=== PATIENT | male | born 1950 | race Caucasian/White ===

== ENCOUNTER 2016-07-18 12:30 | Emergency (ER) | payer BC, OTHER ==
[~2016-07-18] VITALS: Ht 175.3 cm; Wt 133.8 kg
[~2016-07-18 12:30] MED LIST: AMLO10TA2 PO; AMLO5TAB4 PO; FAMO-119 PO; HCT25T PO; LISI20TA PO; METO-272 PO; METO-333 PO
--- OUTSIDE RECORDS SUMMARY | 2016-07-18 12:37 | XMS REPORT | Continuity of Care Document ---
Author Author [facility] Organization [facility] Address Unknown Phone Unavailable Care Team Providers Care Film Recordist Name Role Phone Leandro Rader PCP [phone] Source Comments Some departments are not documenting in the electronic medical record. If you do not see the information that you expected, contact Release of Information in the Health Information Management department at [phone] for further assistance in locating additional records.[facility] Active Allergies and Adverse Reactions No Known Allergies Current Medications Prescription Sig. Disp. Refills Start End Date Status Date metoprolol (LOPRESSOR) 50 Take 50 mg by mouth twice Active mg tablet daily. amLODIPine (NORVASC) 10 Take 10 mg by mouth Active mg tablet daily. famotidine (PEPCID) 20 mg Take 20 mg by mouth twice Active tablet daily as needed. HYDROcodone/acetaminophen Take 1-2 Tabs by mouth 60 Tab 0 12/15/19 Active (NORCO) 5-325 mg tablet every 4 hours as needed 16 for Pain Earliest Fill Date: 12/15/15 Active Problems Problem Noted Date Elective surgery 12/11/2015 Villous adenoma of rectum 11/19/2015 Obesity, Class III, BMI 40-49.9 (morbid obesity) (HCC) 10/28/2015 Rectal mass 10/16/2015 Colonic mass 09/27/2015 Social History Tobacco Use Types Packs/Day Years Used Date Never Smoker Smokeless Tobacco: Never Used Alcohol Use Drinks/Week oz/Week Comments No 0 Standard 0.0 drinks or equivalent Last Filed Vital Signs Vital Sign Reading Time Taken Blood Pressure 143/80 01/03/2016 1:12 PM CDT Pulse 60 01/03/2016 1:12 PM CDT Temperature 37.4 C (99.4 F) 01/03/2016 1:12 PM CDT Respiratory Rate 20 01/03/2016 1:12 PM CDT Height 1.651 m (5' 5") 01/03/2016 1:12 PM CDT Weight 122.834 kg (270 lb 12.8 01/03/2016 1:12 PM CDT oz) Body Mass Index 45.06 01/03/2016 1:12 PM CDT Oxygen Saturation 99% 01/03/2016 1:12 PM CDT Plan of Care Health Maintenance Due Date Last Done Comments Hepatitis C Screening 1950 Physical (Comprehensive) 1959 Exam Pertussis Vaccine 1963 Tetanus Vaccine 1969 Colorectal Cancer 2002 Screening Shingles Vaccine 2012 Influenza Vaccine 01/09/2016 Results from Last 3 Months Not on file
[2016-07-18] MEDS ORDERED: ROPI0.5T2 (13:16)
--- NOTE | 2016-07-18 13:18 | ED Lower Extremity ---
General Chief Complaint: Lower Extremity Stated Complaint: R KNEE INJ Source: patient Exam Limitations: no limitations History of Present Illness Time seen by provider: 13:15 Initial Comments To ER with a right knee injury. States that he was out feeding his bull this morning he was walking to slow with the feed and the bull head butted him in the left hip causing him to twist his right knee. He did not fall and was ambulatory about a half mile back to the house. He went and sat down and when he went to get up and he felt stiff but not painful. Onset: just prior to arrival Severity: mild Pain/Injury Location: right knee Method of Injury: twisted Allergies and Home Medications Allergies Coded Allergies: No Known Drug Allergies (Unverified , 08/22/15) Home Medications Amlodipine Besylate 10 Mg Tablet 10 MG PO DAILY (Reported) Famotidine 20 Mg Tablet #60 20 MG PO BID Prescribed by: KING CASTILLO on 06/30/15 1416 Metoprolol Succinate 50 Mg Tab.er.24h 50 MG PO BID (Reported) Ropinirole HCl 0.5 Mg Tablet #30 (Reported) Constitutional: see HPI EENTM: see HPI Respiratory: no symptoms reported Cardiovascular: no symptoms reported Genitourinary: no symptoms reported Musculoskeletal: see HPI Skin: no symptoms reported Psychiatric/Neurological: No Symptoms Reported Past Usxghqn-Xklygt-Gqlvpi Hx Patient Social History Alcohol Use: Denies Use Recreational Drug Use: No Smoking Status: Never a Smoker Recent Foreign Travel: No Contact w/Someone Who Travel: No Surgeries HX Surgeries: No Respiratory Hx Respiratory Disorders: No Cardiovascular Hx Cardiac Disorders: Yes Cardiac Disorders: Hypertension Neurological Hx Neurological Disorders: No Genitourinary Hx Genitourinary Disorders: No Gastrointestinal Hx Gastrointestinal Disorders: No Musculoskeletal Hx Musculoskeletal Disorders: No Endocrine Hx Endocrine Disorders: No Cancer Hx Cancer: No Psychosocial Hx Psychiatric Problems: No Integumentary HX Skin/Integumentary Disorder: No Blood Transfusions Hx Blood Disorders: No Family Medical History Significant Family History: Hypertension, Migraines Physical Exam Vital Signs Vital Sign - Last 12Hours 07/18/16 13:05 Temp 98.0 Pulse 84 Resp 18 B/P 158/107 O2 Delivery Room Air Capillary Refill : General Appearance: WD/WN no apparent distress HEENT: PERRL/EOMI normal ENT inspection Neck: non-tender full range of motion Respiratory: no respiratory distress no accessory muscle use Gastrointestinal: normal bowel sounds non tender Hips: bilateral hip non-tender, bilateral hip normal inspection, bilateral hip normal range of motion Legs: bilateral leg non-tender, bilateral leg normal inspection, bilateral leg normal range of motion Knees: bilateral knee non-tender, bilateral knee normal inspection, bilateral knee normal range of motion Ankles: bilateral ankle non-tender, bilateral ankle normal inspection, bilateral ankle normal range of motion Feet: bilateral foot non-tender, bilateral foot normal inspection, bilateral foot normal range of motion Neurologic/Psychiatric: alert normal mood/affect oriented x 3 Skin: normal color warm/dry Progress/Results/Core Measures Results/Orders My Orders Orders-TROY MONTELONGO APRN Knee, Right, 3 Views (07/18/16 13:12) Ibuprofen Tablet (Motrin Tablet) (07/18/16 13:30) Medications Given in ED Current Medications Medications Dose Ordered Sig/Tariq Route Start Time Stop Time Status Last Admin Dose Admin Ibuprofen 600 mg ONCE ONCE PO 07/18/16 13:30 07/18/16 13:31 DC 07/18/16 13:41 600 MG Vital Signs/I&O Vital Sign - Last 12Hours 07/18/16 13:05 Temp 98.0 Pulse 84 Resp 18 B/P 158/107 O2 Delivery Room Air Diagnostic Imaging Diagonstic Imaging: Xray Comments NAME: GÉNESIS WELSH MED REC#: [id number] PT STATUS: REG ER : 1950 PHYSICIAN: TROY MONTELONGO APRN ADMIT DATE: 07/18/16/ER Draft Date of Exam:07/18/16 KNEE, RIGHT, 3 VIEWS INDICATION: Injury. Pain. COMPARISON: None. FINDINGS: Three views of the right knee are obtained. No acute fracture, malalignment or osseous destructive process is seen. There is a bipartite patella noted. There is mild tricompartmental marginal spurring. There is some mild ventral soft tissue swelling with possible trace effusion. IMPRESSION: Mild soft tissue swelling and possible trace joint effusion without evidence of an acute osseous abnormality. Mild degenerative changes. Dictated on workstation # [id number] Dict: 07/18/16 1341 Trans: 07/18/16 1348 [id number] Interpreted by: FAMILIA AMATO DO Electronically signed by: Departure Impression Impression: Primary Impression: Right knee sprain Qualified Code: S83.91XA - Sprain of unspecified site of right knee, initial encounter Disposition: 01 HOME, SELF-CARE Condition: Stable Departure-Patient Inst. Decision time for Depature: 13:17 Referrals: HALLIE CHILDS MD (PCP/Family) Primary Care Physician Patient Instructions: Knee Sprain (DC) Add. Discharge Instructions: 1. Wear an Jamie wrap to the knee. Use an ice pack to it as well 3. Tylenol and Motrin for pain 4. Follow-up with your regular doctor next week if you have persistent pain All discharge instructions reviewed with patient and/or family. Voiced understanding. TROY MONTELONGO APRN Jul 18, 2016 13:17
[2016-07-18] MEDS ORDERED: IBUPROFEN TABLET 200 MG TAB PO ONE (13:30)
--- NOTE | 2016-07-18 13:48 | Diagnostic Imaging Report ---
INDICATION: Injury. Pain. COMPARISON: None. FINDINGS: Three views of the right knee are obtained. No acute fracture, malalignment or osseous destructive process is seen. There is a bipartite patella noted. There is mild tricompartmental marginal spurring. There is some mild ventral soft tissue swelling with possible trace effusion. IMPRESSION: Mild soft tissue swelling and possible trace joint effusion without evidence of an acute osseous abnormality. Mild degenerative changes. Dictated by: Dictated on workstation # [id number]
[2016-07-18 13:52] VITALS: BP 0/0
== END 2016-07-18 13:52 | disposition home or self-care (01) ==
LOC: EDUNIT# 12:30 → ER 12:33
DX: S83.91XA Sprain of unspecified site of right knee, initial encounter (principal); I10 Essential (primary) hypertension; W55.22XA Struck by cow, initial encounter; Y92.79 Other farm location as the place of occurrence of the external cause; Y99.8 Other external cause status
CPT/HCPCS: 73562; 99283

== ENCOUNTER 2016-11-05 21:05 | Outpatient (CLI) | payer BC ==
[~2016-11-05 21:05] MED LIST changes: -METO-272 PO; +METO-370 PO; +ROPI0.5T2
== END 2016-11-06 06:43 | disposition home or self-care (01) ==
LOC: SLEEP 21:05
PROVIDERS: ATTEND Registered Nurse
DX: G47.33 Obstructive sleep apnea (adult) (pediatric) (principal)
CPT/HCPCS: 95811

== ENCOUNTER → 2017-10-07 | Outpatient (CLI) | payer MEDICARE, BC ==
[~2017-10-07] VITALS: Ht 172.7 cm; Wt 141.5 kg
[~2017-10-07] MED LIST changes: +CATHETER FLUSH 10 ML SYR IV PRN; +REGADENOSON 0.4 MG/5 ML SYR (LEXISCAN) IV ONE
[2017-10-07 09:29] VITALS: BP 149/80
[2017-10-07 15:05] VITALS: BP_SYST 154
--- NOTE | 2017-10-07 15:05 | Cardiology Stress Test Report ---
Stress Test Report Type of NM Stress Test: Test Type: LEXISCAN 0.4MG/5ML Date of Procedure/Referring: Date of Procedure: October 07, 2017 PCP Jay Jay Bhatia MD Admitting Physician Leandro Rader MD Indications: Chest pain Baseline Heart Rate: 57 Baseline Blood Pressure: Blood Pressure Systolic: 154 Blood Pressure Diastolic: 80 Baseline EKG: Baseline EKG: sinus rhythm Summary: The patient was brought to the stress lab after informed consent was taken. Stress test was performed according to the Lexiscan protocol. 0.4 mg of IV Lexiscan was given. Baseline EKG showed sinus rhythm at 57 bpm and blood pressure 154/80 mmHg. Maximum heart rate 103 bpm and blood pressure 171/81 mmHg. Few PVCs and nonspecific ST downsloping was noted. Patient not have any chest pain, significant ST changes or arrhythmias noted. 10.53 mCi of Myoview given for rest imaging and 29.9 mCi of Myoview were given for stress imaging. Transient ischemic dilatation score 1.05. Ejection fraction 76 percent with normal wall motion. Normal myocardial perfusion during rest and stress. Conclusion: Form chronic a stress test was negative for ischemia. Normal LV function with normal wall motion. Elevated blood pressure. Normal myocardial perfusion imaging during rest and stress. Jay Jay BHATIA MD October 07, 2017 3:05 pm
== END ==
LOC: CARD 07:26
PROVIDERS: ATTEND Internal Medicine Interventional Cardiology
DX: I10 Essential (primary) hypertension (principal); R07.89 Other chest pain; R00.1 Bradycardia, unspecified; R06.09 Other forms of dyspnea; R53.83 Other fatigue; E66.01 Morbid (severe) obesity due to excess calories
CPT/HCPCS: 78452; 93017

== ENCOUNTER → 2017-10-25 | Outpatient (CLI) | payer MEDICARE ==
[~2017-10-25] MED LIST changes: -CATHETER FLUSH 10 ML SYR IV PRN; -REGADENOSON 0.4 MG/5 ML SYR (LEXISCAN) IV ONE
== END ==
LOC: CARD 11:47
PROVIDERS: ATTEND Internal Medicine Interventional Cardiology
DX: R07.89 Other chest pain (principal); R00.1 Bradycardia, unspecified; R06.09 Other forms of dyspnea; R53.83 Other fatigue; I10 Essential (primary) hypertension; E66.01 Morbid (severe) obesity due to excess calories; I07.1 Rheumatic tricuspid insufficiency
CPT/HCPCS: 93306

== ENCOUNTER 2017-11-05 15:18 | Emergency (ER) | payer MEDICARE ==
[~2017-11-05] VITALS: Ht 172.7 cm; Wt 142.9 kg
--- OUTSIDE RECORDS SUMMARY | 2017-11-05 15:24 | XMS REPORT | Clinical Summary ---
Author Author [facility] Organization [facility] Address Unknown Phone Unavailable Care Team Providers Care Project Accountant Name Role Phone Luke Aponte DO Unavailable Leandro Rader MD PCP Flores Riley RN Unavailable Unavailable Comfort Galdamez RN Unavailable Unavailable Beena Zaidi SENIOR GRADUATE ADVISOR Unavailable Source Comments Some departments are not documenting in the electronic medical record. If you do not see the information that you expected, contact Release of Information in the Health Information Management department at [phone] for further assistance in locating additional records.[facility] Allergies No Known Allergies Current Medications Prescription Sig. [...] 10/28/2015 Rectal mass 10/16/2015 Colonic mass 09/27/2015 Family History Medical History Relation Name Comments Cancer-Colon Brother Cancer Mother Cancer-Colon Sister Relation Name Status Comments Brother Mother Sister Social History Tobacco Use Types Packs/Day Years Used Date Never Smoker Smokeless Tobacco: Never Used Alcohol Use Drinks/Week oz/Week Comments No 0 Standard 0.0 drinks or equivalent Sex Assigned at Date Recorded Not on file Last Filed Vital Signs Vital Sign Reading Time Taken Blood Pressure 143/80 01/03/2016 1:12 PM CDT Pulse 60 01/03/2016 1:12 PM CDT Temperature 37.4 C (99.4 F) 01/03/2016 1:12 PM CDT Respiratory Rate 20 01/03/2016 1:12 PM CDT Oxygen Saturation 99% 01/03/2016 1:12 PM CDT Inhaled Oxygen - - Concentration Weight 122.8 kg (270 lb 12.8 oz) 01/03/2016 1:12 PM CDT Height 165.1 cm (5' 5") 01/03/2016 1:12 PM CDT Body Mass Index 45.06 01/03/2016 1:12 PM CDT Plan of Treatment Health Maintenance Due Date Last Done Comments HEPATITIS C SCREENING 1950 PHYSICAL (COMPREHENSIVE) 1957 EXAM PERTUSSIS VACCINE 1963 HIV SCREENING 1967 TETANUS VACCINE 1969 COLORECTAL CANCER 2002 SCREENING SHINGLES RECOMBINANT 2002 VACCINE (1 of 2) PNEUMONIA (PCV13/PPSV23) 2017 VACCINES (1 of 2 - PCV13) INFLUENZA VACCINE 02/07/2018 Implants Implanted Type Area Coal Pulverizer Operator Device Expiration Model / Identifier Date Serial / Lot Barrier Adhesion 3x5in Procedure [id number] 02/06/2018 0 / Pack Bioresorbable Membrane [id number] / Implanted: Qty: 1 on 10/16/2015 by [id number] Luke Aponte DO Results Not on filefrom Last 3 Months
--- OUTSIDE RECORDS SUMMARY | 2017-11-05 15:24 | XMS REPORT ---
Author Author POWER LEWIS [facility] Address [address] [place] [address] Care Team Providers Care Coater Operator Insulation Board Name Role Phone POWER LEWIS Unavailable PROBLEMS Type Condition ICD9-CM Code KRX96-ED Code Onset Dates Condition Status SNOMED Code Problem Special screening for malignant neoplasms, colon V76.51 Active 416218845 Problem Mixed hyperlipidemia 272.2 Active 292573387 Problem Blood in stool 578.1 Active 058014461 Problem Diarrhea 787.91 Active 45597630 Problem Family history of malignant neoplasm of gastrointestinal tract V16.0 Active 777739731 Problem Nausea alone 787.02 Active 706398897 Problem Flatulence, eructation, and gas pain 787.3 Active 370096950 ALLERGIES No Known Allergies ENCOUNTERS Encounter Location Date Diagnosis [facility] [address] [id number] [id number] Nov, Dental examination Z01.[address] [id number][place] [id number] Oct, [address] [id number], [place] [id number] September, Dental caries K02.[address] [id number][place] [id number] 18 Sep, 2016 Encounter for dental examination and cleaning without abnormal findings Z01.[address] [id number], [place] [id number] 15 Sep, 2016 Encounter for dental examination and cleaning without abnormal findings Z01.[address] [id number], [place] [id number] Jul, Encounter for dental examination and cleaning without abnormal findings Z01.20 [facility] [id number] [place] [id number] Mar, [facility] immunization [facility]23 [facility] [address] [id number][place] [id number] September, Dental examination V72.2 [facility] [address]00565[address], [place] [address] Aug, [facility] [id number] [place] [address] Aug, [facility] [id number] [place] [id number] Mar, [facility] [id number] [place] [address] Mar, [facility] [id number] [place] [id number] Feb, [facility] [id number] [place] [address] Feb, [facility] [id number] [place] [id number] Jul, [facility] [id number] [place] [address] Jul, [facility] [id number] [place] [id number] Dec, [facility] [address] [id number] [place] [id number] Jul, [facility] [id number] [place] [id number] Apr, [facility] [address]65100[place], [place] [address] Apr, [facility] [id number] [place] [id number] Mar, [facility] [address]00565100[place], [place] [address] Mar, [facility] [id number] [place] [id number] Feb, [facility] [address]65100[place], [place] [address] Feb, [facility] [id number] [place] [id number] Dec, [facility] [id number] [place] [id number] Dec, [facility] [address]00565100[place], [place] [address] Oct, [facility] [id number] [place] [id number] September, [facility] [id number] [place] [id number] Aug, [facility] [id number] [place] [id number] Aug, [facility] [id number] [place] [id number] May, [facility] [id number] [place] [id number] May, [facility] [address]65100[place], [place] [address] Oct, [facility] [address] [place] [address] Apr, IMMUNIZATIONS No Known Immunizations SOCIAL HISTORY Never Assessed REASON FOR VISIT srp UL and LL PLAN OF CARE Activity Details Follow Up reeval in 4-6 weeks Reason: VITAL SIGNS Heart Rate 56 bpm 2016-09-24 Blood pressure systolic 150 mmHg 2016-09-24 Blood pressure diastolic 77 mmHg 2016-09-24 MEDICATIONS No Known Medications RESULTS No Results PROCEDURES Procedure Date Ordered Result Body Site Periodontal scaling and root September 24, 2016 Periodontal scaling and root September 24, 2016 INSTRUCTIONS MEDICATIONS ADMINISTERED No Known Medications MEDICAL (GENERAL) HISTORY Type Description Date Medical History HBP Surgical History Sleep study
--- OUTSIDE RECORDS SUMMARY | 2017-11-05 15:25 | XMS REPORT ---
Author Author POWER LEW[facility] Address [address] [place] [address] Care Team Providers Care Boats Renter Name Role Phone POWER LEWIS Unavailable PROBLEMS Type Condition ICD9-CM Code XXA13-CT Code Onset Dates Condition Status SNOMED Code Problem Special screening for malignant neoplasms, colon V76.51 Active 169653597 Problem Mixed hyperlipidemia 272.2 Active 501991862 Problem Blood in stool 578.1 Active 189280038 Problem Diarrhea 787.91 Active 85495119 Problem Family history of malignant neoplasm of gastrointestinal tract V16.0 Active 500745142 Problem Nausea alone 787.02 Active 117863912 Problem Flatulence, eructation, and gas pain 787.3 Active 678472012 ALLERGIES No Known Allergies ENCOUNTERS Encounter Location Date Diagnosis [facility] [address] [id number] [id number] Nov, Dental examination Z01.[address] [id number], [place] [id number] Oct, [address] [id number][place] [id number] September, Dental caries K02.[address] [id number][place] [id number] 18 Sep, 2016 Encounter for dental examination and cleaning without abnormal findings Z01.[address] [id number], [place] [id number] 15 Sep, 2016 Encounter for dental examination and cleaning without abnormal findings Z01.[address] [id number], [place] [id number] Jul, Encounter for dental examination and cleaning without abnormal findings Z01.20 [facility] [id number], [place] [id number] Mar, Encounter for immunization Z23 [facility] [address] [id number], [place] [id number] September, Dental examination V72.2 [facility] [address]00565100[place], [place] [address] Aug, [facility] [id number] [place] [address] Aug, [facility] [id number], [place] [id number] Mar, [facility] [id number] [place] [address] Mar, [facility] [id number] [place] [id number] Feb, [facility] [id number] [place] [address] Feb, [facility] [id number] [place] [id number] Jul, [facility] [id number] [place] [address] Jul, [facility] [id number], [place] [id number] Dec, [facility] [address] [id number][place] [id number] Jul, [facility] [id number], [place] [id number] Apr, [facility] [address]65100[place], [place] [address] Apr, [facility] [id number], [place] [id number] Mar, [facility] [address]65100[place], [place] [address] Mar, [facility] [id number], [place] [id number] Feb, [facility] [address]65100[place], [place] [address] Feb, [facility] [address] [facility] [id number], [place] [id number] Dec, [facility] [address] [facility] [id number], [place] [id number] Dec, [facility] [address] [facility] [id number], [place] [address] Oct, [facility] [address] [id number], [place] [id number] September, [facility] [address] [id number] [place] [id number] Aug, [facility] [address] [facility] [id number] [place] [id number] Aug, [facility] [id number], [place] [id number] May, [facility] [id number], [place] [id number] May, [facility] [address]00565100[place], [place] [address] Oct, [facility] [id number] [place] [address] Apr, IMMUNIZATIONS No Known Immunizations SOCIAL HISTORY Never Assessed REASON FOR VISIT srp PLAN OF CARE Activity Details Follow Up SRP 1.5 hour appt. for SRP iris Reason: VITAL SIGNS Heart Rate 55 bpm 2016-09-21 Blood pressure systolic 137 mmHg 2016-09-21 Blood pressure diastolic 76 mmHg 2016-09-21 MEDICATIONS Medication Instructions Dosage Frequency Start Date End Date Duration Status Hydrochlorothiazide 25 mg 1 tablet by Oral route 1 time per day MUST HAVE APPT PRIOR TO FURTHER REFILLS Mar, Active Lisinopril 40 mg 1 tablet by Oral route 2 times per day MUST HAVE APPT PRIOR TO FURTHER REFILLS Mar, Active RESULTS No Results PROCEDURES Procedure Date Ordered Result Body Site Periodontal scaling and root September 21, 2016 Periodontal scaling and root September 21, 2016 INSTRUCTIONS MEDICATIONS ADMINISTERED No Known Medications MEDICAL (GENERAL) HISTORY Type Description Date Medical History HBP Surgical History Sleep study
[2017-11-05] MEDS ORDERED: LISI-552 PO (16:43)
[2017-11-05] MEDS ORDERED: TAMS0.4C98 PO (16:43)
[2017-11-05] MEDS ORDERED: POTA10TA10 PO (16:43)
--- NOTE | 2017-11-05 16:52 | ED Lower Extremity ---
General Chief Complaint: Lower Extremity Stated Complaint: POSS BROKEN FOOT Source: patient Exam Limitations: no limitations History of Present Illness Date Seen by Provider: Nov 05, 2017 Time Seen by Provider: 16:50 Initial Comments To ER with pain over the plantar surface of the left foot laterally. This began this morning when he was climbing up into his tractor. He's been having pain over the arch of his foot, the pain became worse when stepping up into the tractor today. He felt a "snap" and hasd pain to the plantar surface of the foot since. He did not fall. Onset: just prior to arrival Severity: moderate Pain/Injury Location: left foot Modifying Factors: Worse With Movement Allergies and Home Medications Allergies Coded Allergies: No Known Drug Allergies (Unverified , 08/22/15) Home Medications Amlodipine Besylate 10 Mg Tablet, 10 MG PO DAILY, (Reported) Famotidine 20 Mg Tablet, 20 MG PO BID Prescribed by: KING CASTILLO on 06/30/15 1416 Lisinopril 20 Mg Tablet, 20 MG PO DAILY, (Reported) Metoprolol Succinate 50 Mg Tab.er.24h, 25 MG PO BID, (Reported) Potassium Chloride 10 Meq Tablet.er, 10 MEQ PO BID, (Reported) Tamsulosin HCl 0.4 Mg Cap, 0.4 MG PO BID, (Reported) Patient Home Medication List Home Medication List Reviewed: Yes Constitutional: see HPI EENTM: see HPI Respiratory: no symptoms reported Cardiovascular: no symptoms reported Genitourinary: no symptoms reported Musculoskeletal: see HPI Skin: no symptoms reported Psychiatric/Neurological: No Symptoms Reported Past Olihrvp-Vaehte-Rprgpm Hx Patient Social History Alcohol Use: Denies Use Recreational Drug Use: No Smoking Status: Never a Smoker 2nd Hand Smoke Exposure: No Recent Foreign Travel: No Contact w/Someone Who Travel: No Recent Hopitalizations: No Physical Abuse: No Sexual Abuse: No Mistreated: No Fear: No Immunizations Up To Date Tetanus Booster (TDap): More than 5yrs Seasonal Allergies Seasonal Allergies: No Past Medical History Surgeries: Yes (colon resection) Abdominal, Rectal Respiratory: Yes Sleep Apnea Currently Using CPAP: Yes (with 1 L oxygen) Cardiac: Yes Chronic Edema/Swelling, Hypertension Neurological: No Genitourinary: Yes Prostate Problems Gastrointestinal: No (colon resection d/t polyp, colostomy with reversal) Polyps Musculoskeletal: No Endocrine: No HEENT: No Cancer: No Psychosocial: No Nursing Suicide Risk Score: 1 Integumentary: No Blood Disorders: No Family Medical History Hypertension, Migraines Physical Exam Vital Signs Capillary Refill : General Appearance: WD/WN, no apparent distress, obese HEENT: PERRL/EOMI, normal ENT inspection Neck: non-tender, full range of motion Respiratory: no respiratory distress, no accessory muscle use Hips: bilateral hip non-tender, bilateral hip normal inspection, bilateral hip normal range of motion Legs: bilateral leg non-tender, bilateral leg normal inspection, bilateral leg normal range of motion Knees: bilateral knee non-tender, bilateral knee normal inspection, bilateral knee normal range of motion Ankles: bilateral ankle non-tender, bilateral ankle normal inspection, bilateral ankle normal range of motion Feet: left foot other (there is no erythema swelling or ecchymosis to the foot. The area that is tender to palpation is over the plantar surface laterally over the proximal fifth TMT joint.) Neurologic/Psychiatric: alert, normal mood/affect, oriented x 3 Skin: normal color, warm/dry Progress/Results/Core Measures Results/Orders My Orders Orders - TROY MONTELONGO APRN Foot, Left, 3 Views (11/05/17 16:30) Departure Communication (Admissions) NAME: GÉNESIS WELSH MED REC#: [id number] PT STATUS: REG ER : 1950 PHYSICIAN: TROY MONTELONGO APRN ADMIT DATE: 11/05/17/ER Signed Date of Exam:11/05/17 FOOT, LEFT, 3 VIEWS INDICATION: Stepped on a tractor, twisted and felt a pop laterally with pain.. TECHNIQUE: 3 views of the left foot CORRELATION STUDY: None FINDINGS: The osseous structures of the foot are intact. Joint spaces are maintained. Alignment anatomic. Small bone densities adjacent to the lateral aspect of the cuboid likely of no significance. Soft tissues appearing unremarkable. IMPRESSION: 1. Negative for acute findings of the foot. Dictated by: Dictated on workstation # [id number] Dict: 11/05/171646 Trans: 11/05/171647 DO [id number] Interpreted by: BINH DULDEY DO Electronically signed by: BINH DUDLEY DO 06/29/18 1648 I don't know that well Impression Primary Impression: Sprain and strain of foot Disposition: 01 HOME, SELF-CARE Condition: Stable Departure-Patient Inst. Decision time for Depature: 16:51 Referrals: YU LANDON (PCP/Family) Primary Care Physician Patient Instructions: Sprain (DC) Add. Discharge Instructions: . Wear shoes with arch support. If your shoes do not have good support in the arch region, you can purchase arch supports at [facility] and [facility]. Follow-up with your doctor next week for recheck. Return to ER for any worsening symptomsAll discharge instructions reviewed with patient and/or family. Voiced understanding. Images Extremities-Lower 1 - Tenderness TROY MONTELONGO HAND FOLDER Nov 05, 2017 16:52
[2017-11-05 17:18] VITALS: BP 139/72
== END 2017-11-05 17:18 | disposition home or self-care (01) ==
LOC: EDUNIT# 15:18 → ER 15:20
DX: S93.602A Unspecified sprain of left foot, initial encounter (principal); G47.30 Sleep apnea, unspecified; I10 Essential (primary) hypertension; Z90.49 Acquired absence of other specified parts of digestive tract; Z87.19 Personal history of other diseases of the digestive system; Z99.81 Dependence on supplemental oxygen; V84.4XXA Person injured while boarding or alighting from special agricultural vehicle, initial encounter
CPT/HCPCS: 73630

== ENCOUNTER 2018-07-27 13:18 | Inpatient (IN) | payer MEDICARE ==
[~2018-07-27] VITALS: Ht 168.9 cm; Wt 138.4 kg
[~2018-07-27 13:18] MED LIST changes: +ACETAMINOPHEN 500 MG TAB (TYLENOL) PO PRN; +ALPRAZolam 0.25 MG (XANAX) TAB PO PRN; -AMLO10TA2 PO; +AMLO10TA7 PO; +CALCIUM CARBONATE 500 MG (TUMS) TAB.CHEW PO PRN; +HYDROcodone/APAP 5 MG/325 MG (LORTAB) TAB PO PRN; +LISI-552 PO; +LOPERAMIDE 2 MG (IMODIUM) CAP PO PRN; +POTA10TA10 PO; -ROPI0.5T2; +ROPI0.5T2 PO; +TAMS0.4C98 PO; +diphenhydrAMINE 25 MG TAB (BENADRYL) PO PRN
--- NOTE | 2018-07-27 13:20 | NUR ---
Génesis Freire admitted to room 222-1, with an admitting diagnosis of Left Total Knee Replacement, on 07/27/18 from [facility] via [facility], accompanied by and sister.GÉNESIS FREIRE introduced to surroundings, call light, bed controls, phone, TV, temperature control, lights, meal times, smoking policy, visitor policy, side rail policy, bathrooms and showers. Patient Rights given to patient in the handbook.GÉNESIS FREIRE verbalizes understanding that [facility] is not responsible for the loss or damage to any personal effects or valuables that are kept in the patients possession during their hospitalization. The following Patient Care Plans were discussed with the patient and family: Discharge Planning, Impaired Mobility, and Total Knee Replacement. GÉNESIS FREIRE verbalizes understanding of Interdisciplinary Patient Education. Patient received Patient Rights Booklet, which includes Privacy Act Statement and Data Collection Information Summary.
--- NOTE | 2018-07-27 13:42 | Occupational Therapy Eval ---
OT Evaluation-General/PLF Medical Diagnosis Admission Date Jul 27, 2018 at 13:18 Medical Diagnosis: left TKA Onset Date: Jul 25, 2018 Therapy Diagnosis Therapy Diagnosis: decreased self care skills Height/Weight Height (Feet): 5 Height (Inches): 8.00 Weight (Pounds): 315 Weight (Ounces): 0.0 Referral Physician: Rina Medical History Pertinent Medical History: GERD, HTN Additional Medical History SANTANA, OA, BPH, HLP, colon resection. Current History Pt s/p elective TKA Reviewed History: Yes Social History Home: Single Level Current Living Status: Spouse Entry Into Home: Ramp ADL-Prior Level of Function Therapy Code Descriptions/Definitions Functional Mcgrann Measure: 0=Not Assessed/NA 4=Minimal Assistance 1=Total Assistance 5=Supervision or Setup 2=Maximal Assistance 6=Modified Mcgrann 3=Moderate Assistance 7=Complete Mcgrann Therapy Quality Codes: 6 Independent with activity with or without an assistive device 5 Patient requires set up or clean up by helper. Patient completes activity by themselves 4 Supervision or touching assist (CGA). [place] provide cues , steadying assist 3 The helper provides less than half the effort to complete the activity 2 The helper provides more than half the effort to complete the activity 1 Dependent. The helper does all the effort to complete an activity 7 Patient refused to complete or attempt activity 9 The patient did not perform the activity before the current illness or injury 88 Not attempted due to Medical conditions or safety concerns Functional Abilities and Goals: Independent: Patient completed the activities by him/herself, with or without an assistive device, with no assistance from a helper. Needed Some Help: Patient needed partial assistance from another person to complete activities. Dependent: A helper completed the activities for the patient. Unknown: Not Applicable: ADL PLOF Comments assists with putting socks and shoes on, but pt states he is independent otherwise. Uses cane as needed for mobility. Self Care: Needed Some Help (socks and shoes) Functional Cognition: Independent DME/Equipment: Bath Chair, Shower Drive Self: Yes OT Current Status Subjective Pt arrived to ARU, agreed to therapy. Pt reports 4/10 pain in left knee. Mental Status/Objective Patient Orientation: Person, Place, Situation Current Glasses/Contacts: Yes Hearing Aids: No Hand Dominance: Right Upper Extremity ROM Grossly WFL Upper Extremity Coordination Intact Upper Extremity Strength Grossly WFL ADL-Treatment ADL-Current Co-treat with PT secondary to decreased activity tolerance. Pt admitted from outside facility, states he is had therapy this morning and is fatigued, but agrees to therapy. Gait to restroom with FWW. Pt able to pull pants down, but required assist to pull pants up. Pt transferred in and out of bed with assist for LE. Pt requests shower. RN states pt okay to shower with dressing covered. Pt transferred to walk in shower with bench using grab bars. Doffed shirt with SBA. Pt required assist to pull shorts down over feet. Seated bathing completed using hand held shower. Upper body bathing completed with SBA. Pt able to wash bilateral upper legs, but requires assist for lower legs and buttocks. Mod assist required to stand from shower bench. Don pullover shirt with SBA. Pt able to thread right LE into underwear and shorts, but requires assist with left LE. Pt able to pull up over hips with minimal assistance. Pt had minor LOB during pant hike, requiring min assist to correct. Assist required to don ANUJ hose and socks. Pt fatigues with activity and requires occasional rest breaks throughout treatment. Pt requested to use restroom again. Gait to restroom with FWW with cues for safety and walker use. Stood at toilet to urinate with minimal assistance for balance during clothing management. Stood at sink to wash hands with CGA for balance. Pt returned to EOB, sit to supine with assist for LE. Co-treat with PT. OT focusing on ADL completion, transfers, and safety. Pt focusing on transfers, balance during ADL tasks, and LE management. Bathing (FIM): 3 Shower/Bathe Self (QC): 3 Upper Body Dressing (FIM): 5 Upper Body Dressing (QC): 4 Lower Body Dressing (FIM): 3 Lower Body Dressing (QC): 3 On/Off Footwear (QC): 2 Toileting (FIM): 3 Toileting Hygiene (QC): 3 Toilet/Commode Transfer (FIM): 3 Toilet Transfer (QC): 3 Shower Transfer (FIM): 3 Education OT Patient Education: Rehab process Teaching Recipient: Patient Teaching Methods: Discussion Response to Teaching: Verbalize Understanding OT Short Term Goals Short Term Goals Time Frame: Aug 03, 2018 Bathing(FIM): 4 Lower Body Dressing(FIM): 4 Toilet/Commode Transfer(FIM): 4 Shower Transfer(FIM): 4 Additional Short Term Goals: 1-Demonstrate ADL Tasks, 2-Verbalize Understanding , 3-ImproveStrength/Delma 1=Demonstrate adherence to instructed precautions during ADL tasks. 2=Patient will verbalize/demonstrate understanding of assistive devices/ modifications for ADL. 3=Patient will improve strength/tolerance for activity to enable patient to perform ADL's. OT Retirement Goals Retirement Goals Time Frame: Aug 17, 2018 Eating (FIM): 6 Eating (QC): 6 Groomin Oral Hygiene (QC): 6 Bathing(FIM): 5 Shower/Bathe Self (QC): 5 Upper Body Dressing(FIM): 6 Upper Body Dressing (QC): 6 Lower Body Dressing(FIM): 5 Lower Body Dressing (QC): 5 On/Off Footwear (QC): 5 Toileting(FIM): 6 Toileting Hygiene (QC): 6 Toilet/Commode Transfer(FIM): 6 Toilet/Commode Transfer (QC): 6 Shower Transfer(FIM): 5 Additional Goals: 1-Demonstrate ADL Tasks, 2-Verbalize Understanding, 3- ImproveStrength/Delma 1=Demonstrate adherence to instructed precautions during ADL tasks. 2=Patient will verbalize/demonstrate understanding of assistive devices/ modifications for ADL. 3=Patient will improve strength/tolerance for activity to enable patient to perform ADL's. goals established to promote increased functional independence and allow safe discharge home. OT Education/Plan Problem List/Assessment Assessment: Decreased Activ Tolerance, Dependent Transfers, Impaired Funct Balance, Impaired Self-Care Skills Pt s/p left TKA with decreased mobility, activity tolerance, and ADL functioning. Pt to benefit from skilled OT intervention for ADL training, transfers, strengthening, and home safety education to increase level of independence and allow safe discharge home with spouse. Discharge Recommendations Plan/Recommendations: Continue POC Treatment Plan/Plan of Care Treatment,Training & Education: Yes Patient would benefit from OT for education, treatment and training to promote independence in ADL's, mobility, safety and/or upper extremity function for ADL' s. Plan of Care: ADL Retraining, Functional Mobility, Group Exercise/Act as Ind, UE Funct Exercise/Act Treatment Duration: Aug 17, 2018 Frequency: At least 5 of 7 days/Wk (IRF) Estimated Hrs Per Day: 1.5 hours per day Agreement: Yes Rehab Potential: Good Time/GCodes Start Time: 13:20 Stop Time: 14:55 Total Time Billed (hr/min): 85 Billed Treatment Time 1 visit, EVM(10minutes), ADLx5(75minutes) [id number] OT eval [id number] PT eval' [id number] Co-treat with PT EARLE LAUGHLIN OT Jul 27, 2018 13:42
[2018-07-27] MEDS ORDERED: FURO20TA4 PO (13:58)
[2018-07-27] MEDS ORDERED: TAMS0.4C98 PO (13:58)
[2018-07-27] MEDS ORDERED: FAMO20TA5 PO (13:58)
[2018-07-27] MEDS ORDERED: LISI40TA PO (13:58)
[2018-07-27] MEDS ORDERED: POTA10CA43 PO (13:58)
[2018-07-27] MEDS ORDERED: BACL10TA PO (13:59)
[2018-07-27] MEDS ORDERED: MULT1TAB69 PO (13:59)
[2018-07-27] MEDS ORDERED: HYDR-3820 PO (13:59)
[2018-07-27] MEDS ORDERED: ASPI-983 PO (13:59)
[2018-07-27] MEDS ORDERED: METO50TA15 PO (14:01)
--- NOTE | 2018-07-27 14:11 | NUR ---
UPDATED MED REC TO THE LIST OF MEDICATIONS ORDERED UPON DISCHARGE FROM [facility]. I COMPARED THE CONTINUED MEDICATIONS TO THE EXT MED HX. NOTE THEY ORDERED TO CONTINUE METOPROLOL TARTRATE 50MG BID HOWEVER I CALLED [facility] TO VERIFY LAST FILL DATE AND IT WAS FILLED 05-07-18 METOPROLOL TARTRATE 50MG 1/2 TAB BID #90. I VERIFIED WITH THE PATIENTS FAMILY THAT THIS WAS 1/2 BID AND UPDATED THE MED REC WITH THAT CHANGE. NEW MEDS ORDERED FROM [facility] WERE FOLLOWS: HYDROCODONE 10-325MG 2 TABS Q4H PRN ASPIRIN 81MG BID BACLOFEN 10MG TID PRN I WILL UPDATE THE MED REC BACK TO THE HOME MEDS AT A LATER DATE FOR PROPER DISCHARGE ORDERS. Addendum: 08/01/18 at 1327 by YOAV JOSHUA [facility] UPDATED MED REC TO HOME MED LIST PRIOR TO DISCHARGE FROM [facility] AT THIS TIME FOR PROPER DISCHARGE ORDERS. I REMOVED THE THREE NEW MEDS FROM [facility]; HYDROCODONE, ASPIRIN, AND BACLOFEN. I ALSO ADDED ADVIL AND GLUCOSAMINE THE PATIENT NORMALLY TAKES AT HOME BUT HAD BEEN TOLD TO STOP FOR SURGERY.
--- NOTE | 2018-07-27 15:37 | ST Cognitive Linguistic Eval ---
Speech Evaluation-General Medical Diagnosis left TKA Onset Date: Jul 25, 2018 Therapy Diagnosis Therapy Diagnosis: Cognitive-communication Precautions Precautions/Isolations: Standard Precautions Referral Referring Physician: Dr. Flynn Medical History Pertinent Medical History: GERD, HTN Reviewed History: Yes Social History Current Living Status: Spouse Speech PLF-Current Status Prior Level of Function Patient lived at home with his . He was independent for most of his daily needs at that time. Subjective Patient was pleasant and cooperative with the cognitive evaluation. Language Eval: Auditory Comprehends Simple Yes/No Ques: Functional Indent/Objects Multiple Booker: Functional Ident/Pics in Multiple Booker: Functional Follows 1-Step Commands: Functional Follows Complex Directions: Functional Follows General Conversations: Functional Language Eval: Verbal Language Completes Spontaneous Greeting: Functional Produces Auto, Serial Info: Functional Imitates Simple Words/Phrases: Functional Word Finding: Functional Requests Basic Needs: Functional States Basic Personal Info: Functional Expresses Complex Ideas: Functional Objective Cognitive Domain Attention: WNL Memory: WNL Problem Solving: Functional Executive Functions: WNL Visuospatial Skills: WNL Clock Drawing Severity Rating: WNL Objective Formal/Standardized Tests Entriken Cognitive Assessment (MOCA) Results Visuospatial/Executive: 5/5, Namin/3, Memory: Immediate 5/5, Delayed with cues 5/5, Attention: 6/6, Language: 3/3, Abstraction: 2/2, Orientation: 6/6 for a total of 30/30 Oral Motor/Speech Production Within Functional Limits Impression The patient is a pleasant 68 year old male who was admitted to the ARU s/p TKR. The patient was able to complete the MOCA at bedside with 100% on all cognitive areas tested. The patient does not require skilled ST services at this time. Communication/Social Cognition Comprehension: 7 Expression: 7 Social Interaction: 7 Problem Solvin Memory: 7 Speech Patient Assess Expression of Ideas/Wants: Expression (4) Understanding Verbal Content: Understands (4) Brief Interview-Mental Status: Yes Repetition of Three Words: Three (3) Temporal Orientation: Year: Correct (3) Temporal Orientation: Month: Accurate within 5 days(2) Temporal Orientation: Day: Correct (1) Recall : Wear to say "Sock": Yes, no cue required (2) Recall : Color: Yes, no cue required (2) Recall : Bed: Yes, no cue required (2) Memory/Recall Ability: Current season, Location of own room, That he or she is in a hsp/hsp unit Speech-Plan Patient/Family Goals Patient/Family Goals: The patient plans to return home with his post rehab. Treatment Plan Speech Therapy Treatment Plan: Discontinue ST The patient's current status does not require skilled ST services. Treatment Duration: Jul 27, 2018 Frequency: 1 time per week Estimated Hrs Per Day: .25 hour per day Rehab Potential: Good Barriers to Learning: None identified Pt/Family Agrees to Plan: Yes Safety Risks/Education Teaching Recipient: Patient Teaching Methods: Discussion Response to Teaching: Verbalize Understanding Education Topics Provided: Safety within his room and utilization of the call light as needed. Time Speech Therapy Time In: 15:00 Speech Therapy Time Out: 15:25 Total Billed Time: 20 Billed Treatment Time 1, ELLIE Michel Jul 27, 2018 15:37
--- NOTE | 2018-07-27 16:07 | Physical Therapy Evaluation ---
PT Evaluation-General Medical Diagnosis Admission Date Jul 27, 2018 at 13:18 Medical Diagnosis: left TKA Onset Date: Jul 25, 2018 Therapy Diagnosis Therapy Diagnosis: weakness; abn gait Height/Weight Height (Feet): 5 Height (Inches): 6.50 Weight (Pounds): 309 Weight (Ounces): 15.0 Precautions Precautions/Isolations: Standard Precautions Weight Bear Status Right Lower Extremity: Right Full Weight Bearing Left Lower Extremity: Left Weight Bearing/Tolerated Referral Physician: Rina Reason for Referral: Evaluation/Treatment Medical History Pertinent Medical History: Arthritis, GERD, HTN Additional Medical History BPH Current History Elective left TKR due to OA left knee. Reviewed History: Yes Social History Home: Single Level Current Living Status: Spouse Entry Into Home: Ramp Prior/Core FIM Prior Level of Function Therapy Code Descriptions/Definitions Functional [place] Measure: 0=Not Assessed/NA 4=Minimal Assistance 1=Total Assistance 5=Supervision or Setup 2=Maximal Assistance 6=Modified [place] 3=Moderate Assistance 7=Complete [place] Therapy Quality Codes: 6 Independent with activity with or without an assistive device 5 Patient requires set up or clean up by helper. Patient completes activity by themselves 4 Supervision or touching assist (CGA). [place] provide cues , steadying assist 3 The helper provides less than half the effort to complete the activity 2 The helper provides more than half the effort to complete the activity 1 Dependent. The helper does all the effort to complete an activity 7 Patient refused to complete or attempt activity 9 The patient did not perform the activity before the current illness or injury 88 Not attempted due to Medical conditions or safety concerns Functional Abilities and Goals: Independent: Patient completed the activities by him/herself, with or without an assistive device, with no assistance from a helper. Needed Some Help: Patient needed partial assistance from another person to complete activities. Dependent: A helper completed the activities for the patient. Unknown: Not Applicable: Bed Mobility: 7 Transfers (B,C,W/C) (FIM): 7 Gait: 7 Indoor Mobility (Ambulation): Independent Stairs: Independent Community ambulator. PT Evaluation-Current Subjective Pt reports, "They worked me over before I came here today." Agreeable to PT this visit. Pain Numeric Pain Scale: 4 Location: Left Location Body Site: Knee Pain Description: Ache Pt/Family Goals His goal is to return to his home with his when able. Objective Patient Orientation: Person, Place, Time, Situation Problem Solving: Fair ROM/Strength ROM Lower Extremities Right LE ROM is functional but knee flexion is limited by soft tissue/obesity. Left knee ROM is grossly 0-8-60 degrees Strenght Lower Extremities R LE strength is WFL; Left LE strenth is grossly 3/5 throughout. Integumentary/Posture Integumentary Refer to nursing notes for assessment. Bowel Incontinence: No Bladder Incontinence: No Posture rounded shoulders and forward head slightly; lacks full hip extension in standing. Neuromuscular (Tone, Coordination, Reflexes) intact and functional Sensory Vision: Wears Glasses Hearing: Functional Hand Dominance: Right Sensation Right Lower Extremit: Intact Sensation Left Lower Extremity: Intact Transfers Therapy Code Descriptions/Definitions Functional [place] Measure: 0=Not Assessed/NA 4=Minimal Assistance 1=Total Assistance 5=Supervision or Setup 2=Maximal Assistance 6=Modified [place] 3=Moderate Assistance 7=Complete [place] Therapy Quality Codes: 6 Independent with activity with or without an assistive device 5 Patient requires set up or clean up by helper. Patient completes activity by themselves 4 Supervision or touching assist (CGA). [place] provide cues , steadying assist 3 The helper provides less than half the effort to complete the activity 2 The helper provides more than half the effort to complete the activity 1 Dependent. The helper does all the effort to complete an activity 7 Patient refused to complete or attempt activity 9 The patient did not perform the activity before the current illness or injury 88 Not attempted due to Medical conditions or safety concerns Transfers (B, C, W/C) (FIM): 2 Scootin Rollin Roll Left to Right (QC): 3 Supine to/from Sit: 3 (assist with both legs to get into bed; assist with both legs to get out of bed) Sit to/from Stand: 3 (skilled cues for hand placement and sequencing. ) Sit to Lying (QC): 3 Lying to Sitting/Side of Bed(Q: 3 Sit to Stand (QC): 3 Chair/Gtu-os-Mfvzh Xfer(QC): 4 Pt takes extra time to complete tasks and requires cues to sequence. Gait Does the Patient Walk?: Yes Mode of Locomotion: Walk Anticipated Mode of Locomotion: Walk Gait (FIM): 2 Distance (FIM): 6=081-78 ft Walk 10 feet (QC): 4 Walk 50 ft with 2 Turns(QC): 4 Walk 150 ft (QC): 88 Distance: 50 ft Gait Level of Assist: 4 (min assist and heavy cues for safety and sequencing. ) Gait Persons Needed: 1 Gait Assistive Device: FWW Comments/Gait Description slow gait and at times goes so slow that he loses his balance backwards. decreased step length and tends to walk with left LE in ER. Wheelchair Training Does the Pt Use a Wheelchair?: No Stairs Will assess steps at next visit. Balance Sitting Static: Good Sitting Dynamic: Good Standing Static: Fair Standing Dynamic: Fair Picking up an Object (QC): 88 (unable to attempt) Treatment Applied CPM and set at 0-54 degrees. Co treat with OT due to the heavy need for assist and heavy cues for completion of tasks. Pt performed ADL task of undressing, showering and dressing and as OT addressed self care and ADL tasks, PT addressed transfers with heavy cues for hand placement, sequencing; as well as assist with static and dynamic balance in standing while in the shower . Pt is impulsive at times and requires assist of 2 to complete tasks safely with one clinician assisting with the task and the other providing cues to complete. Multiple sit to stand transfers from the bed, chair, toilet and shower and standing balance as he donned and doffed his clothing. Assessment/Needs Pt is post left TKR with significantly limited functional strength and ROM that impairs his ability to transfer, walk or complete tasks in a timely manner. He will benefit from skilled PT intervention to address his deficits to return his mobility to a mod indep level so that he is able to return home and care for himself. He is distracted easily and his safety awareness is impaired. He will benefit from eduction on safety as well. Rehab Potential: Good PT Short Term Goals Short Term Goals Time Frame: Aug 03, 2018 Transfers (B,C,W/C) (FIM): 4 Gait (FIM): 4 Distance (FIM): 3=150 ft Gait Assistive Device: FWW Stairs (FIM): 2 # of Steps: 4 PT Opener Goals Skilled Nursing Goals PT Opener Goals Time Frame: Aug 17, 2018 Transfers (B,C,W/C) (FIM): 7 Sit to Lying (QC): 6 Lying-Sitting on Side/Bed(QC): 6 Sit to Stand (QC): 6 Roll Left to Right (QC): 6 Chair/Enp-wz-Zvhqd Xfer(QC): 6 Car Transfer (QC): 6 Does the Patient Walk: Yes Gait (FIM): 6 Gait distance (FIM): 3=150 ft Walk 10 feet (QC): 6 Walk 10ft-Uneven Surface(QC): 6 Walk 50ft with 2 Turns (QC): 6 Walk 150 ft (QC): 6 Gait Assistive Device: FWW Does the Pt use WC or Scooter?: No Stairs (FIM): 5 (household) # of Steps: 4 1 Step (curb) (QC): 6 4 Steps (QC): 6 12 Steps (QC): 88 Stairs Level Of Assist: 6 Picking up an Object (QC): 4 Goal is for pt to be mod indep with functional mobility so he can care for himself at home. PT Plan Problem List Problem List: Activity Tolerance, Functional Strength, Safety, Balance, Gait, Transfer, Bed Mobility, ROM Treatment/Plan Treatment Plan: Continue Plan of Care Treatment Plan: Bed Mobility, Education, Functional Activity Delma, Functional Strength, Group Therapy, Gait, Safety, Therapeutic Exercise, Transfers Treatment Duration: Aug 17, 2018 Frequency: At least 5 of 7 days/Wk (IRF) Estimated Hrs Per Day: 1.5 hours per day Patient and/or Family Agrees t: Yes Safety Risks/Education Patient Education: Gait Training, Transfer Techniques, Safety Issues Teaching Recipient: Patient Teaching Methods: Demonstration, Discussion Response to Teaching: Reinforcement Needed Discharge Recommendations Therapy D/C Recommendations: Physical Therapy Home Care Time/GCodes Time In: 1320 Time Out: 1340 ([id number]) Total Billed Treatment Time: 60 Total Billed Treatment visit EVM 10 FA 50 (co treat with OT) REYMUNDO DEL ROSARIO PT Jul 27, 2018 16:07
--- NOTE | 2018-07-27 17:20 | PM&R H&P / Post Admit Assess ---
History of Present Illness HPI/Chief Complaint CC: Debility following left total knee replacement at [facility] uncomplicated by Dr Girard HPI: This is a 68-year-old white male patient of UDAY Jean at [facility] and who presents following a left total knee replacement uncomplicated by Dr. Girard at [facility] in [place]. Due to the fact of his elevated BMI and obstructive sleep apnea and multiple comorbidities and slow recovery he was deemed meeting criteria for inpatient rehab prior to returning home to set up for success following an uncomplicated surgery. He did have a bowel movement yesterday and is urinating well and he did bring his CPAP machine with him. Pain is controlled but he is sore today and he did work out with physical therapy earlier today prior to discharge to [facility]. I reviewed all of his current medications and restarted all of them that he was receiving in [place]. Source: patient, family, old records Exam Limitations: no limitations Date Seen 07/27/18 Time Seen by a Provider: 13:30 Attending Physician Amarilis Victor DO PCP No,Local Physician Referring Physician Date of Admission Jul 27, 2018 at 13:18 Home Medications & Allergies Home Medications Reviewed patient Home Medication Reconciliation performed by pharmacy medication reconciliations golf technician and/or nursing. Patients Allergies have been reviewed. Allergies Allergies Coded Allergies No Known Drug Allergies (Unverified08/22/15) Past [id number]-Ezojsa Hx Past Med/Social Hx: Reviewed Nursing Past Med/Soc Hx, Reviewed and Corrections made Patient Social History Marrital Status: Employed/Student: employed ([employer]) Alcohol Use: Denies Use Recreational Drug Use: No Smoking Status: Never a Smoker 2nd Hand Smoke Exposure: No Physical Abuse Screen: No Sexual Abuse: No Recent Foreign Travel: No Contact w/other who traveled: No Recent Hopitalizations: No Recent Infectious Disease Expo: No Immunizations Up To Date Tetanus Booster (TDap): More than 5yrs Pediatric: Yes Date of Influenza Vaccine: Apr 11, 2018 Seasonal Allergies Seasonal Allergies: No Past Medical History Surgeries: Abdominal, Orthopedic, Rectal Respiratory: Sleep Apnea Currently Using CPAP: Yes Currently Using BIPAP: No Cardiac: Chronic Edema/Swelling, Hypertension Genitourinary: Benign Prostatic Hyperpl, Prostate Problems Gastrointestinal: Gastroesophageal Reflux, Polyps Musculoskeletal: Arthritis History of Blood Disorders: No Family History Arthritis 19 FATHER 19 MOTHER G8 BROTHER G8 BROTHER G8 BROTHER G8 BROTHER G8 SISTER G8 SISTER G8 SISTER G8 SISTER Asthma G8 SISTER Cardiovascular disease 19 FATHER G8 SISTER Colon cancer G8 BROTHER Deafness or hearing loss G8 BROTHER Diabetes mellitus 19 FATHER Gastroenteritis G8 BROTHER Hypercholesterolemia G8 SISTER Hypertension 19 FATHER 19 MOTHER G8 BROTHER G8 BROTHER G8 BROTHER G8 BROTHER G8 SISTER G8 SISTER G8 SISTER G8 SISTER Osteoporosis G8 SISTER Respiratory disorder G8 SISTER Seizure disorder G8 BROTHER Hypertension, Migraines Review of Systems Constitutional: see HPI, weakness EENTM: no symptoms reported Respiratory: no symptoms reported Cardiovascular: no symptoms reported Gastrointestinal: no symptoms reported Genitourinary: no symptoms reported Musculoskeletal: joint pain Skin: no symptoms reported Psychiatric/Neurological: No Symptoms Reported All Other Systems Reviewed Negative Unless Noted: Yes Physical Exam Exam Vital Signs Vital Signs Date Time Temp Pulse Resp B/P (MAP) Pulse Ox O2 Delivery O2 Flow Rate FiO2 07/27/18 21:00 Room Air Capillary Refill : General Appearance: No Apparent Distress, WD/WN, Chronically ill, Obese HEENT: PERRL/EOMI, Normal ENT Inspection, Pharynx Normal, Moist Mucous Membranes Neck: Full Range of Motion, Normal Inspection, Non Tender, Supple Respiratory: Chest Non Tender, Lungs Clear, Normal Breath Sounds, No Accessory Muscle Use, No Respiratory Distress Cardiovascular: Regular Rate, Rhythm, No Edema, No Gallop, No JVD, No Murmur Gastrointestinal: Normal Bowel Sounds, No Organomegaly, No Pulsatile Mass, Non Tender, Soft Back: Normal Inspection, No CVA Tenderness, No Vertebral Tenderness Extremity: Normal Capillary Refill, Normal Inspection, Normal Range of Motion ( except left leg due to knee replacement status), Non Tender, No Calf Tenderness , No Pedal Edema Neurologic/Psychiatric: Alert, Oriented x3, No Motor/Sensory Deficits, Normal Mood/Affect Skin: Normal Color, Warm/Dry Lymphatic: No Adenopathy Results Results/Procedures Labs Patient resulted labs reviewed. Assessment/Plan Assessment and Plan Assess & Plan/Chief Complaint Assessment: Debility Status post uncomplicated left total knee replacement by Dr. Girard POD # 2 Obstructive sleep apnea Severe hypertension requiring cardiology management by Hyperlipidemia GERD BPH Chronic dyspnea Chronic lower extremity edema Nighttime hypoxia requiring oxygen supplementation through CPAP machine Obesity Plan: Continue all home meds CPAP with oxygen Pain control Monitor labs Intensive therapies (1) Status post left knee replacement Post Admission Physician Asses Date seen by provider: Jul 27, 2018 Time seen by provider: 13:30 The preadmission screen agrees with the post admission assessment that the patient is a good candidate for inpatient rehabilitation. The patient will have a comprehensive program of inpatient rehabilitation with a goal of maximizing level of functional independence prior to discharge home with family. The patient will have PT/OT ninety minutes per day, each discipline, five days a week for gait, strengthening, conditioning, balance, ADLs, any patient/family/caregiver training as necessary. Speech therapy to do cognitive assessment and treat as indicated. Rehabilitation nursing to assist with bowel, bladder, skin, wound care, medication administration, pain management. Cellophane Worker to assist with discharge planning, community reentry. SCD's for DVT prophylaxis. He appears to be well motivated to participate in three hours of therapy a day. He should be able to tolerate three hours of therapy a day from a medical standpoint. He should benefit from the three hours of therapy a day. He has a reasonable discharge plan, reasonable discharge rehabilitation goals and a supportive family. He has various comorbidities that need to be closely monitored with medications and treatments adjusted on a daily basis as needed. These include: Barriers to discharge for this patient who had been independent prior to this are for him to be modified independent to supervision for ADLs and mobility skills prior to discharge home with [family], so as to lessen the burden of the caregivers. Risks for this patient include: 1. Fall 2. Fracture 3. DVT 4. Pulmonary embolism 5. Wound infection 6. Skin breakdown 7. Contractures 8. Poorly controlled pain 9. Urinary retention 10. UTI 11. Respiratory infection 12. Aspiration Estimated Length of Stay: 5 days Prognosis: Rehab prognosis appears good for goal of discharge home with family modified independent to supervision for ADLs and mobility skills. General: Alert, Oriented X3, Cooperative, No Acute Distress HEENT: Atraumatic, PERRLA Neck: Supple, No JVD, No Thyromegaly, +2 Carotid Pulse No Bruit, No LAD Lungs: Clear to Auscultation, Normal Air Movement Heart: Regular Rate, Normal S1, Normal S2 Abdomen: Normal Bowel Sounds, Soft, No Tenderness, No Hepatosplenomegaly, No Masses Extremities: No Clubbing, No Cyanosis, No Edema, Normal Pulses, No Tenderness/ Swelling Skin: No Rashes, No Breakdown, No Significant Lesion Neuro: Normal Speech, Normal Tone, Sensation Intact, Cranial Nerves 3-12 NL, Reflexes 2+, Other (left leg limited ROM) Psych/Mental Status: Mental Status NL, Mood NL AMARILIS VICTOR DO Jul 27, 2018 17:20
[2018-07-27] MEDS ORDERED: BACLOFEN 10 MG (LIORESAL) TAB PO PRN (17:45)
[2018-07-27] MEDS: KCL 10 MEQ TAB (MICRO K) PO SCH (20:11)
[2018-07-27] MEDS: ONDANSETRON 4 MG (ZOFRAN) ORAL DISSOLVE TAB PO PRN (20:41)
[2018-07-27] MEDS: meTOprolol TARTRATE 50 MG (LOPRESSOR) TAB PO SCH (20:58)
[2018-07-27] MEDS: rOPINIRole 0.25 MG (REQUIP) TAB PO SCH (20:58)
[2018-07-27] MEDS: MELATONIN 3 MG TABLET PO PRN (20:58)
[2018-07-27] MEDS: DOCUSATE SODIUM 100 MG (COLACE) CAP PO SCH (20:58)
[2018-07-27] MEDS: TAMSULOSIN 0.4 MG (FLOMAX) CAP PO SCH (20:58)
[2018-07-27] MEDS: ASPIRIN E.C. 81 MG (ECOTRIN) TAB PO SCH (20:59)
[2018-07-27] MEDS: HYDROcodone/APAP 10 MG/325 MG (LORTAB) TAB PO PRN (20:59)
[2018-07-27] MEDS: FAMOTIDINE 20 MG (PEPCID) TABLET PO SCH (20:59)
[2018-07-27] MEDS ORDERED: NON-FORMULARY MEDICATION 1 EA EA (Famotidine 20 MG) PO SCH (21:00)
[2018-07-27] MEDS ORDERED: NON-FORMULARY MEDICATION 1 EA EA (Potassium Chloride 10 MEQ) PO SCH (21:00)
[2018-07-27] MEDS ORDERED: NON-FORMULARY MEDICATION 1 EA EA (Ropinirole HCl 0.5 MG) PO SCH (21:00)
[2018-07-28 05:56] VITALS: BP 133/70
[2018-07-28] MEDS: KCL 10 MEQ TAB (MICRO K) PO SCH ×2 (06:22→16:21)
[2018-07-28] MEDS: MULTIVIT W/MINERALS TAB (THERAGRAN M) PO SCH ×2 (06:22→16:21)
[2018-07-28 07:44] LABS: BASOPHILS % (AUTO) 0 % (0-10); EOSINOPHILS # (AUTO) 0.1 10^3/uL (0.0-0.3); EOSINOPHILS % (AUTO) 1 % (0-10); HEMATOCRIT 37 % (40-54); HEMOGLOBIN 11.9 G/DL (13.3-17.7); LYMPHOCYTES # (AUTO) 2.8 X 10^3 (1.0-4.0); LYMPHOCYTES % (AUTO) 37 % (12-44); MEAN CORPUSCULAR HEMOGLOBIN 29 PG (25-34); MEAN CORPUSCULAR HGB CONC 32 G/DL (32-36); MEAN CORPUSCULAR VOLUME 89 FL (80-99); MEAN PLATELET VOLUME 10.7 FL (7.4-10.4); MONOCYTES # (AUTO) 0.7 X 10^3 (0.0-1.0); MONOCYTES % (AUTO) 9 % (0-12); NEUTROPHILS # (AUTO) 4.1 X 10^3 (1.8-7.8); NEUTROPHILS % (AUTO) 53 % (42-75); PLATELET COUNT 146 10^3/uL (130-400); RED CELL DISTRIBUTION WIDTH 13.5 % (10.0-14.5); WHITE BLOOD COUNT 7.7 10^3/uL (4.3-11.0)
--- NOTE | 2018-07-28 07:55 | PM&R Progress Note ---
Subjective HPI/CC On Admission Date Seen by Provider: Jul 28, 2018 Time Seen by Provider: 08:00 CC: Debility following left total knee replacement at [facility] uncomplicated by Dr Girard HPI: This is a 68-year-old white male patient of UDAY Jean at [facility] and who presents following a left total knee replacement uncomplicated by Dr. Girard at [facility] in [place]. Due to the fact of his elevated BMI and obstructive sleep apnea and multiple comorbidities and slow recovery he was deemed meeting criteria for inpatient rehab prior to returning home to set up for success following an uncomplicated surgery. He did have a bowel movement yesterday and is urinating well and he did bring his CPAP machine with him. Pain is controlled but he is sore today and he did work out with physical therapy earlier today prior to discharge to [facility]. I reviewed all of his current medications and restarted all of them that he was receiving in [place]. Subjective/Events-last exam Pt did well last night Attitude is somewhat lacking with motivation so will provide support Did not use a CPAP machine last night so I recommended a nurse to help set that up Will order IS Didn't sleep well, just slept on and off Bowels are moving Urination going well Review of Systems General: Fatigue Musculoskeletal: leg pain Objective Exam Vital Signs Vital Signs Date Time Temp Pulse Resp B/P (MAP) Pulse Ox O2 Delivery O2 Flow Rate FiO2 07/28/18 21:00 Room Air 07/28/18 16:11 98.6 68 16 142/72 (95) 93 Capillary Refill : Less Than 3 Seconds General Appearance: No Apparent Distress, WD/WN, Chronically ill, Obese HEENT: PERRL/EOMI, Normal ENT Inspection, Pharynx Normal, Moist Mucous Membranes Neck: Full Range of Motion, Normal Inspection, Non Tender, Supple Respiratory: Chest Non Tender, Lungs Clear, Normal Breath Sounds, No Accessory Muscle Use, No Respiratory Distress Cardiovascular: Regular Rate, Rhythm, No Edema, No Gallop, No JVD, No Murmur Gastrointestinal: Normal Bowel Sounds, No Organomegaly, No Pulsatile Mass, Non Tender, Soft Back: Normal Inspection, No CVA Tenderness, No Vertebral Tenderness Extremity: Normal Capillary Refill, Normal Inspection, Normal Range of Motion ( except left leg due to knee replacement status), Non Tender, No Calf Tenderness , No Pedal Edema Neurologic/Psychiatric: Alert, Oriented x3, No Motor/Sensory Deficits, Normal Mood/Affect Skin: Normal Color, Warm/Dry Lymphatic: No Adenopathy Results/Procedures Lab Laboratory Tests 07/28/18 07:35 Patient resulted labs reviewed. Assessment/Plan Assessment and Plan Assess & Plan/Chief Complaint Assessment: Debility Status post uncomplicated left total knee replacement by Dr. Girard POD # 3 Obstructive sleep apnea Severe hypertension requiring cardiology management by Hyperlipidemia GERD BPH Chronic dyspnea Chronic lower extremity edema Nighttime hypoxia requiring oxygen supplementation through CPAP machine Obesity Plan: Continue all home meds CPAP with oxygen Pain control Monitor labs Intensive therapies (1) Status post left knee replacement (2) Hypertension (3) [place] on CPAP (4) Hyperlipidemia (5) BPH (benign prostatic hyperplasia) (6) Chronic edema (7) GERD (gastroesophageal reflux disease) (8) Anemia due to blood loss, acute Clinical Quality Measures DVT/VTE Risk/Contraindication: Risk Factor Score Per Nursin RFS Level Per Nursing on Admit: 4+=Very High STORM VICTOR DO Jul 28, 2018 07:55
[2018-07-28 08:00] VITALS: BP 133/78
[2018-07-28 08:01] LABS: ALANINE AMINOTRANSFERASE 23 U/L (0-55); ALBUMIN 3.7 GM/DL (3.2-4.5); ALKALINE PHOSPHATASE 56 U/L (40-136); BILIRUBIN,TOTAL 0.6 MG/DL (0.1-1.0); BUN/CREATININE RATIO 15; CALCIUM 9.1 MG/DL (8.5-10.1); CARBON DIOXIDE 26 MMOL/L (21-32); CHLORIDE 107 MMOL/L (98-107); CREATININE SERUM 0.96 MG/DL (0.60-1.30); GFR ESTIMATED > 60; GLUCOSE 130 MG/DL (70-105); SODIUM 142 MMOL/L (135-145); TOTAL PROTEIN 6.6 GM/DL (6.4-8.2)
[2018-07-28] MEDS: amLODIPine 10 MG (NORVASC) TAB PO SCH (08:41)
[2018-07-28] MEDS: ASPIRIN E.C. 81 MG (ECOTRIN) TAB PO SCH ×2 (08:41→20:13)
[2018-07-28] MEDS: FAMOTIDINE 20 MG (PEPCID) TABLET PO SCH ×2 (08:41→20:14)
[2018-07-28] MEDS: DOCUSATE SODIUM 100 MG (COLACE) CAP PO SCH ×2 (08:42→20:13)
[2018-07-28] MEDS: meTOprolol TARTRATE 50 MG (LOPRESSOR) TAB PO SCH ×2 (08:42→20:13)
[2018-07-28] MEDS: lisINopril 40 MG (PRINIVIL) TABLET PO SCH (08:42)
[2018-07-28] MEDS: FUROSEMIDE 20 MG (LASIX) TAB PO SCH (08:42)
[2018-07-28] MEDS: HYDROcodone/APAP 10 MG/325 MG (LORTAB) TAB PO PRN ×3 (08:43→20:24)
--- NOTE | 2018-07-28 08:48 | Occupational Ther Daily Note ---
OT Current Status-Daily Note Subjective Pt alert, lying in bed. Pt agrees to therapy. No c/o pain initially then with movement, nrsg notified. Mental Status/Objective Patient Orientation: Person, Place, Time, Situation Therapy Code Descriptions/Definitions Functional [place] Measure: 0=Not Assessed/NA 4=Minimal Assistance 1=Total Assistance 5=Supervision or Setup 2=Maximal Assistance 6=Modified [place] 3=Moderate Assistance 7=Complete [place] ADL-Treatment Pt completes tasks slowly due to pain and decreased mobility. Pt demonstrates SOA with light exertion. Pt declines shower at this time. Cleansing clothes given to wash underarms and upper body. AE given to pt for lower body dressing and toileting. After therapy, pt sitting in recliner with call light/phone in reach. Nrsg present in room. All needs met in room. Therapy Code Descriptions/Definitions Functional [place] Measure: 0=Not Assessed/NA 4=Minimal Assistance 1=Total Assistance 5=Supervision or Setup 2=Maximal Assistance 6=Modified [place] 3=Moderate Assistance 7=Complete [place] Therapy Quality Codes: 6 Independent with activity with or without an assistive device 5 Patient requires set up or clean up by helper. Patient completes activity by themselves 4 Supervision or touching assist (CGA). [place] provide cues , steadying assist 3 The helper provides less than half the effort to complete the activity 2 The helper provides more than half the effort to complete the activity 1 Dependent. The helper does all the effort to complete an activity 7 Patient refused to complete or attempt activity 9 The patient did not perform the activity before the current illness or injury 88 Not attempted due to Medical conditions or safety concerns Eating (FIM): 7 (Pt opens packages/containers by self then uses regular utensils to eat.) Eating (QC): 6 Upper Body (FIM): 5 (After set up, pt able to don/doff shirt by self.) Upper Body Dressing (QC): 5 Lower Body Dressing (FIM): 4 (Using environmental engineer pt able to don/doff clothing over feet with min A when stuck on L foot. CGA for safety in standing to hike pants over hips.) Lower Body Dressing (QC): 3 Toileting (FIM): 3 (Pt able to manipulate clothing with CGA. Assist to cleanse buttocks. Toilet tongs given to pt.) Toileting Hygiene (QC): 3 Toilet/Commode Transfer (FIM): 3 (Mod A using grabbars and FWW.) Toilet Transfer (QC): 3 OT Short Term Goals Short Term Goals Time Frame: Aug 03, 2018 Bathing(FIM): 4 Lower Body Dressing(FIM): 4 Transfers (B,C,W/C) (FIM): 4 Toilet/Commode Transfer(FIM): 4 Shower Transfer(FIM): 4 Additional Short Term Goals: 1-Demonstrate ADL Tasks, 2-Verbalize Understanding , 3-ImproveStrength/[place] 1=Demonstrate adherence to instructed precautions during ADL tasks. 2=Patient will verbalize/demonstrate understanding of assistive devices/ modifications for ADL. 3=Patient will improve strength/tolerance for activity to enable patient to perform ADL's. OT Social Work Supervisor Goals Nursing Home Goals Time Frame: Aug 17, 2018 Eating (FIM): 6 Eating (QC): 6 Groomin Oral Hygiene (QC): 6 Bathing(FIM): 5 Shower/Bathe Self (QC): 5 Upper Body Dressing(FIM): 6 Upper Body Dressing (QC): 6 Lower Body Dressing(FIM): 5 Lower Body Dressing (QC): 5 On/Off Footwear (QC): 5 Toileting(FIM): 6 Toileting Hygiene (QC): 6 Toilet/Commode Transfer(FIM): 6 Toilet/Commode Transfer (QC): 6 Shower Transfer(FIM): 5 Comprehension(FIM): 6 Expression (FIM): 6 Social Interaction(FIM): 6 Problem Solving(FIM): 6 Memory(FIM): 6 Additional Goals: 1-Demonstrate ADL Tasks, 2-Verbalize Understanding, 3- ImproveStrength/[place] 1=Demonstrate adherence to instructed precautions during ADL tasks. 2=Patient will verbalize/demonstrate understanding of assistive devices/ modifications for ADL. 3=Patient will improve strength/tolerance for activity to enable patient to perform ADL's. OT Education/Plan Problem List/Assessment Pt s/p left TKA with decreased mobility, activity tolerance, and ADL functioning. Pt to benefit from skilled OT intervention for ADL training, transfers, strengthening, and home safety education to increase level of independence and allow safe discharge home with spouse. Discharge Recommendations Plan/Recommendations: Continue POC Treatment Plan/Plan of Care Patient would benefit from OT for education, treatment and training to promote independence in ADL's, mobility, safety and/or upper extremity function for ADL' s. Plan of Care: ADL Retraining, Functional Mobility, Group Exercise/Act as Ind, UE Funct Exercise/Act Treatment Duration: Aug 17, 2018 Frequency: At least 5 of 7 days/Wk (IRF) Estimated Hrs Per Day: 1.5 hours per day Agreement: Yes Rehab Potential: Good Time/GCodes Start Time: 07:50 Stop Time: 08:50 Total Time Billed (hr/min): 60 Billed Treatment Time 1 visit-ADL 4 (60 min) REYMUNDO COSTA Jul 28, 2018 08:48
[2018-07-28] MEDS ORDERED: NON-FORMULARY MEDICATION 1 EA EA (Amlodipine Besylate 10 MG) PO SCH (09:00)
--- NOTE | 2018-07-28 10:38 | Physical Therapy Daily Note ---
PT Daily Note-Current Subjective Pt agreeable to PT session this am. States he may be slow at doing it, but will try Pain Numeric Pain Scale: 3 Location: Left Location Body Site: Knee Comment: surgical cameron Appearance upon arrival, pt sitting up in recliner with LE's elevated, awake and alert Pt using restroom during tx session. At end of session, pt sitting up in recliner with feet on floor to encourage knee flex, call light, phone and bedside table within reach. All needs met Mental Status Patient Orientation: Person, Place, Time, Eyes Open, Situation Transfers Therapy Code Descriptions/Definitions Functional [place] Measure: 0=Not Assessed/NA 4=Minimal Assistance 1=Total Assistance 5=Supervision or Setup 2=Maximal Assistance 6=Modified [place] 3=Moderate Assistance 7=Complete [place] Therapy Quality Codes: 6 Independent with activity with or without an assistive device 5 Patient requires set up or clean up by helper. Patient completes activity by themselves 4 Supervision or touching assist (CGA). [place] provide cues , steadying assist 3 The helper provides less than half the effort to complete the activity 2 The helper provides more than half the effort to complete the activity 1 Dependent. The helper does all the effort to complete an activity 7 Patient refused to complete or attempt activity 9 The patient did not perform the activity before the current illness or injury 88 Not attempted due to Medical conditions or safety concerns Transfers (B, C, W/C) (FIM): 5 Sit to/from Stand: 5 Pt performing all transitions with effort, SBA, 2 attempts required at times, following instruction for safe and proper hand placement Weight Bearing Right Lower Extremity: Right Full Weight Bearing Left Lower Extremity: Left Weight Bearing/Tolerated Gait Training Does the Patient Walk?: Yes Gait (FIM): 2 Distance (FIM): 0=694-91 ft Distance: 55' x2 Gait Level of Assist: 5 Gait Persons Needed: 1 Gait Assistive Device: FWW slow, occasional standing stopping rest breaks, decreased knee flex, step length and height, improved slightly with verb instruction. Able to increase WB on LLE and slightly decrease WB through UE's on walker. Improved Step through gait pattern with instruction Exercises Seated Therapy Exercises: Ankle pumps, Sit to stand, Long arc quads Seated Reps: 10 NuStep Minutes: 7 (to increase/encourage Left knee flexion and etension ROM) NuStep Workload: 5 Treatments Gait, transfer, ex, safety, bathroom to improve functional mobility, strength, activity tolerance, ROM, balance and decrease risk of falls, increase safety awareness Assessment Current Status: Good Progress PT Short Term Goals Short Term Goals Time Frame: Aug 03, 2018 Transfers (B,C,W/C) (FIM): 4 Gait (FIM): 4 Distance (FIM): 3=150 ft Gait Assistive Device: FWW Stairs (FIM): 2 # of Steps: 4 PT Fdc Goals Fdc Goals PT Corporate Executive Chef Goals Time Frame: Aug 17, 2018 Transfers (B,C,W/C) (FIM): 7 Sit to Lying (QC): 6 Lying-Sitting on Side/Bed(QC): 6 Sit to Stand (QC): 6 Rollin Roll Left to Right (QC): 6 Chair/Jvt-qg-Cukjj Xfer(QC): 6 Car Transfer (QC): 6 Does the Patient Walk: Yes Gait (FIM): 6 Gait distance (FIM): 3=150 ft Walk 10 feet (QC): 6 Walk 10ft-Uneven Surface(QC): 6 Walk 50ft with 2 Turns (QC): 6 Walk 150 ft (QC): 6 Gait Assistive Device: FWW Does the Pt use WC or Scooter?: No Stairs (FIM): 5 (household) # of Steps: 4 1 Step (curb) (QC): 6 4 Steps (QC): 6 12 Steps (QC): 88 Stairs Level Of Assist: 6 Picking up an Object (QC): 4 PT Plan Treatment/Plan Treatment Plan: Continue Plan of Care Treatment Plan: Bed Mobility, Education, Functional Activity [place], Functional Strength, Group Therapy, Gait, Safety, Therapeutic Exercise, Transfers Treatment Duration: Aug 17, 2018 Frequency: At least 5 of 7 days/Wk (IRF) Estimated Hrs Per Day: 1.5 hours per day Patient and/or Family Agrees t: Yes Safety Risks/Education Patient Education: Gait Training, Transfer Techniques, Disease Process, Safety Issues Teaching Recipient: Patient Teaching Methods: Demonstration, Discussion Response to Teaching: Verbalize Understanding, Return Demonstration, Reinforcement Needed Time/GCodes Time In: 900 Time Out: 1000 Total Billed Treatment Time: 60 Total Billed Treatment 1 visit, GT x 1 unit, EX x1 unit, FA x 2 units NIGHAT ALEJO PTA Jul 28, 2018 10:38
--- NOTE | 2018-07-28 10:40 | NUR ---
Pastoral care visit.
--- NOTE | 2018-07-28 11:17 | NUR ---
SENIOR IT RECRUITER met with patient to complete initial assessment. Patient was alert and oriented and agreeable to assessment. Patient admitted to ARU from [facility] following elective left total knee replacement performed by Dr. Girard. Prior to knee replacement patient resided with spouse, Cheyanne in a one level home in [place]. The home is equipped with a ramp at the entrance. Per patient report, patient was independent with ambulation with occasional use of a cane. He was also independent with ADLs; however, did require assistance from spouse for socks and shoes. 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 Patient identifies spouse Cheyanne as primary contact at [phone] and sister Brooke (Rossi) who resides a mile away at [phone]. Insurance verified as Medicare and Blue Cross Blue Shield with [employer] prescription coverage. Patient prefers to utilize [facility] for pharmacy needs. SENIOR IT RECRUITER reviewed typical ARU rehabilitation length of stay and weekly team conference summary, although patient is eager to discharge patient is agreeable to complete necessary program to return home safely. SENIOR IT RECRUITER will continue to follow for additional discharge needs.
--- NOTE | 2018-07-28 13:42 | Occupational Ther Daily Note ---
OT Current Status-Daily Note Subjective Pt alert, lying in bed. Pt had just returned to bed. Pt agrees to therapy. Pt reminded to ask for pain meds prior to AM therapy. present in room. Mental Status/Objective Patient Orientation: Person, Place, Time, Situation Therapy Code Descriptions/Definitions Functional [place] Measure: 0=Not Assessed/NA 4=Minimal Assistance 1=Total Assistance 5=Supervision or Setup 2=Maximal Assistance 6=Modified [place] 3=Moderate Assistance 7=Complete [place] ADL-Treatment Therapy Code Descriptions/Definitions Functional [place] Measure: 0=Not Assessed/NA 4=Minimal Assistance 1=Total Assistance 5=Supervision or Setup 2=Maximal Assistance 6=Modified [place] 3=Moderate Assistance 7=Complete [place] Therapy Quality Codes: 6 Independent with activity with or without an assistive device 5 Patient requires set up or clean up by helper. Patient completes activity by themselves 4 Supervision or touching assist (CGA). [place] provide cues , steadying assist 3 The helper provides less than half the effort to complete the activity 2 The helper provides more than half the effort to complete the activity 1 Dependent. The helper does all the effort to complete an activity 7 Patient refused to complete or attempt activity 9 The patient did not perform the activity before the current illness or injury 88 Not attempted due to Medical conditions or safety concerns Other Treatment UE exercises to increased strength and activity tolerance for daily functional tasks. Medium resistance theraband and heavy resistance therapy sponge given with HEP for use in room. Pt able to complete 1 set of 10 reps, 4 exercises then pt c/o arms being tired and hurting. Pt attempted to demonstrate the 4 exercise from memory, 2 of 4. Skilled instruction needed for correct technique with exercises. After therapy, pt lying in bed with call light/phone in reach. All needs met in room. Education OT Patient Education: Exercise program Teaching Recipient: Patient, Family Teaching Methods: Demonstration, Handout, Discussion Response to Teaching: Verbalize Understanding, Unable to Return Demonstration, Return Demonstration, Reinforcement Needed OT Short Term Goals Short Term Goals Time Frame: Aug 03, 2018 Bathing(FIM): 4 Lower Body Dressing(FIM): 4 Transfers (B,C,W/C) (FIM): 4 Toilet/Commode Transfer(FIM): 4 Shower Transfer(FIM): 4 Additional Short Term Goals: 1-Demonstrate ADL Tasks, 2-Verbalize Understanding , 3-ImproveStrength/[place] 1=Demonstrate adherence to instructed precautions during ADL tasks. 2=Patient will verbalize/demonstrate understanding of assistive devices/ modifications for ADL. 3=Patient will improve strength/tolerance for activity to enable patient to perform ADL's. OT Solar Pv Installer Goals [facility] Goals Time Frame: Aug 17, 2018 Eating (FIM): 6 Eating (QC): 6 Groomin Oral Hygiene (QC): 6 Bathing(FIM): 5 Shower/Bathe Self (QC): 5 Upper Body Dressing(FIM): 6 Upper Body Dressing (QC): 6 Lower Body Dressing(FIM): 5 Lower Body Dressing (QC): 5 On/Off Footwear (QC): 5 Toileting(FIM): 6 Toileting Hygiene (QC): 6 Toilet/Commode Transfer(FIM): 6 Toilet/Commode Transfer (QC): 6 Shower Transfer(FIM): 5 Comprehension(FIM): 6 Expression (FIM): 6 Social Interaction(FIM): 6 Problem Solving(FIM): 6 Memory(FIM): 6 Additional Goals: 1-Demonstrate ADL Tasks, 2-Verbalize Understanding, 3- ImproveStrength/[place]ma 1=Demonstrate adherence to instructed precautions during ADL tasks. 2=Patient will verbalize/demonstrate understanding of assistive devices/ modifications for ADL. 3=Patient will improve strength/tolerance for activity to enable patient to perform ADL's. OT Education/Plan Problem List/Assessment Pt s/p left TKA with decreased mobility, activity tolerance, and ADL functioning. Pt to benefit from skilled OT intervention for ADL training, transfers, strengthening, and home safety education to increase level of independence and allow safe discharge home with spouse. Discharge Recommendations Plan/Recommendations: Continue POC Treatment Plan/Plan of Care Patient would benefit from OT for education, treatment and training to promote independence in ADL's, mobility, safety and/or upper extremity function for ADL' s. Plan of Care: ADL Retraining, Functional Mobility, Group Exercise/Act as Ind, UE Funct Exercise/Act Treatment Duration: Aug 17, 2018 Frequency: At least 5 of 7 days/Wk (IRF) Estimated Hrs Per Day: 1.5 hours per day Agreement: Yes Rehab Potential: Good Time/GCodes Start Time: 13:00 Stop Time: 13:30 Total Time Billed (hr/min): 30 Billed Treatment Time 1 visit-EX 2 (30 min) REYMUNDO COSTA Jul 28, 2018 13:42
--- NOTE | 2018-07-28 15:07 | Physical Therapy Daily Note ---
PT Daily Note-Current Subjective Agrees to PT. Reports he has been resting for a while. Mental Status Patient Orientation: Person, Place, Time, Situation Transfers Therapy Code Descriptions/Definitions Functional [place] Measure: 0=Not Assessed/NA 4=Minimal Assistance 1=Total Assistance 5=Supervision or Setup 2=Maximal Assistance 6=Modified [place] 3=Moderate Assistance 7=Complete [place] Therapy Quality Codes: 6 Independent with activity with or without an assistive device 5 Patient requires set up or clean up by helper. Patient completes activity by themselves 4 Supervision or touching assist (CGA). [place] provide cues , steadying assist 3 The helper provides less than half the effort to complete the activity 2 The helper provides more than half the effort to complete the activity 1 Dependent. The helper does all the effort to complete an activity 7 Patient refused to complete or attempt activity 9 The patient did not perform the activity before the current illness or injury 88 Not attempted due to Medical conditions or safety concerns Transfers (B, C, W/C) (FIM): 4 Supine to/from Sit: 4 (min assist to get in and out of bed; assist with left LE ) Sit to/from Stand: 4 (CGA) Car Transfer (QC): 3 (assist to get legs into the car and to get out of the car ) Weight Bearing Right Lower Extremity: Right Full Weight Bearing Left Lower Extremity: Left Weight Bearing/Tolerated Gait Training Does the Patient Walk?: Yes Gait (FIM): 2 Distance (FIM): 1=540-77 ft Distance: 120 ft x 2 Walk 10 feet (QC): 4 Walk 50 ft with 2 Turns(QC): 4 Walk 150 ft (QC): 88 Walking 10ft/uneven surface-QC: 4 Gait Assistive Device: FWW slow gait and tends to lift walker and set it down. Step to gait with the right and decreased heel strike and toe off left. Stair Training Stairs (FIM): 2 #of Steps: 1 1 Step (curb) (QC): 4 (skilled cues for sequencing. ) 4 Steps (QC): 88 12 Steps (QC): 88 Balance Picking up an Object (QC): 88 Treatments CPM applied 0-64 degrees and polar pack applied. Assessment Current Status: Good Progress Pt is progressing and his gait distance and pattern is improve.d PT Short Term Goals Short Term Goals Time Frame: Aug 03, 2018 Transfers (B,C,W/C) (FIM): 4 Gait (FIM): 4 Distance (FIM): 3=150 ft Gait Assistive Device: FWW Stairs (FIM): 2 # of Steps: 4 PT Long-Term Goals Long-Term Goals PT Long-Term Goals Time Frame: Aug 17, 2018 Transfers (B,C,W/C) (FIM): 7 Sit to Lying (QC): 6 Lying-Sitting on Side/Bed(QC): 6 Sit to Stand (QC): 6 Rollin Roll Left to Right (QC): 6 Chair/Bir-pr-Drbxm Xfer(QC): 6 Car Transfer (QC): 6 Does the Patient Walk: Yes Gait (FIM): 6 Gait distance (FIM): 3=150 ft Walk 10 feet (QC): 6 Walk 10ft-Uneven Surface(QC): 6 Walk 50ft with 2 Turns (QC): 6 Walk 150 ft (QC): 6 Gait Assistive Device: FWW Does the Pt use WC or Scooter?: No Stairs (FIM): 5 (household) # of Steps: 4 1 Step (curb) (QC): 6 4 Steps (QC): 6 12 Steps (QC): 88 Stairs Level Of Assist: 6 Picking up an Object (QC): 4 PT Plan Problem List Problem List: Activity Tolerance, Functional Strength, Safety, Balance, Gait, Transfer, Bed Mobility Treatment/Plan Treatment Plan: Continue Plan of Care Treatment Plan: Bed Mobility, Education, Functional Activity [place], Functional Strength, Group Therapy, Gait, Safety, Therapeutic Exercise, Transfers Treatment Duration: Aug 17, 2018 Frequency: At least 5 of 7 days/Wk (IRF) Estimated Hrs Per Day: 1.5 hours per day Patient and/or Family Agrees t: Yes Safety Risks/Education Patient Education: Transfer Techniques, Safety Issues Teaching Recipient: Patient Teaching Methods: Demonstration, Discussion Response to Teaching: Reinforcement Needed Time/GCodes Time In: 1350 Time Out: 1420 Total Billed Treatment Time: 30 Total Billed Treatment visit GT 30 REYMUNDO DEL ROSARIO PT Jul 28, 2018 15:07
[2018-07-28 16:11] VITALS: BP 142/72
[2018-07-28] MEDS: TAMSULOSIN 0.4 MG (FLOMAX) CAP PO SCH (20:13)
[2018-07-28] MEDS: MELATONIN 3 MG TABLET PO PRN (20:14)
[2018-07-28] MEDS: rOPINIRole 0.25 MG (REQUIP) TAB PO SCH (20:14)
[2018-07-29] MEDS: MULTIVIT W/MINERALS TAB (THERAGRAN M) PO SCH ×2 (05:08→17:56)
[2018-07-29] MEDS: KCL 10 MEQ TAB (MICRO K) PO SCH ×2 (05:08→17:56)
[2018-07-29] MEDS: HYDROcodone/APAP 10 MG/325 MG (LORTAB) TAB PO PRN ×3 (05:10→17:59)
[2018-07-29 05:11] VITALS: BP 138/76
--- NOTE | 2018-07-29 07:25 | Occupational Ther Daily Note ---
OT Current Status-Daily Note Subjective Pt alert, lying in bed. Pt agrees to therapy. No c/o pain at this time. Mental Status/Objective Patient Orientation: Person, Place, Time, Situation Therapy Code Descriptions/Definitions Functional [place] Measure: 0=Not Assessed/NA 4=Minimal Assistance 1=Total Assistance 5=Supervision or Setup 2=Maximal Assistance 6=Modified [place] 3=Moderate Assistance 7=Complete [place] Attachments: Polar Pack ADL-Treatment Pt agrees to shower. After therapy, pt sitting in recliner with call light/ phone in reach. All needs met in room. Therapy Code Descriptions/Definitions Functional [place] Measure: 0=Not Assessed/NA 4=Minimal Assistance 1=Total Assistance 5=Supervision or Setup 2=Maximal Assistance 6=Modified [place] 3=Moderate Assistance 7=Complete [place] Therapy Quality Codes: 6 Independent with activity with or without an assistive device 5 Patient requires set up or clean up by helper. Patient completes activity by themselves 4 Supervision or touching assist (CGA). [place] provide cues , steadying assist 3 The helper provides less than half the effort to complete the activity 2 The helper provides more than half the effort to complete the activity 1 Dependent. The helper does all the effort to complete an activity 7 Patient refused to complete or attempt activity 9 The patient did not perform the activity before the current illness or injury 88 Not attempted due to Medical conditions or safety concerns Bathing (FIM): 3 (Using shower bench, grabbar, hand held shower pt able to complete bathing with mod A. Long handle sponge needed for lower leg bathing.) Bathing Location: L Arm, R Arm, L Upper Leg, R Upper Leg, Chest, Abdomen, Perineal Area Shower/Bathe Self (QC): 3 Upper Body (FIM): 5 (After set up, pt able to complete.) Upper Body Dressing (QC): 5 Lower Body Dressing (FIM): 3 (Assist to don/doff socks and pants over L foot. Pt able to complete rest of sequence and CGA in standing to hike pants over hips.) Lower Body Dressing (QC): 3 On/Off Footwear (QC): 2 (Sock aide used, continues to work on using AE.) Toileting (FIM): 4 (Assist to cleanse buttocks, tongs given continues to need work to use efficiently. Pt able to manipulate clothing with CGA.) Toileting Hygiene (QC): 3 Toilet/Commode Transfer (FIM): 3 (Min A stand to sitting, Mod A sit to stand.) Toilet Transfer (QC): 3 Shower Transfer(FIM): 4 (Min A using FWW, shower bench and grabbar.) OT Short Term Goals Short Term Goals Time Frame: Aug 03, 2018 Bathing(FIM): 4 Lower Body Dressing(FIM): 4 Transfers (B,C,W/C) (FIM): 4 Toilet/Commode Transfer(FIM): 4 Shower Transfer(FIM): 4 Additional Short Term Goals: 1-Demonstrate ADL Tasks, 2-Verbalize Understanding , 3-ImproveStrength/[place]ma 1=Demonstrate adherence to instructed precautions during ADL tasks. 2=Patient will verbalize/demonstrate understanding of assistive devices/ modifications for ADL. 3=Patient will improve strength/tolerance for activity to enable patient to perform ADL's. OT Jail Goals Explosive Operator Supervisor Goals Time Frame: Aug 17, 2018 Eating (FIM): 6 Eating (QC): 6 Groomin Oral Hygiene (QC): 6 Bathing(FIM): 5 Shower/Bathe Self (QC): 5 Upper Body Dressing(FIM): 6 Upper Body Dressing (QC): 6 Lower Body Dressing(FIM): 5 Lower Body Dressing (QC): 5 On/Off Footwear (QC): 5 Toileting(FIM): 6 Toileting Hygiene (QC): 6 Toilet/Commode Transfer(FIM): 6 Toilet/Commode Transfer (QC): 6 Shower Transfer(FIM): 5 Comprehension(FIM): 6 Expression (FIM): 6 Social Interaction(FIM): 6 Problem Solving(FIM): 6 Memory(FIM): 6 Additional Goals: 1-Demonstrate ADL Tasks, 2-Verbalize Understanding, 3- ImproveStrength/Delma 1=Demonstrate adherence to instructed precautions during ADL tasks. 2=Patient will verbalize/demonstrate understanding of assistive devices/ modifications for ADL. 3=Patient will improve strength/tolerance for activity to enable patient to perform ADL's. OT Education/Plan Problem List/Assessment Assessment: Decreased Activ Tolerance, Decreased UE Strength, Impaired Coordination, Impaired Self-Care Skills Pt s/p left TKA with decreased mobility, activity tolerance, and ADL functioning. Pt to benefit from skilled OT intervention for ADL training, transfers, strengthening, and home safety education to increase level of independence and allow safe discharge home with spouse. Discharge Recommendations Plan/Recommendations: Continue POC Treatment Plan/Plan of Care Patient would benefit from OT for education, treatment and training to promote independence in ADL's, mobility, safety and/or upper extremity function for ADL' s. Plan of Care: ADL Retraining, Functional Mobility, Group Exercise/Act as Ind, UE Funct Exercise/Act Treatment Duration: Aug 17, 2018 Frequency: At least 5 of 7 days/Wk (IRF) Estimated Hrs Per Day: 1.5 hours per day Agreement: Yes Rehab Potential: Good Time/GCodes Start Time: 07:00 Stop Time: 08:10 Total Time Billed (hr/min): 70 Billed Treatment Time 1 visit-ADL 5 (70 min) REYMUNDO COSTA Jul 29, 2018 07:25
[2018-07-29] MEDS: lisINopril 40 MG (PRINIVIL) TABLET PO SCH (08:12)
[2018-07-29] MEDS: amLODIPine 10 MG (NORVASC) TAB PO SCH (08:12)
[2018-07-29] MEDS: ASPIRIN E.C. 81 MG (ECOTRIN) TAB PO SCH ×2 (08:13→20:46)
[2018-07-29] MEDS: FUROSEMIDE 20 MG (LASIX) TAB PO SCH (08:13)
[2018-07-29] MEDS: FAMOTIDINE 20 MG (PEPCID) TABLET PO SCH ×2 (08:13→20:46)
[2018-07-29] MEDS: meTOprolol TARTRATE 50 MG (LOPRESSOR) TAB PO SCH ×2 (08:13→20:46)
[2018-07-29] MEDS: DOCUSATE SODIUM 100 MG (COLACE) CAP PO SCH ×2 (08:13→20:46)
--- NOTE | 2018-07-29 08:54 | PM&R Progress Note ---
Subjective HPI/CC On Admission Date Seen by Provider: Jul 29, 2018 Time Seen by Provider: 08:45 CC: Debility following left total knee replacement at [facility] uncomplicated by Dr Girard HPI: This is a 68-year-old white male patient of UDAY Jean at [facility] and who presents following a left total knee replacement uncomplicated by Dr. Girard at [facility] in [place]. Due to the fact of his elevated BMI and obstructive sleep apnea and multiple comorbidities and slow recovery he was deemed meeting criteria for inpatient rehab prior to returning home to set up for success following an uncomplicated surgery. He did have a bowel movement yesterday and is urinating well and he did bring his CPAP machine with him. Pain is controlled but he is sore today and he did work out with physical therapy earlier today prior to discharge to [facility]. I reviewed all of his current medications and restarted all of them that he was receiving in [place]. Subjective/Events-last exam Pt did well last night Used CPAP last night Slept about 3 hours Bowels are slowed so will give meds Urination going well Pain is controlled Review of Systems General: Fatigue Gastrointestinal: Constipation Musculoskeletal: leg pain Objective Exam Vital Signs Vital Signs Date Time Temp Pulse Resp B/P (MAP) Pulse Ox O2 Delivery O2 Flow Rate FiO2 07/29/18 09:00 Room Air 07/29/18 05:11 97.8 64 16 138/76 (96) 94 Capillary Refill : Less Than 3 Seconds General Appearance: No Apparent Distress, WD/WN, Chronically ill, Obese HEENT: PERRL/EOMI, Normal ENT Inspection, Pharynx Normal, Moist Mucous Membranes Neck: Full Range of Motion, Normal Inspection, Non Tender, Supple Respiratory: Chest Non Tender, Lungs Clear, Normal Breath Sounds, No Accessory Muscle Use, No Respiratory Distress Cardiovascular: Regular Rate, Rhythm, No Edema, No Gallop, No JVD, No Murmur Gastrointestinal: Normal Bowel Sounds, No Organomegaly, No Pulsatile Mass, Non Tender, Soft Back: Normal Inspection, No CVA Tenderness, No Vertebral Tenderness Extremity: Normal Capillary Refill, Normal Inspection, Normal Range of Motion ( except left leg due to knee replacement status), Non Tender, No Calf Tenderness , No Pedal Edema Neurologic/Psychiatric: Alert, Oriented x3, No Motor/Sensory Deficits, Normal Mood/Affect Skin: Normal Color, Warm/Dry Lymphatic: No Adenopathy Results/Procedures Lab Patient resulted labs reviewed. Assessment/Plan Assessment and Plan Assess & Plan/Chief Complaint Assessment: Debility Status post uncomplicated left total knee replacement by Dr. Girard POD # 4 Obstructive sleep apnea Severe hypertension requiring cardiology management by Hyperlipidemia GERD BPH Chronic dyspnea Chronic lower extremity edema Nighttime hypoxia requiring oxygen supplementation through CPAP machine Obesity Constipation Plan: Continue all home meds CPAP with oxygen Pain control Monitor labs Intensive therapies Constipation treatment (1) Status post left knee replacement (2) Hypertension (3) SANTANA on CPAP (4) Hyperlipidemia (5) BPH (benign prostatic hyperplasia) (6) Chronic edema (7) GERD (gastroesophageal reflux disease) (8) Anemia due to blood loss, acute Clinical Quality Measures DVT/VTE Risk/Contraindication: Risk Factor Score Per Nursin RFS Level Per Nursing on Admit: 4+=Very High STORM VICTOR DO Jul 29, 2018 08:53
--- NOTE | 2018-07-29 10:03 | Physical Therapy Daily Note ---
PT Daily Note-Current Subjective Pt. agrees to Rx. States he has pain in left knee at 6/10. States he has been rolling his left leg out while on his back for quite some time. Pain Numeric Pain Scale: 6 Location: Left Location Body Site: Knee Pain Description: Throbbing Mental Status Patient Orientation: Normal For Age Transfers Therapy Code Descriptions/Definitions Functional [place] Measure: 0=Not Assessed/NA 4=Minimal Assistance 1=Total Assistance 5=Supervision or Setup 2=Maximal Assistance 6=Modified [place] 3=Moderate Assistance 7=Complete [place] Therapy Quality Codes: 6 Independent with activity with or without an assistive device 5 Patient requires set up or clean up by helper. Patient completes activity by themselves 4 Supervision or touching assist (CGA). [place] provide cues , steadying assist 3 The helper provides less than half the effort to complete the activity 2 The helper provides more than half the effort to complete the activity 1 Dependent. The helper does all the effort to complete an activity 7 Patient refused to complete or attempt activity 9 The patient did not perform the activity before the current illness or injury 88 Not attempted due to Medical conditions or safety concerns Transfers (B, C, W/C) (FIM): 4 Scootin Rollin Supine to/from Sit: 5 Sit to/from Stand: 5 Bed to/from Chair: 5 Weight Bearing Right Lower Extremity: Right Full Weight Bearing Left Lower Extremity: Left Weight Bearing/Tolerated Gait Training Does the Patient Walk?: Yes Gait (FIM): 5 Distance (FIM): 3=150 ft (150x2, 50) Gait Level of Assist: 5 Gait Persons Needed: 1 Gait Assistive Device: FWW slow, antalgic, emphasized knee extension on left Exercises Supine Ex: Ankle pumps, Quad Set, Heel Slides, Short Arc Quads, Straight leg raise Supine Reps: 12 (x2) Seated Therapy Exercises: Ankle pumps, Sit to stand, Long arc quads, Hip flexion Seated Reps: 10 NuStep Minutes: 8 NuStep Workload: 1 Treatments nustep with emphasis on ext hold and flexion hold stretch Assessment Current Status: Good Progress PT Short Term Goals Short Term Goals Time Frame: Aug 03, 2018 Transfers (B,C,W/C) (FIM): 4 Gait (FIM): 4 Distance (FIM): 3=150 ft Gait Assistive Device: FWW Stairs (FIM): 2 # of Steps: 4 PT Service Delivery Management Consultant Goals Detention Goals PT Service Delivery Management Consultant Goals Time Frame: Aug 17, 2018 Transfers (B,C,W/C) (FIM): 7 Sit to Lying (QC): 6 Lying-Sitting on Side/Bed(QC): 6 Sit to Stand (QC): 6 Rollin Roll Left to Right (QC): 6 Chair/Sss-dd-Mailm Xfer(QC): 6 Car Transfer (QC): 6 Does the Patient Walk: Yes Gait (FIM): 6 Gait distance (FIM): 3=150 ft Walk 10 feet (QC): 6 Walk 10ft-Uneven Surface(QC): 6 Walk 50ft with 2 Turns (QC): 6 Walk 150 ft (QC): 6 Gait Assistive Device: FWW Does the Pt use WC or Scooter?: No Stairs (FIM): 5 (household) # of Steps: 4 1 Step (curb) (QC): 6 4 Steps (QC): 6 12 Steps (QC): 88 Stairs Level Of Assist: 6 Picking up an Object (QC): 4 PT Plan Treatment/Plan Treatment Plan: Continue Plan of Care Treatment Plan: Bed Mobility, Education, Functional Activity [place], Functional Strength, Group Therapy, Gait, Safety, Therapeutic Exercise, Transfers Treatment Duration: Aug 17, 2018 Frequency: At least 5 of 7 days/Wk (IRF) Estimated Hrs Per Day: 1.5 hours per day Patient and/or Family Agrees t: Yes Safety Risks/Education Patient Education: Gait Training, Transfer Techniques, Correct Positioning, Disease Process, Safety Issues Teaching Recipient: Patient Teaching Methods: Demonstration, Discussion Response to Teaching: Verbalize Understanding, Return Demonstration, Reinforcement Needed Time/GCodes Time In: 900 Time Out: 1000 Total Billed Treatment Time: 60 Total Billed Treatment 1,Ex25m,FA15m,GT20m G Codes Necessary: LALO Mathis LAW OFFICE ASSISTANT Jul 29, 2018 10:03
--- NOTE | 2018-07-29 14:39 | Therapy Group Daily Note ---
Therapy Daily Group Note Patient Education Topic Other List Below (safe transfers) Exercises LE Seated Exercise, UE Exercise Session Ratio (pt:therapist): 3:1 Goal of Session: Education on ARU Expectations, Safety with Transfers Goal Met for this Session: Yes Pt Benefit of Group: Contributions to Others, Increased Functional Safety, Increased Functional Strength, Recognition of Peers, Socialization Other/Notes Pt ambulated with FWW to OT/PT group. Group consisted of introductions (name, place living, most interesting person), socialization, UE/LE seated exercises, safe transfer education and explanation of ARU. Pt introduced self appropriately and actively listened to peers. Pt contributed to discussions and gave personal strategies for educational topics. Pt was able to lead group exercise and roll dice to choose amount of reps completed. Pt requested to use bathroom. After group, pt lying in bed with call light/phone in reach. All needs met in room. Start Time: 13:00 Stop Time: 14:15 Total Billed Treatment Time: 75 Total Billed Treatment 1-GRP REYMUNDO COSTA Jul 29, 2018 14:39
[2018-07-29 15:43] VITALS: BP 142/69
--- NOTE | 2018-07-29 17:37 | NUR ---
Dr Toro notified of slight redness to posterior side of knee. Incis without redness, edema or discoloration. Inc well approximated. Dr stated to cont to watch it and notify if any changes. Pt and pts notified
[2018-07-29] MEDS: TAMSULOSIN 0.4 MG (FLOMAX) CAP PO SCH (20:46)
[2018-07-29] MEDS: rOPINIRole 0.25 MG (REQUIP) TAB PO SCH (20:47)
[2018-07-30 05:01] VITALS: BP 133/73
[2018-07-30] MEDS: MULTIVIT W/MINERALS TAB (THERAGRAN M) PO SCH ×2 (05:57→16:49)
[2018-07-30] MEDS: KCL 10 MEQ TAB (MICRO K) PO SCH ×2 (05:57→16:49)
[2018-07-30 08:11] VITALS: BP 149/76
[2018-07-30] MEDS: ONDANSETRON 4 MG (ZOFRAN) ORAL DISSOLVE TAB PO PRN (08:12)
[2018-07-30] MEDS: DOCUSATE SODIUM 100 MG (COLACE) CAP PO SCH ×2 (08:12→20:14)
[2018-07-30] MEDS: lisINopril 40 MG (PRINIVIL) TABLET PO SCH (08:13)
[2018-07-30] MEDS: HYDROcodone/APAP 10 MG/325 MG (LORTAB) TAB PO PRN ×3 (08:13→20:43)
[2018-07-30] MEDS: ASPIRIN E.C. 81 MG (ECOTRIN) TAB PO SCH ×2 (08:13→20:13)
[2018-07-30] MEDS: amLODIPine 10 MG (NORVASC) TAB PO SCH (08:13)
[2018-07-30] MEDS: meTOprolol TARTRATE 50 MG (LOPRESSOR) TAB PO SCH ×2 (08:13→20:14)
[2018-07-30] MEDS: FUROSEMIDE 20 MG (LASIX) TAB PO SCH (08:13)
[2018-07-30] MEDS: FAMOTIDINE 20 MG (PEPCID) TABLET PO SCH ×2 (08:13→20:13)
--- NOTE | 2018-07-30 09:07 | Physical Therapy Daily Note ---
PT Daily Note-Current Subjective Pt sitting at EOB upon arrival. Nurse present and pt using urinal. Pt agrees to PT. Pain Numeric Pain Scale: 7 Location: Left Location Body Site: Knee Pain Description: Ache, Tightness Mental Status Patient Orientation: Person, Place, Situation Transfers Therapy Code Descriptions/Definitions Functional [place] Measure: 0=Not Assessed/NA 4=Minimal Assistance 1=Total Assistance 5=Supervision or Setup 2=Maximal Assistance 6=Modified [place] 3=Moderate Assistance 7=Complete [place] Therapy Quality Codes: 6 Independent with activity with or without an assistive device 5 Patient requires set up or clean up by helper. Patient completes activity by themselves 4 Supervision or touching assist (CGA). [place] provide cues , steadying assist 3 The helper provides less than half the effort to complete the activity 2 The helper provides more than half the effort to complete the activity 1 Dependent. The helper does all the effort to complete an activity 7 Patient refused to complete or attempt activity 9 The patient did not perform the activity before the current illness or injury 88 Not attempted due to Medical conditions or safety concerns Scootin Supine to/from Sit: 5 Weight Bearing Right Lower Extremity: Right Full Weight Bearing Left Lower Extremity: Left Weight Bearing/Tolerated Exercises Supine Ex: Ankle pumps, Quad Set, Glut sets, Heel Slides, Straight leg raise, Hip abd/add Supine Reps: 15 Treatments * Pt transfers from EOB to Supine as pt is entering room. Pt completes Supine Ex with rest break as needed. ELECTROPLATING SALES REPRESENTATIVE applies polar pack to L knee then pt again transfers to EOB for use of urinal. Pt transfers back to bed at end of tx with all needs met. Assessment Current Status: Fair Progress Pt self limits and needs encouragement to continue to push self especially with flexing L knee. PT Short Term Goals Short Term Goals Time Frame: Aug 03, 2018 Transfers (B,C,W/C) (FIM): 4 Gait (FIM): 4 Distance (FIM): 3=150 ft Gait Assistive Device: FWW Stairs (FIM): 2 # of Steps: 4 PT Retirement Goals Retirement Goals PT Retirement Goals Time Frame: Aug 17, 2018 Transfers (B,C,W/C) (FIM): 7 Sit to Lying (QC): 6 Lying-Sitting on Side/Bed(QC): 6 Sit to Stand (QC): 6 Rollin Roll Left to Right (QC): 6 Chair/Epr-jn-Qxgbm Xfer(QC): 6 Car Transfer (QC): 6 Does the Patient Walk: Yes Gait (FIM): 6 Gait distance (FIM): 3=150 ft Walk 10 feet (QC): 6 Walk 10ft-Uneven Surface(QC): 6 Walk 50ft with 2 Turns (QC): 6 Walk 150 ft (QC): 6 Gait Assistive Device: FWW Does the Pt use WC or Scooter?: No Stairs (FIM): 5 (household) # of Steps: 4 1 Step (curb) (QC): 6 4 Steps (QC): 6 12 Steps (QC): 88 Stairs Level Of Assist: 6 Picking up an Object (QC): 4 PT Plan Problem List Problem List: Activity Tolerance, Functional Strength, Safety, Gait Treatment/Plan Treatment Plan: Continue Plan of Care Treatment Plan: Bed Mobility, Education, Functional Activity [place], Functional Strength, Group Therapy, Gait, Safety, Therapeutic Exercise, Transfers Treatment Duration: Aug 17, 2018 Frequency: At least 5 of 7 days/Wk (IRF) Estimated Hrs Per Day: 1.5 hours per day Patient and/or Family Agrees t: Yes Safety Risks/Education Patient Education: Transfer Techniques, Correct Positioning, Safety Issues Teaching Recipient: Patient Teaching Methods: Discussion Response to Teaching: Verbalize Understanding Time/GCodes Time In: 820 Time Out: 850 Total Billed Treatment Time: 30 Total Billed Treatment 1, EX x2 (30m) G Codes Necessary: DO Woodall PTA Jul 30, 2018 09:07
--- NOTE | 2018-07-30 11:03 | PM&R Progress Note ---
Subjective HPI/CC On Admission Date Seen by Provider: Jul 30, 2018 Time Seen by Provider: 11:15 CC: Debility following left total knee replacement at [facility] uncomplicated by Dr Girard HPI: This is a 68-year-old white male patient of UDAY Jean at [facility] and who presents following a left total knee replacement uncomplicated by Dr. Girard at [facility] in [place]. Due to the fact of his elevated BMI and obstructive sleep apnea and multiple comorbidities and slow recovery he was deemed meeting criteria for inpatient rehab prior to returning home to set up for success following an uncomplicated surgery. He did have a bowel movement yesterday and is urinating well and he did bring his CPAP machine with him. Pain is controlled but he is sore today and he did work out with physical therapy earlier today prior to discharge to [facility]. I reviewed all of his current medications and restarted all of them that he was receiving in [place]. Subjective/Events-last exam Pt did well last night Used CPAP and rested better Slept better Bowels are slowed so will give meds prn Urination going well Pain is controlled Left knee was a bit red and edematous but improved with ice ROM and overall getting around is limited due to obesity and left knee pain Review of Systems General: Fatigue Musculoskeletal: leg pain Objective Exam Vital Signs Vital Signs Date Time Temp Pulse Resp B/P (MAP) Pulse Ox O2 Delivery O2 Flow Rate FiO2 07/30/18 09:00 Room Air 07/30/18 08:11 80 149/76 (100) 07/30/18 05:01 97.8 18 95 Capillary Refill : Less Than 3 Seconds General Appearance: No Apparent Distress, WD/WN, Chronically ill, Obese HEENT: PERRL/EOMI, Normal ENT Inspection, Pharynx Normal, Moist Mucous Membranes Neck: Full Range of Motion, Normal Inspection, Non Tender, Supple Respiratory: Chest Non Tender, Lungs Clear, Normal Breath Sounds, No Accessory Muscle Use, No Respiratory Distress Cardiovascular: Regular Rate, Rhythm, No Edema, No Gallop, No JVD, No Murmur Gastrointestinal: Normal Bowel Sounds, No Organomegaly, No Pulsatile Mass, Non Tender, Soft Back: Normal Inspection, No CVA Tenderness, No Vertebral Tenderness Extremity: Normal Capillary Refill, Normal Inspection, Normal Range of Motion ( except left leg due to knee replacement status), Non Tender, No Calf Tenderness , No Pedal Edema Neurologic/Psychiatric: Alert, Oriented x3, No Motor/Sensory Deficits, Normal Mood/Affect Skin: Normal Color, Warm/Dry, Other (left knee incision without redness or drainage) Lymphatic: No Adenopathy Results/Procedures Lab Patient resulted labs reviewed. Assessment/Plan Assessment and Plan Assess & Plan/Chief Complaint Assessment: Debility Status post uncomplicated left total knee replacement by Dr. Girard POD # 5 Obstructive sleep apnea Severe hypertension requiring cardiology management by Hyperlipidemia GERD BPH Chronic dyspnea Chronic lower extremity edema Nighttime hypoxia requiring oxygen supplementation through CPAP machine Obesity Constipation Plan: Continue all home meds CPAP with oxygen Pain control Monitor labs Intensive therapies Constipation treatment Monitor left knee incision (1) Status post left knee replacement (2) Hypertension (3) SANTANA on CPAP (4) Hyperlipidemia (5) BPH (benign prostatic hyperplasia) (6) Chronic edema (7) GERD (gastroesophageal reflux disease) (8) Anemia due to blood loss, acute Clinical Quality Measures DVT/VTE Risk/Contraindication: Risk Factor Score Per Nursin RFS Level Per Nursing on Admit: 4+=Very High STORM VICTOR DO Jul 30, 2018 11:03
--- NOTE | 2018-07-30 11:04 | Individualized Plan of Care ---
Individualized Plan of Care Rehab Nursing IPOC Order Admission Date Jul 27, 2018 at 13:18 Current Orders Orders Admission Order(Inpt,Obs,Sdc) (07/27/18 10:43) Vital Signs: Routine (Order) 08,16,00 (07/27/18 10:43) Support Services Manager-Inpt Rehab Con (07/27/18 10:43) Rehab Nursing Orders-Ipoc (07/27/18 10:43) Physical Therapy Rehab Orders (07/27/18 10:43) Occupational Therapy Rehab Ord (07/27/18 10:43) Speech Therapy Rehab Orders (07/27/18 10:43) Intake & Output 06,14,22 (07/27/18 10:43) Precautions (Aru) (07/27/18 10:43) Weekly Weight (Lbs) WEEK (07/27/18 10:43) Rehab-Intensity Of Therapy (07/27/18 10:43) Code/Resuscitation (07/27/18 10:43) Initiate Admission Nursing Pro .admission (07/27/18 10:43) Acetaminophen Tablet (Tylenol Tablet) (07/27/18 10:45) Alprazolam Tablet (Xanax Tablet) (07/27/18 10:45) Calcium Carbonate Chew Tablet (Antacid C (07/27/18 10:45) Diphenhydramine Tablet (Benadryl Tablet) (07/27/18 10:45) Docusate Sodium Capsule (Colace Capsule) (07/27/18 21:00) Hydrocodone/Apap 5/325 Tablet (Lortab 5 (07/27/18 10:45) Loperamide Capsule (Imodium Capsule) (07/27/18 10:45) Melatonin Tablet (Melatonin Tablet) (07/27/18 10:45) Ondansetron Oral Dissolve Tab (Zofran (07/27/18 10:45) General/Regular (07/27/18 Lunch) Patient Visit (07/27/18 ) Pt Eval Moderate Complexity (07/27/18 ) Functional Activities, Ea 15 (07/27/18 ) Patient Visit (07/27/18 ) Functional Activities, Ea 15 (07/27/18 ) Patient Visit (07/27/18 ) Speech Sound Lang Comp (07/27/18 ) Cbc With Automated Diff (07/28/18 06:00) Comprehensive Metabolic Panel (07/28/18 06:00) Aspirin Enteric Coated Tablet (Ecotrin T (07/27/18 21:00) Baclofen Tablet (Lioresal Tablet) (07/27/18 17:45) Furosemide Tablet (Lasix Tablet) (07/28/18 09:00) Hydrocodone/Apap 10/325 Tablet (Lortab 1 (07/27/18 17:45) Lisinopril Tablet (Zestril Tablet) (07/28/18 09:00) Metoprolol Tartrate (Ir) Tab (Lopressor (07/27/18 21:00) Tamsulosin Capsule (Flomax Capsule) (07/27/18 21:00) (Nf) Amlodipine Besylate (07/28/18 09:00) (Nf) Famotidine (07/27/18 21:00) (Nf) Potassium Chloride (07/27/18 21:00) (Nf) Ropinirole Hcl (07/27/18 21:00) Therapeutic Multivitamin Tab (Vitamins, (07/28/18 07:00) Ropinirole Tablet (Requip Tablet) (07/27/18 21:00) Potassium Chloride (Tablet) (Klor Con Ta (07/27/18 18:00) Amlodipine Tablet (Norvasc Tablet) (07/28/18 09:00) Famotidine Tablet (Pepcid Tablet) (07/27/18 21:00) Rt Request For Service (07/28/18 08:46) Incentive Spirometry Initial (07/28/18 08:46) Incentive Spirometry (Nursing) Q2H (07/28/18 08:46) Cpm: Initial Session (07/27/18 ) Cpm Pads (07/27/18 ) Patient Visit (07/28/18 ) Gait Training, Ea 15 Min (07/28/18 ) Exercise Therap, Ea 15 Min (07/28/18 ) Functional Activities, Ea 15 (07/28/18 ) Patient Visit (07/28/18 ) Gait Training, Ea 15 Min (07/28/18 ) Patient Visit (07/29/18 ) Exercise Therap, Ea 15 Min (07/29/18 ) Functional Activities, Ea 15 (07/29/18 ) Gait Training, Ea 15 Min (07/29/18 ) Patient Visit (07/30/18 ) Exercise Therap, Ea 15 Min (07/30/18 ) Rehab Nursing Orders: Ongoing Assess. of Function Status, Disease Management & Educaiton, DVT Prophylaxis, Patient/Family Support Intensity of Therapy to be met Patient to be seen: Min.3h per day/5 of 7d PT IPOC Problem List: Activity Tolerance, Functional Strength, Safety, Gait Treatment Plan: Continue Plan of Care Bed Mobility, Education, Functional Activity [place], Functional Strength, Group Therapy, Gait, Safety, Therapeutic Exercise, Transfers Treatment Duration: Aug 17, 2018 Frequency: At least 5 of 7 days/Wk (IRF) Estimated Hrs Per Day: 1.5 hours per day OT IPOC Problems: Decreased Activ Tolerance, Decreased UE Strength, Impaired Coordination, Impaired Self-Care Skills OT Treatment, Training and Edu: Yes OT Problems Pt s/p left TKA with decreased mobility, activity tolerance, and ADL functioning. Pt to benefit from skilled OT intervention for ADL training, transfers, strengthening, and home safety education to increase level of independence and allow safe discharge home with spouse. Plan of Care: ADL Retraining, Functional Mobility, Group Exercise/Act as Ind, UE Funct Exercise/Act Treatment Duration: Aug 17, 2018 Frequency: At least 5 of 7 days/Wk (IRF) Estimated Hrs Per Day: 1.[address] IPOC Speech Therapy Treatment Plan: Discontinue ST Treatment Duration: Jul 27, 2018 Frequency: 1 time per week Estimated Hrs Per Day: .25 hour per day Support Services Manager/Case Mgmt Support Services Manager/Case Managemen: Discharge Planning Dietitian/Rescue Worker Dietitian/Rescue Worker to monitor nutritional status and make changes and/or recommendations as needed and work with speech pathology on dietary upgrades as the occur. Physician IPOC Medical Issues being managed closely and that require the 24 hour availability of a physician: Morbid obesity and SANTANA at high risk for respiratory compromise will monitor closely Medical Issues: Bowel/Bladder Function, Falls Precautions, Fluid/Electrolyte/ Nutrition Balance Brief Synthesis of Preadmission Screen, Post-Admission Evaluation, and Therapy Evaluations: PT/OT will improve ADL's and gait training and ROM left knee Medical Prognosis: Good Anticipated Length of Stay: 7 days STORM VICTOR DO Jul 30, 2018 11:04
[2018-07-30 18:00] VITALS: BP 114/65
[2018-07-30] MEDS: TAMSULOSIN 0.4 MG (FLOMAX) CAP PO SCH (20:14)
[2018-07-30] MEDS: rOPINIRole 0.25 MG (REQUIP) TAB PO SCH (20:14)
[2018-07-31] MEDS: HYDROcodone/APAP 10 MG/325 MG (LORTAB) TAB PO PRN ×3 (01:42→13:34)
[2018-07-31 05:09] VITALS: BP 158/88
[2018-07-31] MEDS: MULTIVIT W/MINERALS TAB (THERAGRAN M) PO SCH ×2 (06:06→17:00)
[2018-07-31] MEDS: KCL 10 MEQ TAB (MICRO K) PO SCH ×2 (06:06→17:00)
[2018-07-31] MEDS: lisINopril 40 MG (PRINIVIL) TABLET PO SCH (08:52)
[2018-07-31] MEDS: meTOprolol TARTRATE 50 MG (LOPRESSOR) TAB PO SCH ×2 (08:52→20:48)
[2018-07-31] MEDS: FAMOTIDINE 20 MG (PEPCID) TABLET PO SCH ×2 (08:52→20:48)
[2018-07-31] MEDS: amLODIPine 10 MG (NORVASC) TAB PO SCH (08:52)
[2018-07-31] MEDS: FUROSEMIDE 20 MG (LASIX) TAB PO SCH (08:52)
[2018-07-31] MEDS: ASPIRIN E.C. 81 MG (ECOTRIN) TAB PO SCH ×2 (08:52→20:48)
[2018-07-31] MEDS: DOCUSATE SODIUM 100 MG (COLACE) CAP PO SCH ×2 (09:00→20:48)
--- NOTE | 2018-07-31 11:13 | PM&R Progress Note ---
Subjective HPI/CC On Admission Date Seen by Provider: Jul 31, 2018 Time Seen by Provider: 11:15 CC: Debility following left total knee replacement at [facility] uncomplicated by Dr Girard HPI: This is a 68-year-old white male patient of UDAY Jean at [facility] and who presents following a left total knee replacement uncomplicated by Dr. Girard at [facility] in [place]. Due to the fact of his elevated BMI and obstructive sleep apnea and multiple comorbidities and slow recovery he was deemed meeting criteria for inpatient rehab prior to returning home to set up for success following an uncomplicated surgery. He did have a bowel movement yesterday and is urinating well and he did bring his CPAP machine with him. Pain is controlled but he is sore today and he did work out with physical therapy earlier today prior to discharge to [facility]. I reviewed all of his current medications and restarted all of them that he was receiving in [place]. Subjective/Events-last exam Pt did well last night per patient and Used CPAP and rested better for the past 2 nights Bowels are slowed so will give meds prn Urination going well Pain is controlled Left knee was a bit red and edematous but improved with ice and now no concerns ROM and overall getting around is limited due to obesity and left knee pain Making progress and IRF has been very helpful BM+ Difficulty managing his own ADL's and wants the nurses to help toilet him and shave him Review of Systems General: Fatigue Musculoskeletal: leg pain Objective Exam Vital Signs Vital Signs Date Time Temp Pulse Resp B/P (MAP) Pulse Ox O2 Delivery O2 Flow Rate FiO2 07/31/18 09:00 Room Air 07/31/18 05:09 98.4 68 18 158/88 (111) 94 Capillary Refill : Less Than 3 Seconds General Appearance: No Apparent Distress, WD/WN, Chronically ill, Obese HEENT: PERRL/EOMI, Normal ENT Inspection, Pharynx Normal, Moist Mucous Membranes Neck: Full Range of Motion, Normal Inspection, Non Tender, Supple Respiratory: Chest Non Tender, Lungs Clear, Normal Breath Sounds, No Accessory Muscle Use, No Respiratory Distress Cardiovascular: Regular Rate, Rhythm, No Edema, No Gallop, No JVD, No Murmur Gastrointestinal: Normal Bowel Sounds, No Organomegaly, No Pulsatile Mass, Non Tender, Soft Back: Normal Inspection, No CVA Tenderness, No Vertebral Tenderness Extremity: Normal Capillary Refill, Normal Inspection, Normal Range of Motion ( except left leg due to knee replacement status), Non Tender, No Calf Tenderness , No Pedal Edema Neurologic/Psychiatric: Alert, Oriented x3, No Motor/Sensory Deficits, Normal Mood/Affect Skin: Normal Color, Warm/Dry, Other (left knee incision without redness or drainage) Lymphatic: No Adenopathy Results/Procedures Lab Patient resulted labs reviewed. Assessment/Plan Assessment and Plan Assess & Plan/Chief Complaint Assessment: Debility Status post uncomplicated left total knee replacement by Dr. Girard POD # 6 Obstructive sleep apnea Severe hypertension requiring cardiology management by Hyperlipidemia GERD BPH Chronic dyspnea Chronic lower extremity edema Nighttime hypoxia requiring oxygen supplementation through CPAP machine Obesity Constipation-resolved Plan: Continue all home meds CPAP with oxygen Pain control Monitor labs Intensive therapies Constipation treatment prn since resolved Monitor left knee incision Encourage ADL independence (1) Status post left knee replacement (2) Hypertension (3) SANTANA on CPAP (4) Hyperlipidemia (5) BPH (benign prostatic hyperplasia) (6) Chronic edema (7) GERD (gastroesophageal reflux disease) (8) Anemia due to blood loss, acute Clinical Quality Measures DVT/VTE Risk/Contraindication: Risk Factor Score Per Nursin RFS Level Per Nursing on Admit: 4+=Very High STORM VICTOR DO Jul 31, 2018 11:13
[2018-07-31 18:00] VITALS: BP 115/66
[2018-07-31] MEDS: TAMSULOSIN 0.4 MG (FLOMAX) CAP PO SCH (20:47)
[2018-07-31] MEDS: rOPINIRole 0.25 MG (REQUIP) TAB PO SCH (20:48)
[2018-08-01 05:01] VITALS: BP 144/72
[2018-08-01] MEDS: HYDROcodone/APAP 10 MG/325 MG (LORTAB) TAB PO PRN ×3 (05:35→23:49)
[2018-08-01] MEDS: MULTIVIT W/MINERALS TAB (THERAGRAN M) PO SCH ×2 (05:35→16:27)
[2018-08-01] MEDS: KCL 10 MEQ TAB (MICRO K) PO SCH ×2 (05:36→16:28)
--- NOTE | 2018-08-01 08:16 | PM&R Progress Note ---
Subjective HPI/CC On Admission Date Seen by Provider: Aug 01, 2018 Time Seen by Provider: 08:15 CC: Debility following left total knee replacement at [facility] uncomplicated by Dr Girard HPI: This is a 68-year-old white male patient of UDAY Jean at [facility] and who presents following a left total knee replacement uncomplicated by Dr. Girard at [facility] in [place]. Due to the fact of his elevated BMI and obstructive sleep apnea and multiple comorbidities and slow recovery he was deemed meeting criteria for inpatient rehab prior to returning home to set up for success following an uncomplicated surgery. He did have a bowel movement yesterday and is urinating well and he did bring his CPAP machine with him. Pain is controlled but he is sore today and he did work out with physical therapy earlier today prior to discharge to [facility]. I reviewed all of his current medications and restarted all of them that he was receiving in [place]. Subjective/Events-last exam Pt doing well Will order bowel regimen since he is constipated Plan for DC in the morning but her prefers today but we will need to make sure everything is organized prior to DC since his is on a cane and can't help him much Pain is well controlled Very difficult to motivate the pt but he is participating with encouragement Review of Systems Musculoskeletal: leg pain Objective Exam Vital Signs Vital Signs Date Time Temp Pulse Resp B/P (MAP) Pulse Ox O2 Delivery O2 Flow Rate FiO2 08/01/18 16:07 98.7 68 20 140/65 (90) 96 Room Air 07/31/18 00:30 1.00 Capillary Refill : Less Than 3 Seconds General Appearance: No Apparent Distress, WD/WN, Chronically ill, Obese HEENT: PERRL/EOMI, Normal ENT Inspection, Pharynx Normal, Moist Mucous Membranes Neck: Full Range of Motion, Normal Inspection, Non Tender, Supple Respiratory: Chest Non Tender, Lungs Clear, Normal Breath Sounds, No Accessory Muscle Use, No Respiratory Distress Cardiovascular: Regular Rate, Rhythm, No Edema, No Gallop, No JVD, No Murmur Gastrointestinal: Normal Bowel Sounds, No Organomegaly, No Pulsatile Mass, Non Tender, Soft Back: Normal Inspection, No CVA Tenderness, No Vertebral Tenderness Extremity: Normal Capillary Refill, Normal Inspection, Normal Range of Motion ( except left leg due to knee replacement status), Non Tender, No Calf Tenderness , No Pedal Edema Neurologic/Psychiatric: Alert, Oriented x3, No Motor/Sensory Deficits, Normal Mood/Affect Skin: Normal Color, Warm/Dry, Other (left knee incision without redness or drainage) Lymphatic: No Adenopathy Results/Procedures Lab Patient resulted labs reviewed. Assessment/Plan Assessment and Plan Assess & Plan/Chief Complaint Assessment: Debility Status post uncomplicated left total knee replacement by Dr. Girard POD # 7 Obstructive sleep apnea Severe hypertension requiring cardiology management by Hyperlipidemia GERD BPH Chronic dyspnea Chronic lower extremity edema Nighttime hypoxia requiring oxygen supplementation through CPAP machine Obesity Constipation-ordered meds Plan: Continue all home meds CPAP with oxygen Pain control Monitor labs Intensive therapies Constipation treatment prn since resolved Monitor left knee incision Encourage ADL independence DC Wednesday (1) Status post left knee replacement (2) Hypertension (3) SANTANA on CPAP (4) Hyperlipidemia (5) BPH (benign prostatic hyperplasia) (6) Chronic edema (7) GERD (gastroesophageal reflux disease) (8) Anemia due to blood loss, acute Clinical Quality Measures DVT/VTE Risk/Contraindication: Risk Factor Score Per Nursin RFS Level Per Nursing on Admit: 4+=Very High STORM VICTOR DO Aug 01, 2018 08:16
[2018-08-01 08:46] VITALS: BP 131/69
--- NOTE | 2018-08-01 09:03 | NUR ---
PHYSICAL EDUCATION DEPARTMENT CHAIR met with RN and Dr. Fylnn regarding patients progress. Patient has requested to discharge today, Dr. Flynn is in agreement with this as patient is up ad vy. and has supportive family. PHYSICAL EDUCATION DEPARTMENT CHAIR has contacted patients to ensure comfort with this decision of discharge, she has a maintanence individual coming to the house today to discuss installation of bathroom rails. Patients will contact PHYSICAL EDUCATION DEPARTMENT CHAIR following installation date, as she wants this done prior to patient returning home. Patient would benefit from home health services for PT and OT. Addendum: 08/01/18 at 1647 by BECKY PIERRE Patient and family selected [facility] for services. PHYSICAL EDUCATION DEPARTMENT CHAIR sent referral and home health will complete initial visit. Patient's was able to have grab bars installed in the bathroom today and patient can proceed with discharge home tomorrow. PHYSICAL EDUCATION DEPARTMENT CHAIR reviewed patient choice letter and IMM with patient, patient expresses no concerns regarding discharge plans. Please see discharge summary for further information
[2018-08-01] MEDS: FUROSEMIDE 20 MG (LASIX) TAB PO SCH (09:12)
[2018-08-01] MEDS: DOCUSATE SODIUM 100 MG (COLACE) CAP PO SCH ×2 (09:12→21:01)
[2018-08-01] MEDS: lisINopril 40 MG (PRINIVIL) TABLET PO SCH (09:12)
[2018-08-01] MEDS: FAMOTIDINE 20 MG (PEPCID) TABLET PO SCH ×2 (09:12→21:02)
[2018-08-01] MEDS: meTOprolol TARTRATE 50 MG (LOPRESSOR) TAB PO SCH ×2 (09:12→21:01)
[2018-08-01] MEDS: ASPIRIN E.C. 81 MG (ECOTRIN) TAB PO SCH ×2 (09:12→21:02)
[2018-08-01] MEDS: amLODIPine 10 MG (NORVASC) TAB PO SCH (09:12)
--- NOTE | 2018-08-01 09:45 | Occupational Ther Daily Note ---
OT Current Status-Daily Note Subjective Pt alert, lying in bed. Pt agrees to therapy. No c/o pain at this time. Pt demonstrates pain with movement, does not rate. Mental Status/Objective Patient Orientation: Person, Place, Time, Situation Therapy Code Descriptions/Definitions Functional [place] Measure: 0=Not Assessed/NA 4=Minimal Assistance 1=Total Assistance 5=Supervision or Setup 2=Maximal Assistance 6=Modified [place] 3=Moderate Assistance 7=Complete [place] ADL-Treatment Pt has been up in room using FWW without assistance for toileting and transfers to <--> from bed. Pt agrees to shower. Pt continues to have difficulty with reaching buttocks to cleanse in shower and toileting. Toilet tongs given, does not extend reach enough. After therapy, pt lying in bed with call light/phone in reach. All needs met in room. Therapy Code Descriptions/Definitions Functional [place] Measure: 0=Not Assessed/NA 4=Minimal Assistance 1=Total Assistance 5=Supervision or Setup 2=Maximal Assistance 6=Modified [place] 3=Moderate Assistance 7=Complete [place] Therapy Quality Codes: 6 Independent with activity with or without an assistive device 5 Patient requires set up or clean up by helper. Patient completes activity by themselves 4 Supervision or touching assist (CGA). [place] provide cues , steadying assist 3 The helper provides less than half the effort to complete the activity 2 The helper provides more than half the effort to complete the activity 1 Dependent. The helper does all the effort to complete an activity 7 Patient refused to complete or attempt activity 9 The patient did not perform the activity before the current illness or injury 88 Not attempted due to Medical conditions or safety concerns Eating (FIM): 7 (Pt sets own meals up and uses regular utensils to eat.) Eating (QC): 6 Grooming (FIM): 6 (Using FWW for stability, pt able to complete by self.) Oral Hygiene (QC): 6 Bathing (FIM): 4 (Pt is able to complete bathing using long handle sponge, grabbars, shower bench and hand held shower except drying buttocks. Pt uses sprayer to wash buttocks, unable to reach with hand or tongs.) Bathing Location: L Arm, R Arm, L Upper Leg, R Upper Leg, L Lower Leg ( including foot), R Lower Leg (including foot), Chest, Abdomen, Perineal Area Shower/Bathe Self (QC): 3 Upper Body (FIM): 6 (Using FWW to retrieve clothing, pt able to complete dressing.) Upper Body Dressing (QC): 6 Lower Body Dressing (FIM): 6 (Retrieves clothing with FWW, completes dressing pants/underwear by self. Pt declines donning socks at this time. Has sock aide for dressing.) Lower Body Dressing (QC): 6 Toileting (FIM): 4 (Pt is able to complete toileting except cleansing buttocks using grabbars and FWW. Toilet tongs given though pt does not use, unable to reach even with tongs.) Toileting Hygiene (QC): 3 Transfers (B, C, W/C) (FIM): 6 (Using FWW and higher surface.) Toilet/Commode Transfer (FIM): 6 (Using grabbars and FWW.) Toilet Transfer (QC): 6 Shower Transfer(FIM): 6 (Using grabbars, shower bench and FWW.) OT Short Term Goals Short Term Goals Time Frame: Aug 03, 2018 Bathing(FIM): 4 Lower Body Dressing(FIM): 4 Transfers (B,C,W/C) (FIM): 4 Toilet/Commode Transfer(FIM): 4 Shower Transfer(FIM): 4 Additional Short Term Goals: 1-Demonstrate ADL Tasks, 2-Verbalize Understanding , 3-ImproveStrength/[place] 1=Demonstrate adherence to instructed precautions during ADL tasks. 2=Patient will verbalize/demonstrate understanding of assistive devices/ modifications for ADL. 3=Patient will improve strength/tolerance for activity to enable patient to perform ADL's. OT Shelter Goals Shelter Goals Time Frame: Aug 17, 2018 Eating (FIM): 6 (met-08/01/18) Eating (QC): 6 (met-08/01/18) Groomin (met-08/01/18) Oral Hygiene (QC): 6 (met-08/01/18) Bathing(FIM): 5 (not met) Shower/Bathe Self (QC): 5 (not met) Upper Body Dressing(FIM): 6 (met-08/01/18) Upper Body Dressing (QC): 6 (met-08/01/18) Lower Body Dressing(FIM): 5 Lower Body Dressing (QC): 5 On/Off Footwear (QC): 5 Toileting(FIM): 6 (not met) Toileting Hygiene (QC): 6 (not met) Toilet/Commode Transfer(FIM): 6 (met-08/01/18) Toilet/Commode Transfer (QC): 6 (met-08/01/18) Shower Transfer(FIM): 5 (met-08/01/18) Comprehension(FIM): 6 Expression (FIM): 6 Social Interaction(FIM): 6 Problem Solving(FIM): 6 Memory(FIM): 6 Additional Goals: 1-Demonstrate ADL Tasks, 2-Verbalize Understanding, 3- ImproveStrength/[place] 1=Demonstrate adherence to instructed precautions during ADL tasks. 2=Patient will verbalize/demonstrate understanding of assistive devices/ modifications for ADL. 3=Patient will improve strength/tolerance for activity to enable patient to perform ADL's. OT Education/Plan Problem List/Assessment Assessment: Decreased Activ Tolerance, Impaired Self-Care Skills Pt s/p left TKA with decreased mobility, activity tolerance, and ADL functioning. Pt to benefit from skilled OT intervention for ADL training, transfers, strengthening, and home safety education to increase level of independence and allow safe discharge home with spouse. Discharge Recommendations Plan/Recommendations: Continue POC Treatment Plan/Plan of Care Patient would benefit from OT for education, treatment and training to promote independence in ADL's, mobility, safety and/or upper extremity function for ADL' s. Plan of Care: ADL Retraining, Functional Mobility, Group Exercise/Act as Ind, UE Funct Exercise/Act Treatment Duration: Aug 17, 2018 Frequency: At least 5 of 7 days/Wk (IRF) Estimated Hrs Per Day: 1.5 hours per day Agreement: Yes Rehab Potential: Good Time/GCodes Start Time: 08:30 Stop Time: 09:30 Total Time Billed (hr/min): 60 Billed Treatment Time 1 visit-ADL 4 (60 min) REYMUNDO COSTA Aug 01, 2018 09:45
--- NOTE | 2018-08-01 10:59 | Physical Therapy Daily Note ---
PT Daily Note-Current Subjective Patient in bed pre tx, agrees to PT, has pain of 4-5/10 in left knee. Appearance Patient in bed post tx with nurse call, phone, tray, all needs met. Mental Status Patient Orientation: Person, Place, Situation Transfers Therapy Code Descriptions/Definitions Functional [place] Measure: 0=Not Assessed/NA 4=Minimal Assistance 1=Total Assistance 5=Supervision or Setup 2=Maximal Assistance 6=Modified [place] 3=Moderate Assistance 7=Complete [place] Therapy Quality Codes: 6 Independent with activity with or without an assistive device 5 Patient requires set up or clean up by helper. Patient completes activity by themselves 4 Supervision or touching assist (CGA). [place] provide cues , steadying assist 3 The helper provides less than half the effort to complete the activity 2 The helper provides more than half the effort to complete the activity 1 Dependent. The helper does all the effort to complete an activity 7 Patient refused to complete or attempt activity 9 The patient did not perform the activity before the current illness or injury 88 Not attempted due to Medical conditions or safety concerns Transfers (B, C, W/C) (FIM): 6 Scootin Rollin Roll Left to Right (QC): 6 Supine to/from Sit: 6 Sit to/from Stand: 6 Sit to Lying (QC): 6 Sit to Stand (QC): 6 Chair/Baq-ab-Jdmud Xfer(QC): 6 Bed to/from Chair: 6 Car Transfer (QC): 6 Patient performs bed mobility with mod I, supine <-> sit with mod I, sit <-> stand with mod I, car transfer mod I. Patient has difficulty with supine to sit and car transfer but can do it without assist. Weight Bearing Right Lower Extremity: Right Full Weight Bearing Left Lower Extremity: Left Weight Bearing/Tolerated Gait Training Gait (FIM): 6 Distance: 200', 150' Walk 10 feet (QC): 6 Walk 50 ft with 2 Turns(QC): 6 Walk 150 ft (QC): 6 Walking 10ft/uneven surface-QC: 6 Gait Level of Assist: 6 Gait Assistive Device: FWW Patient can ambulate 200' with a rolling walker with mod I (including 50' with at least 2 turns of 90 degrees and 10' over an uneven surface). Patient has antalgic gait, decreased left knee flexion and stance time. Stair Training Stair Training: Handrails/: 2 handrails Stairs (FIM): 5 #of Steps: 12 1 Step (curb) (QC): 5 4 Steps (QC): 5 12 Steps (QC): 5 Stairs: Pattern: Step to Level of Assist: 5 Patient can go up and down 12 steps using 2 handrails with SBA. Cues for foot placement. Exercises Standing: Hip Abduction, Hamstring curls, Heel/toe raises, Mini squats Standing Reps: 15 NuStep Minutes: 15 NuStep Workload: 4 Treatments bed mobility and transfers, ambulation, functional strengthening, ROM, stair training Assessment Current Status: Fair Progress Patient has made good progress but tends to push himself too much and is reluctant to take rest breaks. PT Short Term Goals Short Term Goals Time Frame: Aug 03, 2018 Transfers (B,C,W/C) (FIM): 4 Gait (FIM): 4 Distance (FIM): 3=150 ft Gait Assistive Device: FWW Stairs (FIM): 2 # of Steps: 4 PT Lease Operator Goals Lease Operator Goals PT [facility] Goals Time Frame: Aug 17, 2018 Transfers (B,C,W/C) (FIM): 7 Sit to Lying (QC): 6 (met) Lying-Sitting on Side/Bed(QC): 6 (met) Sit to Stand (QC): 6 (met) Rollin (met) Roll Left to Right (QC): 6 (met) Chair/Wqg-qo-Egram Xfer(QC): 6 (met) Car Transfer (QC): 6 (met) Does the Patient Walk: Yes Gait (FIM): 6 (met) Gait distance (FIM): 3=150 ft Walk 10 feet (QC): 6 (met) Walk 10ft-Uneven Surface(QC): 6 (met) Walk 50ft with 2 Turns (QC): 6 (met) Walk 150 ft (QC): 6 (met) Gait Assistive Device: FWW Does the Pt use WC or Scooter?: No Stairs (FIM): 5 (household) # of Steps: 4 (met) 1 Step (curb) (QC): 6 4 Steps (QC): 6 12 Steps (QC): 88 Stairs Level Of Assist: 6 Picking up an Object (QC): 4 PT Plan Problem List Problem List: Activity Tolerance, Functional Strength, Safety, Balance, Gait, Transfer Treatment/Plan Treatment Plan: Continue Plan of Care Treatment Plan: Bed Mobility, Education, Functional Activity [place], Functional Strength, Group Therapy, Gait, Safety, Therapeutic Exercise, Transfers Treatment Duration: Aug 17, 2018 Frequency: At least 5 of 7 days/Wk (IRF) Estimated Hrs Per Day: 1.5 hours per day Patient and/or Family Agrees t: Yes Safety Risks/Education Patient Education: Gait Training, Transfer Techniques, Steps, Correct Positioning, Safety Issues Teaching Recipient: Patient Teaching Methods: Demonstration, Discussion Response to Teaching: Reinforcement Needed Time/GCodes Time In: 1000 Time Out: 1100 Total Billed Treatment Time: 60 Total Billed Treatment 1 visit GT 15' EX 15' FA 30' JAS FORDE PT Aug 01, 2018 10:59
[2018-08-01] MEDS ORDERED: GLUC100016 PO (13:25)
[2018-08-01] MEDS ORDERED: IBUP-30 PO (13:25)
[2018-08-01] MEDS: POLYETHYLENE GLYCOL 17 GM (MIRALAX) PACK PO SCH ×2 (13:34→21:02)
[2018-08-01] MEDS: LACTULOSE SYRUP 10GM/15ML (ENULOSE) 30ML UDC PO SCH ×2 (13:35→21:02)
--- NOTE | 2018-08-01 13:42 | Occupational Ther Daily Note ---
OT Current Status-Daily Note Subjective Pt alert, lying in bed. Pt agrees to therapy. No c/o pain at this time. Mental Status/Objective Patient Orientation: Person, Place, Time, Situation Therapy Code Descriptions/Definitions Functional [place] Measure: 0=Not Assessed/NA 4=Minimal Assistance 1=Total Assistance 5=Supervision or Setup 2=Maximal Assistance 6=Modified [place] 3=Moderate Assistance 7=Complete [place] ADL-Treatment Therapy Code Descriptions/Definitions Functional [place] Measure: 0=Not Assessed/NA 4=Minimal Assistance 1=Total Assistance 5=Supervision or Setup 2=Maximal Assistance 6=Modified [place] 3=Moderate Assistance 7=Complete [place] Therapy Quality Codes: 6 Independent with activity with or without an assistive device 5 Patient requires set up or clean up by helper. Patient completes activity by themselves 4 Supervision or touching assist (CGA). [place] provide cues , steadying assist 3 The helper provides less than half the effort to complete the activity 2 The helper provides more than half the effort to complete the activity 1 Dependent. The helper does all the effort to complete an activity 7 Patient refused to complete or attempt activity 9 The patient did not perform the activity before the current illness or injury 88 Not attempted due to Medical conditions or safety concerns Lower Body Dressing (FIM): 6 (Using FWW to retrieve clothing, pt able to complete with AE for lower body dressing.) Lower Body Dressing (QC): 6 On/Off Footwear (QC): 6 (Using AE, pt able to don/doff socks by self.) Other Treatment Pt requires min A for toileting, cleansing buttocks. Pt then ambulates to sink to wash hands. Ambulates to therapy gym to complete arm bike 10 min at 20 hernandes resistance to increase strength and activity tolerance for daily functional tasks. After therapy, pt lying in bed with call light/phone in reach. All needs met in room. OT Short Term Goals Short Term Goals Time Frame: Aug 03, 2018 Bathing(FIM): 4 Lower Body Dressing(FIM): 4 Transfers (B,C,W/C) (FIM): 4 Toilet/Commode Transfer(FIM): 4 Shower Transfer(FIM): 4 Additional Short Term Goals: 1-Demonstrate ADL Tasks, 2-Verbalize Understanding , 3-ImproveStrength/[place] 1=Demonstrate adherence to instructed precautions during ADL tasks. 2=Patient will verbalize/demonstrate understanding of assistive devices/ modifications for ADL. 3=Patient will improve strength/tolerance for activity to enable patient to perform ADL's. OT Cloth Desizing Range Tender Goals Cloth Desizing Range Tender Goals Time Frame: Aug 17, 2018 Eating (FIM): 6 (met-08/01/18) Eating (QC): 6 (met-08/01/18) Groomin (met-08/01/18) Oral Hygiene (QC): 6 (met-08/01/18) Bathing(FIM): 5 (not met) Shower/Bathe Self (QC): 5 (not met) Upper Body Dressing(FIM): 6 (met-08/01/18) Upper Body Dressing (QC): 6 (met-08/01/18) Lower Body Dressing(FIM): 5 (met:08-01-18) Lower Body Dressing (QC): 5 (met:08-01-18) On/Off Footwear (QC): 5 (met:08-01-18) Toileting(FIM): 6 (not met) Toileting Hygiene (QC): 6 (not met) Toilet/Commode Transfer(FIM): 6 (met-08/01/18) Toilet/Commode Transfer (QC): 6 (met-08/01/18) Shower Transfer(FIM): 5 (met-08/01/18) Comprehension(FIM): 6 Expression (FIM): 6 Social Interaction(FIM): 6 Problem Solving(FIM): 6 Memory(FIM): 6 Additional Goals: 1-Demonstrate ADL Tasks, 2-Verbalize Understanding, 3- ImproveStrength/[place] 1=Demonstrate adherence to instructed precautions during ADL tasks. 2=Patient will verbalize/demonstrate understanding of assistive devices/ modifications for ADL. 3=Patient will improve strength/tolerance for activity to enable patient to perform ADL's. OT Education/Plan Problem List/Assessment Assessment: Impaired Self-Care Skills Pt s/p left TKA with decreased mobility, activity tolerance, and ADL functioning. Pt to benefit from skilled OT intervention for ADL training, transfers, strengthening, and home safety education to increase level of independence and allow safe discharge home with spouse. Discharge Recommendations Plan/Recommendations: Continue POC Treatment Plan/Plan of Care Patient would benefit from OT for education, treatment and training to promote independence in ADL's, mobility, safety and/or upper extremity function for ADL' s. Plan of Care: ADL Retraining, Functional Mobility, Group Exercise/Act as Ind, UE Funct Exercise/Act Treatment Duration: Aug 17, 2018 Frequency: At least 5 of 7 days/Wk (IRF) Estimated Hrs Per Day: 1.5 hours per day Agreement: Yes Rehab Potential: Good Time/GCodes Start Time: 12:30 Stop Time: 13:00 Total Time Billed (hr/min): 30 Billed Treatment Time 1 visit-ADL 1 (20 min) EX 1 (10 min) REYMUNDO COSTA Aug 01, 2018 13:42
--- NOTE | 2018-08-01 14:34 | Physical Therapy Daily Note ---
PT Daily Note-Current Subjective Agreeable to PT. Reports he is going home tomorrow and notes he feels ready. Mental Status Patient Orientation: Person, Place, Time, Situation Transfers Therapy Code Descriptions/Definitions Functional [place] Measure: 0=Not Assessed/NA 4=Minimal Assistance 1=Total Assistance 5=Supervision or Setup 2=Maximal Assistance 6=Modified [place] 3=Moderate Assistance 7=Complete [place] Therapy Quality Codes: 6 Independent with activity with or without an assistive device 5 Patient requires set up or clean up by helper. Patient completes activity by themselves 4 Supervision or touching assist (CGA). [place] provide cues , steadying assist 3 The helper provides less than half the effort to complete the activity 2 The helper provides more than half the effort to complete the activity 1 Dependent. The helper does all the effort to complete an activity 7 Patient refused to complete or attempt activity 9 The patient did not perform the activity before the current illness or injury 88 Not attempted due to Medical conditions or safety concerns Sit to/from Stand: 7 Sit to Lying (QC): 6 Sit to Stand (QC): 6 Sit to stand transfers for hip / knee extension strengthening x 5 reps. Weight Bearing Right Lower Extremity: Right Full Weight Bearing Left Lower Extremity: Left Weight Bearing/Tolerated Gait Training Does the Patient Walk?: Yes Gait (FIM): 6 Distance (FIM): 3=150 ft Distance: 250 ft, 50 ft x 2; 150 ft Gait Assistive Device: FWW Slow gait with feet in ER; tends to keep walker a bit to far ahead. Exercises Seated Therapy Exercises: Ankle pumps, Long arc quads, Hip flexion Seated Reps: 15 (to promote LE strength for improved bed mobiity and transfers as well as gait. ) Treatments Pt also toileted; able to stand to urinate and at sink to wash hands without assist. Assessment Current Status: Good Progress Pt making good functinal gains. Still slow with gait but steady. PT Short Term Goals Short Term Goals Time Frame: Aug 03, 2018 Transfers (B,C,W/C) (FIM): 4 Gait (FIM): 4 Distance (FIM): 3=150 ft Gait Assistive Device: FWW Stairs (FIM): 2 # of Steps: 4 PT Keying Machine Operator Goals Nursing Home Goals PT Keying Machine Operator Goals Time Frame: Aug 17, 2018 Transfers (B,C,W/C) (FIM): 7 Sit to Lying (QC): 6 (met) Lying-Sitting on Side/Bed(QC): 6 (met) Sit to Stand (QC): 6 (met) Rollin (met) Roll Left to Right (QC): 6 (met) Chair/Blr-fr-[place]rz[place] Xfer(QC): 6 (met) Car Transfer (QC): 6 (met) Does the Patient Walk: Yes Gait (FIM): 6 (met) Gait distance (FIM): 3=150 ft Walk 10 feet (QC): 6 (met) Walk 10ft-Uneven Surface(QC): 6 (met) Walk 50ft with 2 Turns (QC): 6 (met) Walk 150 ft (QC): 6 (met) Gait Assistive Device: FWW Does the Pt use WC or Scooter?: No Stairs (FIM): 5 (household) # of Steps: 4 (met) 1 Step (curb) (QC): 6 4 Steps (QC): 6 12 Steps (QC): 88 Stairs Level Of Assist: 6 Picking up an Object (QC): 4 PT Plan Problem List Problem List: Activity Tolerance, Functional Strength, Safety Treatment/Plan Treatment Plan: Continue Plan of Care, Discontinue PT Treatment Plan: Bed Mobility, Education, Functional Activity [place], Functional Strength, Group Therapy, Gait, Safety, Therapeutic Exercise, Transfers Treatment Duration: Aug 17, 2018 Frequency: At least 5 of 7 days/Wk (IRF) Estimated Hrs Per Day: 1.5 hours per day Patient and/or Family Agrees t: Yes Safety Risks/Education Patient Education: Safety Issues Teaching Recipient: Patient Teaching Methods: Discussion Response to Teaching: Verbalize Understanding Discharge Recommendations Therapy D/C Recommendations: Physical Therapy Home Care Time/GCodes Time In: 1331 Time Out: 1402 Total Billed Treatment Time: 31 Total Billed Treatment visit EX 16 GT 15 REYMUNDO DEL ROSARIO PT Aug 01, 2018 14:34
[2018-08-01 16:07] VITALS: BP 140/65
[2018-08-01] MEDS: TAMSULOSIN 0.4 MG (FLOMAX) CAP PO SCH (21:01)
[2018-08-01] MEDS: rOPINIRole 0.25 MG (REQUIP) TAB PO SCH (21:02)
[2018-08-01] MEDS: MELATONIN 3 MG TABLET PO PRN (21:05)
[2018-08-02 06:06] VITALS: BP 124/76
[2018-08-02] MEDS: KCL 10 MEQ TAB (MICRO K) PO SCH (06:08)
[2018-08-02] MEDS: MULTIVIT W/MINERALS TAB (THERAGRAN M) PO SCH (06:08)
[2018-08-02] MEDS: HYDROcodone/APAP 10 MG/325 MG (LORTAB) TAB PO PRN ×2 (06:12→13:26)
[2018-08-02] MEDS: POLYETHYLENE GLYCOL 17 GM (MIRALAX) PACK PO SCH (08:31)
[2018-08-02] MEDS: DOCUSATE SODIUM 100 MG (COLACE) CAP PO SCH (08:31)
[2018-08-02] MEDS: amLODIPine 10 MG (NORVASC) TAB PO SCH (08:31)
--- NOTE | 2018-08-02 08:31 | Therapy Team Discharge Summary ---
Therapy Discharge Summary Discharge Recommendations Date of Discharge Therapy D/C Recommendations: Physical Therapy Home Care Physical Therapy Patient came to rehab following a left TKA. Upon evaluation patient performed bed mobility with mod to max assist, transfers with min assist, ambulated 50' with a rolling walker with min assist. Patient has been performing bed mobility and transfer training, balance and endurance training, functional strengthening, stair training, gait training, and education. Patient has made good progress and has met all of his mcc goals. Now, patient performs bed mobility with mod I, supine <-> sit with mod I, sit <-> stand with mod I, car transfer mod I, ambulates 200' with a rolling walker with mod I (including 50' with at least 2 turns of 90 degrees and 10' over an uneven surface), and can go up and down 12 steps using 2 handrails with SBA. Patient is discharging from this facility today and will be discharged from PT at this time. Occupational Therapy Impaired Self-Care Skills PT Manufacturer Agent Goals Group Home Goals PT Group Home Goals Time Frame: Aug 17, 2018 Transfers (B,C,W/C) (FIM): 7 Roll Left to Right (QC): 6 (met) Sit to Lying (QC): 6 (met) Lying-Sitting on Side/Bed(QC): 6 (met) Sit to Stand (QC): 6 (met) Chair/Lhd-ip-Gljot Xfer(QC): 6 (met) Car Transfer (QC): 6 (met) Does the Patient Walk: Yes Gait (FIM): 6 (met) Gait distance (FIM): 3=150 ft Walk 10 feet (QC): 6 (met) Walk 10ft-Uneven Surface(QC): 6 (met) Walk 50ft with 2 Turns (QC): 6 (met) Walk 150 ft (QC): 6 (met) Gait Assistive Device: FWW Does the Pt use WC or Scooter?: No Stairs (FIM): 5 (household) # of Steps: 4 (met) 1 Step (curb) (QC): 6 4 Steps (QC): 6 12 Steps (QC): 88 Stairs Level Of Assist: 6 Picking up an Object (QC): 4 OT Group Home Goals Manufacturer Agent Goals Time Frame: Aug 17, 2018 Eating (FIM): 6 (met-08/01/18) Eating (QC): 6 (met-08/01/18) Oral Hygiene (QC): 6 (met-08/01/18) Grooming(FIM): 6 (met-08/01/18) Bathing(FIM): 5 (not met) Shower/Bathe Self (QC): 5 (not met) Upper Body Dressing(FIM): 6 (met-08/01/18) Upper Body Dressing (QC): 6 (met-08/01/18) Lower Body Dressing(FIM): 5 (met:08-01-18) Lower Body Dressing (QC): 5 (met:08-01-18) On/Off Footwear (QC): 5 (met:08-01-18) Toileting(FIM): 6 (not met) Toileting Hygiene (QC): 6 (not met) Toilet/Commode Transfer(FIM): 6 (met-08/01/18) Toilet/Commode Transfer (QC): 6 (met-08/01/18) Shower Transfer(FIM): 5 (met-08/01/18) Comprehension(FIM): 6 Expression (FIM): 6 Social Interaction(FIM): 6 Problem Solving(FIM): 6 Memory(FIM): 6 Additional Goals: 1-Demonstrate ADL Tasks, 2-Verbalize Understanding, 3- ImproveStrength/[place] 1=Demonstrate adherence to instructed precautions during ADL tasks. 2=Patient will verbalize/demonstrate understanding of assistive devices/ modifications for ADL. 3=Patient will improve strength/tolerance for activity to enable patient to perform ADL's. Speech Group Home Goals Group Home Goals Comprehension: 6 Expression: 6 Social Interaction: 6 Problem Solvin Memory: 6 JAS FORDE PT Aug 02, 2018 08:31
[2018-08-02] MEDS: meTOprolol TARTRATE 50 MG (LOPRESSOR) TAB PO SCH (08:32)
[2018-08-02] MEDS: LACTULOSE SYRUP 10GM/15ML (ENULOSE) 30ML UDC PO SCH (08:32)
[2018-08-02] MEDS: FAMOTIDINE 20 MG (PEPCID) TABLET PO SCH (08:32)
[2018-08-02] MEDS: FUROSEMIDE 20 MG (LASIX) TAB PO SCH (08:32)
[2018-08-02] MEDS: lisINopril 40 MG (PRINIVIL) TABLET PO SCH (08:32)
[2018-08-02] MEDS: ASPIRIN E.C. 81 MG (ECOTRIN) TAB PO SCH (08:32)
[2018-08-02] MEDS ORDERED: BACL10TA PO (08:41)
[2018-08-02] MEDS ORDERED: HYDR-3876 PO (08:41)
[2018-08-02] MEDS ORDERED: ASPI-983 PO (08:41)
--- NOTE | 2018-08-02 08:43 | Discharge Summary ---
Diagnosis/Chief Complaint Date of Admission Jul 27, 2018 at 13:18 Date of Discharge Discharge Date: Aug 02, 2018 Discharge Diagnosis Assessment: Debility Status post uncomplicated left total knee replacement by Dr. Girard POD # 7 Obstructive sleep apnea Severe hypertension requiring cardiology management by Hyperlipidemia GERD BPH Chronic dyspnea Chronic lower extremity edema Nighttime hypoxia requiring oxygen supplementation through CPAP machine Obesity Constipation-ordered meds Plan: Continue all home meds CPAP with oxygen Pain control Monitor labs Intensive therapies Constipation treatment prn since resolved Monitor left knee incision Encourage ADL independence DC today Discharge Summary Discharge Physical Examination Allergies: Coded Allergies: No Known Drug Allergies (Unverified , 08/22/15) Vitals & I&Os Vital Signs Date Time Temp Pulse Resp B/P (MAP) Pulse Ox O2 Delivery O2 Flow Rate FiO2 08/02/18 14:15 65 20 124/76 96 Room Air 08/02/18 06:06 98.5 07/31/18 00:30 1.00 Hospital Course Was the Problem List Reviewed?: Yes Hospital course: Pt had a lengthy hospital course, he remained in inpatient rehab for six days and participated in all therapies as criteria required. Pt was maintained on CPAP machine and pain control was managed with Lortab of 10 3 25 Q4 hours PRN. His bowels returned back to normal with laxatives and he had no significant decompensation during the hospital course. Labs remained stable as did his BP after continuing on his home medication. Although the incision of the left leg was slightly pink it did not overly concern us with infection and he will have home health to evaluate it and report to Dr. Girard if that should change. Overall he completed all therapies as required and did extremely well with inpatient rehab. Labs (last 24 hrs) Laboratory Tests 07/28/18 07:35: White Blood Count 7.7, Red Blood Count 4.16L, Hemoglobin 11.9L, Hematocrit 37L, Mean Corpuscular Volume 89, Mean Corpuscular Hemoglobin 29, Mean Corpuscular Hemoglobin Concent 32, Red Cell Distribution Width 13.5, Platelet Count 146, Mean Platelet Volume 10.7H, Neutrophils (%) (Auto) 53, Lymphocytes (%) (Auto) 37 , Monocytes (%) (Auto) 9, Eosinophils (%) (Auto) 1, Basophils (%) (Auto) 0, Neutrophils # (Auto) 4.1, Lymphocytes # (Auto) 2.8, Monocytes # (Auto) 0.7, Eosinophils # (Auto) 0.1, Basophils # (Auto) 0.0, Sodium Level 142, Potassium Level 4.0, Chloride Level 107, Carbon Dioxide Level 26, Anion Gap 9, Blood Urea Nitrogen 14, Creatinine 0.96, Estimat Glomerular Filtration Rate > 60, BUN/ Creatinine Ratio 15, Glucose Level 130H, Calcium Level 9.1, Corrected Calcium 9.3, Total Bilirubin 0.6, Aspartate Amino Transf (AST/SGOT) 21, Alanine Aminotransferase (ALT/SGPT) 23, Alkaline Phosphatase 56, Total Protein 6.6, Albumin 3.7 Pending Labs Laboratory Tests 07/28/18 07:35: White Blood Count 7.7, Red Blood Count 4.16, Hemoglobin 11.9, Hematocrit 37, Mean Corpuscular Volume 89, Mean Corpuscular Hemoglobin 29, Mean Corpuscular Hemoglobin Concent 32, Red Cell Distribution Width 13.5, Platelet Count 146, Mean Platelet Volume 10.7, Neutrophils (%) (Auto) 53, Lymphocytes (%) (Auto) 37 , Monocytes (%) (Auto) 9, Eosinophils (%) (Auto) 1, Basophils (%) (Auto) 0, Neutrophils # (Auto) 4.1, Lymphocytes # (Auto) 2.8, Monocytes # (Auto) 0.7, Eosinophils # (Auto) 0.1, Basophils # (Auto) 0.0, Sodium Level 142, Potassium Level 4.0, Chloride Level 107, Carbon Dioxide Level 26, Anion Gap 9, Blood Urea Nitrogen 14, Creatinine 0.96, Estimat Glomerular Filtration Rate > 60, BUN/ Creatinine Ratio 15, Glucose Level 130, Calcium Level 9.1, Corrected Calcium 9.3 , Total Bilirubin 0.6, Aspartate Amino Transf (AST/SGOT) 21, Alanine Aminotransferase (ALT/SGPT) 23, Alkaline Phosphatase 56, Total Protein 6.6, Albumin 3.7 Discharge Home Medications: Active Scripts Active Lorcet Hd 10-325 mg Tablet (Hydrocodone/Acetaminophen) 1 Each Tablet 1 Each PO Q6H Aspirin EC (Aspirin) 81 Mg Tablet.dr 81 Mg PO BID Baclofen 10 Mg Tablet 10 Mg PO TID PRN Reported Glucosamine (Glucosamine Sulfate 2Kcl) 1,000 Mg Tablet 2 Tab PO DAILY Advil (Ibuprofen) 200 Mg Tablet 400-600 Mg PO BID Metoprolol Tartrate 50 Mg Tablet 25 Mg PO BID TAKES 1/2 (50MG) TABLET Multivitamins (Multivitamin) 1 Each Tablet 1 Tab PO BID Lisinopril 40 Mg Tablet 40 Mg PO DAILY Famotidine 20 Mg Tablet 20 Mg PO BID Flomax (Tamsulosin HCl) 0.4 Mg Cap 0.4 Mg PO HS Potassium Chloride 10 Meq Capsule.er 10 Meq PO BID Furosemide 20 Mg Tablet 20 Mg PO DAILY Ropinirole HCl 0.5 Mg Tablet 0.5 Mg PO HS Amlodipine Besylate 10 Mg Tablet 10 Mg PO DAILY Instructions to patient/family Please see electronic discharge instructions given to patient. Diagnosis/Problems Diagnosis/Problems (1) Status post left knee replacement (2) Hypertension (3) SANTANA on CPAP (4) Hyperlipidemia (5) BPH (benign prostatic hyperplasia) (6) Chronic edema (7) GERD (gastroesophageal reflux disease) (8) Anemia due to blood loss, acute Clinical Quality Measures DVT/VTE Risk/Contraindication: Risk Factor Score Per Nursin RFS Level Per Nursing on Admit: 4+=Very High STORM VICTOR DO Aug 02, 2018 08:43
--- NOTE | 2018-08-02 08:47 | D/C HH Face to Face Order ---
D/C Face to Face Orders Instructions for Patient Via [facility], Patient Instructions/FollowUp: PCP in 1 week Physician to follow Patient: Randi Wilkinson Discharge Diet for Home: Regular Diet Patient Problems: Left knee replacement SANTANA on CPAP HTN Goals for Patient: Return to independent ADL's Patient Data-Allergies,Ht & Wt Patient Allergies: Coded Allergies: No Known Drug Allergies (Unverified , 08/22/15) Height (Feet): 5 Height (Inches): 6.50 Weight (Pounds): 305 Weight (Ounces): 0.8 Home Health Need/Face to Face Date of Face to Face: Aug 02, 2018 Clinical Findings: Generalized weakness and fatigue, Instability, Muscle weakness, Pain with ambulation, Unsteady gait I have seen Pt [id number]: Yes Discharged To: Home Diagnosis/Conditions: Left knee replacement SANTANA on CPAP HTN Patient is Homebound due to: Dg fall risk due to instabilty, Muscle weakness , Pain w/ambulation Homebound Status Due to the above stated illness, injury or surgical procedure (medical condition or diagnosis) and associated clinical findings, the patient is homebound because of his/her inability to leave home except with aid of a supportive device and/or person AND leaving the home requires a considerable and taxing effort or is medically contraindicated. Pt req the following assistanc: Walker [facility] Nursing Orders Home Health Services Order: Nursing Services, Mammal Control Agent-Evaluate & Treat, Physical Therapy-Evaluate & Treat Monitor left knee incision site due to subtle redness [facility] certify that this patient is under my care and that I, a nurse practitioner or a physician; a employment legal assistant working with me, had a face to face encounter that - meets the physician face to face encounter requirements with this patient as dated. STORM VICTOR DO Aug 02, 2018 08:47
--- NOTE | 2018-08-02 12:54 | Therapy Team Discharge Summary ---
Therapy Discharge Summary Discharge Recommendations Date of Discharge Therapy D/C Recommendations: Physical Therapy Home Care Occupational Therapy Pt admitted to ARU following left TKA. On admission pt required mod assist with bathing, toileting, transfers, and LE dressing. Skilled OT intervention focused on ADL training, transfers, and education. Pt progressed with therapy and by discharge is completing grooming, dressing, and transfers with modified independence. Min assist is required for bathing and toileting. Pt met OT LTG except bathing and toileting. Pt discharging home with family support. D/C ARU OT at this time. Impaired Self-Care Skills PT Nursing Home Goals Nursing Home Goals PT Nursing Home Goals Time Frame: Aug 17, 2018 Transfers (B,C,W/C) (FIM): 7 Roll Left to Right (QC): 6 (met) Sit to Lying (QC): 6 (met) Lying-Sitting on Side/Bed(QC): 6 (met) Sit to Stand (QC): 6 (met) Chair/Ydz-la-Kstrd Xfer(QC): 6 (met) Car Transfer (QC): 6 (met) Does the Patient Walk: Yes Gait (FIM): 6 (met) Gait distance (FIM): 3=150 ft Walk 10 feet (QC): 6 (met) Walk 10ft-Uneven Surface(QC): 6 (met) Walk 50ft with 2 Turns (QC): 6 (met) Walk 150 ft (QC): 6 (met) Gait Assistive Device: FWW Does the Pt use WC or Scooter?: No Stairs (FIM): 5 (household) # of Steps: 4 (met) 1 Step (curb) (QC): 6 4 Steps (QC): 6 12 Steps (QC): 88 Stairs Level Of Assist: 6 Picking up an Object (QC): 4 OT Occupational Health Coordinator Goals Nursing Home Goals Time Frame: Aug 17, 2018 Eating (FIM): 6 (met-08/01/18) Eating (QC): 6 (met-08/01/18) Oral Hygiene (QC): 6 (met-08/01/18) Grooming(FIM): 6 (met-08/01/18) Bathing(FIM): 5 (not met) Shower/Bathe Self (QC): 5 (not met) Upper Body Dressing(FIM): 6 (met-08/01/18) Upper Body Dressing (QC): 6 (met-08/01/18) Lower Body Dressing(FIM): 5 (met:08-01-18) Lower Body Dressing (QC): 5 (met:08-01-18) On/Off Footwear (QC): 5 (met:08-01-18) Toileting(FIM): 6 (not met) Toileting Hygiene (QC): 6 (not met) Toilet/Commode Transfer(FIM): 6 (met-08/01/18) Toilet/Commode Transfer (QC): 6 (met-08/01/18) Shower Transfer(FIM): 5 (met-08/01/18) Comprehension(FIM): 6 Expression (FIM): 6 Social Interaction(FIM): 6 Problem Solving(FIM): 6 Memory(FIM): 6 Additional Goals: 1-Demonstrate ADL Tasks, 2-Verbalize Understanding, 3- ImproveStrength/Delma 1=Demonstrate adherence to instructed precautions during ADL tasks. 2=Patient will verbalize/demonstrate understanding of assistive devices/ modifications for ADL. 3=Patient will improve strength/tolerance for activity to enable patient to perform ADL's. Speech Nursing Home Goals Nursing Home Goals Comprehension: 6 Expression: 6 Social Interaction: 6 Problem Solvin Memory: 6 EARLE LAUGHLIN OT Aug 02, 2018 12:54
[2018-08-02 14:15] VITALS: BP 124/76
--- NOTE | 2018-08-02 15:00 | Physical Therapy Daily Note ---
PT Daily Note-Current Subjective Pt working with OT upon arrival. Pt agrees to co-treat with OT & PT. Pain Numeric Pain Scale: 4 Location: Left Location Body Site: Knee Pain Description: Ache, Tightness Mental Status Patient Orientation: Person, Place, Situation Transfers Therapy Code Descriptions/Definitions Functional [place] Measure: 0=Not Assessed/NA 4=Minimal Assistance 1=Total Assistance 5=Supervision or Setup 2=Maximal Assistance 6=Modified [place] 3=Moderate Assistance 7=Complete [place] Therapy Quality Codes: 6 Independent with activity with or without an assistive device 5 Patient requires set up or clean up by helper. Patient completes activity by themselves 4 Supervision or touching assist (CGA). [place] provide cues , steadying assist 3 The helper provides less than half the effort to complete the activity 2 The helper provides more than half the effort to complete the activity 1 Dependent. The helper does all the effort to complete an activity 7 Patient refused to complete or attempt activity 9 The patient did not perform the activity before the current illness or injury 88 Not attempted due to Medical conditions or safety concerns Scootin Rollin Supine to/from Sit: 3 Sit to/from Stand: 3 Sit to Lying (QC): 3 Sit to Stand (QC): 3 Weight Bearing Right Lower Extremity: Right Full Weight Bearing Left Lower Extremity: Left Weight Bearing/Tolerated Gait Training Distance (FIM): 1=up to 49 ft Walk 10 feet (QC): 3 Gait Assistive Device: FWW Pt walks stiffly. Treatments Pt requested to use restroom again. Gait to restroom with FWW with cues for safety and walker use. Stood at toilet to urinate with minimal assistance for balance during clothing management. Stood at sink to wash hands with CGA for balance. Pt returned to EOB, sit to supine with assist for LE. Co-treat with PT. OT focusing on ADL completion, transfers, and safety. Pt focusing on transfers, balance during ADL tasks, and LE management. Assessment Co-treat with PT secondary to decreased activity tolerance. Pt admitted from outside facility, states he is had therapy this morning and is fatigued, but agrees to therapy. PT Short Term Goals Short Term Goals Time Frame: Aug 03, 2018 Transfers (B,C,W/C) (FIM): 4 Gait (FIM): 4 Distance (FIM): 3=150 ft Gait Assistive Device: FWW Stairs (FIM): 2 # of Steps: 4 PT Pharmacy Teacher Goals Usp Goals PT Pharmacy Teacher Goals Time Frame: Aug 17, 2018 Transfers (B,C,W/C) (FIM): 7 Sit to Lying (QC): 6 (met) Lying-Sitting on Side/Bed(QC): 6 (met) Sit to Stand (QC): 6 (met) Rollin (met) Roll Left to Right (QC): 6 (met) Chair/Gzn-kh-Efjyd Xfer(QC): 6 (met) Car Transfer (QC): 6 (met) Does the Patient Walk: Yes Gait (FIM): 6 (met) Gait distance (FIM): 3=150 ft Walk 10 feet (QC): 6 (met) Walk 10ft-Uneven Surface(QC): 6 (met) Walk 50ft with 2 Turns (QC): 6 (met) Walk 150 ft (QC): 6 (met) Gait Assistive Device: FWW Does the Pt use WC or Scooter?: No Stairs (FIM): 5 (household) # of Steps: 4 (met) 1 Step (curb) (QC): 6 4 Steps (QC): 6 12 Steps (QC): 88 Stairs Level Of Assist: 6 Picking up an Object (QC): 4 PT Plan Problem List Problem List: Activity Tolerance, Functional Strength, Safety, Balance, Gait, Transfer, Bed Mobility Treatment/Plan Treatment Plan: Continue Plan of Care Treatment Plan: Bed Mobility, Education, Functional Activity Delma, Functional Strength, Group Therapy, Gait, Safety, Therapeutic Exercise, Transfers Treatment Duration: Aug 17, 2018 Frequency: At least 5 of 7 days/Wk (IRF) Estimated Hrs Per Day: 1.5 hours per day Patient and/or Family Agrees t: Yes Safety Risks/Education Patient Education: Gait Training, Transfer Techniques, Correct Positioning, Safety Issues Teaching Recipient: Patient, Family Teaching Methods: Discussion Response to Teaching: Reinforcement Needed Time/GCodes Time In: 1430 Time Out: 1455 Total Billed Treatment Time: 25 Total Billed Treatment 1, FA x2 (25m) This is a late entry for 07/27/18 G Codes Necessary: DO Woodall FINANCIAL SALES MANAGER Aug 02, 2018 15:00
== END 2018-08-02 14:15 | disposition home health service (06) | DRG 560 ==
PROVIDERS: ADMIT Internal Medicine; ATTEND Internal Medicine
DX: Z47.1 Aftercare following joint replacement surgery (principal); Z96.652 Presence of left artificial knee joint; E66.9 Obesity, unspecified; Z68.42 Body mass index [BMI] 45.0-49.9, adult; G47.33 Obstructive sleep apnea (adult) (pediatric); I10 Essential (primary) hypertension; N40.0 Benign prostatic hyperplasia without lower urinary tract symptoms; K21.9 Gastro-esophageal reflux disease without esophagitis; E78.5 Hyperlipidemia, unspecified; R06.00 Dyspnea, unspecified; R60.0 Localized edema; R09.02 Hypoxemia; K59.00 Constipation, unspecified
CPT/HCPCS: 36415; 80053; 85025; 94664

== ENCOUNTER → 2018-11-07 | Outpatient (CLI) | payer MEDICARE ==
[~2018-11-07] MED LIST changes: -ACETAMINOPHEN 500 MG TAB (TYLENOL) PO PRN; -ALPRAZolam 0.25 MG (XANAX) TAB PO PRN; +ASPI-983 PO; +BACL10TA PO; -CALCIUM CARBONATE 500 MG (TUMS) TAB.CHEW PO PRN; +FAMO20TA5 PO; +FURO20TA4 PO; +GLUC100016 PO; +HYDR-3820 PO; +HYDR-3876 PO; -HYDROcodone/APAP 5 MG/325 MG (LORTAB) TAB PO PRN; +IBUP-30 PO; +LISI40TA PO; -LOPERAMIDE 2 MG (IMODIUM) CAP PO PRN; +METO50TA15 PO; +MULT1TAB69 PO; +POTA10CA43 PO; -diphenhydrAMINE 25 MG TAB (BENADRYL) PO PRN
--- NOTE | 2018-11-07 10:20 | Diagnostic Imaging Report ---
PROCEDURE: US Hepatic (Liver). TECHNIQUE: Multiple real-time grayscale images were obtained over the right upper quadrant in various projections. INDICATION: Elevated liver enzymes. FINDINGS: There is increased echogenicity of liver compatible with fatty infiltration. There is no biliary ductal dilatation. The common bile duct measures less than 5 mm. There is no cholelithiasis, gallbladder wall thickening or pericholecystic fluid. The visualized portions of the pancreas are unremarkable. Aorta is not well visualized. IVC is patent. Right kidney is normal. There is no ascites. IMPRESSION: Fatty infiltration liver otherwise unremarkable right upper quadrant ultrasound. Dictated by: Dictated on workstation # [id number]
== END ==
LOC: RAD 09:02
PROVIDERS: ATTEND Registered Nurse
DX: K76.0 Fatty (change of) liver, not elsewhere classified (principal)
CPT/HCPCS: 76705

== ENCOUNTER → 2019-02-13 | Outpatient (CLI) | payer MEDICARE ==
--- NOTE | 2019-02-13 12:54 | Diagnostic Imaging Report ---
INDICATION: Right submandibular gland enlargement. The right submandibular gland measures 3.9 x 4.7 x 1.8 cm and the left submandibular gland measures 4.2 x 4.1 x 1.1 cm. Both glands demonstrate fairly homogeneous echotexture. No discrete mass is identified. IMPRESSION: Unremarkable bilateral submandibular glands. Dictated by: Dictated on workstation # [id number]
== END ==
LOC: RAD 10:55
PROVIDERS: ATTEND Otolaryngology Otolaryngology/Facial Plastic Surgery
DX: K11.1 Hypertrophy of salivary gland (principal)
CPT/HCPCS: 76536

== ENCOUNTER 2019-03-15 14:50 | Outpatient (CLI) | payer MEDICARE ==
[~2019-03-15] VITALS: Ht 167.7 cm; Wt 147.7 kg
[~2019-03-15 14:50] MED LIST changes: +GLUC-203 PO
== END 2019-03-15 14:55 | disposition home or self-care (01) ==
LOC: PREOP 14:50
PROVIDERS: ATTEND Surgery
DX: Z01.818 Encounter for other preprocedural examination (principal)

== ENCOUNTER 2019-04-13 12:10 | Emergency (ER) | payer MEDICARE ==
[~2019-04-13] VITALS: Ht 167 cm; Wt 147.0 kg
[~2019-04-13 12:10] MED LIST changes: -METO-370 PO; +METO50TA7 PO; +PANT40TA2 PO; -TAMS0.4C98 PO; +TMSL.4C PO
--- NOTE | 2019-04-13 13:21 | NUR ---
ED physician in room assessing pt
--- NOTE | 2019-04-13 13:49 | ED General ---
General Chief Complaint: Neurological Problems Stated Complaint: HEADACHE,DIZZINESS Nursing Triage Note: PT PRESENTS TO ED WITH COMPLAINTS OF DOUBLE VISION/BURRED VISION, DIZZINESS WITH WALKING OR MOVEMENT STARTING 2 DAYS AGO. PT ALSO REPORTS APONTE SINCE 2 DAYS AGO. Nursing Sepsis Screen: No Definite Risk Source of Information: Patient Exam Limitations: No Limitations History of Present Illness Date Seen by Provider: Apr 13, 2019 Time Seen by Provider: 13:26 Initial Comments Here with report of 2-3 days of dizziness that was worse yesterday but is better today. Also mild headache. Reports it is not been drinking well. Worse with getting up and moving and better with rest. Denies current fever or chills. Did have vomiting episode at onset but states that he believes that was due to eating peanuts and he usually has a reaction when he eats peanuts. Timing/Duration: 2-3 Days Severity: Moderate Modifying Factors: worse with Movement; improves with Rest Associated Systoms: No Chest Pain, No Cough, No Fever/Chills; Nausea/Vomiting; No Shortness of Air; Weakness Allergies and Home Medications Allergies Coded Allergies: No Known Drug Allergies (Unverified , 08/22/15) Home Medications Amlodipine Besylate 10 Mg Tablet, 10 MG PO DAILY, (Reported) Furosemide 20 Mg Tablet, 20 MG PO DAILY, (Reported) Glucosam/Chond/Hyalu/Cf Borate 1 Each Tablet, 1 EACH PO HS, (Reported) Ibuprofen 200 Mg Tablet, 400-600 MG PO BID, (Reported) Lisinopril 40 Mg Tablet, 40 MG PO DAILY, (Reported) Metoprolol Tartrate 50 Mg Tablet, 25 MG PO BID, (Reported) TAKES 1/2 (50MG) TABLET Multivitamin 1 Each Tablet, 1 TAB PO BID, (Reported) Pantoprazole Sodium 40 Mg Tablet.dr, 40 MG PO DAILY Prescribed by: BLANCA FAITH on 03/21/19 1525 Potassium Chloride 10 Meq Capsule.er, 10 MEQ PO BID, (Reported) Ropinirole HCl 0.5 Mg Tablet, 0.5 MG PO HS, (Reported) Tamsulosin HCl 0.4 Mg Cap, 0.4 MG PO HS, (Reported) Patient Home Medication List Home Medication List Reviewed: Yes Review of Systems Review of Systems Constitutional: see HPI; No chills, No fever EENTM: No nose congestion, No throat pain Respiratory: No cough, No short of breath Cardiovascular: No chest pain, No edema Gastrointestinal: see HPI; No abdominal pain Genitourinary: no symptoms reported Musculoskeletal: No muscle pain, No neck pain Skin: no symptoms reported Psychiatric/Neurological: Headache (intermittent frontal), Other (dizziness) Hematologic/Lymphatic: No Symptoms Reported Past Bgsqywu-Uhrize-Vagkrg Hx Past Med/Social Hx: Reviewed Nursing Past Med/Soc Hx Patient Social History Alcohol Use: Denies Use Recreational Drug Use: No Smoking Status: Never a Smoker Type Used: Cigarettes 2nd Hand Smoke Exposure: No Recent Foreign Travel: No Contact w/Someone Who Travel: No Recent Infectious Disease Expo: No Recent Hopitalizations: No Physical Abuse: No Sexual Abuse: No Mistreated: No Fear: No Immunizations Up To Date Tetanus Booster (TDap): More than 5yrs PED Vaccines UTD: Yes Date of Influenza Vaccine: Apr 11, 2018 Seasonal Allergies Seasonal Allergies: No Past Medical History Surgeries: Yes (colostomy then reversal, L TKR, ) Abdominal, Orthopedic, Rectal Respiratory: Yes Sleep Apnea Currently Using CPAP: Yes Currently Using BIPAP: No Cardiac: Yes Chronic Edema/Swelling, High Cholesterol, Hypertension Neurological: No Genitourinary: Yes Benign Prostatic Hyperpl, Prostate Problems Gastrointestinal: Yes (Sections of Bowel Removed) Gastroesophageal Reflux, Polyps Musculoskeletal: Yes (Osteo Arthritis) Arthritis Endocrine: No HEENT: No Cancer: No Psychosocial: No Integumentary: No Blood Disorders: No Family Medical History Reviewed Nursing Family Hx Arthritis 19 FATHER 19 MOTHER G8 BROTHER G8 BROTHER G8 BROTHER G8 BROTHER G8 SISTER G8 SISTER G8 SISTER G8 SISTER Asthma G8 SISTER Cardiovascular disease 19 FATHER G8 SISTER Colon cancer G8 BROTHER Deafness or hearing loss G8 BROTHER Diabetes mellitus 19 FATHER Gastroenteritis G8 BROTHER Hypercholesterolemia G8 SISTER Hypertension 19 FATHER 19 MOTHER G8 BROTHER G8 BROTHER G8 BROTHER G8 BROTHER G8 SISTER G8 SISTER G8 SISTER G8 SISTER Osteoporosis G8 SISTER Respiratory disorder G8 SISTER Seizure disorder G8 BROTHER Hypertension, Migraines Physical Exam Vital Signs Vital Signs - First Documented 04/13/19 12:59 Temp 36.9 Pulse 60 Resp 18 B/P (MAP) 161/81 (107) Pulse Ox 99 Capillary Refill : Less Than 3 Seconds Height, Weight, BMI Height: 5'6.50" Weight: 305lbs. 0.8oz. 138.727040dt; 52.00 BMI Method:Stated General Appearance: No Apparent Distress, WD/WN, Obese HEENT: PERRL/EOMI, Pharynx Normal Neck: Non Tender, Supple Respiratory: Lungs Clear, Normal Breath Sounds Cardiovascular: Regular Rate, Rhythm, No Murmur Gastrointestinal: Non Tender, Soft Back: Normal Inspection, No CVA Tenderness, No Vertebral Tenderness Extremity: Normal Range of Motion, Non Tender Neurologic/Psychiatric: Alert, Oriented x3 Skin: Normal Color, Warm/Dry Progress/Results/Core Measures Suspected Sepsis Recent Fever Within 48 Hours: No Infection Criteria Present: None New/Unexplained Altered Menta: No Sepsis Screen: No Definite Risk SIRS Temperature: Pulse: 60 Respiratory Rate: 18 Laboratory Tests 04/13/19 13:53: White Blood Count 6.4 Blood Pressure 161 /81 Mean: 107 Laboratory Tests 04/13/19 13:53: Creatinine 1.05, Platelet Count 169, Total Bilirubin 0.5 Results/Orders Lab Results Laboratory Tests Test 04/13/19 13:53 04/13/19 13:59 04/13/19 14:31 Range/Units White Blood Count 6.4 4.3-11.0 10^3/uL Red Blood Count 4.67 4.35-5.85 10^6/uL Hemoglobin 13.1 L 13.3-17.7 G/DL Hematocrit 40 40-54 % Mean Corpuscular Volume 85 80-99 FL Mean Corpuscular Hemoglobin 28 25-34 PG Mean Corpuscular Hemoglobin Concent 33 32-36 G/DL Red Cell Distribution Width 13.6 10.0-14.5 % Platelet Count 169 130-400 10^3/uL Mean Platelet Volume 10.7 H 7.4-10.4 FL Neutrophils (%) (Auto) 46 42-75 % Lymphocytes (%) (Auto) 45 H 12-44 % Monocytes (%) (Auto) 8 0-12 % Eosinophils (%) (Auto) 1 0-10 % Basophils (%) (Auto) 0 0-10 % Neutrophils # (Auto) 3.0 1.8-7.8 X 10^3 Lymphocytes # (Auto) 2.9 1.0-4.0 X 10^3 Monocytes # (Auto) 0.5 0.0-1.0 X 10^3 Eosinophils # (Auto) 0.1 0.0-0.3 10^3/uL Basophils # (Auto) 0.0 0.0-0.1 10^3/uL Sodium Level 145 135-145 MMOL/L Potassium Level 3.5 L 3.6-5.0 MMOL/L Chloride Level 109 H 98-107 MMOL/L Carbon Dioxide Level 24 21-32 MMOL/L Anion Gap 12 5-14 MMOL/L Blood Urea Nitrogen 15 7-18 MG/DL Creatinine 1.05 0.60-1.30 MG/DL Estimat Glomerular Filtration Rate > 60 BUN/Creatinine Ratio 14 Glucose Level 88 70-105 MG/DL Calcium Level 9.3 8.5-10.1 MG/DL Corrected Calcium 9.2 8.5-10.1 MG/DL Magnesium Level 1.9 1.6-2.4 MG/DL Total Bilirubin 0.5 0.1-1.0 MG/DL Aspartate Amino Transf (AST/SGOT) 31 5-34 U/L Alanine Aminotransferase (ALT/SGPT) 64 H 0-55 U/L Alkaline Phosphatase 67 40-136 U/L Troponin I < 0.028 <0.028 NG/ML C-Reactive Protein High Sensitivity 0.99 H 0.00-0.50 MG/DL Total Protein 7.1 6.4-8.2 GM/DL Albumin 4.1 3.2-4.5 GM/DL TSH [place] Testing 1.27 0.35-4.94 UIU/ML Glucometer 89 70-110 MG/DL Urine Color YELLOW Urine Clarity CLEAR Urine pH 5.0 5-9 Urine Specific [place] 1.025 H 1.016-1.022 Urine Protein NEGATIVE NEGATIVE Urine Glucose (UA) NEGATIVE NEGATIVE Urine Ketones NEGATIVE NEGATIVE Urine Nitrite NEGATIVE NEGATIVE Urine Bilirubin NEGATIVE NEGATIVE Urine Urobilinogen 0.2 < = 1.0 MG/DL Urine Leukocyte Esterase NEGATIVE NEGATIVE Urine RBC (Auto) NEGATIVE NEGATIVE Urine RBC NONE /HPF Urine WBC NONE /HPF Urine Squamous Epithelial Cells 2-5 /HPF Urine Crystals NONE /LPF Urine Bacteria NEGATIVE /HPF Urine Casts NONE /LPF Urine Mucus NEGATIVE /LPF Urine Culture Indicated NO My Orders Orders - PHILLY CHANDLER MD Accucheck Stat ONCE (04/13/19 13:23) Ed Iv/Invasive Line Start (04/13/19 13:23) Ekg Tracing (04/13/19 13:23) Monitor-Rhythm Ecg Trace Only (04/13/19 13:23) Chest 1 View, Ap/Pa Only (04/13/19 13:23) Ct Head Wo-R/O Stroke (04/13/19 13:23) Cbc With Automated Diff (04/13/19 13:23) Comprehensive Metabolic Panel (04/13/19 13:23) Hs C Reactive Protein (04/13/19 13:23) Magnesium (04/13/19 13:23) Thyroid Analyzer (04/13/19 13:23) Troponin I (04/13/19 13:23) Ua Culture If Indicated (04/13/19 14:14) Ns Iv 500 Ml (Sodium Chloride 0.9%) (04/13/19 15:10) Meclizine Tablet (Antivert Tablet) (04/13/19 15:15) Medications Given in ED Current Medications Medications Dose Ordered Sig/Tariq Route Start Time Stop Time Status Last Admin Dose Admin Meclizine HCl 25 mg ONCE ONCE PO 04/13/19 15:15 04/13/19 15:16 DC 04/13/19 15:18 25 MG Sodium Chloride 500 ml @ 0 mls/hr Q0M ONCE IV 04/13/19 15:10 04/13/19 15:11 DC 04/13/19 15:18 1,000 MLS/HR Vital Signs/I&O 04/13/19 12:59 Temp 36.9 Pulse 60 Resp 18 B/P (MAP) 161/81 (107) Pulse Ox 99 Capillary Refill : Less Than 3 Seconds Blood Pressure Mean: 107 POS Progress Note : Progress Note Seen and evaluated. IV, labs, chest x-ray, UA and CT head ordered. Monitor patient. Normal saline 500 mL bolus and meclizine 25 mg by mouth ordered. 1530 Overall patient is feeling much better and would like to go home. No significant findings on labs, radiology or EKG. Discharged home with return precautions. Patient verbalize understanding instructions and agreement with plan. Diagnostic Imaging Diagonstic Imaging: CT Plain Films/CT/US/NM/MRI: head Comments [facility] POS [place], [place] POS NAME: GÉNESIS WELSH [employer] REC#: [id number] PT STATUS: REG ER : 1950 PHYSICIAN: PHILLY CHANDLER MD ADMIT DATE: 04/13/19/ER Draft POSDate of Exam:04/13/19 CT HEAD WO-R/O STROKE PROCEDURE: CT head wo r/o stroke. TECHNIQUE: Multiple contiguous axial images were obtained through the brain without the use of intravenous contrast. Auto Exposure Controls were utilized during the CT exam to meet ALARA standards for radiation dose reduction. INDICATION: Headache and dizziness as well as blurred vision. Correlation is made with prior CT head from 06/30/2015. Ventricular size and sulcal pattern are stable. Moderate periventricular hypodensity is noted consistent with chronic microvascular ischemia. This is similar to prior exam. No sulcal effacement or midline shift is detected. No acute intra-axial or extra-axial hemorrhage is detected. Cisterns are patent. Visualized paranasal sinuses are clear. IMPRESSION: Stable chronic changes. No acute intracranial process is identified. Dictated on workstation # [id number] Dict: 04/13/19 1412 Trans: 04/13/19 1415 [facility] [id number] Interpreted by: FARRUKH BUSH MD Electronically signed by: Beckiegonsjuan Imaging: Xray Plain Films/CT/US/NM/MRI: chest Comments [facility]. POS [place], [place] POS NAME: GÉNESIS WELSH [employer] REC#: [id number] PT STATUS: REG ER : 1950 PHYSICIAN: PHILLY CHANDLER MD ADMIT DATE: 04/13/19/ER Signed POSDate of Exam:04/13/19 CHEST 1 VIEW, AP/PA ONLY INDICATION: Headache and dizziness. Frontal chest obtained at 02:08 p.m. There is cardiomegaly. Mediastinal silhouette is unremarkable. The lungs show no focal infiltrate. There is no pneumothorax or pleural fluid. There is an ill-defined nodular density overlying the right mid lung. We do not have previous studies for comparison. IMPRESSION: Cardiomegaly. No focal infiltrate, pneumothorax, or pleural fluid. Ill-defined nodular density overlying the right mid lung, recommend short-term follow-up or comparison with old films if available. Dictated by: Dictated on workstation # [id number] Dict: 04/13/19 1414 Trans: 04/13/19 1521 [id number] Interpreted by: RONA THAO MD Electronically signed by: RONA THAO MD 04/13/19 1521 Departure Impression Primary Impression: Dizziness Additional Impressions: Headache Qualified Codes: R51 - Headache Dehydration Disposition: HOME, SELF-CARE Condition: Improved Departure-Patient Inst. Referrals: ALECIA NEWMAN MD (PCP) Primary Care Physician YU LANDON (Family) Primary Care Physician Patient Instructions: Headache, Adult (DC), Dehydration, Adult (DC), Dizziness, Nonvertigo, (DC) Add. Discharge Instructions: All discharge instructions reviewed with patient and/or family. Voiced understanding. Drink an adequate amount of fluids. Continue home meds as previously prescribed. Follow-up with your Dr. within a few days for recheck. Return for worsening, fever, vomiting, weakness, breathing problems or other concerns as needed. You may take meclizine (brand-name is Antivert) 25 mg every 8 hours as needed for dizziness. PHILLY CHANDLER MD Apr 13, 2019 13:49 POS
[2019-04-13 13:59] LABS: BASOPHILS % (AUTO) 0 % (0-10); EOSINOPHILS # (AUTO) 0.1 10^3/uL (0.0-0.3); EOSINOPHILS % (AUTO) 1 % (0-10); HEMATOCRIT 40 % (40-54); HEMOGLOBIN 13.1 G/DL (13.3-17.7); LYMPHOCYTES # (AUTO) 2.9 X 10^3 (1.0-4.0); LYMPHOCYTES % (AUTO) 45 % (12-44); MEAN CORPUSCULAR HEMOGLOBIN 28 PG (25-34); MEAN CORPUSCULAR HGB CONC 33 G/DL (32-36); MEAN CORPUSCULAR VOLUME 85 FL (80-99); MEAN PLATELET VOLUME 10.7 FL (7.4-10.4); MONOCYTES # (AUTO) 0.5 X 10^3 (0.0-1.0); MONOCYTES % (AUTO) 8 % (0-12); NEUTROPHILS % (AUTO) 46 % (42-75); PLATELET COUNT 169 10^3/uL (130-400); RED CELL DISTRIBUTION WIDTH 13.6 % (10.0-14.5); WHITE BLOOD COUNT 6.4 10^3/uL (4.3-11.0)
--- NOTE | 2019-04-13 14:15 | Diagnostic Imaging Report ---
PROCEDURE: CT head wo r/o stroke. TECHNIQUE: Multiple contiguous axial images were obtained through the brain without the use of intravenous contrast. Auto Exposure Controls were utilized during the CT exam to meet ALARA standards for radiation dose reduction. INDICATION: Headache and dizziness as well as blurred vision. Correlation is made with prior CT head from 06/30/2015. Ventricular size and sulcal pattern are stable. Moderate periventricular hypodensity is noted consistent with chronic microvascular ischemia. This is similar to prior exam. No sulcal effacement or midline shift is detected. No acute intra-axial or extra-axial hemorrhage is detected. Cisterns are patent. Visualized paranasal sinuses are clear. IMPRESSION: Stable chronic changes. No acute intracranial process is identified. Dictated by: Dictated on workstation # [id number]
[2019-04-13 14:17] LABS: ALANINE AMINOTRANSFERASE 64 U/L (0-55); ALBUMIN 4.1 GM/DL (3.2-4.5); ALKALINE PHOSPHATASE 67 U/L (40-136); BILIRUBIN,TOTAL 0.5 MG/DL (0.1-1.0); BUN/CREATININE RATIO 14; CALCIUM 9.3 MG/DL (8.5-10.1); CARBON DIOXIDE 24 MMOL/L (21-32); CHLORIDE 109 MMOL/L (98-107); CREATININE SERUM 1.05 MG/DL (0.60-1.30); GFR ESTIMATED > 60; GLUCOSE 88 MG/DL (70-105); MAGNESIUM 1.9 MG/DL (1.6-2.4); POTASSIUM 3.5 MMOL/L (3.6-5.0); SODIUM 145 MMOL/L (135-145); TOTAL PROTEIN 7.1 GM/DL (6.4-8.2)
--- NOTE | 2019-04-13 14:17 | Diagnostic Imaging Report ---
INDICATION: Headache and dizziness. Frontal chest obtained at 02:08 p.m. There is cardiomegaly. Mediastinal silhouette is unremarkable. The lungs show no focal infiltrate. There is no pneumothorax or pleural fluid. There is an ill-defined nodular density overlying the right mid lung. We do not have previous studies for comparison. IMPRESSION: Cardiomegaly. No focal infiltrate, pneumothorax, or pleural fluid. Ill-defined nodular density overlying the right mid lung, recommend short-term follow-up or comparison with old films if available. Dictated by: Dictated on workstation # [id number]
[2019-04-13 14:36] LABS: BILIRUBIN,URINE NEGATIVE (NEGATIVE); CLARITY,URINE CLEAR; COLOR,URINE YELLOW; GLUCOSE, URINE (UA) NEGATIVE (NEGATIVE); KETONES,URINE NEGATIVE (NEGATIVE); LEUKOCYTE ESTERASE ,URINE NEGATIVE (NEGATIVE); NITRITE,URINE NEGATIVE (NEGATIVE); PROTEIN,URINE NEGATIVE (NEGATIVE)
[2019-04-13 14:40] LABS: TSH (THYROID ANALYZER) 1.27 UIU/ML (0.35-4.94)
[2019-04-13 14:53] LABS: BACTERIA,URINE NEGATIVE /HPF
[2019-04-13] MEDS ORDERED: NS IV 500 ML 500 ML IV ONE (15:10)
[2019-04-13] MEDS ORDERED: MECLIZINE 25 MG (ANTIVERT) TAB PO ONE (15:15)
[2019-04-13 16:10] VITALS: BP 161/81
--- OUTSIDE RECORDS SUMMARY | 2019-05-09 13:48 | XMS REPORT | Clinical Summary ---
Author Author [facility] Organization [facility] Address Unknown Phone Unavailable Care Team Providers Care Ms Sql Server Developer Name Role Phone Luke Aponte DO Unavailable Leandro Rader MD PCP Flores Riley RN Unavailable Unavailable Comfort Galdamez RN Unavailable Unavailable Beena Zaidi CELL FEED DEPARTMENT SUPERVISOR Unavailable Source Comments Some departments are not documenting in the electronic medical record. If you d o not see the information that you expected, contact Release of Information in merged with [facility] [employer] Information Management department at [phone] for further assistan ce in locating additional records.[facility] Allergies No Known Allergies Medications End Date Status Medication Sig Dispensed Refills Start Date Active metoprolol (LOPRESSOR) 50 Take 50 mg by 0 mg tablet mouth twice daily. Active amLODIPine (NORVASC) 10 Take 10 mg by 0 mg tablet mouth daily. Active famotidine (PEPCID) 20 mg Take 20 mg by 0 tablet mouth twice daily as needed. 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, Class III, BMI 40-49.9 (morbid obesity) Rectal mass 10/16/2015 Colonic mass 09/27/2015 Family History Medical History Relation Name Comments Cancer-Colon Brother Cancer Mother Cancer-Colon Sister Relation Name Status Comments Brother Mother Sister Social History Date Tobacco Use Types Packs/Day Years Used Never Smoker Smokeless Tobacco: Never Used Drinks/Week oz/Week Comments Alcohol Use 0 Standard drinks or equivalent 0.0 No Sex Assigned at Date Recorded Not on file Industry Job Start Date Occupation Not on file Not on file Not on file Travel End Travel History Travel Start No recent travel history available. Last Filed Vital Signs Reading Time Taken Comments Vital Sign 143/80 01/03/2016 1:12 PM CDT Blood Pressure 60 01/03/2016 1:12 PM CDT Pulse 37.4 C (99.4 F) 01/03/2016 1:12 PM CDT Temperature 20 01/03/2016 1:12 PM CDT Respiratory Rate 99% 01/03/2016 1:12 PM CDT Oxygen Saturation - - Inhaled Oxygen Concentration 122.8 kg (270 lb 12.8 oz) 01/03/2016 1:12 PM CDT Weight 165.1 cm (5' 5") 01/03/2016 1:12 PM CDT Height 45.06 01/03/2016 1:12 PM CDT Body Mass Index Plan of Treatment Health Maintenance Due Date Last Done Comments HEPATITIS C SCREENING 1952 DTAP/TDAP VACCINES (1 - 1963 Tdap) PHYSICAL (COMPREHENSIVE) 1970 EXAM COLORECTAL CANCER 2002 SCREENING SHINGLES RECOMBINANT 2002 VACCINE (1 of 2) PNEUMONIA (PCV13/PPSV23) 2017 VACCINES (1 of 2 - PCV13) INFLUENZA VACCINE 12/08/2018 Implants Device Identifier Shelf Expiration Date Model / Serial / L ot Implanted Type Area Manufactur er 02/06/2018 0 / [id number] / [id number] Barrier Adhesion 3x5in Procedure [id number] Pack Bioresorbable Membrane Implanted: Qty: 1 on 10/16/2015 by Luke Aponte DO at [facility] Results Not on filefrom Last 3 Months Insurance Type Payer Benefit Subscriber ID Effective Phone Address Plan / Dates Group HMO CIGNA CIGNA NON xxxxxxxxxxx 2015-P PPO/EPO resent [id number] [id number] Advance Directives Patient News Director Explanation Type Date Recorded dpoa for health care reggie ns Advance 09/27/2015 11:13 AM Directive/DPOA Date Inactivated Comments Code Status Date Activated 12/15/2015 4:51 PM Full Code 12/11/2015 12:45 PM Provider has discussed Code Status No, more discussi on w/Patient or Family? needed 10/24/2015 8:29 PM Full Code 10/16/2015 5:09 PM Provider has discussed Code Status No, more discussi on w/Patient or Family? needed 10/16/2015 5:09 PM Full Code 10/16/2015 12:39 PM Provider has discussed Code Status No, more discussi on w/Patient or Family? needed
--- OUTSIDE RECORDS SUMMARY | 2019-05-09 13:49 | XMS REPORT | Continuity of Care Document ---
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 M LEATHA Ot R53.83 OTHER FATIGUE 11/08/2018 YU LANDON SUPERVISOR NUT PROCESSING Ot K76.0 FATTY (CHANGE OF) LIVER, NOT ELSEWHERE C 12/01/2018 YU LANDON SUPERVISOR NUT PROCESSING Ot K76.0 FATTY (CHANGE OF) LIVER, NOT ELSEWHERE C 01/04/2019 Randi Landon W 787.20 DYSPHAGIA, UNSPECIFIED 01/04/2019 Randi Landon W R13.10 DYSPHAGIA, UNSPECIFIED 01/04/2019 Randi Landon W 787.20 DYSPHAGIA, UNSPECIFIED 01/04/2019 Randi Landon W 794.8 NONSPECIFIC ABNORMAL RESULTS OF FUNCTION STUDY OF LIVER 01/04/2019 Randi Landon R13.10 DYSPHAGIA, UNSPECIFIED 01/04/2019 Jaja, Randi W R94.5 ABNORMAL RESULTS OF LIVER FUNCTION STUDIES 01/04/2019 Jaja, Randi W 401.0 MALIGNANT ESSENTIAL HYPERTENSION 01/04/2019 Jaja, Randi W 787.20 DYSPHAGIA, UNSPECIFIED 01/04/2019 Jaja, Randi W 794.8 NONSPECIFIC ABNORMAL RESULTS OF FUNCTION STUDY OF LIVER 01/04/2019 Jaja, Randi W I10 ESSENTIAL (PRIMARY) HYPERTENSION 01/04/2019 Jaja, Randi W R13.10 DYSPHAGIA, UNSPECIFIED 01/04/2019 Jaja, Randi W R94.5 ABNORMAL RESULTS OF LIVER FUNCTION STUDIES 01/04/2019 Jaja, Randi W 272.4 OTHER AND UNSPECIFIED HYPERLIPIDEMIA 01/04/2019 Jaja, Randi W 401.0 MALIGNANT ESSENTIAL HYPERTENSION 01/04/2019 Jaja, Randi W 787.20 DYSPHAGIA, UNSPECIFIED 01/04/2019 Jaja, Randi W 794.8 NONSPECIFIC ABNORMAL RESULTS OF FUNCTION STUDY OF LIVER 01/04/2019 Jaja, Randi W E78.5 HYPERLIPIDEMIA, UNSPECIFIED 01/04/2019 Jaja, Randi W I10 ESSENTIAL (PRIMARY) HYPERTENSION 01/04/2019 Jaja, Randi W R13.10 DYSPHAGIA, UNSPECIFIED 01/04/2019 Jaja, Randi W R94.5 ABNORMAL RESULTS OF LIVER FUNCTION STUDIES 01/04/2019 Jaja, Randi W 272.4 OTHER AND UNSPECIFIED HYPERLIPIDEMIA 01/04/2019 Jaja, Randi W 401.0 MALIGNANT ESSENTIAL HYPERTENSION 01/04/2019 Jaja, Randi W 787.20 DYSPHAGIA, UNSPECIFIED 01/04/2019 Jaja, Randi W 794.8 NONSPECIFIC ABNORMAL RESULTS OF FUNCTION STUDY OF LIVER 01/04/2019 Jaja, Randi W E78.5 HYPERLIPIDEMIA, UNSPECIFIED 01/04/2019 Jaja, Randi W I10 ESSENTIAL (PRIMARY) HYPERTENSION 01/04/2019 Jaja, Randi W R13.10 DYSPHAGIA, UNSPECIFIED 01/04/2019 Jaja, Randi W R94.5 ABNORMAL RESULTS OF LIVER FUNCTION STUDIES 01/04/2019 Jaja, Randi W 272.4 OTHER AND UNSPECIFIED HYPERLIPIDEMIA 01/04/2019 Jaja, Randi W 327.23 OBSTRUCTIVE SLEEP APNEA (ADULT) (PEDIATRIC) 01/04/2019 Jaja, Randi W 401.0 MALIGNANT ESSENTIAL HYPERTENSION 01/04/2019 Jaja, Randi W 787.20 DYSPHAGIA, UNSPECIFIED 01/04/2019 Jaja, Randi W 794.8 NONSPECIFIC ABNORMAL RESULTS OF FUNCTION STUDY OF LIVER 01/04/2019 Jaja, Randi W E78.5 HYPERLIPIDEMIA, UNSPECIFIED 01/04/2019 Jaja, Randi W G47.33 OBSTRUCTIVE SLEEP APNEA (ADULT) (PEDIATRIC) 01/04/2019 Jaja, Randi W I10 ESSENTIAL (PRIMARY) HYPERTENSION 01/04/2019 Jaja, Randi W R13.10 DYSPHAGIA, UNSPECIFIED 01/04/2019 Jaja, Randi W R94.5 ABNORMAL RESULTS OF LIVER FUNCTION STUDIES 01/04/2019 Jaja, Randi W 272.4 OTHER AND UNSPECIFIED HYPERLIPIDEMIA 01/04/2019 Jaja, Randi W 327.23 OBSTRUCTIVE SLEEP APNEA (ADULT) (PEDIATRIC) 01/04/2019 Jaja, Randi W 401.0 MALIGNANT ESSENTIAL HYPERTENSION 01/04/2019 Jaja, Randi W 787.20 DYSPHAGIA, UNSPECIFIED 01/04/2019 Jaja, Randi W 794.8 NONSPECIFIC ABNORMAL RESULTS OF FUNCTION STUDY OF LIVER 01/04/2019 Jaja, Randi W E78.5 HYPERLIPIDEMIA, UNSPECIFIED 01/04/2019 Jaja, Randi W G47.33 OBSTRUCTIVE SLEEP APNEA (ADULT) (PEDIATRIC) 01/04/2019 Jaja, Randi W I10 ESSENTIAL (PRIMARY) HYPERTENSION 01/04/2019 Jaja, Randi W R13.10 DYSPHAGIA, UNSPECIFIED 01/04/2019 Jaja, Randi W R94.5 ABNORMAL RESULTS OF LIVER FUNCTION STUDIES 01/04/2019 Jaja, Randi W 272.4 OTHER AND UNSPECIFIED HYPERLIPIDEMIA 01/04/2019 Jaja, Randi W 327.23 OBSTRUCTIVE SLEEP APNEA (ADULT) (PEDIATRIC) 01/04/2019 Jaja, Randi W 401.0 MALIGNANT ESSENTIAL HYPERTENSION 01/04/2019 Jaja, Randi W 530.81 ESOPHAGEAL REFLUX 01/04/2019 Jaja, Randi W 787.20 DYSPHAGIA, UNSPECIFIED 01/04/2019 Jaja, Randi W 794.8 NONSPECIFIC ABNORMAL RESULTS OF FUNCTION STUDY OF LIVER 01/04/2019 Jaja, Randi W E78.5 HYPERLIPIDEMIA, UNSPECIFIED 01/04/2019 Jaja, Randi W G47.33 OBSTRUCTIVE SLEEP APNEA (ADULT) (PEDIATRIC) 01/04/2019 Jaja, Randi W I10 ESSENTIAL (PRIMARY) HYPERTENSION 01/04/2019 Jaja, Randi W K21.9 GASTRO- ESOPHAGEAL REFLUX DISEASE WITHOUT ESOPHAGITIS 01/04/2019 Jaja, Randi W R13.10 DYSPHAGIA, UNSPECIFIED 01/04/2019 Jaja, Randi W R94.5 ABNORMAL RESULTS OF LIVER FUNCTION STUDIES 01/04/2019 Jaja, Randi W 272.4 OTHER AND UNSPECIFIED HYPERLIPIDEMIA 01/04/2019 Jaja, Randi W 327.23 OBSTRUCTIVE SLEEP APNEA (ADULT) (PEDIATRIC) 01/04/2019 Jaja, Randi W 401.0 MALIGNANT ESSENTIAL HYPERTENSION 01/04/2019 Jaja, Randi W 530.81 ESOPHAGEAL REFLUX 01/04/2019 Jaja, Randi W 787.20 DYSPHAGIA, UNSPECIFIED 01/04/2019 Jaja, Randi W 794.8 NONSPECIFIC ABNORMAL RESULTS OF FUNCTION STUDY OF LIVER 01/04/2019 Jaja, Randi W E78.5 HYPERLIPIDEMIA, UNSPECIFIED 01/04/2019 Jaja, Randi W G47.33 OBSTRUCTIVE SLEEP APNEA (ADULT) (PEDIATRIC) 01/04/2019 Jaja, Randi W I10 ESSENTIAL (PRIMARY) HYPERTENSION 01/04/2019 Jaja, Randi W K21.9 GASTRO- ESOPHAGEAL REFLUX DISEASE WITHOUT ESOPHAGITIS 01/04/2019 Jaja, Randi W R13.10 DYSPHAGIA, UNSPECIFIED 01/04/2019 Jaja, Randi W R94.5 ABNORMAL RESULTS OF LIVER FUNCTION STUDIES 01/04/2019 Jaja, Randi W 272.4 OTHER AND UNSPECIFIED HYPERLIPIDEMIA 01/04/2019 Jaja, Randi W 278.01 MORBID OBESITY 01/04/2019 Jaja, Randi W 327.23 OBSTRUCTIVE SLEEP APNEA (ADULT) (PEDIATRIC) 01/04/2019 Jaja, Randi W 401.0 MALIGNANT ESSENTIAL HYPERTENSION 01/04/2019 Jaja, Randi W 530.81 ESOPHAGEAL REFLUX 01/04/2019 Jaja, Randi W 787.20 DYSPHAGIA, UNSPECIFIED 01/04/2019 Jaja, Randi W 794.8 NONSPECIFIC ABNORMAL RESULTS OF FUNCTION STUDY OF LIVER 01/04/2019 Jjaa, Randi W E66.01 MORBID (SEVERE) OBESITY DUE TO EXCESS CALORIES 01/04/2019 Jaja, Randi W E78.5 HYPERLIPIDEMIA, UNSPECIFIED 01/04/2019 Jaja, Randi W G47.33 OBSTRUCTIVE SLEEP APNEA (ADULT) (PEDIATRIC) 01/04/2019 Jaja, Randi W I10 ESSENTIAL (PRIMARY) HYPERTENSION 01/04/2019 Jaja, Randi W K21.9 GASTRO- ESOPHAGEAL REFLUX DISEASE WITHOUT ESOPHAGITIS 01/04/2019 Jaja, Randi W R13.10 DYSPHAGIA, UNSPECIFIED 01/04/2019 Jaja, Randi W R94.5 ABNORMAL RESULTS OF LIVER FUNCTION STUDIES 01/04/2019 Jaja, Randi W 272.4 OTHER AND UNSPECIFIED HYPERLIPIDEMIA 01/04/2019 Jaja, Randi W 278.01 MORBID OBESITY 01/04/2019 Jaja, Randi W 327.23 OBSTRUCTIVE SLEEP APNEA (ADULT) (PEDIATRIC) 01/04/2019 Jaja, Randi W 401.0 MALIGNANT ESSENTIAL HYPERTENSION 01/04/2019 Jaja, Randi W 530.81 ESOPHAGEAL REFLUX 01/04/2019 Jaja, Randi W 787.20 DYSPHAGIA, UNSPECIFIED 01/04/2019 Jaja, Randi W 794.8 NONSPECIFIC ABNORMAL RESULTS OF FUNCTION STUDY OF LIVER 01/04/2019 Jaja, Randi W E66.01 MORBID (SEVERE) OBESITY DUE TO EXCESS CALORIES 01/04/2019 Jaja, Randi W E78.5 HYPERLIPIDEMIA, UNSPECIFIED 01/04/2019 Jaja, Randi W G47.33 OBSTRUCTIVE SLEEP APNEA (ADULT) (PEDIATRIC) 01/04/2019 Jaja, Randi W I10 ESSENTIAL (PRIMARY) HYPERTENSION 01/04/2019 Jaja, Randi W K21.9 GASTRO- ESOPHAGEAL REFLUX DISEASE WITHOUT ESOPHAGITIS 01/04/2019 Jaja, Randi W R13.10 DYSPHAGIA, UNSPECIFIED 01/04/2019 Jaja, Randi W R94.5 ABNORMAL RESULTS OF LIVER FUNCTION STUDIES 01/04/2019 Jaja, Randi W 272.4 OTHER AND UNSPECIFIED HYPERLIPIDEMIA 01/04/2019 Jaja, Randi W 278.01 MORBID OBESITY 01/04/2019 Jaja, Randi W 327.23 OBSTRUCTIVE SLEEP APNEA (ADULT) (PEDIATRIC) 01/04/2019 Jaja, Randi W 401.0 MALIGNANT ESSENTIAL HYPERTENSION 01/04/2019 Jaja, Randi W 530.81 ESOPHAGEAL REFLUX 01/04/2019 Jaja, Randi W 787.20 DYSPHAGIA, UNSPECIFIED 01/04/2019 Jaja, Randi W 794.8 NONSPECIFIC ABNORMAL RESULTS OF FUNCTION STUDY OF LIVER 01/04/2019 Jaja, Randi W E66.01 MORBID (SEVERE) OBESITY DUE TO EXCESS CALORIES 01/04/2019 Jaja, Randi W E78.5 HYPERLIPIDEMIA, UNSPECIFIED 01/04/2019 Jaja, Randi W G47.33 OBSTRUCTIVE SLEEP APNEA (ADULT) (PEDIATRIC) 01/04/2019 Jaja, Randi W I10 ESSENTIAL (PRIMARY) HYPERTENSION 01/04/2019 Jaja, Randi W K21.9 GASTRO- ESOPHAGEAL REFLUX DISEASE WITHOUT ESOPHAGITIS 01/04/2019 Jaja, Arndi W R13.10 DYSPHAGIA, UNSPECIFIED 01/04/2019 Jaja, Randi W R94.5 ABNORMAL RESULTS OF LIVER FUNCTION STUDIES 01/04/2019 JajaRandi W V15.81 PERSONAL HISTORY OF NONCOMPLIANCE WITH MEDICAL TREATMENT, PRESENTING HAZARDS TO HEALTH 01/04/2019 Randi Landon W Z91.19 PATIENT'S NONCOMPLIANCE WITH OTHER MEDICAL TREATMENT AND REGIMEN 01/04/2019 Jaja, Randi W 272.4 OTHER AND UNSPECIFIED HYPERLIPIDEMIA 01/04/2019 Jaja, Randi W 278.01 MORBID OBESITY 01/04/2019 Jaja, Randi W 327.23 OBSTRUCTIVE SLEEP APNEA (ADULT) (PEDIATRIC) 01/04/2019 Jaja, Randi W 401.0 MALIGNANT ESSENTIAL HYPERTENSION 01/04/2019 Jaja, Randi W 530.81 ESOPHAGEAL REFLUX 01/04/2019 Jaja, Ranid W 787.20 DYSPHAGIA, UNSPECIFIED 01/04/2019 Jaja, Randi W 794.8 NONSPECIFIC ABNORMAL RESULTS OF FUNCTION STUDY OF LIVER 01/04/2019 Jaja, Randi W E66.01 MORBID (SEVERE) OBESITY DUE TO EXCESS CALORIES 01/04/2019 Jaja, Randi W E78.5 HYPERLIPIDEMIA, UNSPECIFIED 01/04/2019 Jaja, Randi W G47.33 OBSTRUCTIVE SLEEP APNEA (ADULT) (PEDIATRIC) 01/04/2019 Jaja, Randi W I10 ESSENTIAL (PRIMARY) HYPERTENSION 01/04/2019 Jaja, Randi W K21.9 GASTRO- ESOPHAGEAL REFLUX DISEASE WITHOUT ESOPHAGITIS 01/04/2019 JajaRandi W R13.10 DYSPHAGIA, UNSPECIFIED 01/04/2019 JajaRandi W R94.5 ABNORMAL RESULTS OF LIVER FUNCTION STUDIES 01/04/2019 JajaKaitlinhy W V15.81 PERSONAL HISTORY OF NONCOMPLIANCE WITH MEDICAL TREATMENT, PRESENTING HAZARDS TO HEALTH 01/04/2019 Jaja Randi W Z91.19 PATIENT'S NONCOMPLIANCE WITH OTHER MEDICAL TREATMENT AND REGIMEN 02/17/[address] MD Ot K11 .1 HYPERTROPHY OF SALIVARY GLAND 02/19/[address] MD Ot K11 .1 HYPERTROPHY OF SALIVARY GLAND 03/07/[address] MD Ot K11 .1 HYPERTROPHY OF SALIVARY GLAND 03/13/[address] MD Ot K11 .1 HYPERTROPHY OF SALIVARY GLAND 03/15/2019 BLANCA FAITH DO Ot Z01.818 ENCOUNTER FOR OTHER PREPROCEDURAL EXAMIN 03/15/2019 BLANCA FAITH DO Ot Z01.818 ENCOUNTER FOR OTHER PREPROCEDURAL EXAMIN 03/15/2019 BLANCA FAITH DO Ot Z01.818 ENCOUNTER FOR OTHER PREPROCEDURAL EXAMIN 03/21/2019 BLANCA FAITH DO Ot E66. 01 MORBID (SEVERE) OBESITY DUE TO EXCESS CA 03/21/2019 BLANCA FAITH DO Ot I10 ESSENTIAL (PRIMARY) HYPERTENSION 03/21/2019 BLANCA FAITH DO Ot K21. 0 GASTRO-ESOPHAGEAL REFLUX DISEASE WITH ES 03/21/2019 BLANCA FAITH DO Ot K29. 70 GASTRITIS, UNSPECIFIED, WITHOUT BLEEDING 03/21/2019 BLANCA FAITH DO Ot K44. 9 DIAPHRAGMATIC HERNIA WITHOUT OBSTRUCTION 03/21/2019 BLANCA FAITH DO Ot M19. 90 UNSPECIFIED OSTEOARTHRITIS, UNSPECIFIED 03/21/2019 BLANCA FAITH DO Ot N40. 0 BENIGN PROSTATIC HYPERPLASIA WITHOUT LOW 03/21/2019 BLANCA FAITH DO Ot R60. 0 LOCALIZED EDEMA 03/21/2019 BLANCA FAITH DO Ot Z68. 43 BODY MASS INDEX (BMI) 50.0-59.9, ADULT 03/21/2019 BLANCA FAITH DO Ot Z79.899 OTHER CARE HOME (CURRENT) DRUG THERAPY 03/21/2019 BLANCA FAITH DO Ot Z80. 0 FAMILY HISTORY OF MALIGNANT NEOPLASM OF 03/21/2019 BLANCA FAITH DO Ot Z86.010 PERSONAL HISTORY OF COLONIC POLYPS 03/21/2019 BLANCA FAITH DO Ot Z96.652 PRESENCE OF LEFT ARTIFICIAL KNEE JOINT 04/01/2019 BLANCA FAITH DO Ot E66. 01 MORBID (SEVERE) OBESITY DUE TO EXCESS CA 04/01/2019 BLANCA FAITH DO Ot I10 ESSENTIAL (PRIMARY) HYPERTENSION 04/01/2019 BLANCA FAITH DO Ot K21. 0 GASTRO-ESOPHAGEAL REFLUX DISEASE WITH ES 04/01/2019 BLANCA FAITH DO Ot K29. 70 GASTRITIS, UNSPECIFIED, WITHOUT BLEEDING 04/01/2019 FAITH DO, BLANCA D Ot K44. 9 DIAPHRAGMATIC HERNIA WITHOUT OBSTRUCTION 04/01/2019 FAITH DO BLANCA D Ot M19. 90 UNSPECIFIED OSTEOARTHRITIS, UNSPECIFIED 04/01/2019 FAITH DOARATT D Ot N40. 0 BENIGN PROSTATIC HYPERPLASIA WITHOUT LOW 04/01/2019 CARUTHERS DO BLANCA D Ot R60. 0 LOCALIZED EDEMA 04/01/2019 CARUTHERS DO BLANCA D Ot Z68. 43 BODY MASS INDEX (BMI) 50.0-59.9, ADULT [facility] OTHER CARE HOME (CURRENT) DRUG THERAPY 04/01/2019 FAITH DO BLANCA D Ot Z80. 0 FAMILY HISTORY OF MALIGNANT NEOPLASM OF 04/01/2019 [facility] BLANCA D Ot Z86.010 PERSONAL HISTORY OF COLONIC POLYPS 04/01/2019 [facility] BLANCA D Ot Z96.652 PRESENCE OF LEFT ARTIFICIAL KNEE JOINT 04/03/2019 FAITH BLANCA HUDDLESTON D Ot E66. 01 MORBID (SEVERE) OBESITY DUE TO EXCESS CA 04/03/2019 ARA FAITH DOTT D Ot I10 ESSENTIAL (PRIMARY) HYPERTENSION 04/03/2019 CARUTHERS DOARATT D Ot K21. 0 GASTRO-ESOPHAGEAL REFLUX DISEASE WITH ES 04/03/2019 FAITH BLANCA HUDDLESTON D Ot K29. 70 GASTRITIS, UNSPECIFIED, WITHOUT BLEEDING 04/03/[facility] K44. 9 DIAPHRAGMATIC HERNIA WITHOUT OBSTRUCTION 04/03/[facility] M19. 90 UNSPECIFIED OSTEOARTHRITIS, UNSPECIFIED 04/03/2019 FAITH DOBLANCA D Ot N40. 0 BENIGN PROSTATIC HYPERPLASIA WITHOUT LOW 04/03/2019 CARUTHERS DOARATT D Ot R60. 0 LOCALIZED EDEMA 04/03/2019 [facility] BLANCA D Ot Z68. 43 BODY MASS INDEX (BMI) 50.0-59.9, ADULT 04/03/2019 FAITH DOBLANCA D Ot Z79.899 OTHER CARE HOME (CURRENT) DRUG THERAPY 04/03/2019 FAITH DOARATT D Ot Z80. 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 PRESENCE OF LEFT ARTIFICIAL KNEE JOINT 04/13/2019 PHILLY CHANDLER MD Ot E78.00 PURE HYPERCHOLESTEROLEMIA, UNSPECIFIED 04/13/2019 PHILLY CHANDLER MD Ot E86.0 DEHYDRATION 04/13/2019 PHILLY CHANDLER MD, Ot G47.30 SLEEP APNEA, UNSPECIFIED 04/13/2019 PHILLY CHANDLER MD Ot I10 ESSENTIAL (PRIMARY) HYPERTENSION 04/13/2019 PHILLY CHANDLER MD, Ot K21.9 GASTRO-ESOPHAGEAL REFLUX DISEASE WITHOUT 04/13/2019 PHILLY CHANDLER MD Ot R42 DIZZINESS AND GIDDINESS 04/13/2019 PHILLY CHANDLER MD, Ot R51 HEADACHE 04/13/2019 PHILLY CHANDLER MD, Ot Z80.0 FAMILY HISTORY OF MALIGNANT NEOPLASM OF 04/13/2019 PHILLY CHANDLER MD, Ot Z82.49 FAMILY HX OF ISCHEM HEART DIS AND OTH DI 04/13/2019 PHILLY CHANDLER MD, Ot Z96.652 PRESENCE OF LEFT ARTIFICIAL KNEE JOINT 04/13/2019 PHILLY CHANDLER MD Ot Z99.89 DEPENDENCE ON OTHER ENABLING MACHINES AN 04/26/2019 MELONIE THOMAS MD Ot E66. 9 OBESITY, UNSPECIFIED 04/26/2019 MELONIE THOMAS MD Ot E78. 00 PURE HYPERCHOLESTEROLEMIA, UNSPECIFIED 04/26/2019 MELONIE THOMAS MD Ot G25. 81 RESTLESS LEGS SYNDROME 04/26/2019 MELONIE THOMAS MD Ot G44.209 TENSION-TYPE HEADACHE, UNSPECIFIED, NOT 04/26/2019 MELONIE THOMAS MD Ot G47. 30 SLEEP APNEA, UNSPECIFIED 04/26/2019 MELONIE THOMAS MD Ot G81. 91 HEMIPLEGIA, UNSPECIFIED AFFECTING RIGHT 04/26/2019 MELONIE THOMAS MD Ot H53. 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 2 VENOUS INSUFFICIENCY (CHRONIC) (PERIPHER 04/26/2019 MELONIE THOMAS MD Ot K21. 9 GASTRO-ESOPHAGEAL REFLUX DISEASE WITHOUT 04/26/2019 MELONIE THOMAS MD Ot K44. 9 DIAPHRAGMATIC HERNIA WITHOUT OBSTRUCTION 04/26/2019 MELONIE THOMAS MD Ot M19. 91 PRIMARY OSTEOARTHRITIS, UNSPECIFIED SITE 04/26/2019 MLEONIE THOMAS MD Ot M25.511 PAIN IN RIGHT SHOULDER 04/26/2019 MELONIE THOMAS MD Ot N40. 0 BENIGN PROSTATIC HYPERPLASIA WITHOUT LOW 04/26/2019 MELONIE THOMAS MD Ot R20. 0 ANESTHESIA OF SKIN 04/26/2019 MELONIE THOMAS MD Ot R29.700 NIHSS SCORE 0 04/26/2019 MELONIE THOMAS MD Ot Z68. 41 BODY MASS INDEX (BMI) 40.0-44.9, ADULT 04/26/2019 MELONIE THOMAS MD Ot Z90. 49 ACQUIRED ABSENCE OF OTHER SPECIFIED PART 04/26/2019 MELONIE THOMAS MD Ot E66. 9 OBESITY, UNSPECIFIED 04/26/2019 MELONIE THOMAS MD Ot E78. 5 HYPERLIPIDEMIA, UNSPECIFIED 04/26/2019 MELONIE THOMAS MD Ot G25. 81 RESTLESS LEGS SYNDROME 04/26/2019 MELONIE THOMAS MD Ot G44.209 TENSION-TYPE HEADACHE, UNSPECIFIED, NOT 04/26/2019 MELONIE THOMAS MD Ot G47. 30 SLEEP APNEA, UNSPECIFIED 04/26/2019 MELONIE THOMAS MD Ot G81. 91 HEMIPLEGIA, UNSPECIFIED AFFECTING RIGHT 04/26/2019 MELONIE THOMAS MD Ot H53. 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 2 VENOUS INSUFFICIENCY (CHRONIC) (PERIPHER 04/26/2019 MELONIE THOMAS MD Ot K21. 9 GASTRO-ESOPHAGEAL REFLUX DISEASE WITHOUT 04/26/2019 MELONIE THOMAS MD Ot K44. 9 DIAPHRAGMATIC HERNIA WITHOUT OBSTRUCTION 04/26/2019 MELONIE THOMAS MD, Ot M19. 91 PRIMARY OSTEOARTHRITIS, UNSPECIFIED SITE 04/26/2019 MELONIE THOMAS MD, Ot M25.511 PAIN IN RIGHT SHOULDER 04/26/2019 MELONIE THOMAS MD, Ot N40. 0 BENIGN PROSTATIC HYPERPLASIA WITHOUT LOW 04/26/2019 MELONIE THOMAS MD, Ot R20. 0 ANESTHESIA OF SKIN 04/26/2019 MELONIE THOMAS MD, Ot R29.700 NIHSS SCORE 0 04/26/2019 MELONIE THOMAS MD, Ot Z68. 41 BODY MASS INDEX (BMI) 40.0-44.9, ADULT 04/26/2019 MELONIE THOMAS MD, Ot Z90. 49 ACQUIRED ABSENCE OF OTHER SPECIFIED PART Procedures Code Description Performed By Per harrison On [id number] IN SERT OF MONITOR DEV INTO CHEST SUBCU/F 04/25/2019 Results Test Result Range Comprehensive Metabolic Panel - 04/08/16 11:30 Albumin 4.1 g/dL 3.6-5.1 ALP 54 U/L 35-130 ALT 32 U/L 6-45 Anion Gap 12 6-14 AST 19 U/L 2-40 BUN 17 mg/dL 5-25 Calcium 9.4 mg/dL 8.3-10.4 Chloride 110 mmol/L 95-114 CO2 26 mEq/L 22-33 Creat 1.05 mg/dL 0.50-1.50 eGFR 71 mL/min/1.73m2 >59 Globulin 2.7 g/dL 2.3-3.5 Glucose 86 mg/dL 70-110 Osmo 298 280-295 Potassium 4.1 mmol/L 3.5-5.3 Sodium 144 mmol/L 134-148 TBil 0.6 mg/dL 0.2-1.2 TP 6.8 g/dL 6.0-8.3 Thyroid Stimulating Hormone - 07/09/16 0 9:20 TSH 2.16 mIU/mL 0.32-5.00 Lipid Panel - 10/09/16 09:30 C/HDL 4.3 3.7-6.7 Cholesterol 203 mg/dL 100-240 HDL 47 mg/dL 30-85 LDL-Calculated 133 mg/dL 0-100 Trig 115 mg/dL 35-160 VLDL 23 mg/dL 0-42 Thyroid Stimulating Hormone - 05/31/17 1 0:20 TSH 2.44 mIU/mL 0.32-5.00 Thyroid Stimulating Hormone - 09/16/17 0 9:54 TSH 2.68 mIU/mL 0.32-5.00 Comprehensive Metabolic Panel - 11/08/17 11:02 Albumin 4.2 g/dL 3.6-5.1 ALP 72 U/L 35-130 ALT 36 U/L 6-45 Anion Gap 16 6-14 AST 23 U/L 2-40 BUN 15 mg/dL 5-25 Calcium 9.8 mg/dL 8.3-10.4 Chloride 112 mmol/L 95-114 CO2 25 mEq/L 22-33 Creat 1.05 mg/dL 0.50-1.50 eGFR 71 mL/min/1.73m2 >59 Globulin 2.9 g/dL 2.3-3.5 Glucose 89 mg/dL 70-110 Osmo 307 280-295 Potassium 4.3 mmol/L 3.5-5.3 Sodium 149 mmol/L 134-148 TBil 0.6 mg/dL 0.2-1.2 TP 7.1 g/dL 6.0-8.3 Comprehensive Metabolic Panel - 03/17/18 10:25 Albumin 4.5 g/dL 3.6-5.1 ALP 73 U/L 35-130 ALT 42 U/L 6-45 Anion Gap 16 6-14 AST 27 U/L 2-40 BUN 14 mg/dL 5-25 Calcium 10.0 mg/dL 8.3-10.4 Chloride 109 mmol/L 95-114 CO2 25 mEq/L 22-33 Creat 0.96 mg/dL 0.50-1.50 eGFR 78 mL/min/1.73m2 >59 Globulin 3.0 g/dL 2.3-3.5 Glucose 89 mg/dL 70-110 Osmo 301 280-295 Potassium 4.0 mmol/L 3.5-5.3 Sodium 146 mmol/L 134-148 TBil 0.7 mg/dL 0.2-1.2 TP 7.5 g/dL 6.0-8.3 Complete blood count (CBC) with automate d white blood cell (WBC) differential - 07/28/18 07:35 Blood leukocytes automated count (number/volume) 7.7 10*3/uL 4.3-11.0 Blood erythrocytes automated count (number/volume) 4.16 10*6/uL 4.35-5.85 Venous blood hemoglobin measurement (mass/volume) 11.9 g/dL 13.3-17.7 Blood hematocrit (volume fraction) 37 % 40-54 Automated erythrocyte mean corpuscular volume 89 [ foz_us] 80-99 Automated erythrocyte mean corpuscular h emoglobin (mass per erythrocyte) 29 pg 25-34 Automated erythrocyte mean corpuscular h emoglobin concentration measurement (mass/volume) 32 g/dL 32-36 Automated erythrocyte distribution width ratio 13. 5 % 10.0- 14.5 Automated blood platelet count (count/volume) 146 10*3/uL 130-400 Automated blood platelet mean volume measurement 10.7 [foz_us] 7.4-10.4 Automated blood neutrophils/100 leukocytes 53 % 42-75 Automated blood lymphocytes/100 leukocytes 37 % 12-44 Blood monocytes/100 leukocytes 9 % 0-12 Automated blood eosinophils/100 leukocytes 1 % 0-10 Automated blood basophils/100 leukocytes 0 % 0-10 Blood neutrophils automated count (number/volume) 4.1 10*3 1.8-7.8 Blood lymphocytes automated count (number/volume) 2.8 10*3 1.0-4.0 Blood monocytes automated count (number/volume) 0. 7 10*3 0.0-1.0 Automated eosinophil count 0.1 10*3/uL 0 .0-0.3 Automated blood basophil count (count/volume) 0.0 10*3/uL 0.0-0.1 Comprehensive metabolic panel - 07/28/18 07:35 Serum or plasma sodium measurement (moles/volume) 142 mmol/L 135-145 Serum or plasma potassium measurement (moles/volume) 4.0 mmol/L 3.6-5.0 Serum or plasma chloride measurement (moles/volume) 107 mmol/L 98-107 Carbon dioxide 26 mmol/L 21-32 Serum or plasma anion gap determination (moles/volume) 9 mmol/L 5-14 Serum or plasma urea nitrogen measurement (mass/volume ) 14 mg/dL 7-18 Serum or plasma creatinine measurement (mass/volume) 0.96 mg/dL 0.60-1.30 Serum or plasma urea nitrogen/creatinine mass ratio 15 NRG Serum or plasma creatinine measurement w ith calculation of estimated glomerular filtration rate > NRG Serum or plasma glucose measurement (mass/volume) 130 mg/dL 70-105 Serum or plasma calcium measurement (mass/volume) 9.1 mg/dL 8.5-10.1 Serum or plasma total bilirubin measurement (mass/volu me) 0.6 mg/dL 0.1-1.0 Serum or plasma alkaline phosphatase maurice surement (enzymatic activity/volume) 56 U/L 40-136 Serum or plasma aspartate aminotransfera se measurement (enzymatic activity/volume) 21 U/L 5-34 Serum or plasma alanine aminotransferase measurement (enzymatic activity/volume) 23 U/L 0-55 Serum or plasma protein measurement (mass/volume) 6.6 g/dL 6.4-8.2 Serum or plasma albumin measurement (mass/volume) 3.7 g/dL 3.2-4.5 CALCIUM CORRECTED 9.3 mg/dL 8.5-10.1 Lipid Panel - 09/28/18 11:25 C/HDL 4.6 3.7-6.7 Cholesterol 219 mg/dL 100-240 HDL 48 mg/dL 30-85 LDL-Calculated 135 mg/dL 0-100 Trig 179 mg/dL 35-160 VLDL 36 mg/dL 0-42 Gamma Glutamyl Transferase - 11/01/18 11 :11 GGT 25 U/L 5-40 Thyroid Stimulating Hormone - 01/04/19 1 1:55 TSH 2.05 mIU/mL 0.32-5.00 Comprehensive Metabolic Panel - 04/05/19 11:15 Albumin 4.3 g/dL 3.6-5.1 ALP 70 U/L 35-130 ALT 68 U/L 6-45 Anion Gap 14 6-14 AST 38 U/L 2-40 BUN 19 mg/dL 5-25 Calcium 9.6 mg/dL 8.3-10.4 Chloride 112 mmol/L 95-114 CO2 24 mEq/L 22-33 Creat 0.98 mg/dL 0.50-1.50 eGFR 76 mL/min/1.73m2 >59 Globulin 3.2 g/dL 2.3-3.5 Glucose 95 mg/dL 70-110 Osmo 303 280-295 Potassium 4.0 mmol/L 3.5-5.3 Sodium 146 mmol/L 134-148 TBil 0.7 mg/dL 0.2-1.2 TP 7.5 g/dL 6.0-8.3 Complete blood count (CBC) with automate d white blood cell (WBC) differential - 04/13/19 13:53 Blood leukocytes automated count (number/volume) 6.4 10*3/uL 4.3-11.0 Blood erythrocytes automated count (number/volume) 4.67 10*6/uL 4.35-5.85 Venous blood hemoglobin measurement (mass/volume) 13.1 g/dL 13.3-17.7 Blood hematocrit (volume fraction) 40 % 40-54 Automated erythrocyte mean corpuscular volume 85 [ foz_us] 80-99 Automated erythrocyte mean corpuscular h emoglobin (mass per erythrocyte) 28 pg 25-34 Automated erythrocyte mean corpuscular h emoglobin concentration measurement (mass/volume) 33 g/dL 32-36 Automated erythrocyte distribution width ratio 13. 6 % 10.0- 14.5 Automated blood platelet count (count/volume) 169 10*3/uL 130-400 Automated blood platelet mean volume measurement 10.7 [foz_us] 7.4-10.4 Automated blood neutrophils/100 leukocytes 46 % 42-75 Automated blood lymphocytes/100 leukocytes 45 % 12-44 Blood monocytes/100 leukocytes 8 % 0-12 Automated blood eosinophils/100 leukocytes 1 % 0-10 Automated blood basophils/100 leukocytes 0 % 0-10 Blood neutrophils automated count (number/volume) 3.0 10*3 1.8-7.8 Blood lymphocytes automated count (number/volume) 2.9 10*3 1.0-4.0 Blood monocytes automated count (number/volume) 0. 5 10*3 0.0-1.0 Automated eosinophil count 0.1 10*3/uL 0 .0-0.3 Automated blood basophil count (count/volume) 0.0 10*3/uL 0.0-0.1 Comprehensive metabolic panel - 04/13/19 13:53 Serum or plasma sodium measurement (moles/volume) 145 mmol/L 135-145 Serum or plasma potassium measurement (moles/volume) 3.5 mmol/L 3.6-5.0 Serum or plasma chloride measurement (moles/volume) 109 mmol/L 98-107 Carbon dioxide 24 mmol/L 21-32 Serum or plasma anion gap determination (moles/volume) 12 mmol/L 5-14 Serum or plasma urea nitrogen measurement (mass/volume ) 15 mg/dL 7-18 Serum or plasma creatinine measurement (mass/volume) 1.05 mg/dL 0.60-1.30 Serum or plasma urea nitrogen/creatinine mass ratio 14 NRG Serum or plasma creatinine measurement w ith calculation of estimated glomerular filtration rate > NRG Serum or plasma glucose measurement (mass/volume) 88 mg/dL 70-105 Serum or plasma calcium measurement (mass/volume) 9.3 mg/dL 8.5-10.1 Serum or plasma total bilirubin measurement (mass/volu me) 0.5 mg/dL 0.1-1.0 Serum or plasma alkaline phosphatase maurice surement (enzymatic activity/volume) 67 U/L 40-136 Serum or plasma aspartate aminotransfera se measurement (enzymatic activity/volume) 31 U/L 5-34 Serum or plasma alanine aminotransferase measurement (enzymatic activity/volume) 64 U/L 0-55 Serum or plasma protein measurement (mass/volume) 7.1 g/dL 6.4-8.2 Serum or plasma albumin measurement (mass/volume) 4.1 g/dL 3.2-4.5 CALCIUM CORRECTED 9.2 mg/dL 8.5-10.1 Magnesium - 04/13/19 13:53 Magnesium 1.9 mg/dL 1.6-2.4 Serum or plasma troponin i.cardiac measu rement (mass/volume) - 04/13/19 13:53 Serum or plasma troponin i.cardiac measurement (mass/v olume) < ng/mL <0.028 Serum or plasma thyrotropin measurement by detection limit <=0.05 miu/l (units/volume) - 04/13/19 13:53 Serum or plasma thyrotropin measurement by detection limit <=0.05 miu/l (units/volume) 1.27 u[iU]/mL 0.35-4.94 Serum or plasma C reactive protein measu rement (mass/volume) - 04/13/19 13:53 Serum or plasma C reactive protein measurement (mass/v olume) 0.99 mg/dL 0.00-0.50 Capillary blood glucose measurement by g lucometer (mass/volume) - 04/13/19 13:59 Capillary blood glucose measurement by glucometer (mas s/volume) 89 mg/dL 70-110 Complete urinalysis with reflex to cultu re - 04/13/19 14:31 Urine color determination YELLOW NRG Urine clarity determination CLEAR NR G Urine pH measurement by test strip 5.0 5-9 Specific gravity of urine by test strip 1.025 1.016-1.022 Urine protein assay by test strip, semi-quantitative NEGATIVE NEGATIVE Urine glucose detection by automated test strip NE GATIVE NEGATIVE Erythrocytes detection in urine sediment by light micr oscopy NEGATIVE NEGATIVE Urine ketones detection by automated test strip NE GATIVE NEGATIVE Urine nitrite detection by test strip NEGATIVE NEGATIVE Urine total bilirubin detection by test strip NEGA TIVE NEGATIVE Urine urobilinogen measurement by automated test strip (mass/volume) 0.2 mg/dL < = 1.0 Urine leukocyte esterase detection by dipstick NEG ATIVE NEGATIVE Automated urine sediment erythrocyte cou nt by microscopy (number/high power field) NONE NRG Automated urine sediment leukocyte count by microscopy (number/high power field) NONE NRG Bacteria detection in urine sediment by light microsco py NEGATIVE NRG Squamous epithelial cells detection in u rine sediment by light microscopy 2-5 NRG Crystals detection in urine sediment by light microsco py NONE NRG Casts detection in urine sediment by light microscopy NONE NRG Mucus detection in urine sediment by light microscopy NEGATIVE NRG Complete urinalysis with reflex to culture NO NRG Comprehensive Metabolic Panel - 04/18/19 11:30 Albumin 4.3 g/dL 3.6-5.1 ALP 75 U/L 35-130 ALT 58 U/L 6-45 Anion Gap 13 6-14 AST 31 U/L 2-40 BUN 12 mg/dL 5-25 Calcium 9.2 mg/dL 8.3-10.4 Chloride 107 mmol/L 95-114 CO2 27 mEq/L 22-33 Creat 0.97 mg/dL 0.50-1.50 eGFR 77 mL/min/1.73m2 >59 Globulin 2.9 g/dL 2.3-3.5 Glucose 87 mg/dL 70-110 Osmo 294 280-295 Potassium 3.9 mmol/L 3.5-5.3 Sodium 143 mmol/L 134-148 TBil 0.6 mg/dL 0.2-1.2 TP 7.2 g/dL 6.0-8.3 Urinalysis - 04/18/19 11:30 Icotest N/A Negative Urine Volume Urine Volume Sufficient (10mL) Urine-Appearance Clear Clear Urine-Bacteria Trace Urine-Bilirubin Negative Negative Urine-Blood Negative Negative Urine-Color Yellow Colorless-[place] ow Urine-Epithelial Cells 0-5/HPF Urine-Glucose Negative Negative Urine-Ketones Negative Negative Urine-Leukocytes Negative Negative Urine-Mucus 1+ Urine-Nitrite Negative Negative Urine-Other Urine Saved if Culture Need ed (48hrs from time of collection) Urine-pH 5.5 5-8.5 Urine-Protein Negative Negative Urine-RBC Negative Urine-Specific Lavinia 1.020 1.000-1 .030 Urine-WBC Negative Urobilinogen 0.2 E.U./dL 0.2-1.0 Complete blood count (CBC) with automate d white blood cell (WBC) differential - 04/23/19 03:40 Blood leukocytes automated count (number/volume) 6.0 10*3/uL 4.3-11.0 Blood erythrocytes automated count (number/volume) 4.74 10*6/uL 4.35-5.85 Venous blood hemoglobin measurement (mass/volume) 13.5 g/dL 13.3-17.7 Blood hematocrit (volume fraction) 40 % 40-54 Automated erythrocyte mean corpuscular volume 84 [ foz_us] 80-99 Automated erythrocyte mean corpuscular h emoglobin (mass per erythrocyte) 29 pg 25-34 Automated erythrocyte mean corpuscular h emoglobin concentration measurement (mass/volume) 34 g/dL 32-36 Automated erythrocyte distribution width ratio 13. 5 % 10.0- 14.5 Automated blood platelet count (count/volume) 162 10*3/uL 130-400 Automated blood platelet mean volume measurement 10.2 [foz_us] 7.4-10.4 Automated blood neutrophils/100 leukocytes 66 % 42-75 Automated blood lymphocytes/100 leukocytes 24 % 12-44 Blood monocytes/100 leukocytes 8 % 0-12 Automated blood eosinophils/100 leukocytes 2 % 0-10 Automated blood basophils/100 leukocytes 0 % 0-10 Blood neutrophils automated count (number/volume) 4.0 10*3 1.8-7.8 Blood lymphocytes automated count (number/volume) 1.5 10*3 1.0-4.0 Blood monocytes automated count (number/volume) 0. 5 10*3 0.0-1.0 Automated eosinophil count 0.1 10*3/uL 0 .0-0.3 Automated blood basophil count (count/volume) 0.0 10*3/uL 0.0-0.1 Comprehensive metabolic panel - 04/23/19 03:40 Serum or plasma sodium measurement (moles/volume) 143 mmol/L 135-145 Serum or plasma potassium measurement (moles/volume) 3.9 mmol/L 3.6-5.0 Serum or plasma chloride measurement (moles/volume) 109 mmol/L 98-107 Carbon dioxide 23 mmol/L 21-32 Serum or plasma anion gap determination (moles/volume) 11 mmol/L 5-14 Serum or plasma urea nitrogen measurement (mass/volume ) 19 mg/dL 7-18 Serum or plasma creatinine measurement (mass/volume) 1.11 mg/dL 0.60-1.30 Serum or plasma urea nitrogen/creatinine mass ratio 17 NRG Serum or plasma creatinine measurement w ith calculation of estimated glomerular filtration rate > NRG Serum or plasma glucose measurement (mass/volume) 123 mg/dL 70-105 Serum or plasma calcium measurement (mass/volume) 9.2 mg/dL 8.5-10.1 Serum or plasma total bilirubin measurement (mass/volu me) 0.4 mg/dL 0.1-1.0 Serum or plasma alkaline phosphatase maurice surement (enzymatic activity/volume) 69 U/L 40-136 Serum or plasma aspartate aminotransfera se measurement (enzymatic activity/volume) 26 U/L 5-34 Serum or plasma alanine aminotransferase measurement (enzymatic activity/volume) 55 U/L 0-55 Serum or plasma protein measurement (mass/volume) 7.1 g/dL 6.4-8.2 Serum or plasma albumin measurement (mass/volume) 4.0 g/dL 3.2-4.5 CALCIUM CORRECTED 9.2 mg/dL 8.5-10.1 Serum or plasma C reactive protein measu rement (mass/volume) - 04/23/19 03:40 Serum or plasma C reactive protein measurement (mass/v olume) 0.72 mg/dL 0.00-0.50 Erythrocyte sedimentation rate by pricila gren method - 04/23/19 03:40 Erythrocyte sedimentation rate by westergren method 12 mm 0- 30 Automated blood complete blood count (he mogram) panel - 04/24/19 04:45 Blood leukocytes automated count (number/volume) 6.9 10*3/uL 4.3-11.0 Blood erythrocytes automated count (number/volume) 4.86 10*6/uL 4.35-5.85 Venous blood hemoglobin measurement (mass/volume) 13.9 g/dL 13.3-17.7 Blood hematocrit (volume fraction) 42 % 40-54 Automated erythrocyte mean corpuscular volume 85 [ foz_us] 80-99 Automated erythrocyte mean corpuscular h emoglobin (mass per erythrocyte) 29 pg 25-34 Automated erythrocyte mean corpuscular h emoglobin concentration measurement (mass/volume) 34 g/dL 32-36 Automated erythrocyte distribution width ratio 13. 6 % 10.0- 14.5 Automated blood platelet count (count/volume) 176 10*3/uL 130-400 Automated blood platelet mean volume measurement 10.3 [foz_us] 7.4-10.4 Whole blood basic metabolic panel - 04/09 10/26 04:45 Serum or plasma sodium measurement (moles/volume) 143 mmol/L 135-145 Serum or plasma potassium measurement (moles/volume) 4.4 mmol/L 3.6-5.0 Serum or plasma chloride measurement (moles/volume) 109 mmol/L 98-107 Carbon dioxide 25 mmol/L 21-32 Serum or plasma anion gap determination (moles/volume) 9 mmol/L 5-14 Serum or plasma urea nitrogen measurement (mass/volume ) 13 mg/dL 7-18 Serum or plasma creatinine measurement (mass/volume) 1.12 mg/dL 0.60-1.30 Serum or plasma urea nitrogen/creatinine mass ratio 12 NRG Serum or plasma creatinine measurement w ith calculation of estimated glomerular filtration rate > NRG Serum or plasma glucose measurement (mass/volume) 103 mg/dL 70-105 Serum or plasma calcium measurement (mass/volume) 9.2 mg/dL 8.5-10.1 Lipid 1996 panel - 04/24/19 04:45 Serum or plasma triglyceride measurement (mass/volume) 143 mg/dL <150 Serum or plasma cholesterol measurement (mass/volume) 190 mg/dL < 200 Serum or plasma cholesterol in HDL measurement (mass/v olume) 50 mg/dL 40-60 Cholesterol in LDL [mass/volume] in serum or plasma by direct assay 130 mg/dL 1-129 Serum or plasma cholesterol in VLDL measurement (mass/ volume) 29 mg/dL 5-40 Automated blood complete blood count (he mogram) panel - 04/25/19 05:18 Blood leukocytes automated count (number/volume) 5.7 10*3/uL 4.3-11.0 Blood erythrocytes automated count (number/volume) 4.96 10*6/uL 4.35-5.85 Venous blood hemoglobin measurement (mass/volume) 13.8 g/dL 13.3-17.7 Blood hematocrit (volume fraction) 42 % 40-54 Automated erythrocyte mean corpuscular volume 84 [ foz_us] 80-99 Automated erythrocyte mean corpuscular h emoglobin (mass per erythrocyte) 28 pg 25-34 Automated erythrocyte mean corpuscular h emoglobin concentration measurement (mass/volume) 33 g/dL 32-36 Automated erythrocyte distribution width ratio 13. 6 % 10.0- 14.5 Automated blood platelet count (count/volume) 181 10*3/uL 130-400 Automated blood platelet mean volume measurement 10.2 [foz_us] 7.4-10.4 Whole blood basic metabolic panel - 04/09 11/25 05:18 Serum or plasma sodium measurement (moles/volume) 143 mmol/L 135-145 Serum or plasma potassium measurement (moles/volume) 3.3 mmol/L 3.6-5.0 Serum or plasma chloride measurement (moles/volume) 109 mmol/L 98-107 Carbon dioxide 22 mmol/L 21-32 Serum or plasma anion gap determination (moles/volume) 12 mmol/L 5-14 Serum or plasma urea nitrogen measurement (mass/volume ) 17 mg/dL 7-18 Serum or plasma creatinine measurement (mass/volume) 1.18 mg/dL 0.60-1.30 Serum or plasma urea nitrogen/creatinine mass ratio 14 NRG Serum or plasma creatinine measurement w ith calculation of estimated glomerular filtration rate > NRG Serum or plasma glucose measurement (mass/volume) 115 mg/dL 70-105 Serum or plasma calcium measurement (mass/volume) 9.2 mg/dL 8.5-10.1 Whole blood basic metabolic panel - 04/09 12/26 04:12 Serum or plasma sodium measurement (moles/volume) 144 mmol/L 135-145 Serum or plasma potassium measurement (moles/volume) 4.1 mmol/L 3.6-5.0 Serum or plasma chloride measurement (moles/volume) 110 mmol/L 98-107 Carbon dioxide 23 mmol/L 21-32 Serum or plasma anion gap determination (moles/volume) 11 mmol/L 5-14 Serum or plasma urea nitrogen measurement (mass/volume ) 15 mg/dL 7-18 Serum or plasma creatinine measurement (mass/volume) 1.09 mg/dL 0.60-1.30 Serum or plasma urea nitrogen/creatinine mass ratio 14 NRG Serum or plasma creatinine measurement w ith calculation of estimated glomerular filtration rate > NRG Serum or plasma glucose measurement (mass/volume) 109 mg/dL 70-105 Serum or plasma calcium measurement (mass/volume) 8.6 mg/dL 8.5-10.1 Automated blood complete blood count (he mogram) panel - 04/26/19 04:12 Blood leukocytes automated count (number/volume) 6.5 10*3/uL 4.3-11.0 Blood erythrocytes automated count (number/volume) 4.58 10*6/uL 4.35-5.85 Venous blood hemoglobin measurement (mass/volume) 13.3 g/dL 13.3-17.7 Blood hematocrit (volume fraction) 39 % 40-54 Automated erythrocyte mean corpuscular volume 86 [ foz_us] 80-99 Automated erythrocyte mean corpuscular h emoglobin (mass per erythrocyte) 29 pg 25-34 Automated erythrocyte mean corpuscular h emoglobin concentration measurement (mass/volume) 34 g/dL 32-36 Automated erythrocyte distribution width ratio 13. 4 % 10.0- 14.5 Automated blood platelet count (count/volume) 171 10*3/uL 130-400 Automated blood platelet mean volume measurement 10.6 [foz_us] 7.4-10.4 Complete blood count (CBC) with automate d white blood cell (WBC) differential - 05/05/19 16:45 Blood leukocytes automated count (number/volume) 7.6 10*3/uL 4.3-11.0 Blood erythrocytes automated count (number/volume) 4.97 10*6/uL 4.35-5.85 Venous blood hemoglobin measurement (mass/volume) 14.0 g/dL 13.3-17.7 Blood hematocrit (volume fraction) 43 % 40-54 Automated erythrocyte mean corpuscular volume 86 [ foz_us] 80-99 Automated erythrocyte mean corpuscular h emoglobin (mass per erythrocyte) 28 pg 25-34 Automated erythrocyte mean corpuscular h emoglobin concentration measurement (mass/volume) 33 g/dL 32-36 Automated erythrocyte distribution width ratio 13. 6 % 10.0- 14.5 Automated blood platelet count (count/volume) 163 10*3/uL 130-400 Automated blood platelet mean volume measurement 11.0 [foz_us] 7.4-10.4 Automated blood neutrophils/100 leukocytes 54 % 42-75 Automated blood lymphocytes/100 leukocytes 33 % 12-44 Blood monocytes/100 leukocytes 9 % 0-12 Automated blood eosinophils/100 leukocytes 3 % 0-10 Automated blood basophils/100 leukocytes 0 % 0-10 Blood neutrophils automated count (number/volume) 4.1 10*3 1.8-7.8 Blood lymphocytes automated count (number/volume) 2.5 10*3 1.0-4.0 Blood monocytes automated count (number/volume) 0. 7 10*3 0.0-1.0 Automated eosinophil count 0.2 10*3/uL 0 .0-0.3 Automated blood basophil count (count/volume) 0.0 10*3/uL 0.0-0.1 Comprehensive metabolic panel - 05/05/19 16:45 Serum or plasma sodium measurement (moles/volume) 143 mmol/L 135-145 Serum or plasma potassium measurement (moles/volume) 3.9 mmol/L 3.6-5.0 Serum or plasma chloride measurement (moles/volume) 109 mmol/L 98-107 Carbon dioxide 22 mmol/L 21-32 Serum or plasma anion gap determination (moles/volume) 12 mmol/L 5-14 Serum or plasma urea nitrogen measurement (mass/volume ) 16 mg/dL 7-18 Serum or plasma creatinine measurement (mass/volume) 1.08 mg/dL 0.60-1.30 Serum or plasma urea nitrogen/creatinine mass ratio 15 NRG Serum or plasma creatinine measurement w ith calculation of estimated glomerular filtration rate > NRG Serum or plasma glucose measurement (mass/volume) 109 mg/dL 70-105 Serum or plasma calcium measurement (mass/volume) 9.3 mg/dL 8.5-10.1 Serum or plasma total bilirubin measurement (mass/volu me) 0.5 mg/dL 0.1-1.0 Serum or plasma alkaline phosphatase maurice surement (enzymatic activity/volume) 78 U/L 40-136 Serum or plasma aspartate aminotransfera se measurement (enzymatic activity/volume) 26 U/L 5-34 Serum or plasma alanine aminotransferase measurement (enzymatic activity/volume) 51 U/L 0-55 Serum or plasma protein measurement (mass/volume) 7.3 g/dL 6.4-8.2 Serum or plasma albumin measurement (mass/volume) 4.3 g/dL 3.2-4.5 CALCIUM CORRECTED 9.1 mg/dL 8.5-10.1 Complete urinalysis with reflex to cultu re - 05/05/19 16:50 Urine color determination YELLOW NRG Urine clarity determination CLEAR NR G Urine pH measurement by test strip 5.5 5-9 Specific gravity of urine by test strip >= 1.016-1.022 Urine protein assay by test strip, semi-quantitative NEGATIVE NEGATIVE Urine glucose detection by automated test strip NE GATIVE NEGATIVE Erythrocytes detection in urine sediment by light micr oscopy NEGATIVE NEGATIVE Urine ketones detection by automated test strip NE GATIVE NEGATIVE Urine nitrite detection by test strip NEGATIVE NEGATIVE Urine total bilirubin detection by test strip NEGA TIVE NEGATIVE Urine urobilinogen measurement by automated test strip (mass/volume) 0.2 mg/dL < = 1.0 Urine leukocyte esterase detection by dipstick NEG ATIVE NEGATIVE Automated urine sediment erythrocyte cou nt by microscopy (number/high power field) NONE NRG Automated urine sediment leukocyte count by microscopy (number/high power field) RARE NRG Bacteria detection in urine sediment by light microsco py NEGATIVE NRG Squamous epithelial cells detection in u rine sediment by light microscopy RARE NRG Crystals detection in urine sediment by light microsco py NONE NRG Casts detection in urine sediment by light microscopy NONE NRG Mucus detection in urine sediment by light microscopy NEGATIVE NRG Complete urinalysis with reflex to culture NO NRG Encounters ACCT No. Visit Date/Time Discharge Status Pt. Type Provider Facility Loc./Unit Complaint [id number] 05/02/2019 10:27:00 05/02/2019 23:59 :00 DIS Outpatient Randi Landon [id number] 04/18/2019 14:35:00 04/18/2019 23:59 :00 DIS Outpatient Randi Landon [id number] 04/18/2019 11:03:00 04/18/2019 23:59 :00 DIS Outpatient Randi Landon [id number] 04/17/2019 13:46:00 04/17/2019 23:59 :00 DIS Outpatient Jaja, Randi [id number] 04/05/2019 14:16:00 04/05/2019 23:59: 00 DIS Outpatient Jaja, Randi [id number] 04/05/2019 10:22:00 04/05/2019 23:59: 00 DIS Outpatient Jaja, Randi [id number] 01/04/2019 12:29:00 01/04/2019 23:59: 00 DIS Outpatient Jaja, Randi [id number] 01/04/2019 10:53:00 01/04/2019 23:59: 00 DIS Outpatient Jaja, Randi [id number] 11/02/2018 09:22:00 11/02/2018 23:59: 00 DIS Outpatient MORLEY, EARLE [id number] 11/01/2018 13:25:00 11/01/2018 23:59: 00 DIS Outpatient Jaja, Randi [id number] 09/28/2018 11:24:00 09/28/2018 23:59: 00 DIS Outpatient Jaja, Randi [id number] 03/17/2018 12:32:00 03/17/2018 23:59: 00 DIS Outpatient Jaja, Randi [id number] 11/08/2017 12:11:00 11/08/2017 23:59: 00 DIS Outpatient OLGAALIDSCHUYLER [id number] 09/16/2017 09:47:00 09/16/2017 23:59: 00 DIS Outpatient Jaja, Randi [id number] 05/31/2017 10:59:00 05/31/2017 23:59: 00 DIS Outpatient Jaja, Randi [id number] 10/09/2016 11:32:00 10/09/2016 23:59: 00 DIS Outpatient Jaja, Randi [id number] 07/09/2016 09:43:00 07/09/2016 23:59: 00 DIS Outpatient Jaja, Randi [id number] 04/08/2016 15:01:00 04/08/2016 23:59: 00 DIS Outpatient Brown, Leandro [id number] 11/01/2018 10:51:00 Document Registration [id number] 09/28/2018 10:06:00 Document Registration [id number] 08/12/2018 10:48:00 Document Registration [id number] 06/28/2018 10:03:00 Document Registration [id number] 03/16/2018 13:55:00 Document Registration [id number] 12/10/2017 14:56:00 Document Registration [id number] 09/15/2017 13:58:00 Document Registration [id number] 05/28/2017 11:10:00 Document Registration [id number] 05/05/2019 15:02:00 18:45:00 DIS Emergency RISHI HERNANDEZ UDAY [facility] ER HIGH BLOOD PRESSURE [id number] 04/23/2019 08:50:00 10:20:00 DIS Outpatient MARTHA BAUGH, MELONIE Goyal [facility] CSD CVA, HTN [id number] 04/13/2019 12:11:00 16:12:00 DIS Emergency GERALDINE BAUGH, PHILLY Heart [facility] ER HEADACHE,DIZZIN ESS [id number] 03/21/2019 09:49:00 16:05:00 DIS Outpatient BLANCA FAITH DO [facility] ENDO GLOBUS SENSATION/HX OF BENIGN COLON MASS [id number] 03/15/2019 14:50:00 14:55:00 DIS Outpatient BLANCA FAITH DO [facility] PREOP COLONOSCOPY/EGD [id number] 02/13/2019 10:55:00 23:59:59 CLS Outpatient RAYNA BAUGH, RADHA Fabian [facility] RAD ENLARGE OF RT SUBMANDIB ULAR GLAND [id number] 11/07/2018 09:02:00 23:59:59 CLS Outpatient YU LANDON [facility] RAD ELEVATED LIVER ENZYMES [id number] 07/27/2018 13:18:00 14:15:00 DIS Inpatient STORM VICTOR DO, V [facility] IRF LEFT TKR [id number] 11/05/2017 15:20:00 17:18:00 DIS Emergency TROY MONTELONGO APRN [facility] ER POSS BROKEN FOOT [id number] 10/25/2017 11:47:00 018 23:59:59 CLS Outpatient Jay Jay REED MD [facility] CARD ANTERIOR CHEST WALL MIGUE N, BRADYCARDIA, DYSPNEA WIT [id number] 10/07/2017 07:26:00 018 23:59:59 CLS Outpatient Jay Jay REED MD [facility] CARD ANTERIOR CHEST WALL MIGUE N, BRADYCARDIA [id number] 11/05/2016 21:05:00 017 06:43:00 DIS Outpatient YU LANDON [facility] SLEEP SANTANA,SNORING,HTN [id number] 07/18/2016 12:33:00 017 13:52:00 DIS Emergency TROY MONTELONGO APRN [facility] ER R KNEE INJ [id number] 08/23/2015 12:45:00 016 15:45:00 DIS Outpatient BLANCA FAITH DO [facility] SDC HISTORY OF POLYPS [id number] 08/22/2015 05:49:00 016 15:25:00 DIS Outpatient BLANCA FAITH DO [facility] PREOP HISTORY OF POLYPS [id number] 06/30/2015 10:44:00 016 14:36:00 DIS Emergency KING RICHARDSON [facility] ER VISION ISSUES/CONFUSIO N/L ARM PAIN [id number] 12/28/2011 10:00:00 Document Registration [id number] 08/10/2013 09:49:00 08/10/2013 23:59: 59 CLS Outpatient EVON EAGLE DDS [id number] 07/18/2013 10:39:00 07/18/2013 23:59: 59 CLS Outpatient SIMRAN MICHEL DO [id number] 07/20/2012 11:01:00 07/20/2012 23:59: 59 CLS Outpatient [id number] 04/18/2012 10:17:00 04/18/2012 23:59: 59 CLS Outpatient [id number] 01/19/2012 16:16:00 01/19/2012 23:59:5 9 [facility] Outpatient [id number] 12/19/2012 10:49:00 Document Registration [id number] 04/05/2019 14:16:00 Document Registration
== END 2019-04-13 16:12 | disposition home or self-care (01) ==
LOC: EDUNIT# 12:10 → ER 12:11
DX: R42 Dizziness and giddiness (principal); R51 Headache; E86.0 Dehydration; I10 Essential (primary) hypertension; E78.00 Pure hypercholesterolemia, unspecified; K21.9 Gastro-esophageal reflux disease without esophagitis; G47.30 Sleep apnea, unspecified; Z99.89 Dependence on other enabling machines and devices; Z96.652 Presence of left artificial knee joint; Z82.49 Family history of ischemic heart disease and other diseases of the circulatory system; Z80.0 Family history of malignant neoplasm of digestive organs
CPT/HCPCS: 36415; 70450; 71045; 80053; 81000; 82962; 83735; 84443; 84484; 85025; 86141; 93005; 96360

== ENCOUNTER 2019-04-23 02:15 | Inpatient (IN) | payer MEDICARE ==
[~2019-04-23] VITALS: Ht 182 cm; Wt 143.5 kg
[~2019-04-23 02:15] MED LIST changes: +METO-370 PO; -METO50TA7 PO; +TAMS0.4C98 PO; -TMSL.4C PO
[2019-04-23] MEDS ORDERED: NS IV 500 ML 500 ML IV ONE (02:30)
--- NOTE | 2019-04-23 02:39 | ED Headache ---
General Chief Complaint: General Problems/Pain Stated Complaint: WEAKNESS Nursing Triage Note: PT PRESENTS TO ED ROOM 7 VIA EMS C/O APONTE AND TINGLING SENSATIONS THAT HAVE BEEN ONGOING FOR SEVERAL WEEKS, THIS EPISODE BEGAN EARLIER THIS EVENING. PT STATES HE HAD ONE DIZZY SPELL EARLIER TODAY WELL. PT STATES HE FIRST NOTICED THE PAIN WHEN HE HAD HIS CPAP MASK ON. Nursing Sepsis Screen: No Definite Risk Source: patient Exam Limitations: no limitations (WALLACE LEWIS) History of Present Illness Date Seen by Provider: Apr 23, 2019 Time Seen by Provider: 02:24 Initial Comments Patient presents to ER by EMS from [place] with chief complaint that around 12:00 midnight he began to experience a headache which he attributes to his CPAP strep being too tight. This is been going off and on for the past few weeks. He came to the ER about a week ago and said they did a CT scan and workup at that time he also had lab work this week by his primary care doctor which was told to be normal. 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 He is not having any nausea fever nasal discharge or congestion sore throat or chest pain. He did however experience about 30 minutes of paresthesias and numbness and weakness on the right side of his body upper and lower extremities that spontaneously went away about 2 hours prior to arrival. He has no history of heart disease or stroke. He does have high blood pressure. No history of tobacco use or diabetes. He takes fish well for his hypercholesterolemia. He denies any palpitations, flutters or rapid heart rate. He says he has had these paresthesias in the past. He denies being i ll with anything recently. He did not elect to take any pain medicine for his headache which she rates as a 1 out of 10. He did however decided to call an ambulance to bring him to the hospital. He is a relatively poor historian as he does not demonstrate that he participates in his own care. His and daughter accompany him we speak to them and they told me that he's been having headache dizziness for the past 2 weeks. His primary care is been working him up outpatient. She suspected it was vertigo and gave him some meclizine with minimal relief. He has not had a tilt table test. He has not had MRI. He's been having similar symptoms as described above for the past 2 weeks intermittently. His symptoms do not seem to be worse in the home. They do have propane heat do not own a carbon monoxide detector. (WALLACE LEWIS) Allergies and Home Medications Allergies Coded Allergies: No Known Drug Allergies (Unverified , 08/22/15) Home Medications Amlodipine Besylate 10 Mg Tablet, 10 MG PO DAILY, (Reported) Furosemide 20 Mg Tablet, 20 MG PO DAILY, (Reported) Glucosam/Chond/Hyalu/Cf Borate 1 Each Tablet, 1 EACH PO HS, (Reported) Ibuprofen 200 Mg Tablet, 400-600 MG PO BID, (Reported) Lisinopril 40 Mg Tablet, 40 MG PO DAILY, (Reported) Metoprolol Tartrate 50 Mg Tablet, 25 MG PO BID, (Reported) TAKES 1/2 (50MG) TABLET Multivitamin 1 Each Tablet, 1 TAB PO BID, (Reported) Pantoprazole Sodium 40 Mg Tablet.dr, 40 MG PO DAILY Prescribed by: BLANCA FAITH on 03/21/19 1525 Potassium Chloride 10 Meq Capsule.er, 10 MEQ PO BID, (Reported) Ropinirole HCl 0.5 Mg Tablet, 0.5 MG PO HS, (Reported) Tamsulosin HCl 0.4 Mg Cap, 0.4 MG PO HS, (Reported) Patient Home Medication List Home Medication List Reviewed: Yes (WALLACE LEWIS) Review of Systems Review of Systems Constitutional: No chills, No fever Eyes: Denies Blindness, Denies Blurred Vision Ears, Nose, Mouth, Throat: denies ear pain, denies ear discharge Respiratory: No cough, No short of breath Cardiovascular: No chest pain, No edema Gastrointestinal: No abdominal pain, No nausea, No vomiting Genitourinary: No discharge, No dysuria Musculoskeletal: No back pain, No joint pain Psychiatric/Neurological: See HPI; Denies Anxiety, Denies Depressed (WALLACE LEWIS) Past Jrgvmur-Xzbklc-Vrxskh Hx Patient Social History Alcohol Use: Occasionally Uses Alcohol Beverage of Choice: Beer Recreational Drug Use: No Smoking Status: Never a Smoker Type Used: Cigarettes 2nd Hand Smoke Exposure: No Recent Foreign Travel: No Contact w/Someone Who Travel: No Recent Infectious Disease Expo: No Recent Hopitalizations: No Physical Abuse: No Sexual Abuse: No Mistreated: No Fear: No (WALLACE LEWIS) Immunizations Up To Date Tetanus Booster (TDap): More than 5yrs PED Vaccines UTD: Yes Date of Influenza Vaccine: Apr 11, 2018 (WALLACE LEWIS) Seasonal Allergies Seasonal Allergies: No (WALLACE LEWIS) Past Medical History Surgeries: Yes (colostomy then reversal, L TKR, ) Abdominal, Orthopedic, Rectal Respiratory: Yes Sleep Apnea Currently Using CPAP: Yes Currently Using BIPAP: No Cardiac: Yes Chronic Edema/Swelling, High Cholesterol, Hypertension Neurological: No Genitourinary: Yes Benign Prostatic Hyperpl, Prostate Problems Gastrointestinal: Yes (Sections of Bowel Removed) Gastroesophageal Reflux, Polyps Musculoskeletal: Yes (Osteo Arthritis) Arthritis Endocrine: No HEENT: No Cancer: No Psychosocial: No Integumentary: No Blood Disorders: No (WALLACE LEWIS) Family Medical History Arthritis 19 FATHER 19 MOTHER G8 BROTHER G8 BROTHER G8 BROTHER G8 BROTHER G8 SISTER G8 SISTER G8 SISTER G8 SISTER Asthma G8 SISTER Cardiovascular disease 19 FATHER G8 SISTER Colon cancer G8 BROTHER Deafness or hearing loss G8 BROTHER Diabetes mellitus 19 FATHER Gastroenteritis G8 BROTHER Hypercholesterolemia G8 SISTER Hypertension 19 FATHER 19 MOTHER G8 BROTHER G8 BROTHER G8 BROTHER G8 BROTHER G8 SISTER G8 SISTER G8 SISTER G8 SISTER Osteoporosis G8 SISTER Respiratory disorder G8 SISTER Seizure disorder G8 BROTHER Hypertension, Migraines (WALLACE LEWIS) Physical Exam Vital Signs Vital Signs - First Documented 04/23/19 02:15 Temp 36.4 Pulse 66 Resp 18 B/P (MAP) 183/87 (119) Pulse Ox 98 O2 Delivery Room Air (SAMRA,ANDREY K DO) Vital Signs Capillary Refill : Less Than 3 Seconds (WALLACE LEWIS) Height, Weight, BMI Height: 5'6.50" Weight: 305lbs. 0.8oz. [id number]; 44.00 BMI Method:Stated General Appearance: no apparent distress, obese HEENT: PERRL/EOMI, normal ENT inspection, TMs normal, pharynx normal (oropharynx is mildly dry) Neck: non-tender, full range of motion, supple, normal inspection Cardiovascular: normal peripheral pulses, regular rate, rhythm Respiratory: lungs clear, normal breath sounds, no respiratory distress, no accessory muscle use Gastrointestinal: normal bowel sounds, non tender, soft Psychiatric: alert, oriented x 3 Crainal Nerves: normal hearing, normal speech, PERRL, other (disconjugate gaze) Coordination/Gait: normal finger to nose Motor/Sensory: no motor deficit, no sensory deficit, no pronator drift, other (NIH of 0 point) Skin: normal color, warm/dry (DEBBIE,WALLACE J) Progress/Results/Core Measures Results/Orders Lab Results Laboratory Tests Test 04/23/19 03:40 Range/Units White Blood Count 6.0 4.3-11.0 10^3/uL Red Blood Count 4.74 4.35-5.85 10^6/uL Hemoglobin 13.5 13.3-17.7 G/DL Hematocrit 40 40-54 % Mean Corpuscular Volume 84 80-99 FL Mean Corpuscular Hemoglobin 29 25-34 PG Mean Corpuscular Hemoglobin Concent 34 32-36 G/DL Red Cell Distribution Width 13.5 10.0-14.5 % Platelet Count 162 130-400 10^3/uL Mean Platelet Volume 10.2 7.4-10.4 FL Neutrophils (%) (Auto) 66 42-75 % Lymphocytes (%) (Auto) 24 12-44 % Monocytes (%) (Auto) 8 0-12 % Eosinophils (%) (Auto) 2 0-10 % Basophils (%) (Auto) 0 0-10 % Neutrophils # (Auto) 4.0 1.8-7.8 X 10^3 Lymphocytes # (Auto) 1.5 1.0-4.0 X 10^3 Monocytes # (Auto) 0.5 0.0-1.0 X 10^3 Eosinophils # (Auto) 0.1 0.0-0.3 10^3/uL Basophils # (Auto) 0.0 0.0-0.1 10^3/uL Sodium Level 143 135-145 MMOL/L Potassium Level 3.9 3.6-5.0 MMOL/L Chloride Level 109 H 98-107 MMOL/L Carbon Dioxide Level 23 21-32 MMOL/L Anion Gap 11 5-14 MMOL/L Blood Urea Nitrogen 19 H 7-18 MG/DL Creatinine 1.11 0.60-1.30 MG/DL Estimat Glomerular Filtration Rate > 60 BUN/Creatinine Ratio 17 Glucose Level 123 H 70-105 MG/DL Calcium Level 9.2 8.5-10.1 MG/DL Corrected Calcium 9.2 8.5-10.1 MG/DL Total Bilirubin 0.4 0.1-1.0 MG/DL Aspartate Amino Transf (AST/SGOT) 26 5-34 U/L Alanine Aminotransferase (ALT/SGPT) 55 0-55 U/L Alkaline Phosphatase 69 40-136 U/L C-Reactive Protein High Sensitivity 0.72 H 0.00-0.50 MG/DL Total Protein 7.1 6.4-8.2 GM/DL Albumin 4.0 3.2-4.5 GM/DL (SAMRAJO ANN LopesA Juan Manuel HUDDLESTON) My Orders Orders - SAMRAJO ANNA K DO Erythrocyte Sedimentation Rate (04/23/19 08:35) Clopidogrel Tablet (Plavix Tablet) (04/23/19 09:00) Hydralazine Injection (Apresoline Inject (04/23/19 09:00) Ekg Tracing (04/23/19 09:04) Monitor-Rhythm Ecg Trace Only (04/23/19 09:04) (ANDREY GLEZ DO) Medications Given in ED Current Medications Medications Dose Ordered Sig/Tariq Route Start Time Stop Time Status Last Admin Dose Admin Promethazine HCl 25 mg ONCE ONCE IM 04/23/19 04:15 04/23/19 04:16 DC 04/23/19 04:20 25 MG (SAMRAJO ANNA Juan Manuel HUDDLESTON) Vital Signs/I&O 04/23/19 02:15 Temp 36.4 Pulse 66 Resp 18 B/P (MAP) 183/87 (119) Pulse Ox 98 O2 Delivery Room Air (ANDREY GLEZ DO) 2 Blood Pressure Mean: 119 POS Progress Progress Note #1: Time: 02:39 Progress Note He has declined anything for pain. He would like something to drink. Since he has a headache with some paresthesias/neurologic symptoms that has already passed I would still recommend CT of the head prior to any oral fluids. We will obtain a CT of his C-spine as well as this could potentially relate to right sided paresthesias. Alternatively he may consider an MRI since he had a CT scan previously that was unremarkable. Progress Note #2: Time: 05:14 Progress Note Patient has a subacute change in his occipital lobe which could explain some of his headaches, visual disturbances and nausea. He did not have some more findings on CT scan from 12 days ago. Rad[address] recommends CT angiogram and MRI. We do not have MRI available until tomorrow. At this point the patient's symptoms of been going on for [address]ogram is unlikely to demonstrate a retrievable clot. I have discussed with family possibility of staying for imaging versus going to his outpatient appointment tomorrow with primary care and he has follow-up with cardiology on Wednesday. We can get him set up for MRI and CT angiogram at the same time tomorrow. He will likely need echocardiogram done as well. We have offered observation stay for workup but we will not have MRI available until tomorrow. He has an appointment with his primary care doctor tomorrow morning so we could do this outpatient. He is outside the acute phase so we will not be able to do tPA and/or clot retrieval at [facility]. He is not on antiplatelets so I would start him on aspirin and a statin. After discussing the benefits and alternatives to inpatient versus outpatient management family has elected for outpatient management tomorrow with primary care and MRI. Plan to get CT Perfusion Brain Progress Note #3: Time: 06:03 Progress Note Care transitioned to Dr. Glez. We are attempting to establish an IV and get a CT perfusion scan of the head. If those results are unremarkable then we will allow the patient to follow up tomorrow with primary care and get an MRI diffusion- weighted imaging done outpatient. Cardiology on Wednesday, 3 days from now. Initiate aspirin and atorvastatin. (WALLACE LEWIS) Progress Note : Progress Note 0600--ASSUMED CARE FROM DR. LEWIS, CT PENDING. PT IS AN EXTREMELY DIFFICULT IV STICK. PT IS CURRENTLY SYMPTOM-FREE PT GIVEN PLAVIX, WELL HYDRALAZINE FOR PERSISTENT HTN--BP> 180/>100. (ANDREY GLEZ DO) Diagnostic Imaging Diagonstic Imaging: CT (without IV contrast) Plain Films/CT/US/NM/MRI: c-spine, head Comments CT C-spine unremarkable. Acute to subacute infarct suspect in the left occipital lobe, superimposed on chronic ischemic microvascular change. Reviewed: Reviewed Night [facility] Study, Reviewed by Me (WALLACE LEWIS) Departure Communication (Admissions) 5066--CALLED [id number]--SPOKE WITH DR. MARIA, NEUROLOGIST. HE ADVISES THAT PT IS NOT A CANDIDATE FOR ANY TPA OR ANY INTERVENTION. HE ADVISES TO ADMIT HERE AND OBTAIN MRI IN AM. 0840/0848--PAGED / SPOKE WITH DR. MOYER. HE ADVISES ADMIT TO HOSPITALIST AND CARDIOLOGY CAN CONSULT ( PT HAS AN APPOINTMENT WITH DR. BHATIA ON WEDNESDAY) 0850--SPOKE WITH DR. THOMAS, HOSPITALIST, ACCEPTS PT FOR ADMIT. ADVISES TO GIVE PLAVIX. HE WILL DO ADDITIONAL ORDERS, INCLUDING ORDERING MRI (ANDREY GLEZ DO) Impression Primary Impression: CVA--ACUTE TO SUBACUTE Additional Impressions: Headache Qualified Codes: G44.209 - Tension-type headache, unspecified, not intractable Paresthesias Vertigo Cerebral infarction Qualified Codes: I63.9 - Cerebral infarction, unspecified Transient vision disturbance HTN (hypertension) Qualified Codes: I10 - Essential (primary) hypertension Disposition: ADMITTED INPATIENT Condition: Stable Admissions Decision to Admit Reason: Admit from ER (General) Decision to Admit/Date: Apr 23, 2019 Time/Decision to Admit Time: 08:50 (ANDREY GLEZ DO) Departure-Patient Inst. Referrals: ALECIA NEWMAN MD (PCP) Primary Care Physician YU LANDON (Family) Primary Care Physician Copy Copies To 1: Jay Jay BHATIA MD; ALECIA NEWMAN MD, TITUS J Apr 23, 2019 02:39 ANDREY FIERRO DO Apr 23, 2019 07:23 POS
--- NOTE | 2019-04-23 03:20 | NUR ---
LAB CONTACTED FOR BLOOD DRAW. UNABLE TO SECURE IV SITE.
[2019-04-23 03:48] LABS: BASOPHILS % (AUTO) 0 % (0-10); EOSINOPHILS # (AUTO) 0.1 10^3/uL (0.0-0.3); EOSINOPHILS % (AUTO) 2 % (0-10); HEMATOCRIT 40 % (40-54); HEMOGLOBIN 13.5 G/DL (13.3-17.7); LYMPHOCYTES # (AUTO) 1.5 X 10^3 (1.0-4.0); LYMPHOCYTES % (AUTO) 24 % (12-44); MEAN CORPUSCULAR HEMOGLOBIN 29 PG (25-34); MEAN CORPUSCULAR HGB CONC 34 G/DL (32-36); MEAN CORPUSCULAR VOLUME 84 FL (80-99); MEAN PLATELET VOLUME 10.2 FL (7.4-10.4); MONOCYTES # (AUTO) 0.5 X 10^3 (0.0-1.0); MONOCYTES % (AUTO) 8 % (0-12); NEUTROPHILS % (AUTO) 66 % (42-75); PLATELET COUNT 162 10^3/uL (130-400); RED CELL DISTRIBUTION WIDTH 13.5 % (10.0-14.5)
[2019-04-23 04:09] LABS: ALANINE AMINOTRANSFERASE 55 U/L (0-55); ALKALINE PHOSPHATASE 69 U/L (40-136); BILIRUBIN,TOTAL 0.4 MG/DL (0.1-1.0); BUN/CREATININE RATIO 17; CALCIUM 9.2 MG/DL (8.5-10.1); CARBON DIOXIDE 23 MMOL/L (21-32); CHLORIDE 109 MMOL/L (98-107); CREATININE SERUM 1.11 MG/DL (0.60-1.30); GFR ESTIMATED > 60; GLUCOSE 123 MG/DL (70-105); POTASSIUM 3.9 MMOL/L (3.6-5.0); SODIUM 143 MMOL/L (135-145); TOTAL PROTEIN 7.1 GM/DL (6.4-8.2)
[2019-04-23] MEDS ORDERED: ONDANSETRON 4 MG/2 ML (SDV) Z0FRAN IVP ONE (04:15)
[2019-04-23] MEDS ORDERED: PROMETHAZINE INJ 25 MG/ML (PHENERGAN) AMP IM ONE (04:15)
[2019-04-23] MEDS ORDERED: ATOR40TA70 PO (05:29)
[2019-04-23] MEDS ORDERED: ASPI-999 PO (05:29)
[2019-04-23] MEDS ORDERED: NS IV 1000 ML 1,000 ML IV SCH (05:37)
--- NOTE | 2019-04-23 06:25 | Diagnostic Imaging Report ---
PROCEDURE: CT head and CT cervical spine without contrast. TECHNIQUE: Multiple contiguous axial images were obtained through the brain and cervical spine without the use of intravenous contrast. Sagittal and coronal reformations through the cervical spine were then performed. Auto Exposure Controls were utilized during the CT exam to meet ALARA standards for radiation dose reduction. INDICATION: Headache. Dizziness. COMPARISON: 04/13/2019 FINDINGS: CT head: The ventricles and cortical sulci are diffusely prominent, compatible with age-related volume loss. There are confluent areas of abnormal, low attenuation in the periventricular white matter. This is consistent with chronic small vessel ischemic changes. There is new area of cortical hypodensity within the posterior left occipital lobe that measures 1.6 x 2.3 cm and may be on the basis of evolving subacute or acute infarct (image 11, series 2). There is no midline shift or mass-effect. No acute intra-axial hemorrhage is seen. No extra-axial masses or collections are present. The bony calvarium is intact. The visualized paranasal sinuses are unremarkable. The mastoid air cells are clear. CT cervical spine: Evaluation of the static alignment shows slight grade 1 retrolisthesis at C3-C4. There is no evidence of jumped facets. Vertebral body heights are maintained. There is no evidence of acute fracture. Moderate multilevel degenerative changes are noted and consist of intervertebral disc height loss with anterior and posterior disc osteophyte complex formations as well as multilevel facet arthropathy. Pre and paravertebral soft tissue structures are unremarkable. Note is made of calcified arterial sclerosis. Included portions of the lung apices show no additional acute abnormality. IMPRESSION: 1. Suspicious hypodensity within the left occipital lobe concerning for potential evolving acute or subacute infarct. Correlation with MRI is recommended. 2. Chronic small vessel ischemic changes in deep white matter. 3. No acute fracture or dislocation in the cervical spine. 4. Moderate multilevel degenerative changes of the cervical spine. I agree with Donn report. Dictated by: Dictated on workstation # [id number]
[2019-04-23] MEDS ORDERED: HOLD METFORMIN - RECEIVED CONTRAST 20 ML VIAL IV SCH (07:00)
[2019-04-23] MEDS ORDERED: IOHEXOL 350 MG/ML 100 ML (OMNIPAQUE 350) VIAL IV ONE (07:00)
[2019-04-23] MEDS ORDERED: NS 100 ML (IVPB) BAG IV ONE (07:00)
--- NOTE | 2019-04-23 07:11 | NUR ---
REPORT GIVEN TO AISSATOU ESPOSITO
--- NOTE | 2019-04-23 08:25 | Diagnostic Imaging Report ---
PROCEDURE: CT angiography of the head and CT angiography of the neck with and without contrast. TECHNIQUE: Contiguous noncontrast images were obtained from the skull base through the vertex. After intravenous contrast administration, helical CT angiography of the neck was performed. Source data was reformatted into 3D MIP projections. Delayed post contrast acquisition was also obtained. Auto Exposure Controls were utilized during the CT exam to meet ALARA standards for radiation dose reduction. INDICATION: Possible left occipital infarct. Dizziness. COMPARISON: CT head from earlier same day. FINDINGS: CTA neck: Included portions of the aortic arch are unremarkable. Origins of the arch vessels are heavily obscured secondary to mottle artifact and beam hardening artifact from contrast bolus within the right subclavian vein and SVC. Opacification of the distal downstream bilateral common carotid arteries however appears appropriate. There is no convincing evidence of dissection or intraluminal thrombosis. Mild calcified atherosclerotic disease of the bilateral carotid bulbs is also noted, but there is no evidence of focal significant stenosis. There is tortuosity of the bilateral internal carotid arteries. Mild calcified atherosclerosis of the distal intracranial portion of bilateral internal carotid arteries is also noted, but there is no focal stenosis or evidence of dissection or intraluminal thrombosis of the bilateral internal carotid arteries. Within the posterior circulation, there is non-enhancement of the right V4 portion of the right vertebral artery. There appears to be transition point of enhancement to non-enhancement at the V3 portion. This does raise concern for potential occlusion of the distal right vertebral artery. The bilateral proximal portions of vertebral arteries are suboptimally visualized secondary to mottle and beam Cope artifact. There is high degree stenosis of the proximal V4 portion on the left (image 317, series 3). Osseous structures show age-related degenerative changes of the cervical spine. Included portions of the lung apices are clear. Other pre and paravertebral soft tissue structures are unremarkable. CTA [place]: There is normal enhancement of the bilateral anterior and middle cerebral arteries. Anterior communicating artery is not well-visualized, but there is no evidence of aneurysm, vascular malformation, nor intraluminal thrombosis within the anterior or middle cerebral artery circulation. Within the posterior circulation, there is normal appearance to the basilar artery. There is normal enhancement of the bilateral superior cerebellar arteries. Right P1 segment is absent. There is however patent right posterior communicating artery. Findings are consistent with persistent origin. 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 There is otherwise normal enhancement of the bilateral posterior cerebral arteries. Conventional postcontrast CT of the head was not performed, but no enhancing intraparenchymal masses are identified. Background age-related parenchymal volume loss and chronic small vessel ischemic changes are again noted. Note is also again made of hypodensities within the left occipital lobe concerning for evolving acute or subacute infarcts. IMPRESSION: 1. Non-enhancement of the V4 portion of the right vertebral artery concerning for intraluminal thrombosis. 2. 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 3. Mild atherosclerotic disease of the bilateral carotid bulbs. 4. Suboptimal evaluation of the proximal bilateral common carotid and bilateral vertebral arteries as described above. 5. 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 6. No suspicious enhancing intracranial masses. 7. Redemonstration of findings concerning for evolving acute or subacute infarct of the left occipital lobe. Dictated by: Dictated on workstation # [id number]
[2019-04-23] MEDS ORDERED: CLOPIDOGREL 75 MG (PLAVIX) TABLET PO ONE (09:00)
[2019-04-23] MEDS ORDERED: hydrALAZINE (APESOLINE) 20 MG/ML VIAL IV ONE ×2 (09:00→10:30)
[2019-04-23] MEDS ORDERED: rOPINIRole 0.25 MG (REQUIP) TAB PO ONE (10:30)
[2019-04-23] MEDS ORDERED: meTOprolol TARTRATE 25 MG (LOPRESSOR) TABLET PO ONE (10:30)
[2019-04-23] MEDS ORDERED: amLODIPine 10 MG (NORVASC) TAB PO ONE (10:30)
[2019-04-23] MEDS ORDERED: lisINopril 40 MG (PRINIVIL) TABLET PO ONE (10:30)
[2019-04-23] MEDS ORDERED: MELATONIN 3 MG TABLET PO PRN (10:45)
[2019-04-23] MEDS ORDERED: ONDANSETRON 4 MG/2 ML (SDV) Z0FRAN IV PRN (10:45)
[2019-04-23] MEDS ORDERED: POLYETHYLENE GLYCOL 17 GM (MIRALAX) PACK PO PRN (10:45)
[2019-04-23] MEDS ORDERED: ONDANSETRON 4 MG (ZOFRAN) ORAL DISSOLVE TAB PO PRN (10:45)
[2019-04-23] MEDS ORDERED: BISACODYL 10 MG SUPP (DULCOLAX) PR PRN (10:45)
[2019-04-23] MEDS ORDERED: ACETAMINOPHEN 325 MG TABLET PO PRN (10:45)
--- NOTE | 2019-04-23 10:53 | History & Physical-Hospitalist ---
History of Present Illness HPI/Chief Complaint Joni Freire is a 68-year-old male with past medical history of hypertension, hyperlipidemia, GERD, BPH, restless leg syndrome, osteoarthritis, who presented with dizziness and vision changes. His and sister are present and assist with providing history. They state that he has been having issues with dizziness and his vision for at least a couple weeks. He reports that he had right-sided arm and leg weakness this morning. his right sided weakness has resolved at this point. He has a chronic issue of right shoulder pain. He had a nausea and dry heaving this morning. He reports numbness on the tip of his tongue. He reports that he has had issues with perioral numbness previously.he denies any fevers or chills. He denies any chest pain or palpitations. He denies any shortness of breath or cough. He has some epigastric abdominal pain which he attributes to a hiatal hernia. Source: patient, family Exam Limitations: no limitations Date Seen 04/23/19 Time Seen by a Provider: 10:30 Attending Physician Mavis Thomas MD PCP Ricco Kwan MD Referring Physician Date of Admission Apr 23, 2019 at 08:50 Home Medications & Allergies Home Medications Reviewed patient Home Medication Reconciliation performed by pharmacy medication reconciliations fuel verification technician and/or nursing. Patients Allergies have been reviewed. Allergies Allergies Coded Allergies No Known Drug Allergies (Unverified08/22/15) Past Ensthgy-Wzwxtw-Qwnvng Hx Past Med/Social Hx: Reviewed Nursing Past Med/Soc Hx Patient Social History Alcohol Use: Occasionally Uses Alcohol Beverage of Choice: Beer Recreational Drug Use: No Smoking Status: Never a Smoker Type Used: Cigarettes 2nd Hand Smoke Exposure: No Recent Foreign Travel: No Contact w/other who traveled: No Recent Hopitalizations: No Recent Infectious Disease Expo: No Immunizations Up To Date Tetanus Booster (TDap): More than 5yrs Pediatric: Yes Date of Pneumonia Vaccine: Apr 23, 2018 Date of Influenza Vaccine: Mar 10, 2019 Seasonal Allergies Seasonal Allergies: No Past Medical History Surgeries: Abdominal, Orthopedic, Rectal Respiratory: Sleep Apnea Currently Using CPAP: Yes Currently Using BIPAP: No Cardiac: Chronic Edema/Swelling, High Cholesterol, Hypertension Genitourinary: Benign Prostatic Hyperpl, Prostate Problems Gastrointestinal: Gastroesophageal Reflux, Polyps Musculoskeletal: Arthritis History of Blood Disorders: No Family History Arthritis 19 FATHER 19 MOTHER G8 BROTHER G8 BROTHER G8 BROTHER G8 BROTHER G8 SISTER G8 SISTER G8 SISTER G8 SISTER Asthma G8 SISTER Cardiovascular disease 19 FATHER G8 SISTER Colon cancer G8 BROTHER Deafness or hearing loss G8 BROTHER Diabetes mellitus 19 FATHER Gastroenteritis G8 BROTHER Hypercholesterolemia G8 SISTER Hypertension 19 FATHER 19 MOTHER G8 BROTHER G8 BROTHER G8 BROTHER G8 BROTHER G8 SISTER G8 SISTER G8 SISTER G8 SISTER Osteoporosis G8 SISTER Respiratory disorder G8 SISTER Seizure disorder G8 BROTHER Hypertension, Migraines Review of Systems Constitutional: dizziness EENTM: blurred vision, vision loss Respiratory: no symptoms reported Cardiovascular: no symptoms reported Gastrointestinal: abdominal pain, nausea Genitourinary: no symptoms reported Musculoskeletal: muscle weakness (right-sided) Skin: no symptoms reported Psychiatric/Neurological: No Symptoms Reported Physical Exam Physical Exam Vital Signs Vital Signs - First Documented 04/23/19 02:15 Temp 36.4 Pulse 66 Resp 18 B/P (MAP) 183/87 (119) Pulse Ox 98 O2 Delivery Room Air Capillary Refill : Less Than 3 Seconds Height, Weight, BMI Height: 5'6.50" Weight: 305lbs. 0.8oz. 138.099911dl; 44.37 BMI Method:Stated General Appearance: No Apparent Distress, Obese, Other (poor hygiene) HEENT: PERRL/EOMI, Pharynx Normal Neck: Normal Inspection, Non Tender, Supple Respiratory: Lungs Clear, Normal Breath Sounds, No Respiratory Distress Cardiovascular: Regular Rate, Rhythm, No Edema, No Murmur Gastrointestinal: Normal Bowel Sounds, Non Tender, Soft, Other (large abdominal pannus) Extremity: Normal Inspection, Non Tender, Pedal Edema Neurologic/Psychiatric: Alert, Oriented x3, No Motor/Sensory Deficits, Normal Mood/Affect Skin: Normal Color, Warm/Dry Lymphatic: No Adenopathy Results Results/Procedures Labs Laboratory Tests 04/23/19 03:40 Patient resulted labs reviewed. Imaging: Reviewed Imaging Report Assessment/Plan Admission Diagnosis vertebral artery occlusion Admission Status: Inpatient Order (span 2 midnights) Reason for Inpatient Admission: acute ischemic stroke requiring further evaluation Assessment and Plan Acute ischemic stroke Vertebral artery occlusion CTA revealed right vertebral artery occlusion ER discussed possible transfer with [facility] neurology, deferred since he was outside of the window of TPA Started on Plavix Begin atorvastatin 80 mg nightly MRI/MRA ordered for tomorrow Consult cardiology, Dr. Bhatia, tomorrow Echocardiogram ordered Essential hypertension Continue home meds: Amlodipine, lisinopril, metoprolol Hydralazine as needed for systolics greater than 200 BPH Continue Flomax GERD Hiatal hernia Continue pantoprazole RLS continue ropinirole DVT prophylaxis: Lovenox Diagnosis/Problems Diagnosis/Problems (1) Vertebral artery stenosis/occlusion Status: Acute Qualifiers: Laterality: right Qualified Codes: I65.01 - Occlusion and stenosis of right vertebral artery (2) Acute ischemic stroke Status: Acute (3) HLD (hyperlipidemia) Status: Chronic (4) BPH (benign prostatic hyperplasia) Status: Chronic (5) GERD (gastroesophageal reflux disease) Status: Chronic (6) HTN (hypertension) Status: Acute Qualifiers: Hypertension type: essential hypertension Qualified Codes: I10 - Essential (primary) hypertension Clinical Quality Measures DVT/VTE Risk/Contraindication: Risk Factor Score Per Nursin RFS Level Per Nursing on Admit: 2=Moderate MAVIS THOMAS MD Apr 23, 2019 10:53 POS
[2019-04-23] MEDS ORDERED: ACETAMINOPHEN 325 MG TABLET PO ONE (11:00)
[2019-04-23 11:56] VITALS: BP 190/74
[2019-04-23 12:54] VITALS: BP 151/62
[2019-04-23 16:00] VITALS: BP 137/62
--- NOTE | 2019-04-23 17:37 | Consultation-Cardiology ---
HPI-Cardiology Cardiology Consultation: Date of Consultation 04/23/19 Time Seen by a Provider: 15:15 Date of Admission Attending Physician Mavis Villafana MD Admitting Physician Ricco Kwan MD Consulting Physician JAMIN MOYER MD, MA, FACP, FACC, FSCAI, CCDS Primary healthcare administrator: Dr Bhatia HPI: 68 yo man admitted to Dr Villafana's Svce this am from the ER. Mr Freire has had issues with dizziness and his vision for at least a couple weeks. He had right- sided arm and leg weakness this morning that have resolved. He had a nausea this morning that has resolved. He had numbness on the tip of his tongue that has improved. He reports that he has had issues with perioral numbness previously. He does not report palp or syncope. He has chronic, mild intermittent leg swelling, stable currently He has chronic, slowly progressive exertional shortness of breath that has not changed lately A little over a year ago he was evaluated for nonspecific chest discomfort by his healthcare administrator Dr Bhatia. This has not been an issue in the recent past Review of Systems-Cardiology Review of Systems Constitutional: malaise, tiredness; No weight loss, No weight gain Eyes: vision change (intermittent blurriness, see above) Ears/Nose/Throat: No ear discharge, No nasal drainage Respiratory: As described under HPI Cardiovascular: As described under HPI Gastrointestinal: No diarrhea, No vomiting Genitourinary: No dysuria, No hematuria, No urine frequency changes Musculoskeletal: back pain (chronic) Skin: No rash on exposed areas, No ulcerations on exposed areas Psychiatric/Neurological: As described under HPI Hematologic: No bleeding abnormalities RMB-Bcakgc-Xwwgck Hx Patient Social History Alcohol Use: Occasionally Uses Recreational Drug Use: No Smoking Status: Never a Smoker Type Used: Cigarettes 2nd Hand Smoke Exposure: No Recent Foreign Travel: No Recent Infectious Disease Expo: No Immunizations Up To Date Tetanus Booster (TDap): More than 5yrs Date of Pneumonia Vaccine: Apr 23, 2018 Date of Influenza Vaccine: Mar 10, 2019 Past Medical History PMH As described under Assessment. Family Medical History Family History: Arthritis 19 FATHER 19 MOTHER G8 BROTHER G8 BROTHER G8 BROTHER G8 BROTHER G8 SISTER G8 SISTER G8 SISTER G8 SISTER Asthma G8 SISTER Cardiovascular disease 19 FATHER G8 SISTER Colon cancer G8 BROTHER Deafness or hearing loss G8 BROTHER Diabetes mellitus 19 FATHER Gastroenteritis G8 BROTHER Hypercholesterolemia G8 SISTER Hypertension 19 FATHER 19 MOTHER G8 BROTHER G8 BROTHER G8 BROTHER G8 BROTHER G8 SISTER G8 SISTER G8 SISTER G8 SISTER Osteoporosis G8 SISTER Respiratory disorder G8 SISTER Seizure disorder G8 BROTHER Allergies and Home Medications Allergies Coded Allergies: No Known Drug Allergies (Unverified , 08/22/15) Home Medications Amlodipine Besylate 10 Mg Tablet, 10 MG PO DAILY, (Reported) Furosemide 20 Mg Tablet, 20 MG PO DAILY, (Reported) Glucosam/Chond/Hyalu/Cf Borate 1 Each Tablet, 1 EACH PO HS, (Reported) Ibuprofen 200 Mg Tablet, 400-600 MG PO BID, (Reported) Lisinopril 40 Mg Tablet, 40 MG PO DAILY, (Reported) Metoprolol Tartrate 50 Mg Tablet, 25 MG PO BID, (Reported) TAKES 1/2 (50MG) TABLET Multivitamin 1 Each Tablet, 1 TAB PO BID, (Reported) Pantoprazole Sodium 40 Mg Tablet.dr, 40 MG PO DAILY Prescribed by: BLANCA FAITH on 03/21/19 1525 Potassium Chloride 10 Meq Capsule.er, 10 MEQ PO BID, (Reported) Ropinirole HCl 0.5 Mg Tablet, 0.5 MG PO HS, (Reported) Tamsulosin HCl 0.4 Mg Cap, 0.4 MG PO HS, (Reported) Patient Home Medication List Home Medication List Reviewed: Yes Physical Exam-Cardiology Physical Exam Vital Signs/I&O 04/23/19 04/23/19 04/23/19 04/23/19 09:25 10:00 10:28 11:56 Temp 36.7 Pulse 60 62 67 Resp 20 16 B/P (MAP) 160/83 190/74 (112) Pulse Ox 94 96 O2 Delivery Room Air Room Air Room Air 04/23/19 04/23/19 04/23/19 04/23/19 11:59 12:00 12:00 12:16 Temp 36.7 Pulse 66 66 Pulse Ox 95 96 96 O2 Delivery Room Air Room Air FiO2 21 04/23/19 04/23/19 04/23/19 12:54 16:00 16:07 Temp 37.2 Pulse 67 Resp 20 B/P (MAP) 151/62 (91) 137/62 (87) Pulse Ox 95 94 O2 Delivery Room Air Room Air Capillary Refill : Less Than 3 Seconds Constitutional: AAO x 3, well-developed, well-nourished, other (obese) HEENT: PERRL, EOMI; No xanthelasmas are seen Neck: carotid pulses are 2 + bilaterally, with good upstrokes Respiratory: No accessory muscle use; other (good bilateral air entry) Gastrointestinal: No tender; soft; No guarding, No rebound; audible bowel sounds Extremities: swelling (mild, bilateral leg swelling); No clubbing, No cyanosis Neurologic/Psychiatric: oriented x 3, other (moves all limbs equally; detailed to be performed by the Hospitalist Tu that is managing patient's stroke) Skin: No rash on exposed areas, No ulcerations on exposed areas Data Review Labs Laboratory Tests 04/23/19 03:40: White Blood Count 6.0, Red Blood Count 4.74, Hemoglobin 13.5, Hematocrit 40, Me an Corpuscular Volume 84, Mean Corpuscular Hemoglobin 29, Mean Corpuscular Hemoglobin Concent 34, Red Cell Distribution Width 13.5, Platelet Count 162, Mean Platelet Volume 10.2, Neutrophils (%) (Auto) 66, Lymphocytes (%) (Auto) 24, Monocytes (%) (Auto) 8, Eosinophils (%) (Auto) 2, Basophils (%) (Auto) 0, Neutrophils # (Auto) 4.0, Lymphocytes # (Auto) 1.5, Monocytes # (Auto) 0.5, Eosinophils # (Auto) 0.1, Basophils # (Auto) 0.0, Erythrocyte Sedimentation Rate 12, Sodium Level 143, Potassium Level 3.9, Chloride Level 109H, Carbon Dioxide Level 23, Anion Gap 11, Blood Urea Nitrogen 19H, Creatinine 1.11, Estimat Glomerular Filtration Rate > 60, BUN/Creatinine Ratio 17, Glucose Level 123H, Calcium Level 9.2, Corrected Calcium 9.2, Total Bilirubin 0.4, Aspartate Amino Transf (AST/SGOT) 26, Alanine Aminotransferase (ALT/SGPT) 55, Alkaline Phosphatase 69, C-Reactive Protein High Sensitivity 0.72H, Total Protein 7.1, Albumin 4.0 Laboratory Tests 04/23/19 03:40 A/P-Cardiology Assessment/Admission Diagnosis Acute CVA, being managed by the Hopitalist Service Head and neck CTA on 04/23/19 (Dr Glez): Non-enhancement of the V4 portion of the right vertebral artery concerning for intraluminal thrombosis. 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 Mild atherosclerotic disease of the bilateral carotid bulbs. Suboptimal evaluation of the proximal bilateral common carotid and bilateral vertebral arteries as described above. 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 No suspicious enhancing intracranial masses. Redemonstration of findings concerning for evolving acute or subacute infarct of the left occipital lobe. H/o intermittent chest discomfort and shortness of breath, managed by his healthcare administrator Dr Bhatia. MPI of 09/09/18: no ischemia or infarction, LVEF 76%Shortness of breath occurs at mild exertion. He has gained weight. He denies orthopnea or PND. The patient also has bilateral edema. He denies any claudication. He also complains of fatigue as well. Echocardiogram done by Dr Bhatia on 10/25/2017 showed normal LV size with mild concentric LVH. Normal systolic function with the EF of 65-70 percent. PA pressure 40 mmHg. No significant valvular heart disease. Chronic intermittent lower extremity swelling, likely related to venous insuff Obesity Sleep apnea: Continue CPAP therapy. Discussion and Recomendations * Dr Glez called me in cardiology consultation this am. I advised transfer to a tertiary care center for intervention on vertebral arterial disease. She informed me that she had already spoken with the Neuro team at [facility] and they had advised no mechanical intervention * We recommend the Hospitalist Service at this hospital manage this stroke in accordance with the national guidelines for stroke management, in c ollaboration with the Neuro team at [facility] * For eval for a cardiac source of embolism, we recommend echo. We will begin with transthoracic echo * The patient may need ILR placement for eval for occult A Fib as the source of his ischemic stroke * His healthcare administrator Dr Bhatia will take over cardiac care tomorrow Clinical Quality Measures DVT/VTE Risk/Contraindication: Risk Factor Score Per Nursin RFS Level Per Nursing on Admit: 2=Moderate JAMIN MOYER MD FACP [facility] CCDS Apr 23, 2019 17:37 POS
[2019-04-23 20:00] VITALS: BP 156/75
[2019-04-23] MEDS ORDERED: ENOXAPARIN 40 MG/0.4 ML (LOVENOX) SYR SC SCH (21:00)
[2019-04-23] MEDS: rOPINIRole 1 MG (REQUIP) TABLET PO SCH (21:30)
[2019-04-23] MEDS: SENNOSIDES 8.6 MG (SENOKOT) TAB PO SCH (21:30)
[2019-04-23] MEDS: ENOXAPARIN 40 MG/0.4 ML (LOVENOX) SYR SC SCH (21:30)
[2019-04-23] MEDS: meTOprolol TARTRATE 50 MG (LOPRESSOR) TAB PO SCH (21:31)
[2019-04-23] MEDS: DOCUSATE SODIUM 100 MG (COLACE) CAP PO SCH (21:32)
[2019-04-23] MEDS: TAMSULOSIN 0.4 MG (FLOMAX) CAP PO SCH (21:32)
[2019-04-24] VITALS: BP 153/77
[2019-04-24 04:55] LABS: HEMOGLOBIN 13.9 G/DL (13.3-17.7); MEAN PLATELET VOLUME 10.3 FL (7.4-10.4); RED CELL DISTRIBUTION WIDTH 13.6 % (10.0-14.5); WHITE BLOOD COUNT 6.9 10^3/uL (4.3-11.0)
[2019-04-24 05:16] LABS: BUN/CREATININE RATIO 12; CALCIUM 9.2 MG/DL (8.5-10.1); CARBON DIOXIDE 25 MMOL/L (21-32); CHLORIDE 109 MMOL/L (98-107); CREATININE SERUM 1.12 MG/DL (0.60-1.30); GFR ESTIMATED > 60; GLUCOSE 103 MG/DL (70-105); POTASSIUM 4.4 MMOL/L (3.6-5.0); SODIUM 143 MMOL/L (135-145)
[2019-04-24 05:44] VITALS: BP 176/91
[2019-04-24 08:00] VITALS: BP 172/78
[2019-04-24] MEDS: PANTOPRAZOLE 40 MG (PROTONIX) TAB PO SCH (08:25)
[2019-04-24] MEDS: lisINopril 40 MG (PRINIVIL) TABLET PO SCH (08:26)
[2019-04-24] MEDS: meTOprolol TARTRATE 50 MG (LOPRESSOR) TAB PO SCH ×2 (08:26→20:58)
[2019-04-24] MEDS: FUROSEMIDE 20 MG (LASIX) TAB PO SCH (08:26)
[2019-04-24] MEDS: DOCUSATE SODIUM 100 MG (COLACE) CAP PO SCH ×2 (08:26→20:57)
[2019-04-24] MEDS: rOPINIRole 1 MG (REQUIP) TABLET PO SCH ×2 (08:27→20:58)
[2019-04-24] MEDS: amLODIPine 10 MG (NORVASC) TAB PO SCH (08:27)
[2019-04-24] MEDS: CLOPIDOGREL 75 MG (PLAVIX) TABLET PO SCH (08:27)
[2019-04-24] MEDS: SENNOSIDES 8.6 MG (SENOKOT) TAB PO SCH ×2 (08:27→20:58)
[2019-04-24] MEDS: ENOXAPARIN 40 MG/0.4 ML (LOVENOX) SYR SC SCH ×2 (08:28→20:57)
--- NOTE | 2019-04-24 09:45 | Cardiology Progress Note ---
Cardiology SOAP Progress Note Subjective: Complains of headache. Objective: I&O/Vital Signs 04/24/19 04/24/19 04/24/19 04/24/19 05:44 07:00 08:00 08:00 Temp 36.6 36.6 Pulse 60 55 68 Resp 18 20 B/P (MAP) 176/91 (119) 172/78 (109) Pulse Ox 94 95 95 O2 Delivery Room Air Room Air Room Air 04/24/19 04/24/19 04/24/19 04/24/19 10:00 12:00 12:59 13:00 Temp 36.7 Pulse 59 55 Resp 18 B/P (MAP) 173/79 (110) Pulse Ox 95 93 O2 Delivery Room Air Room Air Room Air 04/24/19 16:10 O2 Delivery Room Air 04/24/19 00:00 Intake Total 1100 ml Output Total 900 ml Balance 200 ml Weight (Pounds): 305 Weight (Ounces): 0.8 Weight (Calculated Kilograms): 138.958185 Constitutional: AAO x 3, well-developed, well-nourished, other (obese) Respiratory: No accessory muscle use; chest is bilaterally symmetric, lungs clear to auscultation, other (good bilateral air entry) Cardiovascular: regular rate-rhythm, S1 and S2 Gastrointestional: No tender; soft; No guarding, No rebound; audible bowel sounds Extremities: swelling (mild, bilateral leg swelling); No clubbing, No cyanosis Neurologic/Psychiatric: alert, normal mood/affect, oriented x 3, other (moves all limbs equally; detailed to be performed by the Hospitalist Tu that is managing patient's stroke) Skin: No rash on exposed areas, No ulcerations on exposed areas Results/Procedures: Labs Laboratory Tests 04/24/19 04:45: White Blood Count 6.9, Red Blood Count 4.86, Hemoglobin 13.9, Hematocrit 42, Mean Corpuscular Volume 85, Mean Corpuscular Hemoglobin 29, Mean Corpuscular Hemoglobin Concent 34, Red Cell Distribution Width 13.6, Platelet Count 176, Mean Platelet Volume 10.3, Sodium Level 143, Potassium Level 4.4, Chloride Level 109H, Carbon Dioxide Level 25, Anion Gap 9, Blood Urea Nitrogen 13, Creatinine 1.12, Estimat Glomerular Filtration Rate > 60, BUN/Creatinine Ratio 12, Glucose Level 103, Calcium Level 9.2, Triglycerides Level 143, Cholesterol Level 190, LDL Cholesterol Direct 130H, VLDL Cholesterol 29, HDL Cholesterol 50 A/P: Assessment/Dx: Acute CVA, being managed by the Hopitalist Service Head and neck CTA on 04/23/19 (Dr Glez): Non-enhancement of the V4 portion of the right vertebral artery concerning for intraluminal thrombosis. 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 Mild atherosclerotic disease of the bilateral carotid bulbs. Suboptimal evaluation of the proximal bilateral common carotid and bilateral vertebral arteries as described above. 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 No suspicious enhancing intracranial masses. Redemonstration of findings concerning for evolving acute or subacute infarct of the left occipital lobe. H/o intermittent chest discomfort and shortness of breath, managed by his keno dealer Dr Bhatia. MPI of 09/09/18: no ischemia or infarction, LVEF 76%Shortness of breath occurs at mild exertion. He has gained weight. He denies orthopnea or PND. The patient also has bilateral edema. He denies any claudication. He also complains of fatigue as well. Echocardiogram done by Dr Bhatia on 10/25/2017 showed normal LV size with mild concentric LVH. Normal systolic function with the EF of 65-70 percent. PA pressure 40 mmHg. No significant valvular heart disease. Chronic intermittent lower extremity swelling, likely related to venous insuff Obesity Sleep apnea: Continue CPAP therapy. Plan: * We recommend the Hospitalist Service at this hospital manage this stroke in accordance with the national guidelines for stroke management, in collaboration with the Neuro team at [facility] * For eval for a cardiac source of embolism, we recommend echo. Transthoracic echocardiogram done 04/24/2019 showed normal LV size and function. Negative for intracardiac shunting. Telemetry for 24 hours does not show atrial fibrillation. * The patient may need ILR placement for eval for occult A Fib as the source of his ischemic stroke after 48 hours of eligibility analyst being negative for atrial fibrillation. Thank you for your consultation. Please call me if you have any questions. Beatrice Bhatia MD, FACP, FACC, FSCAI, FHRS, CCDS Interventional Cardiology Cardiac Electrophysiology Vascular Medicine and Endovascular Interventions Jay Jay BHATIA MD Apr 24, 2019 9:45 am POS
--- NOTE | 2019-04-24 11:01 | NUR ---
DISCHARGE PLANNING: This RN made quick visit to patients room. NO indication yet of plans for discharge.. Will continue to follow and offer assist as needed.
--- NOTE | 2019-04-24 11:25 | Progress Note - Hospitalist ---
Subjective HPI/CC On Admission Date Seen by Provider: Apr 24, 2019 Time Seen by Provider: 11:18 Joni Freire is a 68-year-old male with past medical history of hypertension, hyperlipidemia, GERD, BPH, restless leg syndrome, osteoarthritis, who presented with dizziness and vision changes. His and sister are present and assist with providing history. They state that he has been having issues with dizziness and his vision for at least a couple weeks. He reports that he had right-sided arm and leg weakness this morning. his right sided weakness has resolved at this point. He has a chronic issue of right shoulder pain. He had a nausea and dry heaving this morning. He reports numbness on the tip of his tongue. He reports that he has had issues with perioral numbness previously.he denies any fevers or chills. He denies any chest pain or palpitations. He denies any shortness of breath or cough. He has some epigastric abdominal pain which he attributes to a hiatal hernia. Subjective/Events-last exam Pt reports feeling well today. Was to have MRI but unable to fit in the machine. Objective Exam Vital Signs Vital Signs Date Time Temp Pulse Resp B/P (MAP) Pulse Ox O2 Delivery O2 Flow Rate FiO2 04/24/19 10:00 95 Room Air 04/24/19 07:00 55 04/24/19 05:44 36.6 18 176/91 (119) 04/23/19 12:00 21 Capillary Refill : Less Than 3 Seconds General Appearance: No Apparent Distress, Obese Cardiovascular: Regular Rate, Rhythm, No Murmur Gastrointestinal: Normal Bowel Sounds, Non Tender, Soft Neurologic/Psychiatric: Alert, Oriented x3 Results/Procedures Lab Laboratory Tests 04/24/19 04:45 Patient resulted labs reviewed. Imaging: Reviewed Imaging Report Assessment/Plan Assessment and Plan Assess & Plan/Chief Complaint Acute ischemic stroke Vertebral artery occlusion CTA revealed right vertebral artery occlusion, left high grade stenosis, left occipital lobe acute/subacute infarct ER discussed possible transfer with [facility] neurolog[facility], deferred since he was outside of the window of [facility] -PT/OT Continue Plavix - Continue atorvastatin MRI/MRA ordered but unable to obtain due to body habitus, as known infarct and occlusion on CTA will defer- patient and family in agreement with plan to postpone MRI at this time Consult cardiology, Dr. Bhatia Echo with bubble ordered - Concerning for cryptogenic stroke, will monitor on telemetry for 48 hours and may need loop Essential hypertension Continue home meds: Amlodipine, lisinopril, metoprolol Hydralazine as needed for systolics greater than 200 but otherwise allow for permissive hypertension BPH Continue Flomax GERD Hiatal hernia Continue pantoprazole RLS continue ropinirole DVT prophylaxis: Lovenox Clinical Quality Measures DVT/VTE Risk/Contraindication: Risk Factor Score Per Nursin RFS Level Per Nursing on Admit: 2=Moderate MICAH RILEY MD Apr 24, 2019 11:25 POS
[2019-04-24 11:51] LABS: CHOLESTEROL 190 MG/DL (< 200); HDL CHOLESTEROL 50 MG/DL (40-60); TRIGLYCERIDES 143 MG/DL (<150); VLDL CHOLESTEROL 29 MG/DL (5-40)
[2019-04-24 12:00] VITALS: BP 173/79
--- NOTE | 2019-04-24 13:53 | Occupational Therapy Eval ---
OT Evaluation-General/PLF Medical Diagnosis Admission Date Apr 23, 2019 at 08:50 Medical Diagnosis: acute ischemic stroke, certebral artery stenosis/occlusion Onset Date: Apr 23, 2019 Therapy Diagnosis Therapy Diagnosis: impaired ADLs and functional mobility Height/Weight Height (Feet): 5 Height (Inches): 6.50 Weight (Pounds): 305 Weight (Ounces): 0.8 Precautions Precautions/Isolations: Standard Precautions Safety Interventions: None Referral Physician: Derek Referral Reason: Evaluation/Treatment Medical History Pertinent Medical History: Arthritis, GERD, HTN Additional Medical History HTN, hyperlipidemia, GERD, BPH, restless leg syndrome, OA, high cholesterol, chronic edema/swelling, arthritis, benign prostatic hypepl, L knee replacement July 2018 Current History Per H&P: "Joni Freire is a 68-year-old male with past medical history of hypertension, hyperlipidemia, GERD, BPH, restless leg syndrome, osteoarthritis, who presented with dizziness and vision changes. His and sister are present and assist with providing history. They state that he has been having issues with dizziness and his vision for at least a couple weeks. He reports that he had right-sided arm and leg weakness this morning. his right sided weakness has resolved at this point. He has a chronic issue of right shoulder pain. He had a nausea and dry heaving this morning. He reports numbness on the tip of his tongue. He reports that he has had issues with perioral numbness previously.he denies any fevers or chills. He denies any chest pain or palpitations. He denies any shortness of breath or cough. He has some epigastric abdominal pain which he attributes to a hiatal hernia." Reviewed History: Yes Social History Home: mobile home Current Living Status: Spouse Entry Into Home: Ramp ADL-Prior Level of Function SCALE: Activities may be completed with or without assistive devices. 0-Fcnxjdqzoi-yiilyqt completes the activity by him/herself with no assistance from a helper. 5-Set-up or Clean-up Assistance-helper sets up or cleans up; patient completes activity. [place] assists only prior to or following the activity. 4-Supervision or Touching Assistance-helper provides verbal cues and/or touching/steadying and/or contact guard assistance as patient completes activity. Assistance may be provided throughout the activity or intermittently. 3-Partial/Moderate Assistance-helper does LESS THAN HALF the effort. [place] lifts, holds or supports trunk or limbs, but provides less than half the effort. 2-Substantial/Maximal Assistance-helper does MORE THAN HALF the effort. [place] lifts or holds trunk or limbs and provides more than half the effort. 6-Lwyphessj-vrlgse does ALL the effort. Patient does none of the effort to complete the activity. Or, the assistance of 2 or more helpers is required for the patient to complete the activity. If activity was not attempted, code reason: 7-Patient Refused. 9-Not Applicable-not attempted and the patient did not perform the activity before the current illness, exacerbation or injury. 10-Not Attempted due to Environmental Limitations-(lack of equipment, weather restraints, etc.). 88-Not Attempted due to Medical Conditions or Safety Concerns. ADL PLOF Comments Pt reports he was independent with all ADLs except for socks/shoes. He has his assist him with footwear at home. Self Care: Independent Functional Cognition: Independent DME/Equipment: Bath Chair, Grab Bars, Shower (walkin) DME/Equipment Comments Pt states he uses a cane some but not all of the time. OT Current Status Subjective Pt laying in bed at start of session, present, agreeable to OT tx. Pt states he is hungry, he was supposed to have an MRI so he has been unable to have any food today. Pt did not report any pain during session. Mental Status/Objective Patient Orientation: Person, Place, Time, Situation Attachments: Telemetry Current Glasses/Contacts: Yes Hearing Aids: No Dentures/Partials: No Hand Dominance: Right Upper Extremity ROM WFL, BUE shoulder flexion to approximately 140 degrees, able to reach behind his head. Upper Extremity Coordination no deficits noted during session, further testing required Upper Extremity Sensation pt declined tingling/numbness at this time in UEs, he states he had tingling in his arms before he was transferred to the hospital in the ambulance Upper Extremity Strength grossly 4+/5 MMT ADL-Treatment Eating (QC): 7 Oral Hygiene (QC): 7 Shower/Bathe Self (QC): 7 Upper Body Dressing (QC): 7 Lower Body Dressing (QC): 7 On/Off Footwear (QC): 1 (Based on pt report, he is unable to reach his feet to don/doff socks/shoes. He requires assistance with all parts of this task.) Toileting Hygiene (QC): 7 Toilet Transfer (QC): 7 Other Treatments Pt laying in bed at start of session, agreeable to OT evaluation. Pt and provided information about PLOF and home set up. Pt declined ADLs at this time, he states he is hungry. Post OT session, pt laying in bed, call light in reach and all needs met. Education OT Patient Education: Correct positioning, Energy conservation, Modified ADL techniques, Progress toward Goal/Update tx plan, Purpose of tx/functional activities Teaching Recipient: Patient, Family Teaching Methods: Discussion Response to Teaching: Verbalize Understanding OT Public Relations Senior Associate Goals Skilled Nursing Goals Time Frame: May 05, 2019 Eating (QC): 6 Oral Hygiene (QC): 6 Toileting Hygiene (QC): 6 Shower/Bathe Self (QC): 6 Upper Body Dressing (QC): 6 Lower Body Dressing (QC): 6 On/Off Footwear (QC): 2 Additional Goals: 1-Demonstrate ADL Tasks, 2-Verbalize Understanding, 3- ImproveStrength/[place] 1=Demonstrate adherence to instructed precautions during ADL tasks. 2=Patient will verbalize/demonstrate understanding of assistive devices/modifications for ADL. 3=Patient will improve strength/tolerance for activity to enable patient to perform ADL's. OT Education/Plan Problem List/Assessment Assessment: Decreased Activ Tolerance, Decreased UE Strength, Impaired I ADL's, Impaired Self-Care Skills Discharge Recommendations Plan/Recommendations: Continue POC Treatment Plan/Plan of Care Treatment,Training & Education: Yes Patient would benefit from OT for education, treatment and training to promote independence in ADL's, mobility, safety and/or upper extremity function for ADL's. Plan of Care: ADL Retraining, Caregiver Training, Functional Mobility, UE Funct Exercise/Act Treatment Duration: May 05, 2019 Frequency: 5 times per week Estimated Hrs Per Day: .25 hour per day Agreement: Yes Rehab Potential: Fair Time/GCodes Start Time: 13:30 Stop Time: 13:43 Total Time Billed (hr/min): 13 Billed Treatment Time 1, MARIELAJOCELINE ROA OT Apr 24, 2019 13:53 POS
--- NOTE | 2019-04-24 14:19 | Physical Therapy Evaluation ---
PT Evaluation-General Medical Diagnosis Admission Date Apr 23, 2019 at 08:50 Medical Diagnosis: acute ischemic stroke, certebral artery stenosis/occlusion Onset Date: Apr 23, 2019 Therapy Diagnosis Therapy Diagnosis: debility/weakness Height/Weight Height (Feet): 5 Height (Inches): 6.50 Weight (Pounds): 305 Weight (Ounces): 0.8 Precautions Precautions/Isolations: Standard Precautions Weight Bear Status Right Lower Extremity: Right Weight Bearing/Tolerated Left Lower Extremity: Left Weight Bearing/Tolerated Referral Physician: Derek Reason for Referral: Evaluation/Treatment Medical History Pertinent Medical History: Arthritis, GERD, HTN, Smoking Current History EMS secondary to APONTE and tingling sensations for several weeks Reviewed History: Yes Social History Home: mobile home Current Living Status: Spouse Entry Into Home: Ramp Prior Prior Level of Function SCALE: Activities may be completed with or without assistive devices. 0-Vdqbyoibuv-xlbecsp completes the activity by him/herself with no assistance from a helper. 5-Set-up or Clean-up Assistance-helper sets up or cleans up; patient completes activity. [place] assists only prior to or following the activity. 4-Supervision or Touching Assistance-helper provides verbal cues and/or touching/steadying and/or contact guard assistance as patient completes activity. Assistance may be provided throughout the activity or intermittently. 3-Partial/Moderate Assistance-helper does LESS THAN HALF the effort. [place] lifts, holds or supports trunk or limbs, but provides less than half the effort. 2-Substantial/Maximal Assistance-helper does MORE THAN HALF the effort. [place] lifts or holds trunk or limbs and provides more than half the effort. 5-Rknsgsjez-iehpdp does ALL the effort. Patient does none of the effort to complete the activity. Or, the assistance of 2 or more helpers is required for the patient to complete the activity. If activity was not attempted, code reason: 7-Patient Refused. 9-Not Applicable-not attempted and the patient did not perform the activity before the current illness, exacerbation or injury. 10-Not Attempted due to Environmental Limitations-(lack of equipment, weather restraints, etc.). 88-Not Attempted due to Medical Conditions or Safety Concerns. Bed Mobility: 6 Transfers (B,C,W/C): 6 Gait: 6 Stairs: 9 Wheelchair Mobility: 9 Indoor Mobility (Ambulation): Independent Stairs: Not Applicalbe Prior Devices Use: Other-see list below Prior Device Use: cane PRN PT Evaluation-Current Subjective Patient agrees to PT. No c/o. Pain Numeric Pain Scale: 0-No Pain Location: No Pain Reported Objective Patient Orientation: Normal For Age ROM/Strength ROM Lower Extremities bilateral LE WFL Strength Lower Extremities 4/5 grossly bilateral LE Integumentary/Posture Integumentary refer to nursing notes Bowel Incontinence: No Bladder Incontinence: No Posture WFL Neuromuscular (Tone, Coordination, Reflexes) grossly intact Sensory Vision: Wears Glasses Hearing: Functional Hand Dominance: Right Sensation Right Lower Extremit: Intact Sensation Left Lower Extremity: Intact Transfers Roll Left to Right (QC): 6 Sit to Lying (QC): 6 Lying to Sitting/Side of Bed(Q: 6 Sit to Stand (QC): 6 Chair/Uxy-dc-Uvovs Xfer(QC): 6 Car Transfer (QC): 10 Gait Does the Patient Walk?: Yes Mode of Locomotion: Walk Anticipated Mode of Locomotion: Walk Walk 10 feet (QC): 6 Walk 50 ft with 2 Turns(QC): 6 Walk 150 ft (QC): 6 Walking 10ft/uneven surface-QC: 6 Distance: 250' Gait Assistive Device: Cane Single Point Comments/Gait Description safe and functional gait sequence Wheelchair Training Does the Pt Use a Wheelchair?: No Wheel 50 ft with 2 turns (QC): 9 Wheel 150 ft (QC): 9 Type of Wheelchair: Manual Stairs 1 Step (curb) (QC): 9 4 Steps (QC): 9 12 Steps (QC): 9 Balance Sitting Static: Normal Sitting Dynamic: Normal Standing Static: Normal Standing Dynamic: Normal Picking up an Object (QC): 5 (from seated position) Assessment/Needs 68 y.o. male, is currently at independent [facility] with all gross motor skills safely and does not require skilled therapy intervention. Thank you for this referral. Rehab Potential: Fair PT Jail Goals Degreasing Wheel Operator Goals PT Jail Goals Time Frame: Apr 24, 2019 Roll Left & Right (QC): 6 Sit to Lying (QC): 6 Lying-Sitting on Side/Bed(QC): 6 Sit to Stand (QC): 6 Chair/Asw-ay-Gdaqk Xfer(QC): 6 Toilet Transfer (QC): 6 Car Transfer (QC): 6 Does the Patient Walk: Yes Walk 10 feet (QC): 6 Walk 50ft with 2 Turns (QC): 6 Walk 150 ft (QC): 6 Walking 10ft on Uneven Surface: 6 1 Step (curb) (QC): 9 4 Steps (QC): 9 12 Steps (QC): 9 Picking up an Object (QC): 5 Does the Pt use WC or Scooter?: No Type: N/A Type: N/A PT Plan Treatment/Plan Treatment Plan: Discontinue PT Treatment Plan: Other Treatment Duration: Apr 24, 2019 Frequency: 1 time per week Estimated Hrs Per Day: .25 hour per day Patient and/or Family Agrees t: Yes Time/GCodes Time In: 1404 Time Out: 1414 Total Billed Treatment Time: 10 Total Billed Treatment 1 visit EVLowC 10 min MARIAJOSE GONSALES PT Apr 24, 2019 14:19 POS
[2019-04-24 16:00] VITALS: BP 176/71
[2019-04-24 20:00] VITALS: BP 160/76
[2019-04-24] MEDS: TAMSULOSIN 0.4 MG (FLOMAX) CAP PO SCH (20:57)
[2019-04-25] VITALS (7 sets, daily range): BP systolic 121–203; BP diastolic 54–87
[2019-04-25 05:25] LABS: HEMOGLOBIN 13.8 G/DL (13.3-17.7); MEAN PLATELET VOLUME 10.2 FL (7.4-10.4); RED CELL DISTRIBUTION WIDTH 13.6 % (10.0-14.5); WHITE BLOOD COUNT 5.7 10^3/uL (4.3-11.0)
[2019-04-25 05:56] LABS: BUN/CREATININE RATIO 14; CALCIUM 9.2 MG/DL (8.5-10.1); CARBON DIOXIDE 22 MMOL/L (21-32); CHLORIDE 109 MMOL/L (98-107); CREATININE SERUM 1.18 MG/DL (0.60-1.30); GFR ESTIMATED > 60; GLUCOSE 115 MG/DL (70-105); POTASSIUM 3.3 MMOL/L (3.6-5.0); SODIUM 143 MMOL/L (135-145)
[2019-04-25] MEDS ORDERED: ATOR80TA76 PO (07:24)
[2019-04-25] MEDS ORDERED: CLOP75TA28 PO (07:24)
--- NOTE | 2019-04-25 08:07 | Discharge Summary ---
Diagnosis/Chief Complaint Date of Admission Apr 23, 2019 at 08:50 Date of Discharge Discharge Date: Apr 25, 2019 Admission Diagnosis vertebral artery occlusion Primary Care Lena Wilkinson Michel Discharge Diagnosis (1) Vertebral artery stenosis/occlusion Status: Acute (2) Acute ischemic stroke Status: Acute (3) HLD (hyperlipidemia) Status: Chronic (4) BPH (benign prostatic hyperplasia) Status: Chronic (5) GERD (gastroesophageal reflux disease) Status: Chronic (6) HTN (hypertension) Status: Acute Discharge Summary Discharge Physical Exam Allergies: Coded Allergies: No Known Drug Allergies (Unverified , 08/22/15) Vitals & I&Os Vital Signs Date Time Temp Pulse Resp B/P (MAP) Pulse Ox O2 Delivery O2 Flow Rate FiO2 04/25/19 03:39 Room Air 04/25/19 03:39 36.9 57 16 137/65 (89) 92 04/23/19 12:00 21 Hospital Course Labs (last 24 hrs) Laboratory Tests 04/25/19 05:18: White Blood Count 5.7, Red Blood Count 4.96, Hemoglobin 13.8, Hematocrit 42, Mean Corpuscular Volume 84, Mean Corpuscular Hemoglobin 28, Mean Corpuscular Hemoglobin Concent 33, Red Cell Distribution Width 13.6, Platelet Count 181, Mean Platelet Volume 10.2, Sodium Level 143, Potassium Level 3.3L, Chloride Level 109H, Carbon Dioxide Level 22, Anion Gap 12, Blood Urea Nitrogen 17, Creatinine 1.18, Estimat Glomerular Filtration Rate > 60, BUN/Creatinine Ratio 14, Glucose Level 115H, Calcium Level 9.2 Patient resulted labs reviewed. Pending Labs Laboratory Tests 04/25/19 05:18: White Blood Count 5.7, Red Blood Count 4.96, Hemoglobin 13.8, Hematocrit 42, Mean Corpuscular Volume 84, Mean Corpuscular Hemoglobin 28, Mean Corpuscular Hemoglobin Concent 33, Red Cell Distribution Width 13.6, Platelet Count 181, Mean Platelet Volume 10.2, Sodium Level 143, Potassium Level 3.3, Chloride Level 109, Carbon Dioxide Level 22, Anion Gap 12, Blood Urea Nitrogen 17, Creatinine 1.18, Estimat Glomerular Filtration Rate > 60, BUN/Creatinine Ratio 14, Glucose Level 115, Calcium Level 9.2 Imaging: Reviewed Imaging Report Discharge Home Medications: Active Scripts Active Atorvastatin Calcium 80 Mg Tablet 80 Mg PO HS Clopidogrel (Clopidogrel Bisulfate) 75 Mg Tablet 75 Mg PO DAILY Protonix (Pantoprazole Sodium) 40 Mg Tablet.dr 40 Mg PO DAILY Reported Move Free Joint Health Tablet (Glucosam/Chond/Hyalu/Cf Borate) 1 Each Tablet 1 Each PO HS Advil (Ibuprofen) 200 Mg Tablet 400-600 Mg PO BID Metoprolol Tartrate 50 Mg Tablet 25 Mg PO BID TAKES 1/2 (50MG) TABLET Multivitamins (Multivitamin) 1 Each Tablet 1 Tab PO BID Lisinopril 40 Mg Tablet 40 Mg PO DAILY Flomax (Tamsulosin HCl) 0.4 Mg Cap 0.4 Mg PO HS Potassium Chloride 10 Meq Capsule.er 10 Meq PO BID Furosemide 20 Mg Tablet 20 Mg PO DAILY Ropinirole HCl 0.5 Mg Tablet 0.5 Mg PO HS Amlodipine Besylate 10 Mg Tablet 10 Mg PO DAILY Instructions to patient/family Please see electronic discharge instructions given to patient. Clinical Quality Measures DVT/VTE Risk/Contraindication: Risk Factor Score Per Nursin RFS Level Per Nursing on Admit: 2=Moderate Problem Qualifiers (1) Vertebral artery stenosis/occlusion: Laterality: right Qualified Codes: I65.01 - Occlusion and stenosis of right vertebral artery (2) HTN (hypertension): Hypertension type: essential hypertension Qualified Codes: I10 - Essential (primary) hypertension MICAH RILEY MD Apr 25, 2019 08:07 POS
[2019-04-25] MEDS: lisINopril 40 MG (PRINIVIL) TABLET PO SCH (08:32)
[2019-04-25] MEDS: SENNOSIDES 8.6 MG (SENOKOT) TAB PO SCH ×2 (08:32→21:00)
[2019-04-25] MEDS: FUROSEMIDE 20 MG (LASIX) TAB PO SCH (08:32)
[2019-04-25] MEDS: PANTOPRAZOLE 40 MG (PROTONIX) TAB PO SCH (08:33)
[2019-04-25] MEDS: ENOXAPARIN 40 MG/0.4 ML (LOVENOX) SYR SC SCH ×2 (08:33→21:31)
[2019-04-25] MEDS: meTOprolol TARTRATE 50 MG (LOPRESSOR) TAB PO SCH ×3 (08:33→21:31)
[2019-04-25] MEDS: rOPINIRole 1 MG (REQUIP) TABLET PO SCH ×2 (08:33→21:30)
[2019-04-25] MEDS: DOCUSATE SODIUM 100 MG (COLACE) CAP PO SCH ×2 (08:33→21:00)
[2019-04-25] MEDS: CLOPIDOGREL 75 MG (PLAVIX) TABLET PO SCH (08:33)
[2019-04-25] MEDS: amLODIPine 10 MG (NORVASC) TAB PO SCH (08:33)
[2019-04-25] MEDS ORDERED: LIDOCAINE 1% INJ 20 ML 20 ML VIAL ONE (11:07)
--- NOTE | 2019-04-25 11:08 | NUR ---
THIS RN CALLED DR RILEY REGARDING PT AND FAMILY C/O "PT NOT SEEMING LIKE HIMSELF" AND HIGH BLOOD PRESSURE. THIS RN WAS INFORMED THAT PT WAS GETTING UP FROM TOILET WITH OT AND STARTED TO SLUMP OVER AND HAD SLURRED SPEECH. PT TIE IN MACHINE OPERATOR EQUAL, PT ALERT AND ORIENTED AND ABLE TO FOLLOW COMMANDS. DR RILEY ORDERED STAT CT OF HEAD. PT AND FAMILY NOTIFIED.
[2019-04-25] MEDS ORDERED: LIDOCAINE 1% INJ 20 ML 20 ML VIAL INJ ONE (11:15)
--- NOTE | 2019-04-25 11:22 | Occupational Ther Daily Note ---
OT Current Status-Daily Note Subjective Pt laying in bed at start of session, when asked how he was doing he attempted to form words but was unsuccessful. Pt finally reported he needed to use the restroom again. As pt was completing toileting, nurse arrived and pt's reports that he is acting how he was before she called the ambulance, stating he is more unsteady. ADL-Treatment Therapy Code Descriptions/Definitions Functional [place] Measure: 0=Not Assessed/NA 4=Minimal Assistance 1=Total Assistance 5=Supervision or Setup 2=Maximal Assistance 6=Modified [place] 3=Moderate Assistance 7=Complete IndependenceSCALE: Activities may be completed with or without assistive devices. 5-Mtifyinjwy-mknobqy completes the activity by him/herself with no assistance from a helper. 5-Set-up or Clean-up Assistance-helper sets up or cleans up; patient completes activity. [place] assists only prior to or following the activity. 4-Supervision or Touching Assistance-helper provides verbal cues and/or touching/steadying and/or contact guard assistance as patient completes activity. Assistance may be provided throughout the activity or intermittently. 3-Partial/Moderate Assistance-helper does LESS THAN HALF the effort. [place] lifts, holds or supports trunk or limbs, but provides less than half the effort. 2-Substantial/Maximal Assistance-helper does MORE THAN HALF the effort. [place] lifts or holds trunk or limbs and provides more than half the effort. 6-Svxuzqars-airhjx does ALL the effort. Patient does none of the effort to complete the activity. Or, the assistance of 2 or more helpers is required for the patient to complete the activity. If activity was not attempted, code reason: 7-Patient Refused. 9-Not Applicable-not attempted and the patient did not perform the activity before the current illness, exacerbation or injury. 10-Not Attempted due to Environmental Limitations-(lack of equipment, weather restraints, etc.). 88-Not Attempted due to Medical Conditions or Safety Concerns. Toileting Hygiene (QC): 4 (CGA during clothing management, pt able to complete all parts of task.) Toilet Transfer (QC): 4 (CGA transfer on/off toilet) Other Treatment Pt laying in bed, transferred to EOB with SBA. Pt then ambulated to bathroom using single point cane with CGA. As pt completed toileting, nurse arrived as dari about pt's function. OT informed nurse about pt's unsteadiness while he ambulated to the bathroom. Pt then returned to the bed with SBA where nursing assessed pt. Pt's reported his speech was more slurred than usual. Pt transferred sit to supine with SBA. Post OT session, pt laying in bed, call light in reach and all needs met. Nurse notified of pt's position. Education OT Patient Education: Correct positioning, Energy conservation, Modified ADL techniques, Progress toward Goal/Update tx plan, Purpose of tx/functional activities Teaching Recipient: Patient, Legal Guardian Teaching Methods: Demonstration, Discussion Response to Teaching: Verbalize Understanding, Return Demonstration OT Magazine Writer Goals Magazine Writer Goals Time Frame: May 05, 2019 Eating (QC): 6 Oral Hygiene (QC): 6 Toileting Hygiene (QC): 6 Shower/Bathe Self (QC): 6 Upper Body Dressing (QC): 6 Lower Body Dressing (QC): 6 On/Off Footwear (QC): 2 Additional Goals: 1-Demonstrate ADL Tasks, 2-Verbalize Understanding, 3- ImproveStrength/[place] 1=Demonstrate adherence to instructed precautions during ADL tasks. 2=Patient will verbalize/demonstrate understanding of assistive devices/modifications for ADL. 3=Patient will improve strength/tolerance for activity to enable patient to perform ADL's. OT Education/Plan Problem List/Assessment Assessment: Decreased Activ Tolerance, Impaired Funct Balance, Impaired I ADL's, Impaired Self-Care Skills Discharge Recommendations Plan/Recommendations: Continue POC Treatment Plan/Plan of Care Patient would benefit from OT for education, treatment and training to promote independence in ADL's, mobility, safety and/or upper extremity function for ADL's. Plan of Care: ADL Retraining, Caregiver Training, Functional Mobility, UE Funct Exercise/Act Treatment Duration: May 05, 2019 Frequency: 5 times per week Estimated Hrs Per Day: .25 hour per day Agreement: Yes Rehab Potential: Fair Time/GCodes Start Time: 10:50 Stop Time: 11:00 Total Time Billed (hr/min): 10 Billed Treatment Time 1, ADL JOCELINE DE LA GARZA OT Apr 25, 2019 11:22 POS
--- NOTE | 2019-04-25 11:34 | Cardiology Progress Note ---
Cardiology SOAP Progress Note Subjective: still c/o headache. Objective: I&O/Vital Signs 04/25/19 04/25/19 04/25/19 04/25/19 00:21 01:00 03:39 03:39 Temp 37.2 36.9 Pulse 60 56 57 Resp 16 16 B/P (MAP) 136/74 (94) 137/65 (89) Pulse Ox 93 92 O2 Delivery Room Air Room Air Room Air 04/25/19 04/25/19 04/25/19 04/25/19 06:42 08:00 08:00 08:00 Temp 36.4 Pulse 47 64 Resp 20 B/P (MAP) 179/87 (117) Pulse Ox 96 95 O2 Delivery Room Air Room Air Room Air 04/25/19 09:59 Pulse Ox 94 O2 Delivery Room Air 04/25/19 00:00 Intake Total 860 ml Output Total 600 ml Balance 260 ml Weight (Pounds): 305 Weight (Ounces): 0.8 Weight (Calculated Kilograms): 138.602533 Constitutional: AAO x 3, well-developed, well-nourished, other (obese) Respiratory: No accessory muscle use; chest is bilaterally symmetric, lungs clear to auscultation, other (good bilateral air entry) Cardiovascular: regular rate-rhythm, S1 and S2 Gastrointestional: No tender; soft; No guarding, No rebound; audible bowel sounds Extremities: swelling (mild, bilateral leg swelling); No clubbing, No cyanosis Neurologic/Psychiatric: alert, normal mood/affect, oriented x 3, other (moves all limbs equally; detailed to be performed by the Hospitalist [facility] that is managing patient's stroke) Skin: No rash on exposed areas, No ulcerations on exposed areas Results/Procedures: Labs Laboratory Tests 04/25/19 05:18: White Blood Count 5.7, Red Blood Count 4.96, Hemoglobin 13.8, Hematocrit 42, Mean Corpuscular Volume 84, Mean Corpuscular Hemoglobin 28, Mean Corpuscular Hemoglobin Concent 33, Red Cell Distribution Width 13.6, Platelet Count 181, Mean Platelet Volume 10.2, Sodium Level 143, Potassium Level 3.3L, Chloride Level 109H, Carbon Dioxide Level 22, Anion Gap 12, Blood Urea Nitrogen 17, Creatinine 1.18, Estimat Glomerular Filtration Rate > 60, BUN/Creatinine Ratio 14, Glucose Level 115H, Calcium Level 9.2 A/P: Assessment/Dx: Acute CVA, being managed by the [facility] Head and neck CTA on 04/23/19 (Dr Glez): Non-enhancement of the V4 portion of the right vertebral artery concerning for intraluminal thrombosis. 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 Mild atherosclerotic disease of the bilateral carotid bulbs. Suboptimal evaluation of the proximal bilateral common carotid and bilateral vertebral arteries as described above. 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 No suspicious enhancing intracranial masses. Redemonstration of findings concerning for evolving acute or subacute infarct of the left occipital lobe. H/o intermittent chest discomfort and shortness of breath, managed by his time study engineer Dr Bhatia. MPI of 09/09/18: no ischemia or infarction, LVEF 76%Shortness of breath occurs at mild exertion. He has gained weight. He den ies orthopnea or PND. The patient also has bilateral edema. He denies any claudication. He also complains of fatigue as well. Echocardiogram done by Dr Bhatia on 10/25/2017 showed normal LV size with mild concentric LVH. Normal systolic function with the EF of 65-70 percent. PA pressure 40 mmHg. No significant valvular heart disease. Chronic intermittent lower extremity swelling, likely related to venous insuff Obesity Sleep apnea: Continue CPAP therapy. Plan: * We recommend the Hospitalist Service at this hospital manage this stroke in accordance with the national guidelines for stroke management, in collaboration with the Neuro team at [facility] * For eval for a cardiac source of embolism, we recommend echo. Transthoracic echocardiogram done 04/24/2019 showed normal LV size and function. Negative for intracardiac shunting. Telemetry for 48 hours does not show atrial fibrillation. * The patient may need ILR placement for eval for occult A Fib as the source of his ischemic stroke after 48 hours of awake overnight monitor being negative for atrial fibrillation. ILR will be done today. Thank you for your consultation. Please call me if you have any questions. Beatrice Bhatia MD, FACP, FACC, FSCAI, FHRS, CCDS Interventional Cardiology Cardiac Electrophysiology Vascular Medicine and Endovascular Interventions Jay Jay BHATIA MD Apr 25, 2019 11:34 POS
--- NOTE | 2019-04-25 12:05 | Diagnostic Imaging Report ---
PROCEDURE: CT head without contrast. TECHNIQUE: Multiple contiguous axial images were obtained through the brain without the use of intravenous contrast. Auto Exposure Controls were utilized during the CT exam to meet ALARA standards for radiation dose reduction. INDICATION: Slurred speech. Right-sided weakness with vision problems. Evaluate for stroke. COMPARISON: CTA head and neck on 04/23/2019. FINDINGS: A stable focus of hypoattenuation is seen in the periphery of the left occipital lobe, unchanged compared to the prior exam. There are continued confluent white matter changes throughout the periventricular and subcortical white matter of the bilateral cerebral hemispheres, most likely representing chronic microvascular disease. No new areas of developing acute ischemia are visualized. The ventricles and cortical sulci are prominent. No acute hemorrhage. No midline shift or mass effect. The included paranasal sinuses and mastoid air cells are well pneumatized. The scalp and calvarium are intact. IMPRESSION: 1. Stable focus of decreased attenuation in the periphery of the left occipital lobe. This may represent a small focus of acute ischemia, although other etiologies are not excluded. Correlation with MRI of the brain with and without contrast is still recommended. 2. No new areas of developing acute ischemia. No acute hemorrhage or midline shift. 3. Confluent chronic microvascular disease with generalized parenchymal volume loss. Dictated by: Dictated on workstation # [id number]
--- NOTE | 2019-04-25 13:04 | Implantation of Loop Monitor ---
Implant of Loop Monitior PROCEDURE PHYSICIAN: Beatrice Bhatia MD IMPLANTATION OF LOOP MONITOR REPORT DATE OF PROCEDURE: 04/25/19 PERFORMING PHYSICIAN: Dr. Jelani Bhatia. INDICATION: Cryptogenic stroke PREOP DIAGNOSIS: Cryptogenic stroke POSTOP DIAGNOSIS: Cryptogenic stroke, s/p implantation of loop recorder. PROCEDURE DETAILS: The patient is a 68 male with cryptogenic stroke. Therefore implantable loop recorder was discussed and agreed with the patient. Informed consent was taken. All risks and complications were discussed at length. The patient was draped and prepped in the usual sterile fashion. Local anesthesia was lidocaine, which was given in the substernal area close to the 4th intercostal space. Loop monitor was implanted according to the protocol. Steri-Strips were placed at the end of the procedure. There were no complications and the patient tolerated the procedure well. ANESTHESIA: Local anesthesia with lidocaine. COMPLICATIONS: None CONTRAST/FLUOROSCOPY: None CONCLUSION: 1. Successful implantation of loop monitor for cryptogenic stroke 2. No complication and the patient tolerated the procedure well. Beatrice Bhatia MD, [facility] Cardiac Electrophysiology Jay Jay BHATIA MD Apr 25, 2019 13:04 POS
--- NOTE | 2019-04-25 13:48 | Progress Note - Hospitalist ---
Subjective HPI/CC On Admission Date Seen by Provider: Apr 25, 2019 Time Seen by Provider: 07:10 Joni Freire is a 68-year-old male with past medical history of hypertension, hyperlipidemia, GERD, BPH, restless leg syndrome, osteoarthritis, who presented with dizziness and vision changes. His and sister are present and assist with providing history. They state that he has been having issues with dizziness and his vision for at least a couple weeks. He reports that he had right-sided arm and leg weakness this morning. his right sided weakness has resolved at this point. He has a chronic issue of right shoulder pain. He had a nausea and dry heaving this morning. He reports numbness on the tip of his tongue. He reports that he has had issues with perioral numbness previously.he denies any fevers or chills. He denies any chest pain or palpitations. He denies any shortness of breath or cough. He has some epigastric abdominal pain which he attributes to a hiatal hernia. Subjective/Events-last exam Pt reports feeling better. No complaints this AM. Shortly after I saw patient he had a near syncopal episode when getting up to go to the bathroom. He Objective Exam Vital Signs Vital Signs Date Time Temp Pulse Resp B/P (MAP) Pulse Ox O2 Delivery O2 Flow Rate FiO2 04/25/19 12:00 Room Air 04/25/19 11:46 36.6 51 20 159/69 (99) 94 04/23/19 12:00 21 Capillary Refill : Less Than 3 Seconds General Appearance: No Apparent Distress, Chronically ill, Obese Respiratory: Lungs Clear, No Respiratory Distress Cardiovascular: Regular Rate, Rhythm, No Murmur Neurologic/Psychiatric: Alert, Oriented x3 Results/Procedures Lab Laboratory Tests 04/25/19 05:18 Patient resulted labs reviewed. Imaging: Reviewed Imaging Report Assessment/Plan Assessment and Plan Assess & Plan/Chief Complaint Acute ischemic stroke Vertebral artery occlusion CTA revealed right vertebral artery occlusion, left high grade stenosis, left occipital lobe acute/subacute infarct ER discussed possible transfer with [facility] neurology, deferred since he was outside of the window of TPA - PT/OT Continue Plavix - Continue atorvastatin MRI/MRA ordered but unable to obtain due to body habitus, as known infarct and occlusion on CTA will defer- patient and family in agreement with plan to postpone MRI at this time Consult cardiology, Dr. Khalid Echo unremarkable - Concerning for cryptogenic stroke, loop recorder placed today Near Syncope - Likely orthostasis - Repeat Ct Head done and negative - Will monitor one more night and likely DC home tomorrow Essential hypertension Continue home meds: Amlodipine, lisinopril, metoprolol Hydralazine as needed for systolics greater than 200 but otherwise allow for permissive hypertension BPH Continue Flomax GERD Hiatal hernia Continue pantoprazole RLS continue ropinirole DVT prophylaxis: Lovenox Clinical Quality Measures DVT/VTE Risk/Contraindication: Risk Factor Score Per Nursin RFS Level Per Nursing on Admit: 2=Moderate MICAH RILEY MD Apr 25, 2019 13:48 POS
[2019-04-25] MEDS ORDERED: hydrALAZINE (APESOLINE) 20 MG/ML VIAL IV PRN (15:15)
[2019-04-25] MEDS: TAMSULOSIN 0.4 MG (FLOMAX) CAP PO SCH (21:31)
[2019-04-26] VITALS: BP 186/94
--- NOTE | 2019-04-26 00:30 | NUR ---
CALLED DR. MOYER AND INFORMED HIM THAT PATIENT'S HEART RATE HAS BEEN IN THE 50'S WHEN AWAKE AND IN THE UPPER 40'S WHEN SLEEPING. EVENING BLOOD PRESSURE WAS WNL SO LOPRESSOR WAS NOT GIVEN. CURRENTLY, BLOOD PRESSURE HAS INCREASED TO 186/94 WITH WAKING HEART RATE 55. RECEIVED ORDER FOR CARDURA 1MG PO X1 NOW, RECHECK BLOOD PRESSURE IN 2 HOURS AND GIVE ADDITIONAL 1MG CARDURA IF SYSTOLIC IS ABOVE 170. AND THEN RECHECK IN AM.
[2019-04-26] MEDS ORDERED: doxAzosin 1 MG (CARDURA) TAB PO ONE ×2 (01:15→05:45)
[2019-04-26 04:00] VITALS: BP 176/84
[2019-04-26] MEDS ORDERED: doxAzosin 1 MG (CARDURA) TAB ONE (04:12)
[2019-04-26 05:32] LABS: BUN/CREATININE RATIO 14; CALCIUM 8.6 MG/DL (8.5-10.1); CARBON DIOXIDE 23 MMOL/L (21-32); CHLORIDE 110 MMOL/L (98-107); CREATININE SERUM 1.09 MG/DL (0.60-1.30); GFR ESTIMATED > 60; GLUCOSE 109 MG/DL (70-105); POTASSIUM 4.1 MMOL/L (3.6-5.0); SODIUM 144 MMOL/L (135-145)
[2019-04-26 05:37] LABS: HEMOGLOBIN 13.3 G/DL (13.3-17.7); RED CELL DISTRIBUTION WIDTH 13.4 % (10.0-14.5); WHITE BLOOD COUNT 6.5 10^3/uL (4.3-11.0)
[2019-04-26 05:38] LABS: MEAN PLATELET VOLUME 10.6 FL (7.4-10.4)
[2019-04-26 08:00] VITALS: BP 157/76
[2019-04-26] MEDS: meTOprolol TARTRATE 50 MG (LOPRESSOR) TAB PO SCH (08:11)
[2019-04-26] MEDS: FUROSEMIDE 20 MG (LASIX) TAB PO SCH (08:30)
[2019-04-26] MEDS: lisINopril 40 MG (PRINIVIL) TABLET PO SCH (08:30)
[2019-04-26] MEDS: amLODIPine 10 MG (NORVASC) TAB PO SCH (08:30)
[2019-04-26] MEDS: rOPINIRole 1 MG (REQUIP) TABLET PO SCH (08:30)
[2019-04-26] MEDS: PANTOPRAZOLE 40 MG (PROTONIX) TAB PO SCH (08:30)
[2019-04-26] MEDS: ENOXAPARIN 40 MG/0.4 ML (LOVENOX) SYR SC SCH (08:30)
[2019-04-26] MEDS: CLOPIDOGREL 75 MG (PLAVIX) TABLET PO SCH (08:30)
[2019-04-26] MEDS: DOCUSATE SODIUM 100 MG (COLACE) CAP PO SCH (08:32)
[2019-04-26] MEDS: SENNOSIDES 8.6 MG (SENOKOT) TAB PO SCH (08:33)
--- NOTE | 2019-04-26 09:32 | Discharge Inst-Simple/Standard ---
Discharge Inst-Standard Reconcile Patient Problems Problems Reviewed?: Yes Discharge Medications New, Converted or Re-Newed RX: Transmitted to Pharmacy Patient Instructions/Follow Up Plan of Care/Instructions/FU: Please continue to take your medications as written. Please follow up with your PCP in the next week to follow up this hospital stay. Activity as Tolerated: Yes Discharge Diet: No Restrictions Return to The Hospital For: Chest pain, weakness, fever, cough, shortness of breath, worsening vision, slurred speech, if you feel you are getting worse. MICAH RILEY MD Apr 26, 2019 09:32
[2019-04-26] MEDS ORDERED: CHLORASEPTIC LOZENGE MM PRN (09:45)
--- NOTE | 2019-04-26 10:44 | Occupational Ther Daily Note ---
OT Current Status-Daily Note Subjective Pt seated EOB at start of session, agreeable to OT tx with focus on ADLs this morning., Pt reported he felt like he needed to use the restroom. ADL-Treatment Therapy Code Descriptions/Definitions Functional Merrill Measure: 0=Not Assessed/NA 4=Minimal Assistance 1=Total Assistance 5=Supervision or Setup 2=Maximal Assistance 6=Modified Merrill 3=Moderate Assistance 7=Complete IndependenceSCALE: Activities may be completed with or without assistive devices. 1-Darsspstxw-tdyiogj completes the activity by him/herself with no assistance from a helper. 5-Set-up or Clean-up Assistance-helper sets up or cleans up; patient completes activity. Fenton assists only prior to or following the activity. 4-Supervision or Touching Assistance-helper provides verbal cues and/or touching/steadying and/or contact guard assistance as patient completes activity. Assistance may be provided throughout the activity or intermittently. 3-Partial/Moderate Assistance-helper does LESS THAN HALF the effort. Fenton lifts, holds or supports trunk or limbs, but provides less than half the effort. 2-Substantial/Maximal Assistance-helper does MORE THAN HALF the effort. Fenton lifts or holds trunk or limbs and provides more than half the effort. 6-Gsvhxgwqg-kerpzq does ALL the effort. Patient does none of the effort to complete the activity. Or, the assistance of 2 or more helpers is required for the patient to complete the activity. If activity was not attempted, code reason: 7-Patient Refused. 9-Not Applicable-not attempted and the patient did not perform the activity before the current illness, exacerbation or injury. 10-Not Attempted due to Environmental Limitations-(lack of equipment, weather restraints, etc.). 88-Not Attempted due to Medical Conditions or Safety Concerns. Toileting Hygiene (QC): 4 (CGA during clothing management, pt able to complete all parts of task.) Toilet Transfer (QC): 4 (CGA transfer to/from toilet) Other Treatment Pt seated EOB, ambulated to bathroom using single point cane and CGA. Pt held onto furniture/wall/door/grab bars as he walked in order to steady himself. Pt required cues during walk in order to stand up straight. Pt completed toileting then ambulated to a chair using CGA with cane. Post OT session, pt seated upright in chair, all needs met and present. Education OT Patient Education: Correct positioning, Energy conservation, Modified ADL techniques, Progress toward Goal/Update tx plan, Purpose of tx/functional activities, Transfer techniques Teaching Recipient: Patient, Family Teaching Methods: Demonstration, Discussion Response to Teaching: Verbalize Understanding OT Shelter Goals Stable Attendant Goals Time Frame: May 05, 2019 Eating (QC): 6 Oral Hygiene (QC): 6 Toileting Hygiene (QC): 6 Shower/Bathe Self (QC): 6 Upper Body Dressing (QC): 6 Lower Body Dressing (QC): 6 On/Off Footwear (QC): 2 Additional Goals: 1-Demonstrate ADL Tasks, 2-Verbalize Understanding, 3- ImproveStrength/Delma 1=Demonstrate adherence to instructed precautions during ADL tasks. 2=Patient will verbalize/demonstrate understanding of assistive devices/modifications for ADL. 3=Patient will improve strength/tolerance for activity to enable patient to perform ADL's. OT Education/Plan Problem List/Assessment Assessment: Decreased Activ Tolerance, Decreased Safety Aware, Decreased UE Strength, Impaired Funct Balance, Impaired I ADL's, Impaired Self-Care Skills Discharge Recommendations Plan/Recommendations: Continue POC Treatment Plan/Plan of Care Patient would benefit from OT for education, treatment and training to promote independence in ADL's, mobility, safety and/or upper extremity function for ADL's. Plan of Care: ADL Retraining, Caregiver Training, Functional Mobility, UE Funct Exercise/Act Treatment Duration: May 05, 2019 Frequency: 5 times per week Estimated Hrs Per Day: .25 hour per day Agreement: Yes Rehab Potential: Fair Time/GCodes Start Time: 09:35 Stop Time: 09:50 Total Time Billed (hr/min): 15 Billed Treatment Time 1, ADL JOCELINE DE LA GARZA OT Apr 26, 2019 10:44
--- NOTE | 2019-04-26 11:30 | Cardiology Progress Note ---
Cardiology SOAP Progress Note Subjective: No cardiac complaints. Objective: I&O/Vital Signs 04/26/19 04/26/19 04/26/19 04/26/19 04:00 04:00 06:50 08:00 Temp 36.8 Pulse 50 47 50 Resp 20 B/P (MAP) 176/84 (114) 157/76 (103) Pulse Ox 95 O2 Delivery Room Air Room Air 04/26/19 04/26/19 08:00 09:00 Pulse Ox 95 O2 Delivery Room Air Room Air 04/26/19 00:00 Intake Total 1350 ml Output Total 400 ml Balance 950 ml Weight (Pounds): 305 Weight (Ounces): 0.8 Weight (Calculated Kilograms): 138.058057 Constitutional: AAO x 3, well-developed, well-nourished, other (obese) Respiratory: No accessory muscle use; chest is bilaterally symmetric, lungs clear to auscultation, other (good bilateral air entry) Cardiovascular: regular rate-rhythm, S1 and S2 Gastrointestional: No tender; soft; No guarding, No rebound; audible bowel sounds Extremities: swelling (mild, bilateral leg swelling); No clubbing, No cyanosis Neurologic/Psychiatric: alert, normal mood/affect, oriented x 3, other (moves all limbs equally; detailed to be performed by the Hospitalist [facility] that is managing patient's stroke) Skin: No rash on exposed areas, No ulcerations on exposed areas Results/Procedures: Labs Laboratory Tests 04/26/19 04:12: White Blood Count 6.5, Red Blood Count 4.58, Hemoglobin 13.3, Hematocrit 39L, Mean Corpuscular Volume 86, Mean Corpuscular Hemoglobin 29, Mean Corpuscular Hemoglobin Concent 34, Red Cell Distribution Width 13.4, Platelet Count 171, Mean Platelet Volume 10.6H, Sodium Level 144, Potassium Level 4.1, Chloride Level 110H, Carbon Dioxide Level 23, Anion Gap 11, Blood Urea Nitrogen 15, Creatinine 1.09, Estimat Glomerular Filtration Rate > 60, BUN/Creatinine Ratio 14, Glucose Level 109H, Calcium Level 8.6 A/P: Assessment/Dx: Acute CVA, being managed by the [facility] Head and neck CTA on 04/23/19 (Dr Glez): Non-enhancement of the V4 portion of the right vertebral artery concerning for intraluminal thrombosis. 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 Mild atherosclerotic disease of the bilateral carotid bulbs. Suboptimal evaluation of the proximal bilateral common carotid and bilateral vertebral arteries as described above. 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 No suspicious enhancing intracranial masses. Redemonstration of findings concerning for evolving acute or subacute infarct of the left occipital lobe. H/o intermittent chest discomfort and shortness of breath, managed by his director physical Dr Bhatia. MPI of 09/09/18: no ischemia or infarction, LVEF 76%Shortness of breath occurs at mild exertion. He has gained weight. He denies orthopnea or PND. The patient also has bilateral edema. He denies any claudication. He also complains of fatigue as well. Echocardiogram done by Dr Bhatia on 10/25/2017 showed normal LV size with mild concentric LVH. Normal systolic function with the EF of 65-70 percent. PA pressure 40 mmHg. No significant valvular heart disease. Chronic intermittent lower extremity swelling, likely related to venous insuff Obesity Sleep apnea: Continue CPAP therapy. Plan: * We recommend the Hospitalist Service at this hospital manage this stroke in accordance with the national guidelines for stroke management, in collaboration with the Neuro team at [facility] * For eval for a cardiac source of embolism, we recommend echo. Transthoracic echocardiogram done 04/24/2019 showed normal LV size and function. Negative for intracardiac shunting. Telemetry for 48 hours does not show atrial fibrillation. * The patient may need ILR placement for eval for occult A Fib as the source of his ischemic stroke after 48 hours of traffic monitor specialist being negative for atrial fibrillation. ILR will be done 04/25/2019. Follow-up in the office in mid May. Thank you for your consultation. Please call me if you have any questions. Beatrice Bhatia MD, FACP, FACC, FSCAI, FHRS, CCDS Interventional Cardiology Cardiac Electrophysiology Vascular Medicine and Endovascular Interventions Jay Jay BHATIA MD Apr 26, 2019 11:30
== END 2019-04-26 10:20 | disposition home or self-care (01) | DRG 41 ==
LOC: EDUNIT# 02:15 → ER 02:16 → CSD 08:50
PROVIDERS: ADMIT Internal Medicine; ATTEND Internal Medicine
PROC: 0JH632Z Insertion of Monitoring Device into Chest Subcutaneous Tissue and Fascia, Percutaneous Approach (ICD-10-PCS; principal; 2019-04-25)
DX: I63.211 Cerebral infarction due to unspecified occlusion or stenosis of right vertebral artery (principal); G81.91 Hemiplegia, unspecified affecting right dominant side; Z68.41 Body mass index [BMI] 40.0-44.9, adult; H53.8 Other visual disturbances; G44.209 Tension-type headache, unspecified, not intractable; I65.23 Occlusion and stenosis of bilateral carotid arteries; R20.0 Anesthesia of skin; I10 Essential (primary) hypertension; N40.0 Benign prostatic hyperplasia without lower urinary tract symptoms; K21.9 Gastro-esophageal reflux disease without esophagitis; M19.91 Primary osteoarthritis, unspecified site; R29.700 NIHSS score 0; E78.5 Hyperlipidemia, unspecified; G25.81 Restless legs syndrome; K44.9 Diaphragmatic hernia without obstruction or gangrene; G47.30 Sleep apnea, unspecified; M25.511 Pain in right shoulder; I87.2 Venous insufficiency (chronic) (peripheral); E66.9 Obesity, unspecified; Z90.49 Acquired absence of other specified parts of digestive tract
CPT/HCPCS: 33285; 36415; 70450; 70496; 70498; 72125; 80048; 80053; 80061; 85025; 85027; 85652; 86141; 93005; 93041; 93306; 94760

== ENCOUNTER 2019-05-05 15:01 | Emergency (ER) | payer MEDICARE ==
[~2019-05-05] VITALS: Ht 175 cm; Wt 143.5 kg
[~2019-05-05 15:01] MED LIST changes: +ASPI-999 PO; +ATOR40TA70 PO; +ATOR80TA76 PO; +CLOP75TA28 PO
[2019-05-05 16:52] LABS: BASOPHILS % (AUTO) 0 % (0-10); EOSINOPHILS # (AUTO) 0.2 10^3/uL (0.0-0.3); EOSINOPHILS % (AUTO) 3 % (0-10); HEMATOCRIT 43 % (40-54); LYMPHOCYTES # (AUTO) 2.5 X 10^3 (1.0-4.0); LYMPHOCYTES % (AUTO) 33 % (12-44); MEAN CORPUSCULAR HEMOGLOBIN 28 PG (25-34); MEAN CORPUSCULAR HGB CONC 33 G/DL (32-36); MEAN CORPUSCULAR VOLUME 86 FL (80-99); MONOCYTES # (AUTO) 0.7 X 10^3 (0.0-1.0); MONOCYTES % (AUTO) 9 % (0-12); NEUTROPHILS # (AUTO) 4.1 X 10^3 (1.8-7.8); NEUTROPHILS % (AUTO) 54 % (42-75); PLATELET COUNT 163 10^3/uL (130-400); RED CELL DISTRIBUTION WIDTH 13.6 % (10.0-14.5); WHITE BLOOD COUNT 7.6 10^3/uL (4.3-11.0)
[2019-05-05 17:00] LABS: BILIRUBIN,URINE NEGATIVE (NEGATIVE); CLARITY,URINE CLEAR; COLOR,URINE YELLOW; GLUCOSE, URINE (UA) NEGATIVE (NEGATIVE); KETONES,URINE NEGATIVE (NEGATIVE); LEUKOCYTE ESTERASE ,URINE NEGATIVE (NEGATIVE); NITRITE,URINE NEGATIVE (NEGATIVE); PH,URINE 5.5 (5-9); PROTEIN,URINE NEGATIVE (NEGATIVE)
[2019-05-05 17:15] LABS: ALANINE AMINOTRANSFERASE 51 U/L (0-55); ALBUMIN 4.3 GM/DL (3.2-4.5); ALKALINE PHOSPHATASE 78 U/L (40-136); BILIRUBIN,TOTAL 0.5 MG/DL (0.1-1.0); BUN/CREATININE RATIO 15; CALCIUM 9.3 MG/DL (8.5-10.1); CARBON DIOXIDE 22 MMOL/L (21-32); CHLORIDE 109 MMOL/L (98-107); CREATININE SERUM 1.08 MG/DL (0.60-1.30); GFR ESTIMATED > 60; GLUCOSE 109 MG/DL (70-105); POTASSIUM 3.9 MMOL/L (3.6-5.0); SODIUM 143 MMOL/L (135-145); TOTAL PROTEIN 7.3 GM/DL (6.4-8.2)
[2019-05-05 17:18] LABS: BACTERIA,URINE NEGATIVE /HPF; SQUAMOUS EPITHELIAL CELL,UR RARE /HPF; WBC,URINE RARE /HPF
--- NOTE | 2019-05-05 18:00 | ED General ---
General Chief Complaint: Cardiac/General Problems Stated Complaint: HIGH BLOOD PRESSURE Nursing Triage Note: PT CO OF B/P BEING HIGH TODAY Nursing Sepsis Screen: No Definite Risk History of Present Illness Date Seen by Provider: May 05, 2019 Time Seen by Provider: 15:50 Initial Comments 68-year-old male presents for hypertension. He states that his home health staff and family monitored his blood pressure. Today and that it was elevated to the 180s over 90s. He reports some fatigue but no weakness, headache, dizziness, visual changes, or confusion. He is taking his medication as prescribed. He was seen here approximately 2 weeks ago for cerebral infarction, no deficits. Timing/Duration: 4-6 Hours Severity: Mild Associated Systoms: Denies Symptoms Allergies and Home Medications Allergies Coded Allergies: No Known Drug Allergies (Unverified , 08/22/15) Home Medications Amlodipine Besylate 10 Mg Tablet, 10 MG PO DAILY, (Reported) Atorvastatin Calcium 80 Mg Tablet, 80 MG PO HS Prescribed by: MICAH RILEY on 04/25/19723 Clopidogrel Bisulfate 75 Mg Tablet, 75 MG PO DAILY Prescribed by: MICAH RILEY on 04/25/19723 Furosemide 20 Mg Tablet, 20 MG PO DAILY, (Reported) Glucosam/Chond/Hyalu/Cf Borate 1 Each Tablet, 1 EACH PO HS, (Reported) Ibuprofen 200 Mg Tablet, 400-600 MG PO BID, (Reported) Lisinopril 40 Mg Tablet, 40 MG PO DAILY, (Reported) Multivitamin 1 Each Tablet, 1 TAB PO BID, (Reported) Pantoprazole Sodium 40 Mg Tablet.dr, 40 MG PO DAILY Prescribed by: BLANCA FAITH on 03/21/19 1525 Potassium Chloride 10 Meq Capsule.er, 10 MEQ PO BID, (Reported) Ropinirole HCl 0.5 Mg Tablet, 0.5 MG PO HS, (Reported) Tamsulosin HCl 0.4 Mg Cap, 0.4 MG PO HS, (Reported) Patient Home Medication List Home Medication List Reviewed: Yes Review of Systems Review of Systems Constitutional: no symptoms reported, see HPI Respiratory: no symptoms reported, see HPI Cardiovascular: no symptoms reported, see HPI Gastrointestinal: no symptoms reported, see HPI Genitourinary: no symptoms reported, see HPI All Other Systems Reviewed Negative Unless Noted: Yes Past Nimlmus-Kcwvbi-Wncjxf Hx Past Med/Social Hx: Reviewed Nursing Past Med/Soc Hx Patient Social History Alcohol Use: Denies Use Number of Drinks Today: AA Alcohol Beverage of Choice: Beer Recreational Drug Use: No Smoking Status: Former Smoker Type Used: Cigarettes 2nd Hand Smoke Exposure: No Recent Foreign Travel: No Contact w/Someone Who Travel: No Recent Infectious Disease Expo: No Recent Hopitalizations: No Physical Abuse: No Sexual Abuse: No Immunizations Up To Date Tetanus Booster (TDap): More than 5yrs PED Vaccines UTD: Yes Date of Pneumonia Vaccine: Apr 23, 2018 Date of Influenza Vaccine: Mar 10, 2019 Seasonal Allergies Seasonal Allergies: No Past Medical History Surgeries: Yes (colostomy then reversal, L TKR, ) Abdominal, Orthopedic, Rectal Respiratory: Yes Sleep Apnea Currently Using CPAP: Yes Currently Using BIPAP: No Cardiac: Yes Chronic Edema/Swelling, High Cholesterol, Hypertension Neurological: No Genitourinary: Yes Benign Prostatic Hyperpl, Prostate Problems Gastrointestinal: Yes (Sections of Bowel Removed) Gastroesophageal Reflux, Polyps Musculoskeletal: Yes (Osteo Arthritis) Arthritis Endocrine: No HEENT: No Cancer: No Psychosocial: No Integumentary: No Blood Disorders: No Family Medical History Arthritis 19 FATHER 19 MOTHER G8 BROTHER G8 BROTHER G8 BROTHER G8 BROTHER G8 SISTER G8 SISTER G8 SISTER G8 SISTER Asthma G8 SISTER Cardiovascular disease 19 FATHER G8 SISTER Colon cancer G8 BROTHER Deafness or hearing loss G8 BROTHER Diabetes mellitus 19 FATHER Gastroenteritis G8 BROTHER Hypercholesterolemia G8 SISTER Hypertension 19 FATHER 19 MOTHER G8 BROTHER G8 BROTHER G8 BROTHER G8 BROTHER G8 SISTER G8 SISTER G8 SISTER G8 SISTER Osteoporosis G8 SISTER Respiratory disorder G8 SISTER Seizure disorder G8 BROTHER Hypertension, Migraines Physical Exam Vital Signs Vital Signs - First Documented 05/05/19 15:30 Temp 36.7 Pulse 67 Resp 18 B/P (MAP) 164/74 (104) Pulse Ox 96 Capillary Refill : Less Than 3 Seconds Height, Weight, BMI Height: 5'6.50" Weight: 305lbs. 0.8oz. 138.546767tr; 46.00 BMI Method:Stated General Appearance: No Apparent Distress, WD/WN Eyes: Bilateral Eye Normal Inspection, Bilateral Eye PERRL, Bilateral Eye EOMI HEENT: PERRL/EOMI, TMs Normal, Normal ENT Inspection, Pharynx Normal Neck: Full Range of Motion, Normal Inspection, Non Tender Respiratory: Chest Non Tender, Lungs Clear, Normal Breath Sounds Cardiovascular: Regular Rate, Rhythm, No Murmur, Normal Peripheral Pulses Gastrointestinal: Normal Bowel Sounds, Non Tender, Soft Neurologic/Psychiatric: Alert, Oriented x3, No Motor/Sensory Deficits, Normal Mood/Affect, pricing clerk II-XII Norm as Tested (grossly intact) Skin: Normal Color, Warm/Dry Comments NIH 0 Progress/Results/Core Measures Suspected Sepsis Recent Fever Within 48 Hours: No Infection Criteria Present: None New/Unexplained Altered Menta: No Sepsis Screen: No Definite Risk SIRS Temperature: Pulse: 67 Respiratory Rate: 18 Laboratory Tests 05/05/19 16:45: White Blood Count 7.6 Blood Pressure 164 /74 Mean: 104 Laboratory Tests 05/05/19 16:45: Creatinine 1.08, Platelet Count 163, Total Bilirubin 0.5 Results/Orders Lab Results Laboratory Tests Test 05/05/19 16:45 05/05/19 16:50 Range/Units White Blood Count 7.6 4.3-11.0 10^3/uL Red Blood Count 4.97 4.35-5.85 10^6/uL Hemoglobin 14.0 13.3-17.7 G/DL Hematocrit 43 40-54 % Mean Corpuscular Volume 86 80-99 FL Mean Corpuscular Hemoglobin 28 25-34 PG Mean Corpuscular Hemoglobin Concent 33 32-36 G/DL Red Cell Distribution Width 13.6 10.0-14.5 % Platelet Count 163 130-400 10^3/uL Mean Platelet Volume 11.0 H 7.4-10.4 FL Neutrophils (%) (Auto) 54 42-75 % Lymphocytes (%) (Auto) 33 12-44 % Monocytes (%) (Auto) 9 0-12 % Eosinophils (%) (Auto) 3 0-10 % Basophils (%) (Auto) 0 0-10 % Neutrophils # (Auto) 4.1 1.8-7.8 X 10^3 Lymphocytes # (Auto) 2.5 1.0-4.0 X 10^3 Monocytes # (Auto) 0.7 0.0-1.0 X 10^3 Eosinophils # (Auto) 0.2 0.0-0.3 10^3/uL Basophils # (Auto) 0.0 0.0-0.1 10^3/uL Sodium Level 143 135-145 MMOL/L Potassium Level 3.9 3.6-5.0 MMOL/L Chloride Level 109 H 98-107 MMOL/L Carbon Dioxide Level 22 21-32 MMOL/L Anion Gap 12 5-14 MMOL/L Blood Urea Nitrogen 16 7-18 MG/DL Creatinine 1.08 0.60-1.30 MG/DL Estimat Glomerular Filtration Rate > 60 BUN/Creatinine Ratio 15 Glucose Level 109 H 70-105 MG/DL Calcium Level 9.3 8.5-10.1 MG/DL Corrected Calcium 9.1 8.5-10.1 MG/DL Total Bilirubin 0.5 0.1-1.0 MG/DL Aspartate Amino Transf (AST/SGOT) 26 5-34 U/L Alanine Aminotransferase (ALT/SGPT) 51 0-55 U/L Alkaline Phosphatase 78 40-136 U/L Total Protein 7.3 6.4-8.2 GM/DL Albumin 4.3 3.2-4.5 GM/DL Urine Color YELLOW Urine Clarity CLEAR Urine pH 5.5 5-9 Urine Specific [place] >=1.030 1.016-1.022 Urine Protein NEGATIVE NEGATIVE Urine Glucose (UA) NEGATIVE NEGATIVE Urine Ketones NEGATIVE NEGATIVE Urine Nitrite NEGATIVE NEGATIVE Urine Bilirubin NEGATIVE NEGATIVE Urine Urobilinogen 0.2 < = 1.0 MG/DL Urine Leukocyte Esterase NEGATIVE NEGATIVE Urine RBC (Auto) NEGATIVE NEGATIVE Urine RBC NONE /HPF Urine WBC RARE /HPF Urine Squamous Epithelial Cells RARE /HPF Urine Crystals NONE /LPF Urine Bacteria NEGATIVE /HPF Urine Casts NONE /LPF Urine Mucus NEGATIVE /LPF Urine Culture Indicated NO My Orders Orders - RISHI HERNANDEZ Cbc With Automated Diff (05/05/19 16:39) Comprehensive Metabolic Panel (05/05/19 16:39) Ua Culture If Indicated (05/05/19 16:56) Vital Signs/I&O 05/05/19 05/05/19 15:30 18:38 Temp 36.7 Pulse 67 66 Resp 18 18 B/P (MAP) 164/74 (104) 149/87 (104) Pulse Ox 96 97 Capillary Refill : Less Than 3 Seconds Blood Pressure Mean: 104 Progress Note : Time: 15:50 Progress Note Patient seen and evaluated, he has normotensive since presenting here. We will continue to monitor his blood pressure, and obtain labs. Based on an NIH is [address] a CT of the head at this time. Daughter reports he is not drinking much water. 1640 Labs all WNL. B/P continues to be normotensive. 1750 patient reports to be feeling better, he is drink 3 glasses of water. Discharge instructions and return precautions reviewed with him. Stressed the importance to follow-up with his primary care provider. Departure Impression Primary Impression: Hypertension Qualified Codes: I10 - Essential (primary) hypertension Disposition: HOME, SELF-CARE Condition: Improved Departure-Patient Inst. Decision time for Depature: 17:50 Referrals: ALECIA NEWMAN MD (PCP) Primary Care Physician YU LANDON (Family) Primary Care Physician Patient Instructions: High Blood Pressure (DC), DASH Diet Add. Discharge Instructions: Continue to take your medication as prescribed. Make sure that the blood pressure cuff is the proper size and has been calibrated. Increase her water intake, 16 ounces every 2-4 hours while awake. Follow-up with your primary care provider. Return to the emergency department for new, urgent health care needs. All discharge instructions reviewed with patient and/or family. Voiced understanding. RISHI HERNANDEZ May 05, 2019 18:00
[2019-05-05 18:38] VITALS: BP 149/87
== END 2019-05-05 18:45 | disposition home or self-care (01) ==
LOC: EDUNIT# 15:01 → ER 15:02
DX: I10 Essential (primary) hypertension (principal); E78.00 Pure hypercholesterolemia, unspecified; G47.30 Sleep apnea, unspecified; Z99.89 Dependence on other enabling machines and devices; Z79.02 Long term (current) use of antithrombotics/antiplatelets; Z87.891 Personal history of nicotine dependence; Z96.652 Presence of left artificial knee joint; Z82.49 Family history of ischemic heart disease and other diseases of the circulatory system; Z80.0 Family history of malignant neoplasm of digestive organs
CPT/HCPCS: 36415; 80053; 81000; 85025; 99283

== ENCOUNTER 2019-11-12 09:48 | Emergency (ER) | payer MEDICARE ==
[~2019-11-12 09:48] MED LIST changes: +ACHYD1T PO; -HYDR-3820 PO; -METO-370 PO; +METO50TA7 PO; +MULT-567 PO; -MULT1TAB69 PO; -ROPI0.5T2 PO; +ROPI0.5T4 PO; -TAMS0.4C98 PO; +TMSL.4C PO
[2019-11-12 10:21] LABS: HEMOGLOBIN 13.2 G/DL (13.3-17.7); MEAN PLATELET VOLUME 10.3 FL (7.4-10.4); RED CELL DISTRIBUTION WIDTH 14.5 % (10.0-14.5); WHITE BLOOD COUNT 6.7 10^3/uL (4.3-11.0)
[2019-11-12] MEDS ORDERED: NS IV 1000 ML 1,000 ML IV SCH (10:30)
[2019-11-12 10:34] LABS: ALANINE AMINOTRANSFERASE 43 U/L (0-55); ALBUMIN 4.1 GM/DL (3.2-4.5); ALKALINE PHOSPHATASE 76 U/L (40-136); BILIRUBIN,DIRECT 0.3 MG/DL (0.0-0.3); BILIRUBIN,INDIRECT 0.2 MG/DL; BILIRUBIN,TOTAL 0.5 MG/DL (0.1-1.0); BUN/CREATININE RATIO 13; CALCIUM 9.1 MG/DL (8.5-10.1); CARBON DIOXIDE 20 MMOL/L (21-32); CHLORIDE 112 MMOL/L (98-107); CREATININE SERUM 1.02 MG/DL (0.60-1.30); GFR ESTIMATED > 60; GLUCOSE 119 MG/DL (70-105); POTASSIUM 3.8 MMOL/L (3.6-5.0); SODIUM 145 MMOL/L (135-145); TOTAL PROTEIN 7.1 GM/DL (6.4-8.2)
[2019-11-12] MEDS ORDERED: CATHETER FLUSH 10 ML SYR IV PRN (10:45)
[2019-11-12] MEDS ORDERED: NS 100 ML (IVPB) BAG IV ONE (10:45)
[2019-11-12] MEDS ORDERED: HOLD METFORMIN - RECEIVED CONTRAST 20 ML VIAL IV SCH (10:45)
[2019-11-12] MEDS ORDERED: IOHEXOL 350 MG/ML 100 ML (OMNIPAQUE 350) VIAL IV ONE (10:45)
--- NOTE | 2019-11-12 11:00 | Diagnostic Imaging Report ---
PROCEDURE: CT head and CT cervical spine without contrast. TECHNIQUE: Multiple contiguous axial images were obtained through the brain and cervical spine without the use of intravenous contrast. Sagittal and coronal reformations through the cervical spine were then performed. Auto Exposure Controls were utilized during the CT exam to meet ALARA standards for radiation dose reduction. INDICATION: Head butted by a cow, with head and neck injury. COMPARISON is made with prior head CT from 04/25/2019. CT HEAD: Ventricular size and sulcal pattern appear stable. There is significant periventricular hypodensity noted consistent with chronic microvascular ischemia. No sulcal effacement or midline shift is identified. No acute intra-axial or extra-axial hemorrhage is detected. Cisterns are patent. Visualized paranasal sinuses appear clear. IMPRESSION: 1. No acute intracranial process is detected. CT CERVICAL SPINE: Alignment appears normal. There is multilevel degenerative disc disease with variable disc space narrowing and marginal spurring. No fractures are identified. Odontoid appears intact. IMPRESSION: 1. Cervical spondylosis. No acute bony abnormality is detected. Dictated by: Dictated on workstation # [id number]
--- NOTE | 2019-11-12 11:16 | Diagnostic Imaging Report ---
PROCEDURE: CT chest with contrast only. TECHNIQUE: Multiple contiguous axial images were obtained through the chest after administration of intravenous contrast. Auto Exposure Controls were utilized during the CT exam to meet ALARA standards for radiation dose reduction. INDICATION: Injured by a cow with left-sided chest and rib pain. No definite mediastinal, hematoma or great vessel injury is identified. No pericardial or pleural fluid is detected. No pulmonary contusion or pneumothorax is detected. No rib fracture is identified. IMPRESSION: Essentially unremarkable CT of the chest. No pulmonary contusion, pneumothorax, mediastinal hematoma or osseous abnormality is detected. Dictated by: Dictated on workstation # [id number]
--- NOTE | 2019-11-12 11:18 | NUR ---
urinal provided, output 150 ml
--- NOTE | 2019-11-12 11:34 | ED Trauma-Multisystem ---
General Chief Complaint: Trauma EMS/Air Arrival Activat Stated Complaint: RIB PAIN Activation Level: Level 2 Source of Information: Patient, EMS Exam Limitations: No Limitations (WALLACE LEWIS) History of Present Illness Date Seen by Provider: Nov 12, 2019 Time Seen by Provider: 11:20 Initial Comments Patient presents ER by EMS with chief complaint of being head butted in the left anterior chest by a bull just prior to arrival. While this provider was unable to immediately see the patient we did receive report over phone from nurse and put on orders. The patient remarks that he has 10.5 out of 10 pain in his left anterior chest where the ball hit him. He has no shortness of breath or history of COPD lung disease. No history of heart disease. He has no abdominal pain dysuria nausea vomiting. He says that on look or said he was knocked unconscious for about 2-3 seconds. C-collar was placed by EMS. He does have a history of a colon polyp removed and colostomy that was subsequently taken down many years ago. (WALLACE LEWIS) Allergies and Home Medications Allergies Coded Allergies: No Known Drug Allergies (Unverified , 08/22/15) Home Medications Amlodipine Besylate 10 Mg Tablet, 10 MG PO DAILY, (Reported) Atorvastatin Calcium 80 Mg Tablet, 80 MG PO HS Prescribed by: MICAH RILEY on 04/25/19723 Clopidogrel Bisulfate 75 Mg Tablet, 75 MG PO DAILY Prescribed by: MICAH RILYE on 04/25/19723 Furosemide 20 Mg Tablet, 20 MG PO DAILY, (Reported) Glucosam/Chond/Hyalu/Cf Borate 1 Each Tablet, 1 EACH PO HS, (Reported) Ibuprofen 200 Mg Tablet, 400-600 MG PO BID, (Reported) Lisinopril 40 Mg Tablet, 40 MG PO DAILY, (Reported) Multivitamin 1 Each Tablet, 1 TAB PO BID, (Reported) Pantoprazole Sodium 40 Mg Tablet.dr, 40 MG PO DAILY Prescribed by: BLANCA FAITH on 03/21/19 1525 Potassium Chloride 10 Meq Capsule.er, 10 MEQ PO BID, (Reported) Ropinirole HCl 0.5 Mg Tablet, 0.5 MG PO HS, (Reported) Tamsulosin HCl 0.4 Mg Cap, 0.4 MG PO HS, (Reported) Patient Home Medication List Home Medication List Reviewed: Yes (WALLACE LEWIS) Review of Systems Review of Systems Constitutional: No chills, No diaphoresis Eyes: Denies Blindness, Denies Blurred Vision Ears: Denies Dizziness, Denies Pain Nose: No Bloody Discharge, No Clear Discharge Mouth: No Bloody Discharge, No Clear Discharge Throat: No Aphonia, No Hoarse, No Muffled Respiratory: No cough, No phlegm Cardiovascular: Denies Chest Pain, Denies Edema Gastrointestinal: No abdominal pain, No nausea Genitourinary: No dysuria, No frequency (WALLACE LEWIS) All Other Systems Reviewed Negative Unless Noted: Yes (WALLACE LEWIS) Past Zbbvylt-Yialjx-Yrniym Hx Patient Social History Alcohol Use: Occasionally Uses Number of Drinks Today: AA Alcohol Beverage of Choice: Beer Recreational Drug Use: No Type Used: Cigarettes 2nd Hand Smoke Exposure: No Recent Hopitalizations: No (WALLACE LEWIS) Immunizations Up To Date Tetanus Booster (TDap): More than 5yrs PED Vaccines UTD: Yes Date of Pneumonia Vaccine: Apr 23, 2018 Date of Influenza Vaccine: Mar 10, 2019 (WALLACE LEWIS) Seasonal Allergies Seasonal Allergies: No (WALLACE LEWIS) Past Medical History Surgeries: Yes (colostomy then reversal, L TKR, ) Abdominal, Orthopedic, Rectal Respiratory: Yes Sleep Apnea Currently Using CPAP: Yes Currently Using BIPAP: No Cardiac: Yes Chronic Edema/Swelling, High Cholesterol, Hypertension Neurological: No Genitourinary: Yes Benign Prostatic Hyperpl, Prostate Problems Gastrointestinal: Yes (Sections of Bowel Removed) Gastroesophageal Reflux, Polyps Musculoskeletal: Yes (Osteo Arthritis) Arthritis Endocrine: No HEENT: No Cancer: No Psychosocial: No Integumentary: No Blood Disorders: No (WALLACE LEWIS) Family Medical History Arthritis 19 FATHER 19 MOTHER G8 BROTHER G8 BROTHER G8 BROTHER G8 BROTHER G8 SISTER G8 SISTER G8 SISTER G8 SISTER Asthma G8 SISTER Cardiovascular disease 19 FATHER G8 SISTER Colon cancer G8 BROTHER Deafness or hearing loss G8 BROTHER Diabetes mellitus 19 FATHER Gastroenteritis G8 BROTHER Hypercholesterolemia G8 SISTER Hypertension 19 FATHER 19 MOTHER G8 BROTHER G8 BROTHER G8 BROTHER G8 BROTHER G8 SISTER G8 SISTER G8 SISTER G8 SISTER Osteoporosis G8 SISTER Respiratory disorder G8 SISTER Seizure disorder G8 BROTHER Hypertension, Migraines (WALLACE LEWIS) Physical Exam Height, Weight, BMI Height: 5'6.50" Weight: 305lbs. 0.8oz. 138.151949zs; 46.00 BMI Method:Stated General Appearance: No Apparent Distress, WD/WN Head: No Evidence of Injury, Active Bleeding Eyes: Left Eye Vision Changes, Left Eye Other Ears, Nose, Throat: Hearing Grossly Normal, No Evidence of ENT Injury, No Dental Injury Neck: Full Range of Motion, Normal Inspection, Non Tender, Supple Cardiovascular: Regular Rate, Rhythm, No Edema Respiratory: No Chest Non Tender (chest wall tenderness to palpation); Lungs Clear, Normal Breath Sounds, No Accessory Muscle Use, No Respiratory Distress Gastrointestinal: Normal Bowel Sounds, No Organomegaly Extremity: Normal Capillary Refill, Normal Inspection, Normal Range of Motion Neurologic/Psychiatric: Alert, Oriented x3 Skin: Other (minor abrasion and ecchymoses over her left chest) (WALLACE LEWIS) [place] Coma Score Best Eye Response ([place]): (4) Open Spontaneously Best Verbal Response ([place]): (5) Oriented Best Motor Response ([place]): (6) Obeys Commands Oscar Total: 15 (WALLACE LEWIS) Progress/Results/Core Measures Results/Orders Lab Results Laboratory Tests Test 11/12/19 09:56 Range/Units White Blood Count 6.7 4.3-11.0 10^3/uL Red Blood Count 4.69 4.35-5.85 10^6/uL Hemoglobin 13.2 L 13.3-17.7 G/DL Hematocrit 39 L 40-54 % Mean Corpuscular Volume 84 80-99 FL Mean Corpuscular Hemoglobin 28 25-34 PG Mean Corpuscular Hemoglobin Concent 34 32-36 G/DL Red Cell Distribution Width 14.5 10.0-14.5 % Platelet Count 158 130-400 10^3/uL Mean Platelet Volume 10.3 7.4-10.4 FL Sodium Level 145 135-145 MMOL/L Potassium Level 3.8 3.6-5.0 MMOL/L Chloride Level 112 H 98-107 MMOL/L Carbon Dioxide Level 20 L 21-32 MMOL/L Anion Gap 13 5-14 MMOL/L Blood Urea Nitrogen 13 7-18 MG/DL Creatinine 1.02 0.60-1.30 MG/DL Estimat Glomerular Filtration Rate > 60 BUN/Creatinine Ratio 13 Glucose Level 119 H 70-105 MG/DL Calcium Level 9.1 8.5-10.1 MG/DL Total Bilirubin 0.5 0.1-1.0 MG/DL Direct Bilirubin 0.3 0.0-0.3 MG/DL Indirect Bilirubin 0.2 MG/DL Aspartate Amino Transf (AST/SGOT) 31 5-34 U/L Alanine Aminotransferase (ALT/SGPT) 43 0-55 U/L Alkaline Phosphatase 76 40-136 U/L Total Protein 7.1 6.4-8.2 GM/DL Albumin 4.1 3.2-4.5 GM/DL Serum Alcohol < 10 <10 MG/DL (TROY MONTELONGO PRINCIPAL EMBEDDED SOFTWARE ENGINEER) Medications Given in ED Current Medications Medications Dose Ordered Sig/Tariq Route Start Time Stop Time Status Last Admin Dose Admin Iohexol 100 ml ONCE ONCE IV 11/12/19 10:45 11/12/19 10:46 DC 11/12/19 10:54 75 ML Sodium Chloride 10 ml NEEDED PRN IV 11/12/19 10:45 11/12/19 10:55 10 ML Sodium Chloride 100 ml ONCE ONCE IV 11/12/19 10:45 11/12/19 10:46 DC 11/12/19 10:54 80 ML (TROY MONTELONGO PRINCIPAL EMBEDDED SOFTWARE ENGINEER) Progress Progress Note : Time: 11:34 Progress Note 50 g of fentanyl were given. CT chest largely unremarkable. He does have some contusion and minor abrasions on his left anterior chest consistent with being hit in head. CT head and C-spine. C-collar was discontinued 11:15. (WALLACE LEWIS) Initial ECG Impression Date: Nov 12, 2019 Initial ECG Impression Time: 10:16 Initial ECG Rate: 69 Initial ECG Rhythm: Normal Sinus Initial ECG Intervals: Normal Initial ECG Impression: Normal Initial ECG Comparisson: No Previous ECG Available Comment Normal sinus rhythm without clinical relevant ST patient or depression. (WALLACE LEWIS) Diagnostic Imaging Diagonstic Imaging: CT (with IV contrast) Comments [facility] [place] NAME: GÉNESIS WELSH [facility] REC#: [id number] PT STATUS: REG ER : 1950 PHYSICIAN: WALLACE LEWIS MD ADMIT DATE: 11/12/19/ER Draft Date of Exam:11/12/19 CT CHEST W PROCEDURE: CT chest with contrast only. TECHNIQUE: Multiple contiguous axial images were obtained through the chest after administration of intravenous contrast. Auto Exposure Controls were utilized during the CT exam to meet ALARA standards for radiation dose reduction. INDICATION: Injured by a cow with left-sided chest and rib pain. No definite mediastinal, hematoma or great vessel injury is identified. No pericardial or pleural fluid is detected. No pulmonary contusion or pneumothorax is detected. No rib fracture is identified. IMPRESSION: Essentially unremarkable CT of the chest. No pulmonary contusion, pneumothorax, mediastinal hematoma or osseous abnormality is detected. Dictated on workstation # [id number] Dict: 11/12/19 1111 Trans: 11/12/19 1116 [facility] [id number] Interpreted by: FARRUKH BUSH MD Electronically signed by: Reviewed: Reviewed by Me Diagonstic Imaging: CT Plain Films/CT/US/NM/MRI: c-spine, head Comments [facility] [place] NAME: GÉNESIS WELSH [facility] REC#: [id number] PT STATUS: REG ER : 1950 PHYSICIAN: WALLACE LEWIS MD ADMIT DATE: 11/12/19/ER Draft Date of Exam:11/12/19 CT HEAD/CERVICAL SPINE WO PROCEDURE: CT head and CT cervical spine without contrast. TECHNIQUE: Multiple contiguous axial images were obtained through the brain and cervical spine without the use of intravenous contrast. Sagittal and coronal reformations through the cervical spine were then performed. Auto Exposure Controls were utilized during the CT exam to meet ALARA standards for radiation dose reduction. INDICATION: Head butted by a cow, with head and neck injury. COMPARISON is made with prior head CT from 04/25/2019. CT HEAD: Ventricular size and sulcal pattern appear stable. There is significant periventricular hypodensity noted consistent with chronic microvascular ischemia. No sulcal effacement or midline shift is identified. No acute intra-axial or extra-axial hemorrhage is detected. Cisterns are patent. Visualized paranasal sinuses appear clear. IMPRESSION: 1. No acute intracranial process is detected. CT CERVICAL SPINE: Alignment appears normal. There is multilevel degenerative disc disease with variable disc space narrowing and marginal spurring. No fractures are identified. Odontoid appears intact. IMPRESSION: 1. Cervical spondylosis. No acute bony abnormality is detected. Dictated on workstation # [id number] Dict: 11/12/19 1052 Trans: 11/12/19 1059 [facility] [id number] Interpreted by: FARRUKH BUSH MD Electronically signed by: Reviewed: Reviewed by Me (WALLACE LEWIS) Consults : Consulting Physician: KATIE LARIOS MD Consults Notes Because the patient was activated as trauma two be did discussed case with Dr. Larios and he agrees with disposition. (WALLACE LEWIS) Departure Communication (Admissions) Rigid cervical collar removed at 1120. (TROY MONTELONGO APRN) Impression Primary Impression: Chest wall contusion Qualified Codes: S20.212A - Contusion of left front wall of thorax, initial encounter Disposition: HOME, SELF-CARE Condition: Improved Departure-Patient Inst. Decision time for Depature: 11:41 (TROY MONTELONGO APRN) Referrals: ALECIA NEWMAN MD (PCP) Primary Care Physician YU LANDON (Family) Primary Care Physician Patient Instructions: Contusion (DC) Add. Discharge Instructions: 1. Return to ER for any shortness of breath worsening pain or other concerns. Tylenol and ibuprofen for pain. All discharge instructions reviewed with patient and/or family. Voiced under standing. WALLACE LEWIS Nov 12, 2019 11:34 TROY MONTELONGO APRN Nov 12, 2019 11:41
--- NOTE | 2019-11-12 11:36 | NUR ---
pt refused fentanyl
[2019-11-12] MEDS ORDERED: fentaNYL INJECTION 100 MCG/2 ML AMP IVP ONE (11:45)
[2019-11-12 12:03] VITALS: BP 143/78
== END 2019-11-12 12:03 | disposition home or self-care (01) ==
LOC: EDUNIT# 09:48 → ER 09:48
DX: S20.212A Contusion of left front wall of thorax, initial encounter (principal); S06.9X1A Unspecified intracranial injury with loss of consciousness of 30 minutes or less, initial encounter; W55.22XA Struck by cow, initial encounter; I10 Essential (primary) hypertension; G47.30 Sleep apnea, unspecified; N40.0 Benign prostatic hyperplasia without lower urinary tract symptoms; K21.9 Gastro-esophageal reflux disease without esophagitis; M19.91 Primary osteoarthritis, unspecified site
CPT/HCPCS: 70450; 71260; 72125; 80048; 80076; 85027; 93005; 93041; 99284; G0480; 36415; 80320

== ENCOUNTER → 2020-07-16 | Outpatient (CLI) | payer MEDICARE ==
[~2020-07-16] VITALS: Ht 167 cm; Wt 161.0 kg
[~2020-07-16] MED LIST changes: +AMLO-251 PO; -AMLO10TA7 PO; +ASPI-1238 PO; -ASPI-983 PO; +CATHETER FLUSH 10 ML SYR IV PRN; -HYDR-3876 PO; +HYDR-3920 PO; -LISI-552 PO; +LISI20TA26 PO; -LISI40TA PO; +LISI40TA9 PO; +REGADENOSON 0.4 MG/5 ML SYR (LEXISCAN) IV ONE
[2020-07-16 09:35] VITALS: BP 154/75
--- NOTE | 2020-07-18 11:44 | STRESS TEST ---
DATE OF SERVICE: 07/16/2020 RESTING AND POST REGADENOSON TECHNETIUM-99M TETROFOSMIN SPECT CT IMAGING ORDERING PHYSICIAN: Dr. Awad. PRIMARY PHYSICIAN: Lena Wilkinson APRN. CLINICAL DIAGNOSIS: Shortness of breath. Baseline images were carried out after injection of 10.75 mCi of technetium-99m Tetrofosmin. This was followed by 0.4 mg Regadenoson and 29.6 mCi of technetium-99m Tetrofosmin for stress imaging. The electrocardiogram shows sinus rhythm at baseline. There was nonspecific ST abnormality at baseline that was nonspecific. There was incomplete right bundle branch block at baseline. The ST segment became somewhat more prominent with the Regadenoson infusion and then returned to baseline. The patient noted some heaviness in the chest. Overall, he tolerated the procedure well. Review of images at rest and following stress does not indicate significant perfusion defects consistent with significant myocardial ischemia or infarction. Gated images show normal global left ventricular systolic function and normal regional wall motion. Left ventricular ejection fraction is calculated to be 70%. Left ventricular end diastolic volume is 79 mL. TID is absent (0.93). CONCLUSIONS: 1. No evidence of any significant myocardial ischemia or infarction on this study. 2. Normal regional wall motion. 3. Normal global left ventricular systolic function with a calculated ejection fraction of 70%. Job ID: [id number] DocumentID: [id number] Dictated Date: 07/18/2020 08:30:36 Lineman Date: 07/18/2020 11:42:40 Dictated By: JAMIN AWAD MD, MA, FACP, FACC, MTDD
== END ==
LOC: CARD 07:45
PROVIDERS: ATTEND Internal Medicine Cardiovascular Disease
DX: R06.09 Other forms of dyspnea (principal)
CPT/HCPCS: 78452; 93017; A9502

== ENCOUNTER → 2020-07-19 | Outpatient (CLI) | payer MEDICARE ==
[~2020-07-19] MED LIST changes: -CATHETER FLUSH 10 ML SYR IV PRN; -REGADENOSON 0.4 MG/5 ML SYR (LEXISCAN) IV ONE
== END ==
LOC: CARD 13:16
PROVIDERS: ATTEND Internal Medicine Cardiovascular Disease
DX: I11.9 Hypertensive heart disease without heart failure (principal)

== ENCOUNTER 2020-11-19 11:31 | Emergency (ER) | payer MEDICARE ==
[~2020-11-19] VITALS: Ht 172 cm; Wt 160.0 kg
--- NOTE | 2020-11-19 12:33 | ED GU-Male ---
General Chief Complaint: - Urinary Stated Complaint: UNABLE TO URINATE Source: patient Exam Limitations: no limitations History of Present Illness Date Seen by Provider: Nov 19, 2020 Time Seen by Provider: 11:34 Initial Comments This is a well-appearing 70-year-old male who presents to the ER with complaints of difficulty urinating, hesitancy, frequency, and dysuria. States that symptoms have been present for the past 2 to 3 days. Denies fever, chills, co ugh, shortness of breath, chest pain, nausea, vomiting, abdominal pain. Denies any hematuria. States that he started taking cranberry juice to see if this would help with these symptoms. Allergies and Home Medications Allergies Coded Allergies: No Known Drug Allergies (Unverified , 08/22/15) Home Medications Amlodipine Besylate 10 Mg Tablet, 10 MG PO DAILY, (Reported) Atorvastatin Calcium 80 Mg Tablet, 80 MG PO HS Prescribed by: MICAH RILEY on 04/25/19723 Clopidogrel Bisulfate 75 Mg Tablet, 75 MG PO DAILY Prescribed by: MICAH RILEY on 04/25/19723 Furosemide 20 Mg Tablet, 20 MG PO DAILY, (Reported) Glucosam/Chond/Hyalu/Cf Borate 1 Each Tablet, 1 EACH PO HS, (Reported) Ibuprofen 200 Mg Tablet, 400-600 MG PO BID, (Reported) Lisinopril 40 Mg Tablet, 40 MG PO DAILY, (Reported) Multivitamin 1 Each Tablet, 1 TAB PO BID, (Reported) Nitrofurantoin Macrocrystal 100 Mg Capsule, 100 MG PO BID Prescribed by: HOLGER YORK on 11/19/20 1516 Pantoprazole Sodium 40 Mg Tablet.dr, 40 MG PO DAILY Prescribed by: BLANCA FAITH on 03/21/19 1525 Potassium Chloride 10 Meq Capsule.er, 10 MEQ PO BID, (Reported) Ropinirole HCl 0.5 Mg Tablet, 0.5 MG PO HS, (Reported) Tamsulosin HCl 0.4 Mg Cap, 0.4 MG PO HS, (Reported) Patient Home Medication List Home Medication List Reviewed: Yes Review of Systems Review of Systems Constitutional: no symptoms reported EENTM: no symptoms reported Respiratory: no symptoms reported Cardiovascular: no symptoms reported Gastrointestinal: no symptoms reported Genitourinary: see HPI Musculoskeletal: no symptoms reported Skin: no symptoms reported Psychiatric/Neurological: No Symptoms Reported Endocrine: No Symptoms Reported Hematologic/Lymphatic: No Symptoms Reported Past Cezpzre-Ogcvii-Hhoepm Hx Immunizations Up To Date Tetanus Booster (TDap): More than 5yrs PED Vaccines UTD: Yes Seasonal Allergies Seasonal Allergies: No Past Medical History Surgeries: Yes (colostomy then reversal, L TKR, ) Abdominal, Orthopedic, Rectal Respiratory: Yes Sleep Apnea Currently Using CPAP: Yes Currently Using BIPAP: No Cardiac: Yes Chronic Edema/Swelling, High Cholesterol, Hypertension Neurological: No Genitourinary: Yes Benign Prostatic Hyperpl, Prostate Problems Gastrointestinal: Yes (Sections of Bowel Removed) Gastroesophageal Reflux, Polyps Musculoskeletal: Yes (Osteo Arthritis) Arthritis Endocrine: No HEENT: No Cancer: No Psychosocial: No Integumentary: No Blood Disorders: No Family Medical History Arthritis 19 FATHER 19 MOTHER G8 BROTHER G8 BROTHER G8 BROTHER G8 BROTHER G8 SISTER G8 SISTER G8 SISTER G8 SISTER Asthma G8 SISTER Cardiovascular disease 19 FATHER G8 SISTER Colon cancer G8 BROTHER Deafness or hearing loss G8 BROTHER Diabetes mellitus 19 FATHER Gastroenteritis G8 BROTHER Hypercholesterolemia G8 SISTER Hypertension 19 FATHER 19 MOTHER G8 BROTHER G8 BROTHER G8 BROTHER G8 BROTHER G8 SISTER G8 SISTER G8 SISTER G8 SISTER Osteoporosis G8 SISTER Respiratory disorder G8 SISTER Seizure disorder G8 BROTHER Hypertension, Migraines Physical Exam Vital Signs Vital Signs - First Documented 11/19/20 12:14 Temp 36.4 Pulse 77 Resp 18 B/P (MAP) 187/95 (125) Pulse Ox 98 O2 Delivery Room Air Capillary Refill : Height, Weight, BMI Height: 5'6.50" Weight: 305lbs. 0.8oz. 138.716486rf; 57.72 BMI Method:Stated General Appearance: WD/WN, no apparent distress HEENT: PERRL/EOMI, normal ENT inspection, pharynx normal Neck: full range of motion, normal inspection Cardiovascular: normal peripheral pulses, regular rate, rhythm, no edema, no gallop Respiratory: lungs clear, normal breath sounds, no respiratory distress Gastrointestinal: normal bowel sounds, soft, no organomegaly, tenderness (suprapubic ) Back: normal inspection, no CVA tenderness Extremities: normal range of motion, non-tender, normal inspection Neurologic/Psychiatric: no motor/sensory deficits, alert, normal mood/affect, oriented x 3 Skin: normal color, warm/dry Progress/Results/Core Measures Suspected Sepsis SIRS Temperature: Pulse: Respiratory Rate: Laboratory Tests 11/19/20 14:10: White Blood Count 9.4 Blood Pressure / Mean: Laboratory Tests 11/19/20 14:10: Creatinine 0.83, Platelet Count 171, Total Bilirubin 0.6 Results/Orders Lab Results Laboratory Tests Test 11/19/20 12:56 11/19/20 14:10 Range/Units Urine Color YELLOW Urine Clarity CLEAR Urine pH 6.5 5-9 Urine Specific Leivasy 1.025 H 1.016-1.022 Urine Protein 3+ H NEGATIVE Urine Glucose (UA) NEGATIVE NEGATIVE Urine Ketones NEGATIVE NEGATIVE Urine Nitrite NEGATIVE NEGATIVE Urine Bilirubin NEGATIVE NEGATIVE Urine Urobilinogen 0.2 < = 1.0 MG/DL Urine Leukocyte Esterase TRACE H NEGATIVE Urine RBC (Auto) 3+ H NEGATIVE Urine RBC >100 H /HPF Urine WBC 5-10 H /HPF Urine Squamous Epithelial Cells 2-5 /HPF Urine Renal Epithelial Cells 2-5 /HPF Urine Crystals NONE /LPF Urine Bacteria MODERATE H /HPF Urine Casts NONE /LPF Urine Mucus NEGATIVE /LPF Urine Culture Indicated YES White Blood Count 9.4 4.3-11.0 10^3/uL Red Blood Count 4.50 4.30-5.52 10^6/uL Hemoglobin 12.6 L 13.3-17.7 g/dL Hematocrit 39 L 40-54 % Mean Corpuscular Volume 87 80-99 fL Mean Corpuscular Hemoglobin 28 25-34 pg Mean Corpuscular Hemoglobin Concent 32 32-36 g/dL Red Cell Distribution Width 13.8 10.0-14.5 % Platelet Count 171 130-400 10^3/uL Mean Platelet Volume 10.7 9.0-12.2 fL Immature Granulocyte % (Auto) 1 % Neutrophils (%) (Auto) 63 42-75 % Lymphocytes (%) (Auto) 27 12-44 % Monocytes (%) (Auto) 9 0-12 % Eosinophils (%) (Auto) 1 0-10 % Basophils (%) (Auto) 0 0-10 % Neutrophils # (Auto) 5.9 1.8-7.8 10^3/uL Lymphocytes # (Auto) 2.5 1.0-4.0 10^3/uL Monocytes # (Auto) 0.8 0.0-1.0 10^3/uL Eosinophils # (Auto) 0.1 0.0-0.3 10^3/uL Basophils # (Auto) 0.0 0.0-0.1 10^3/uL Immature Granulocyte # (Auto) 0.1 0.0-0.1 10^3/uL Sodium Level 144 135-145 MMOL/L Potassium Level 3.9 3.6-5.0 MMOL/L Chloride Level 107 98-107 MMOL/L Carbon Dioxide Level 25 21-32 MMOL/L Anion Gap 12 5-14 MMOL/L Blood Urea Nitrogen 9 7-18 MG/DL Creatinine 0.83 0.60-1.30 MG/DL Estimat Glomerular Filtration Rate > 60 BUN/Creatinine Ratio 11 Glucose Level 97 70-105 MG/DL Calcium Level 9.6 8.5-10.1 MG/DL Corrected Calcium 9.8 8.5-10.1 MG/DL Total Bilirubin 0.6 0.1-1.0 MG/DL Aspartate Amino Transf (AST/SGOT) 35 H 5-34 U/L Alanine Aminotransferase (ALT/SGPT) 48 0-55 U/L Alkaline Phosphatase 77 40-136 U/L Total Protein 7.1 6.4-8.2 GM/DL Albumin 3.8 3.2-4.5 GM/DL Micro Results Microbiology 11/19/20 Urine Culture - Final, Complete 3 or more isolates My Orders Orders - HOLGER YORK CHURCH SUPERVISOR Abdomen/Kub 1view (11/19/20 13:47) Cbc With Automated Diff (11/19/20 13:47) Comprehensive Metabolic Panel (11/19/20 13:47) Ceftriaxone (Rocephin) (11/19/20 15:15) Lidocaine 1% Inj 20 Ml (Xylocaine 1% Inj (11/19/20 15:15) Vital Signs/I&O 11/19/20 11/19/20 12:14 15:59 Temp 36.4 Pulse 77 76 Resp 18 18 B/P (MAP) 187/95 (125) 150/89 Pulse Ox 98 95 O2 Delivery Room Air Room Air Capillary Refill : Progress Note : Progress Note Orders placed for UA and post void bladder scan. No discomfort at this time. Minimal output. Less than 50ml in bladder post void. Labs reviewed and are unremarkable. UA, +RBC, +Leukocyte Esterase, moderated bacteria. KUB neg for kidney stones. Was able to void 400ml yellow urine. Will place on abx, culture urine, and have him follow up with his PCP. Discussed returning for any new, concerning, or worsening symptoms. Reviewed discharge POC and he is agreeable with plan. Diagnostic Imaging Diagonstic Imaging: Xray Plain Films/CT/US/NM/MRI: abdomen Comments [facility] [place], [place] NAME: GÉNESIS WELSH [facility] REC#: [id number] PT STATUS: DEP ER : 1950 PHYSICIAN: HOLGER YORK CHURCH SUPERVISOR ADMIT DATE: 11/19/20/ER Signed Date of Exam:11/19/20 ABDOMEN/KUB 1VIEW INDICATION: Burning urination. COMPARISON: None. FINDINGS: Single view of the abdomen demonstrates nondistended bowel gas pattern. No obvious kidney stones are seen. Degenerative changes are seen throughout the lumbar spine. No large pocket of free air. IMPRESSION: No bowel obstruction or abnormal calcifications. Dictated by: Dictated on workstation # [id number] Dict: 11/19/20 1444 Trans: 11/19/20 1619 [id number] Interpreted by: KORTNEY DORADO Electronically signed by: KORTNEY DORADO 11/19/20 1619 Reviewed: Reviewed by Me Departure Impression Primary Impression: Urinary tract infection Disposition: 01 HOME, SELF-CARE Condition: Improved Departure-Patient Inst. Decision time for Depature: 15:13 Referrals: [facility] (PCP) Primary Care Physician YU LANDON (Family) Primary Care Physician Patient Instructions: Urinary Tract Infection, Adult (DC) Add. Discharge Instructions: Plan: 1. Drink plenty of fluids. 2. Take antibiotics as directed and complete full course. 3. Follow up with your primary care provider next week to repeat UA. 4. May take Tylenol as needed for pain/fever per package. 5. Return for any new, concerning, or worsening symptoms. All discharge instructions reviewed with patient and/or family. Voiced understanding. Scripts Nitrofurantoin Macrocrystal (Nitrofurantoin) 100 Mg Capsule 100 MG PO BID for 7 Days, #14 CAP 0 Refills Prov: HOLGER YORK APRN 11/19/20 HOLGER YORK APRN Nov 19, 2020 12:33
[2020-11-19 13:07] LABS: BILIRUBIN,URINE NEGATIVE (NEGATIVE); CLARITY,URINE CLEAR; COLOR,URINE YELLOW; GLUCOSE, URINE (UA) NEGATIVE (NEGATIVE); KETONES,URINE NEGATIVE (NEGATIVE); LEUKOCYTE ESTERASE ,URINE TRACE (NEGATIVE); NITRITE,URINE NEGATIVE (NEGATIVE); PH,URINE 6.5 (5-9); PROTEIN,URINE 3+ (NEGATIVE)
[2020-11-19 13:37] LABS: BACTERIA,URINE MODERATE /HPF; RBC,URINE >100 /HPF
[2020-11-19 14:20] LABS: BASOPHILS % (AUTO) 0 % (0-10); EOSINOPHILS # (AUTO) 0.1 10^3/uL (0.0-0.3); EOSINOPHILS % (AUTO) 1 % (0-10); HEMATOCRIT 39 % (40-54); HEMOGLOBIN 12.6 g/dL (13.3-17.7); LYMPHOCYTES # (AUTO) 2.5 10^3/uL (1.0-4.0); LYMPHOCYTES % (AUTO) 27 % (12-44); MEAN CORPUSCULAR HEMOGLOBIN 28 pg (25-34); MEAN CORPUSCULAR HGB CONC 32 g/dL (32-36); MEAN CORPUSCULAR VOLUME 87 fL (80-99); MEAN PLATELET VOLUME 10.7 fL (9.0-12.2); MONOCYTES # (AUTO) 0.8 10^3/uL (0.0-1.0); MONOCYTES % (AUTO) 9 % (0-12); NEUTROPHILS # (AUTO) 5.9 10^3/uL (1.8-7.8); NEUTROPHILS % (AUTO) 63 % (42-75); PLATELET COUNT 171 10^3/uL (130-400); WHITE BLOOD COUNT 9.4 10^3/uL (4.3-11.0)
[2020-11-19 14:30] LABS: ALBUMIN 3.8 GM/DL (3.2-4.5); CHLORIDE 107 MMOL/L (98-107); POTASSIUM 3.9 MMOL/L (3.6-5.0); SODIUM 144 MMOL/L (135-145)
[2020-11-19 14:31] LABS: CALCIUM 9.6 MG/DL (8.5-10.1)
[2020-11-19 14:32] LABS: GLUCOSE 97 MG/DL (70-105); TOTAL PROTEIN 7.1 GM/DL (6.4-8.2)
[2020-11-19 14:33] LABS: CARBON DIOXIDE 25 MMOL/L (21-32)
[2020-11-19 14:34] LABS: BILIRUBIN,TOTAL 0.6 MG/DL (0.1-1.0)
[2020-11-19 14:35] LABS: ALKALINE PHOSPHATASE 77 U/L (40-136)
[2020-11-19 14:36] LABS: CREATININE SERUM 0.83 MG/DL (0.60-1.30); GFR ESTIMATED > 60
[2020-11-19 14:37] LABS: BUN/CREATININE RATIO 11
[2020-11-19 14:39] LABS: ALANINE AMINOTRANSFERASE 48 U/L (0-55)
--- NOTE | 2020-11-19 14:46 | Diagnostic Imaging Report ---
INDICATION: Burning urination. COMPARISON: None. FINDINGS: Single view of the abdomen demonstrates nondistended bowel gas pattern. No obvious kidney stones are seen. Degenerative changes are seen throughout the lumbar spine. No large pocket of free air. IMPRESSION: No bowel obstruction or abnormal calcifications. Dictated by: Dictated on workstation # [id number]
[2020-11-19] MEDS ORDERED: cefTRIAXone 1,000 MG VIAL IM ONE (15:15)
[2020-11-19] MEDS ORDERED: LIDOCAINE 1% INJ 20 ML 20 ML VIAL INJ ONE (15:15)
[2020-11-19] MEDS ORDERED: NITR100C PO (15:16)
[2020-11-19 15:59] VITALS: BP 150/89
== END 2020-11-19 15:59 | disposition home or self-care (01) ==
LOC: EDUNIT# 11:31 → ER 11:33
DX: N39.0 Urinary tract infection, site not specified (principal); G47.30 Sleep apnea, unspecified; I10 Essential (primary) hypertension; E78.00 Pure hypercholesterolemia, unspecified; K21.9 Gastro-esophageal reflux disease without esophagitis; N40.0 Benign prostatic hyperplasia without lower urinary tract symptoms; Z79.899 Other long term (current) drug therapy; Z79.01 Long term (current) use of anticoagulants
CPT/HCPCS: 36415; 74018; 80053; 81000; 85025; 87088

== ENCOUNTER 2020-12-04 16:57 | Emergency (ER) | payer MEDICARE ==
[~2020-12-04] VITALS: Ht 172.7 cm; Wt 150.0 kg
[~2020-12-04 16:57] MED LIST changes: +NITR100C PO
[2020-12-04 17:28] LABS: BILIRUBIN,URINE NEGATIVE (NEGATIVE); COLOR,URINE YELLOW; GLUCOSE, URINE (UA) NEGATIVE (NEGATIVE); KETONES,URINE NEGATIVE (NEGATIVE); LEUKOCYTE ESTERASE ,URINE NEGATIVE (NEGATIVE); NITRITE,URINE NEGATIVE (NEGATIVE); PH,URINE 6.5 (5-9); PROTEIN,URINE 3+ (NEGATIVE)
[2020-12-04 17:36] LABS: CLARITY,URINE SL CLOUDY
[2020-12-04 17:37] LABS: BACTERIA,URINE TRACE /HPF; RBC,URINE 50-100 /HPF; SQUAMOUS EPITHELIAL CELL,UR RARE /HPF
[2020-12-04] MEDS ORDERED: LIDOCAINE UROJET 2% GEL 10 ML PKG TOP ONE (18:00)
--- NOTE | 2020-12-04 18:02 | ED GU-Female ---
General Chief Complaint: - Urinary Stated Complaint: UTI Nursing Triage Note: Pt ambulatory into ER with complaint of dysuria, polyuria x2 days. Pt seen recently in ER for same symptoms and diagnosed with UTI. Source: patient Exam Limitations: no limitations (TROY MONTELONGO APRN) History of Present Illness Date Seen by Provider: Dec 04, 2020 Time Seen by Provider: 18:01 Initial Comments To ER with urinary frequency blood in the urine and pain in the tip of his penis for 2 days. Recently diagnosed with urinary tract infection on 11/19 and completed a course of Macrobid. Timing/Duration: just prior to arrival Severity/Quality: moderate Location: unknown Radiation: none Activities at Onset: none Prior Genitourinary Problems: none (TROY MONTELONGO APRN) Allergies and Home Medications Allergies Coded Allergies: No Known Drug Allergies (Unverified , 08/22/15) Home Medications Amlodipine Besylate 10 Mg Tablet, 10 MG PO DAILY, (Reported) Atorvastatin Calcium 80 Mg Tablet, 80 MG PO HS Prescribed by: MICAH RILEY on 04/25/19723 Clopidogrel Bisulfate 75 Mg Tablet, 75 MG PO DAILY Prescribed by: MICAH RILEY on 04/25/19723 Furosemide 20 Mg Tablet, 20 MG PO DAILY, (Reported) Glucosam/Chond/Hyalu/Cf Borate 1 Each Tablet, 1 EACH PO HS, (Reported) Ibuprofen 200 Mg Tablet, 400-600 MG PO BID, (Reported) Lisinopril 40 Mg Tablet, 40 MG PO DAILY, (Reported) Multivitamin 1 Each Tablet, 1 TAB PO BID, (Reported) Nitrofurantoin Macrocrystal 100 Mg Capsule, 100 MG PO BID Prescribed by: HOLGER YORK on 11/19/20 1516 Pantoprazole Sodium 40 Mg Tablet.dr, 40 MG PO DAILY Prescribed by: BLANCA FAITH on 03/21/19 1525 Phenazopyridine HCl 100 Mg Tablet, 100 MG PO TID PRN for PAIN-MODERATE (5-7) Prescribed by: TROY MONTELONGO on 12/04/20 1836 Potassium Chloride 10 Meq Capsule.er, 10 MEQ PO BID, (Reported) Ropinirole HCl 0.5 Mg Tablet, 0.5 MG PO HS, (Reported) Tamsulosin HCl 0.4 Mg Cap, 0.4 MG PO HS, (Reported) Patient Home Medication List Home Medication List Reviewed: Yes (TROY MONTELONGO APRN) Review of Systems Review of Systems Constitutional: see HPI EENTM: see HPI Respiratory: no symptoms reported Cardiovascular: no symptoms reported Genitourinary: see HPI Musculoskeletal: no symptoms reported Skin: no symptoms reported Psychiatric/Neurological: No Symptoms Reported Endocrine: No Symptoms Reported (TROY MONTELONGO APRN) Past Qmqtwiz-Gwxbzz-Spaukf Hx Patient Social History Tobacco Use?: No Use of E-Cig and/or Vaping dev: No Substance use?: No Alcohol Use?: No Pt feels they are or have been: No (TROY MONTELONGO APRN) Immunizations Up To Date Tetanus Booster (TDap): More than 5yrs PED Vaccines UTD: Yes Influenza Vaccine Up-to-Date: No; Not Current Second COVID19 Vaccination [place]: 08/30/20 COVID19 Vaccine 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: [employer] (TROY MONTELONGO APRN) Seasonal Allergies Seasonal Allergies: No (TROY MONTELONGO APRN) Past Medical History Surgeries: Yes (colostomy then reversal, L TKR, ) Abdominal, Orthopedic, Rectal Respiratory: Yes Sleep Apnea Currently Using CPAP: Yes Currently Using BIPAP: No Cardiac: Yes Chronic Edema/Swelling, High Cholesterol, Hypertension Neurological: No Genitourinary: Yes Benign Prostatic Hyperpl, Prostate Problems Gastrointestinal: Yes (Sections of Bowel Removed) Gastroesophageal Reflux, Polyps Musculoskeletal: Yes (Osteo Arthritis) Arthritis Endocrine: No HEENT: No Cancer: No Psychosocial: No Integumentary: No Blood Disorders: No (TROY MONTELONGO APRN) Family Medical History Arthritis 19 FATHER 19 MOTHER G8 BROTHER G8 BROTHER G8 BROTHER G8 BROTHER G8 SISTER G8 SISTER G8 SISTER G8 SISTER Asthma G8 SISTER Cardiovascular disease 19 FATHER G8 SISTER Colon cancer G8 BROTHER Deafness or hearing loss G8 BROTHER Diabetes mellitus 19 FATHER Gastroenteritis G8 BROTHER Hypercholesterolemia G8 SISTER Hypertension 19 FATHER 19 MOTHER G8 BROTHER G8 BROTHER G8 BROTHER G8 BROTHER G8 SISTER G8 SISTER G8 SISTER G8 SISTER Osteoporosis G8 SISTER Respiratory disorder G8 SISTER Seizure disorder G8 BROTHER Hypertension, Migraines (TROY MONTELONGO APRN) Physical Exam Vital Signs Vital Signs - First Documented 12/04/20 17:08 Temp 36.4 Pulse 98 Resp 28 B/P (MAP) 186/91 (122) Pulse Ox 97 O2 Delivery Room Air (CEDRICK MARINA MD) Vital Signs Capillary Refill : Less Than 3 Seconds (TROY MONTELONGO APRN) Height, Weight, BMI Height: 5'6.50" Weight: 305lbs. 0.8oz. [id number]; 50.00 BMI Method:Stated General Appearance: WD/WN, no apparent distress, obese Neck: non-tender, full range of motion Respiratory: no respiratory distress, no accessory muscle use Gastrointestinal: normal bowel sounds, non tender, soft Rectal: other (Complains of pain at the shaft of the penis just proximal to the glans. Penis is normal appearance nontender to palpation without lesion.) Extremities: normal range of motion, non-tender Neurologic/Psychiatric: alert, normal mood/affect, oriented x 3 Skin: normal color, warm/dry (TROY MONTELONGO APRN) Progress/Results/Core Measures Suspected Sepsis SIRS Temperature: Pulse: 98 Respiratory Rate: 28 Blood Pressure 186 /91 Mean: 122 (TROY MONTELONGO APRN) Results/Orders Lab Results Laboratory Tests Test 12/04/20 17:11 Range/Units Urine Color YELLOW Urine Clarity SL CLOUDY Urine pH 6.5 5-9 Urine Specific [place] >=1.030 1.016-1.022 Urine Protein 3+ H NEGATIVE Urine Glucose (UA) NEGATIVE NEGATIVE Urine Ketones NEGATIVE NEGATIVE Urine Nitrite NEGATIVE NEGATIVE Urine Bilirubin NEGATIVE NEGATIVE Urine Urobilinogen 0.2 < = 1.0 MG/DL Urine Leukocyte Esterase NEGATIVE NEGATIVE Urine RBC (Auto) 3+ H NEGATIVE Urine RBC 50-100 H /HPF Urine WBC 2-5 /HPF Urine Squamous Epithelial Cells RARE /HPF Urine Crystals NONE /LPF Urine Bacteria TRACE /HPF Urine Casts NONE /LPF Urine Mucus NEGATIVE /LPF Urine Culture Indicated NO (CEDRICK MARINA MD) Medications Given in ED Current Medications Medications Dose Ordered Sig/Tariq Route Start Time Stop Time Status Last Admin Dose Admin Lidocaine HCl 10 ml ONCE ONCE TOP 12/04/20 18:00 12/04/20 18:01 DC 12/04/20 18:25 10 ML Phenazopyridine HCl 100 mg ONCE ONCE PO 12/04/20 18:45 12/04/20 18:46 DC 12/04/20 18:46 100 MG (CEDRICK MARINA MD) Vital Signs/I&O 12/04/20 12/04/20 17:08 19:00 Temp 36.4 Pulse 98 67 Resp 28 24 B/P (MAP) 186/91 (122) 155/86 Pulse Ox 97 96 O2 Delivery Room Air Room Air (CEDRICK MARINA MD) Vital Signs/I&O Capillary Refill : Less Than 3 Seconds (TROY MONTELONGO APRN) Blood Pressure Mean: 122 Departure Communication (Admissions) NAME: GÉNESIS WELSH [facility] REC#: [id number] PT STATUS: REG ER : 1950 PHYSICIAN: TROY MONTELONGO APRN ADMIT DATE: 12/04/20/ER Draft Date of Exam:12/04/20 CT ABD/PELVIS WO(KIDNEY STONE) PROCEDURE: CT abdomen and pelvis without contrast. TECHNIQUE: Multiple contiguous axial images were obtained through the abdomen and pelvis without the use of intravenous contrast. Auto Exposure Controls were utilized during the CT exam to meet ALARA standards for radiation dose reduction. DATE: December 04, 2020. COMPARISON: None. INDICATION: 70-year-old male, dysuria and polyuria. FINDINGS: There are limitations for evaluation of the abdominal organs, neoplastic processes, abscess, and limited evaluation of the vasculature relating to the lack of intravenous contrast. There are mild linear opacities in left lower lobe consistent with atelectasis and/or mild scarring. The heart is not enlarged. There is no pericardial effusion. The liver is unremarkable in size and contour. The gallbladder is unremarkable. There is no intrahepatic or extrahepatic bile duct dilation. The main pancreatic duct is not abnormally dilated. Unremarkable appearance of the pancreatic parenchyma. The spleen is not enlarged. The adrenal glands are unremarkable. Limited noncontrast evaluation of the renal parenchyma is unremarkable. There is no identified renal or ureteral stone. There is abnormal urinary bladder wall thickening and prominent abnormal inflammatory stranding adjacent to the urinary bladder. There are sutures at the level of the distal sigmoid colon. There are sutures at the level of the distal transverse colon. The appendix is unremarkable and well seen on axial image 63 and adjacent sequential images. There is no free intraperitoneal air. There is no drainable fluid collection. There is no free pelvic fluid. There are atherosclerotic calcifications. There is a retroaortic left renal vein. There are multilevel degenerative changes of the spine. IMPRESSION: CT ABDOMEN AND PELVIS. 1. Prominent inflammatory stranding and abnormal wall thickening of the urinary bladder most likely relating to cystitis. Correlation with urinalysis may be of benefit. Urinary bladder wall thickening could also be seen with chronic outlet obstruction; however, the degree of adjacent inflammatory stranding is very prominent and abnormal. 2. No identified ureteral stone or hydronephrosis. Dictated on workstation # [id number] Dict: 12/04/20 1819 Trans: 12/04/20 1828 [facility] [id number] Interpreted by: JENNIFER GUEVARA MD Electronically signed by: (TROY MONTELONGO APRN) Impression Primary Impression: Cystitis Disposition: 01 HOME, SELF-CARE Condition: Stable Departure-Patient Inst. Decision time for Depature: 18:34 (TROY MONTELONGO APRN) Referrals: [facility] [place] (PCP) Primary Care Physician YU LANDON (Family) Primary Care Physician LAUREN BAKER MD Patient Instructions: Acute Cystitis (DC) Add. Discharge Instructions: Call Dr. Baker tomorrow to make an appointment to be seen as soon as he can see you. Take the medication as directed. This will turn your urine a very prominent orange color this is normal and should not be alarming. This will numb up the bladder so that you do not have discomfort. All discharge instructions reviewed with patient and/or family. Voiced understanding. Scripts Phenazopyridine HCl (Pyridium) 100 Mg Tablet 100 MG PO TID PRN for PAIN-MODERATE (5-7), #9 TAB Prov: TROY MONTELONGO APRN 12/04/20 ATTENDING PHYSICIAN NOTE: I was physically present as attending physician in the emergency department during the care of this patient, but I was not directly involved in the decision making or delivery of care for this patient. (CEDRICK MARINA MD) Copy Copies To 1: LAUREN BAKER MD, PETER J APRN Dec 04, 2020 18:02 CEDRICK MARINA MD Dec 04, 2020 19:13
--- NOTE | 2020-12-04 18:29 | Diagnostic Imaging Report ---
PROCEDURE: CT abdomen and pelvis without contrast. TECHNIQUE: Multiple contiguous axial images were obtained through the abdomen and pelvis without the use of intravenous contrast. Auto Exposure Controls were utilized during the CT exam to meet ALARA standards for radiation dose reduction. DATE: December 04, 2020. COMPARISON: None. INDICATION: 70-year-old male, dysuria and polyuria. FINDINGS: There are limitations for evaluation of the abdominal organs, neoplastic processes, abscess, and limited evaluation of the vasculature relating to the lack of intravenous contrast. There are mild linear opacities in left lower lobe consistent with atelectasis and/or mild scarring. The heart is not enlarged. There is no pericardial effusion. The liver is unremarkable in size and contour. The gallbladder is unremarkable. There is no intrahepatic or extrahepatic bile duct dilation. The main pancreatic duct is not abnormally dilated. Unremarkable appearance of the pancreatic parenchyma. The spleen is not enlarged. The adrenal glands are unremarkable. Limited noncontrast evaluation of the renal parenchyma is unremarkable. There is no identified renal or ureteral stone. There is abnormal urinary bladder wall thickening and prominent abnormal inflammatory stranding adjacent to the urinary bladder. There are sutures at the level of the distal sigmoid colon. There are sutures at the level of the distal transverse colon. The appendix is unremarkable and well seen on axial image 63 and adjacent sequential images. There is no free intraperitoneal air. There is no drainable fluid collection. There is no free pelvic fluid. There are atherosclerotic calcifications. There is a retroaortic left renal vein. There are multilevel degenerative changes of the spine. IMPRESSION: CT ABDOMEN AND PELVIS. 1. Prominent inflammatory stranding and abnormal wall thickening of the urinary bladder most likely relating to cystitis. Correlation with urinalysis may be of benefit. Urinary bladder wall thickening could also be seen with chronic outlet obstruction; however, the degree of adjacent inflammatory stranding is very prominent and abnormal. 2. No identified ureteral stone or hydronephrosis. Dictated by: Dictated on workstation # [id number]
[2020-12-04] MEDS ORDERED: PHEN-639 PO (18:36)
[2020-12-04] MEDS ORDERED: PHENAZOPYRIDINE 100 MG (PYRIDIUM) TABLET PO ONE (18:45)
[2020-12-04 19:00] VITALS: BP 155/86
== END 2020-12-04 18:47 | disposition home or self-care (01) ==
LOC: EDUNIT# 16:57 → ER 16:59
DX: N30.91 Cystitis, unspecified with hematuria (principal); I10 Essential (primary) hypertension; E78.00 Pure hypercholesterolemia, unspecified; K21.9 Gastro-esophageal reflux disease without esophagitis; Z86.010 Personal history of colon polyps; Z90.49 Acquired absence of other specified parts of digestive tract; Z79.02 Long term (current) use of antithrombotics/antiplatelets; Z79.899 Other long term (current) drug therapy
CPT/HCPCS: 74176; 81000

== ENCOUNTER → 2021-03-27 | Outpatient (CLI) | payer MEDICARE ==
[~2021-03-27] MED LIST changes: +PHEN-639 PO; +RT-ALBUTEROL SULF 2.5 MG/3 ML PRE-MIX VIAL INH ONE
== END ==
LOC: RT 09:15
PROVIDERS: ATTEND Nurse Practitioner Family
DX: R06.00 Dyspnea, unspecified (principal)
CPT/HCPCS: 94060; 94726; 94729